=== PATIENT | male | born 1955 | race Caucasian/White ===

== ENCOUNTER → 2021-07-12 10:28 | Outpatient (CLI) | payer MEDICARE, OTHER, SELFPAY ==
[2021-07-12 19:11] LABS: SARS-CoV-2 RNA PCR Positive
== END ==
PROVIDERS: PCP Physician Assistant; Visit Provider Physician Assistant
DX: U07.1 COVID-19 (principal)
CPT/HCPCS: C9803; U0003; U0005

== ENCOUNTER 2021-12-08 11:00 | Outpatient (RCR) | payer MEDICARE, OTHER, SELFPAY ==
[2021-12-08 11:14] VITALS: BMI 35.4
[2021-12-08 11:22] VITALS: BMI 35.4
== END 2022-01-19 13:45 | disposition home or self-care (01) ==
LOC: ANHDMC 11:00
PROVIDERS: PCP Physician Assistant; Visit Provider Internal Medicine Endocrinology, Diabetes & Metabolism
DX: E11.65 Type 2 diabetes mellitus with hyperglycemia (principal); Z71.89 Other specified counseling; Z71.3 Dietary counseling and surveillance
CPT/HCPCS: 97802; 99199; G0108

== ENCOUNTER 2024-04-01 12:17 | Outpatient (CLI) | payer MEDICARE, OTHER, SELFPAY ==
--- NOTE | ~2024-04-01 | US_ITS ---
Renal-Bladder ultrasound Clinical History: Abdominal pain Technique: Real-time sonographic imaging of the kidneys and urinary bladder was performed. Findings: The right kidney measures 11.7 cm in length and the left kidney measures 12.2 cm. There is no hydronephrosis or renal calculus identified. Renal cortical echogenicity is within normal limits. No renal mass lesion is identified. The urinary bladder is moderately distended at the time of this exam. No intraluminal echoes are iden tified. No abnormal wall thickening is seen. Impression: Unremarkable ultrasound of the kidneys and urinary bladder. Reviewed, dictated and finalized at location M. Impression: Unremarkable ultrasound of the kidneys and urinary bladder.
--- NOTE | ~2024-04-01 | XR_ITS ---
XR abdomen/kub 1V 04/01/2024 12:56 INDICATION: Abdomen pain TECHNIQUE: KUB COMPARISON: None FINDINGS: Bowel gas pattern is normal. There is no evidence of free air, mass, organomegaly, ascites or obstruction. No abnormal calculi are seen. The bones appear intact. There are cholecystectomy c lips. There are radiopaque devices beneath the pubic symphysis, likely related to penile prosthesis. IMPRESSION: 1: No acute abdominal abnormality identified. Reviewed, dictated and finalized at location B.
== END 2024-04-01 12:18 | disposition home or self-care (01) ==
LOC: ANHIMG 12:22
PROVIDERS: PCP Physician Assistant; Visit Provider Internal Medicine Endocrinology, Diabetes & Metabolism
DX: R10.9 Unspecified abdominal pain (principal)
CPT/HCPCS: 74018; 76775

== ENCOUNTER 2024-06-26 09:02 | Outpatient (CLI) | payer MEDICARE, OTHER, SELFPAY ==
--- NOTE | ~2024-06-26 | US_ITS ---
Limited Abdominal Sonogram: Real-time sonographic imaging of the right upper quadrant was performed. Clinical History: Family history of pancreatic cancer Findings: The liver appears echogenic, with no evidence of bile duct dilatation. Probable focal fatt y sparing or cyst near the gallbladder fossa. Main portal vein demonstrates normal direction of flow. The gallbladder is absent, compatible prior cholecystectomy. The common bile duct measures 4 mm. Th e visualized pancreas, aorta, and IVC are unremarkable. Impression: Diffuse fatty infiltration of the liver. Probable focal fatty sparing versus small cyst near the gall bladder fossa. Reviewed, dictated and finalized at location M. TER PLUMBING Impression: Diffuse fatty infiltration of the liver. Probable focal fatty sparing versus sm all cyst near the gallbladder fossa.
== END 2024-06-26 09:03 | disposition home or self-care (01) ==
LOC: MICIMG 09:04
PROVIDERS: PCP Physician Assistant; Visit Provider Physician Assistant
DX: K76.0 Fatty (change of) liver, not elsewhere classified (principal); Z80.0 Family history of malignant neoplasm of digestive organs
CPT/HCPCS: 76705

== ENCOUNTER 2024-09-17 10:12 | Outpatient (CLI) | payer MEDICARE, OTHER, SELFPAY ==
--- NOTE | ~2024-09-17 | CT_ITS ---
CT of the Abdomen: Indication: Disorder adrenal gland Technique: 2.5 mm axial scans were obtained through the abdomen prior to and following intravenous a dministration of 100 cc of Omnipaque 350. Dose reduction technique was used on this scan by utilizing automated exposure control and iterative reconstruction technique. The dose-length product (DLP) was 2401.66 mGy-cm. Findings: Scans through the lung bases are unremarkable. There is diffuse hepatic steatosis. Cholecystectomy clips are present. The spleen, pancreas, adrenals and kidneys are within normal limits. There are atherosclerotic calcifications of the aorta. Infrare nal abdominal aorta measures 3.1 cm in maximum diameter. No lymphadenopathy. Visualized bowel loops are unremarkable. No ascites. Impression: No adrenal abnormality seen. 3.1 cm infrarenal abdominal aortic aneurysm. Diffuse hepatic steatosis. Reviewed, dictated and finalized at [facility]. 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 3.1 cm infrarenal abdominal aortic aneurysm. Diffuse hepatic steatosis.
[2024-09-17 10:36] LABS: Estimated Glomerular Filt Rate 55
== END 2024-09-17 10:13 | disposition home or self-care (01) ==
LOC: MICIMG 10:14
PROVIDERS: PCP Physician Assistant; Visit Provider Internal Medicine Endocrinology, Diabetes & Metabolism
DX: I71.43 Infrarenal abdominal aortic aneurysm, without rupture (principal); K76.0 Fatty (change of) liver, not elsewhere classified; E27.9 Disorder of adrenal gland, unspecified
CPT/HCPCS: 74170; Q9967

== ENCOUNTER 2024-11-26 10:55 | Outpatient (CLI) | payer MEDICARE, OTHER, SELFPAY ==
--- NOTE | 2024-11-26 12:00 | NEURO_ITS ---
Impression: # Complains of numbness of feet. Known diabetic. ? # Axonal motor/sensory neuropathy. ? # Needle/EMG exam reveals neurogenic changes. ? # Clinical correlation recommended. Nerve Conduction Studies Anti Sensory Summary Table ?Stim Site NR Peak (ms) P-T Amp (?V) Site1 Site2 Delta-P (ms) Dist (cm) Malik (m/s) Left Sup Fibular Anti Sensory (Ant Lat Mall)??? NO RESPONSE 14 cm NR 14 cm Ant Lat Mall 16.0 Right Sup Fibular Anti Sensory (Ant Lat Mall) 14 cm ? 3.6 4.9 14 cm Ant Lat Mall 3.6 16.0 44 Left Sural Anti Sensory (Lat Mall)??? NO RESPONSE Calf NR Calf Lat Mall 16.0 Right Sural Anti Sensory (Lat Mall) Calf ? 3.6 9.1 Calf Lat Mall 3.6 16.0 44 Motor Summary Table ?Stim Site NR Onset (ms) O-P Amp (mV) Site1 Site2 Delta-0 (ms) Dist (cm) Malik (m/s) Left Peroneal Motor (Vastus Med) Ankle ? 4.1 1.5 Popit Ankle 10.4 42.0 40 Popit ? 14.5 1.2 Right Peroneal Motor (Vastus Med) Ankle ? 3.8 1.6 Popit Ankle 9.7 42.0 43 Popit ? 13.5 1.8 Left Tibial Motor (Abd Cerrato Brev) Ankle ? 4.5 1.4 Knee Ankle 10.2 43.0 42 Knee ? 14.7 1.2 Right Tibial Motor (Abd Cerrato Brev) Ankle ? 4.6 2.6 Knee Ankle 10.6 43.0 41 Knee ? 15.2 2.6 F Wave Studies ?NR F-Lat (ms) L-R F-Lat (ms) Left Peroneal (Mrkrs) (EDB) ? 58.62 1.92 Right Peroneal (Mrkrs) (EDB) ? 56.70 1.92 Left Tibial (Mrkrs) (Abd Hallucis) ? 57.75 0.69 Right Tibial (Mrkrs) (Abd Hallucis) ? 58.44 0.69 EMG ?Side Muscle Nerve Root Ins Act Fibs Amp Dur Recrt Comment Right AntTibialis Dp Br Fibular L4-5 Nml Nml Nml >12ms +1 Right Gastroc Tibial S1-2 Nml Nml Nml >12ms +1 Right Fibularis Long Sup Br Fibular L5-S1 Nml Nml Nml >12ms +1 Right Flex Dig Long Tibial L5-S2 Nml Nml Nml >12ms +1 Right Ext Dig Brev Dp Br Fibular L5, S1 Nml Nml Nml >12ms +2 Right QuadratusFem QuadFemoris L4-5, S1 Nml Nml Nml Nml Nml Left AntTibialis Dp Br Fibular L4-5 Nml Nml Nml >12ms +1 Left Gastroc Tibial S1-2 Nml Nml Nml >12ms +1 Left Fibularis Long Sup Br Fibular L5-S1 Nml Nml Nml >12ms +1 Left Flex Dig Long Tibial L5-S2 Nml Nml Nml >12ms +1 Left Ext Dig Brev Dp Br Fibular L5, S1 Nml Nml Nml >12ms +2 Left QuadratusFem QuadFemoris L4-5, S1 Nml Nml Nml Nml Nml MTDD
--- OUTSIDE RECORDS SUMMARY | 2024-11-26 12:41 | XMS_ITS | Encounter Summary ---
Author Organization [facility] Address [address] [place] [address] Phone Care Team Providers Care Vault Installer Name Role Phone Sri Camargo Primary Care Pr ovider Herbert Forrest MD Unavailable [phone] Cynthia Grande RN Unavailable Unavailable Eduarda Ford MD Unavailable Encounter Details Date Type Department Care Team (Latest Contact Info) Description 05/06/2020 Orders Only [facility] Scanning, Provider Social History Tobacco Use Types Packs/Day Years Used Date Smoking Tobacco: Former Smokeless Tobacco: Never Alcohol Use Standard Drinks/Week Comments Yes 0 (1 standard drink = 0.6 oz pur e alcohol) Sex and Gender Information Value Date Recorded Sex Assigned at Not on file Legal Sex Male 3:10 AM FRAME STRIPPER Gender Identity Male 04/20/2021 11:20 AM CDT Sexual Orientation Straight 12/04/2018 5: 46 PM CDT documented as of this encounter Plan of Treatment Not on file documented as of this encounter Procedures Procedure Name Priority Date/Time Associated Diagnosis Comments SCAN - LABS 05/06/2020 documented in this encounter Results * SCAN - LABS (05/06/2020) us Provider Scanning Final Result documented in this encounter Visit Diagnoses Not on filedocumented in this encounter Care Teams Vault Installer Relationship Specialty Start Date End Date Sri Camargo PA PCP - General Physician Carbon Cleaner 04/19/18 Herbert Forrest MD [address] [place] [address] Referring Physician Pulmonary Disease 10/16/18 Cynthia Grande, RN Registered Nurse 03/19/19 Eduarda Ford MD Consulting Physician Urology 04/10/20 documented as of this encounter
--- OUTSIDE RECORDS SUMMARY | 2024-11-26 12:41 | XMS_ITS | Data Portability ---
Author Organization [facility] Address [address] [place] [address] Care Team Providers Care Lining Finisher Name Role Phone GEORGE AU Primary Care Provider GEORGE AU Referring Provider HALINA SCHAEFER Orthopedic Surgeon [phone] Assessment No assessment recorded. Plan of Treatment Reminders Order Date Submit Date Provider Last Modified By Organization Details Last Modified Time Details Appointments None record ed. Lab None record ed. Referral None record ed. Procedures None record ed. Surgeries None record ed. Imaging None record ed. Medication Orders None record ed. Patient TargetsNo targets recorded. Patient InstructionsNo instructions recorded. Reason for Referral None Reported. Results Created Date Observation Date Name Description Value Unit Range Abnormal Flag Note LastModifiedBy Organization Detail LastModifiedTime 03/29/20 24 03/28/2024 XR, hand, 3 or more view No observ ation record ed. [address], [address], 04/01/2024 10:36:06 Result Notes None recorded. Problems Name Problem SNOMED Code Status Onset Date Resolution Date Notes Provider Name and Address Organization Details Recorded Time Diabetes mellitus 48397859 Active 2023 Tammy martin [facility] 4 16:34:56 Hypertrigly ceridemia 400889020 Active 2023 Tammy martin, [facility] 4 16:35:07 Mixed hyperlipide maddie 950913629 Active 2023 Tammy martin, [facility] 08/09/202 4 16:35:16 Hyperlipide maddie 46788773 Active 2023 Tammy Freemandisha null, [facility] 16:35:25 Obstructive sleep apnea syndrome 67048072 Active 2023 Tammy Yusufalyx null, [facility] 16:35:42 Hypertensiv e disorder 47969327 Active 2023 Tammy Hanaylx null, [facility] 16:35:50 Coronary arterioscle rosis 93511735 Active 2023 Tammymaverick Freemandisha null, [facility] 16:36:01 Deep venous thrombosis 866549271 Active 2023 Tammy Yusufalyx null, [facility] 16:36:11 Malignant tumor of lung 678809268 Active 2023 Tammyniharika Yusufalyx null, [facility] 16:36:33 Coronary artery bypass graft Active 2023 Tammy Freemandisha null, [facility] 16:37:08 Pain in right hand 5539552871539 09 Active 2023 Tammy Freemandisha null, [facility] 4 11:33:00 Acquired trigger finger of right ring finger 8843689453434 08 Active 2023 Halina Schaefer MD [address] [place], [address] [place] [address] 4 12:01:11 Problem Notes None recorded. Procedures Surgical History Date Name Laterality Status Provider Name and Address Organization Details Recorded Time Bypass completed Tammy Chavez [facility] 03/15/2024 16:39:03 Colonoscopy completed Tammy Chavez [facility] 03/15/2024 16:39:12 lobectomy of lung completed Tammy Chavez [facility] 03/15/2024 16:39:27 Imaging Results Imaging Date Name Status LastModified by Organiz ation Details LastModified Time 03/28/2024 XR, hand, 3 or more view completed [address], [address], 04/01/2024 10:36:06 Procedure Notes None recorded. Medical Equipment None Reported. Allergies No known drug allergies Medications Name Sig Start Date Stop Date Status Note LastModified by Organization Details LastModified Time warfarin 10 mg tablet TAKE 1 TABLET BY MOUTH DAILY OR DIRECTED active Not Available Not Available No t Available prednisone 20 mg tablet TAKE 1 TABLET BY MOUTH DAILY FOR 4 DAYS active Not Available Not Available No t Available metoprolol succinate ER 100 mg tablet,exte nded release 24 hr active Not Available Not Available Not Available metronidazo le 500 mg tablet TAKE 1 TABLET BY MOUTH EVERY 8 HOURS active Not Available Not Available No t Available glimepiride 2 mg tablet TAKE 2 TABLETS BY MOUTH TWICE DAILY WITH MEALS 03/15 completed Not Available Not Available Not Available isosorbide mononitrate ER 120 mg tablet,exte nded release 24 hr active Not Available Not Available Not Available alprazolam 0.25 mg tablet TAKE 1-2 TABLETS BY MOUTH 30 MINUTES PRIOR TO INJECTION active Not Available Not Available No t Available dexamethaso ne 1 mg tablet TAKE 1 TABLET BY MOUTH AT 10PM THE NIGHT BEFORE 8AM CORTISOL active Not Available Not Available No t Available amlodipine 10 mg tablet active Not Available Not Available Not Available triamcinolo ne acetonide 0.1 % topical ointment APPLY TO THE AFFECTED AREA ON HAND TWICE DAILY NEEDED active Not Available Not Available No t Available glimepiride 4 mg tablet TAKE 1 TABLET BY MOUTH TWICE DAILY DIRECTED active Not Available Not Available No t Available losartan 25 mg tablet TAKE 1 TABLET BY MOUTH EVERY DAY IN THE MORNING FOR 90 DAYS active Not Available Not Available No t Available nitroglycer in 0.[address] 1 TABLET UNDER TONGUE EVERY 5 MINUTES NEEDED FOR CHEST PAIN active Not Available Not Available No t Available enoxaparin 150 mg/mL subcutaneou s syringe INJECT 1ML (150MG) SUBCUTANE OUSLY ONCE DAILY. START AND STOP DIRECTED BY PROVIDER BASED ON PROCEDURE S active Not Available Not Available No t Available warfarin 1 mg tablet TAKE 3 TABLETS BY MOUTH EVERY DAY ALONG WITH ONE 10MG TABLET TO EQUAL 13MG PER DAY BASED ON INR active Not Available Not Available No t Available epinephrine 0.3 mg/0.3 mL injection, auto-inject or USE DIRECTED NEEDED active Not Available Not Available No t Available methylpredn isolone 4 mg tablets in a dose pack FOLLOW PACKAGE DIRECTION S active Not Available Not Available No t Available ketoconazol e 2 % topical cream APPLY TOPICALLY TO FEET TWICE DAILY FOR 3 WEEKS NEEDED active Not Available Not Available No t Available metformin ER 500 mg tablet,exte nded release 24 hr TAKE 2 TABLETS BY MOUTH TWICE DAILY active Not Available Not Available No t Available amoxicillin 875 mg-potassiu m clavulanate 125 mg tablet TAKE 1 TABLET BY MOUTH EVERY 12 HOURS 03/15 completed Not Available Not Available Not Available ezetimibe 10 mg tablet TAKE 1 TABLET BY MOUTH ONCE DAILY active Not Available Not Available No t Available cyclobenzap rine 5 mg tablet TAKE 1 TABLET BY MOUTH THREE TIMES DAILY active Not Available Not Available No t Available fenofibrate 160 mg tablet TAKE 1 TABLET BY MOUTH EVERY DAY active Not Available Not Available No t Available OneTouch Verio test strips USE TO TEST EVERY DAY DIRECTED active Not Available Not Available No t Available BD Insulin Syringe Ultra-Fine 1 mL 31 gauge x 5/16 USE DIRECTED FOR ALLERGY INJECTION S 6 TIMES A WEEK active Not Available Not Available No t Available Trulicity 1.5 mg/0.5 mL subcutaneou s pen injector INJECT 1.5MG SUBCUTANE OUSLY ONCE WEEKLY active Not Available Not Available No t Available OneTouch Delica Plus Lancet 33 gauge USE EVERY DAY DIRECTED active Not Available Not Available No t Available OneTouch Delica Plus Lancet 30 gauge USE TO CHECK BLOOD SUGAR EVERY DAY active Not Available Not Available No t Available OneTouch Verio Reflect Meter DIRECTED active Not Available Not Available No t Available Trulicity 3 mg/0.5 mL subcutaneou s pen injector INJECT 1 PEN UNDER THE SKIN ONCE WEEKLY AT DINNER TIME DIRECTED active Not Available Not Available No t Available Ozempic 0.25 mg or 0.5 mg (2 mg/3 mL) subcutaneou s pen injector INJECT 0.5MG UNDER THE SKIN EVERY WEEK DIRECTED active Not Available Not Available No t Available Vitals Date Recorded Body weight Body mass index (BMI) Body height Heart rate Oxygen saturation Oxygen saturation in Arterial blood by Pulse oximetry Systolic blood pressure Diastolic blood pressure Provider Name and Address Organization Details Last Updated DateTime 4 550319. 13 g 35.2 kg/m2 177.8 cm 67 /min 95 % 95 % 154 mm[Hg] 80 mm[Hg] Tammy Chavez [facility] 4 11:30:59 Date Recorded Body height Body mass index (BMI) Body weight Heart rate Oxygen saturation Oxygen saturation in Arterial blood by Pulse oximetry Systolic blood pressure Diastolic blood pressure Provider Name and Address Organization Details Last Updated DateTime 4 177.8 cm 35 kg/m2 132332. 54 g 61 /min 96 % 96 % 148 mm[Hg] 73 mm[Hg] Tammy Chavez [facility] 4 11:08:32 Social History Question Answer Notes LastModified by Organizat ion Details LastModified Time Tobacco Smoking Status Former Smoker Tammy Chavez [facility] 03/15/2024 16:38:43 When Did You Quit Smoking? 6-10yearssin celastcigare tte Information not available 03/15/2024 What Was The Date Of Your Most Recent Tobacco Screening? 07/11/2024 Information not available 06/14/2024 What Is Your Current Pack Years? 30ormorepack years Information not available 03/15/2024 At What Age Did You Start Smoking Tobacco? 16 Information not available 03/15/2024 How Much Tobacco Do You Smoke? No Information not available 03/15/2024 Has Tobacco Cessation Counseling Been Provided? No Information not available 06/14/2024 How Many Years Have You Smoked Tobacco? 30 Information not available 03/15/2024 Do You Or Have You Ever Used Any Other Forms Of Tobacco Or Nicotine? No Information not available 03/15/2024 Sex: Unknown Functional Status None recorded. Mental Status None recorded. Family History Nothing Reported. Medical History Condition Response DVT Y CANCER: SPECIFY Y DIABETES, TYPE Y LUNG DISEASE/DISORDER SLEEP DISORDER Y HYPERTENSION Y HIGH CHOLESTEROL / HYPERLIPIDEMIA Y Past Encounters Encounter ID Performer Location Encounter Start Date Encounter Closed Date Diagnosis/Indication Diagnosis SNOMED-CT Code Diagnosis ICD10 Code Diagnosis Note [id number] Halina Schaefer MD [facility] [address] [place] [address] 03/28/2024 11:23:39 03/28/2024 12:07:51 Ex-cigarette smoker 290285606 Z87.891 Body mass index 30+ - obesity 667017020 Z68.35 Acquired t damper fitter finger of right ring finger 2511968340 47830 M65.341 we will set the patient to do a MAC local. Patient has stent 10 years ago he was seen by cardiology and was doing fine as last visit. Patient had lung cancer in the past does not use any oxygen and was years ago since his long surgery should be fine for MAC local. [id number] Halina Schaefer MD [facility] [address] [place] [address] 05/09/2024 10:51:11 05/09/2024 11:27:27 Acquired trigger finger of right ring finger 2995665061 06397 M65.341 remove sutures work on nerve and tendon glides and we will see him back again for follow-up in a few months. Ex-cigarette smoker 2810 [address] Z87.891 Body mass index 30+ - obesity 723693017 Z68.35 Health Concerns Section Related Observation LastModified by Organization Detai ls LastModified Time None Recorded Concern Status LastModified by Organization Details LastModified Time None Recorded Advance Directives Directive None Recorded Payers Encounter Date Sequence Insurance Name Policy Number Policy Perkins Covered Member ID Perkins Member ID Guarantor Name 03/28/2024 1 [place] Brayan Holt [id number] 5 Brayan Holt 05/09/2024 1 [place] Brayan Holt [id number] 5 Brayan Holt 05/09/2024 2 [facility] (MEDICARE SUPPLEMENT) Brayan Holt [id number] Brayan Holt Notes Date Note Type Note Provider Name and Address Organization Details Recorded Time 03/28/2024 text/html Patient has fail ed conservative treatment for right ring trigger finger he did well with surgery for the right long finger wants to proceed with surgery having failed the injections Halina Schaefer MD [address] [place], [address], [facility] 03/28/2024 12:02:07 05/09/2024 text/html patient is doing very well after the right ring trigger finger release comes in today for follow-up no further triggering of any thumbs or fingers Halina Schaefer MD [address] [place], [address], [facility] 05/09/2024 11:23:58
--- OUTSIDE RECORDS SUMMARY | 2024-11-26 12:41 | XMS_ITS | Encounter Summary ---
Author Organization [facility] Address [address] [place] [address] Phone Care Team Providers Care Hair Boiler Name Role Phone CarlineadriánSri Primary Care Pr ovider Herbert Forrest MD Unavailable [phone] Cynthia Grande RN Unavailable Unavailable Eduarda Ford MD Unavailable [phone] Encounter Details Date Type Department Care Team (Latest Contact Info) Description 11/13/2021 Orders Only [facility] Scanning, Provider Social History Tobacco Use Types Packs/Day Years Used Date Smoking Tobacco: Former Cigarettes 1.5 44.7 1 972 - 04/2016 Smokeless Tobacco: Never Alcohol Use Standard Drinks/Week Comments Yes 0 (1 standard drink = 0.6 oz pur e alcohol) AUDIT-C Answer Date Recorded Q1: How often do you have a drink containing alc ohol? 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 Gender Identity Male 04/20/2021 11:20 AM CDT Sexual Orientation Straight 12/04/2018 5: 46 PM CDT documented as of this encounter Plan of Treatment Not on file documented as of this encounter Procedures Procedure Name Priority Date/Time Associated Diagnosis Comments SCAN - LABS 11/13/2021 documented in this encounter Results * SCAN - LABS (11/13/2021) us Provider Scanning Final Result documented in this encounter Visit Diagnoses Not on filedocumented in this encounter Care Teams Hair Boiler Relationship Specialty Start Date End Date CarlineSri sampson ROBBIN Rodríguez PCP - General Physician Briar Shop Supervisor 04/19/18 Herbert Forrest MD [address] [place] [address] Referring Physician Pulmonary Disease 10/16/18 Cynthia Grande, RN Registered Nurse 03/19/19 Eduarda Ford MD Consulting Physician Urology 04/10/20 documented as of this encounter
--- OUTSIDE RECORDS SUMMARY | 2024-11-26 12:41 | XMS_ITS | Encounter Summary ---
Author Organization [facility] Address [address] [place] [address] Phone Care Team Providers Care System Support Developer Name Role Phone Sri Camargo Primary Care Pr ovider Herbert Forrest MD Unavailable [phone] Cynthia Grande RN Unavailable Unavailable Eduarda Ford MD Unavailable [phone] Encounter Details Date Type Department Care Team (Latest Contact Info) Description 07/06/2020 Orders Only [facility] Scanning, Provider Social History Tobacco Use Types Packs/Day Years Used Date Smoking Tobacco: Former Smokeless Tobacco: Never Alcohol Use Standard Drinks/Week Comments Yes 0 (1 standard drink = 0.6 oz pur e alcohol) Sex and Gender Information Value Date Recorded Sex Assigned at Not on file Legal Sex Male 3:10 AM CLIENT EXPERIENCE MANAGER Gender Identity Male 04/20/2021 11:20 AM CDT Sexual Orientation Straight 12/04/2018 5: 46 PM CDT documented as of this encounter Plan of Treatment Not on file documented as of this encounter Procedures Procedure Name Priority Date/Time Associated Diagnosis Comments SCAN - LABS 07/06/2020 documented in this encounter Results * SCAN - LABS (07/06/2020) us Provider Scanning Final Result documented in this encounter Visit Diagnoses Not on filedocumented in this encounter Care Teams System Support Developer Relationship Specialty Start Date End Date Sri Camargo PA PCP - General Physician Video Clerk 04/19/18 Herbert Forrest MD [address] [place] [address] Referring Physician Pulmonary Disease 10/16/18 Cynthia Grande, RN Registered Nurse 03/19/19 Eduarda Ford MD Consulting Physician Urology 04/10/20 documented as of this encounter
--- OUTSIDE RECORDS SUMMARY | 2024-11-26 12:41 | XMS_ITS | Encounter Summary ---
Author Organization [facility] Address [address] [place] [address] Phone Care Team Providers Care Shear Grinder Operator Helper Name Role Phone Sri Camargo Primary Care Pr ovider Herbert Forrest MD Unavailable [phone] Cynthia Grande RN Unavailable Unavailable Eduarda Ford MD Unavailable [phone] Encounter Details Date Type Department Care Team (Latest Contact Info) Description 08/31/2020 Orders Only [facility] Scanning, Provider Social History Tobacco Use Types Packs/Day Years Used Date Smoking Tobacco: Former Smokeless Tobacco: Never Alcohol Use Standard Drinks/Week Comments Yes 0 (1 standard drink = 0.6 oz pur e alcohol) Sex and Gender Information Value Date Recorded Sex Assigned at Not on file Legal Sex Male 3:10 AM COMMUNICATION ASSISTANT Gender Identity Male 04/20/2021 11:20 AM CDT Sexual Orientation Straight 12/04/2018 5: 46 PM CDT documented as of this encounter Plan of Treatment Not on file documented as of this encounter Procedures Procedure Name Priority Date/Time Associated Diagnosis Comments SCAN - LABS 08/31/2020 documented in this encounter Results * SCAN - LABS (08/31/2020) us Provider Scanning Final Result documented in this encounter Visit Diagnoses Not on filedocumented in this encounter Care Teams Shear Grinder Operator Helper Relationship Specialty Start Date End Date Sri Camargo PA PCP - General Physician Director Of Casework Department 04/19/18 Herbert Forrest MD [address] [place] [address] Referring Physician Pulmonary Disease 10/16/18 Cynthia Grande, RN Registered Nurse 03/19/19 Eduarda Ford MD Consulting Physician Urology 04/10/20 documented as of this encounter
--- OUTSIDE RECORDS SUMMARY | 2024-11-26 12:41 | XMS_ITS | Encounter Summary ---
Author Organization [facility] Address [address] [place] [address] Phone Care Team Providers Care Instructional Systems Designer Name Role Phone Sri Camargo Primary Care Pr ovider Herbert Forrest MD Unavailable [phone] Cynthia Grande RN Unavailable Unavailable Eduarda Ford MD Unavailable [phone] Encounter Details Date Type Department Care Team (Latest Contact Info) Description 04/30/2020 Orders Only [facility] Scanning, Provider Social History Tobacco Use Types Packs/Day Years Used Date Smoking Tobacco: Former Smokeless Tobacco: Never Alcohol Use Standard Drinks/Week Comments Yes 0 (1 standard drink = 0.6 oz pur e alcohol) Sex and Gender Information Value Date Recorded Sex Assigned at Not on file Legal Sex Male 3:10 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 Gender Identity Male 04/20/2021 11:20 AM CDT Sexual Orientation Straight 12/04/2018 5: 46 PM CDT documented as of this encounter Plan of Treatment Not on file documented as of this encounter Procedures Procedure Name Priority Date/Time Associated Diagnosis Comments SCAN - LABS 04/30/2020 documented in this encounter Results * SCAN - LABS (04/30/2020) us Provider Scanning Final Result documented in this encounter Visit Diagnoses Not on filedocumented in this encounter Care Teams Instructional Systems Designer Relationship Specialty Start Date End Date Sri Camargo PA PCP - General Physician Mail Clerk 04/19/18 Herbert Forrest MD [address] [place] [address] Referring Physician Pulmonary Disease 10/16/18 Cynthia Grande, RN Registered Nurse 03/19/19 Eduarda Ford MD Consulting Physician Urology 04/10/20 documented as of this encounter
--- OUTSIDE RECORDS SUMMARY | 2024-11-26 12:41 | XMS_ITS | Encounter Summary ---
Author Organization [facility] Address [address] [place] [address] Phone Care Team Providers Care Convolute Tube Winder Name Role Phone Sri Camargo Primary Care Pr ovider Herbert Forrest MD Unavailable [phone] Cynthia Grande RN Unavailable Unavailable Eduarda Ford MD Unavailable [phone] Encounter Details Date Type Department Care Team (Latest Contact Info) Description 08/17/2020 Orders Only [facility] Scanning, Provider Social History Tobacco Use Types Packs/Day Years Used Date Smoking Tobacco: Former Smokeless Tobacco: Never Alcohol Use Standard Drinks/Week Comments Yes 0 (1 standard drink = 0.6 oz pur e alcohol) Sex and Gender Information Value Date Recorded Sex Assigned at Not on file 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 Gender Identity Male 04/20/2021 11:20 AM CDT Sexual Orientation Straight 12/04/2018 5: 46 PM CDT documented as of this encounter Plan of Treatment Not on file documented as of this encounter Procedures Procedure Name Priority Date/Time Associated Diagnosis Comments SCAN - LABS 08/17/2020 documented in this encounter Results * SCAN - LABS (08/17/2020) us Provider Scanning Final Result documented in this encounter Visit Diagnoses Not on filedocumented in this encounter Care Teams Convolute Tube Winder Relationship Specialty Start Date End Date Sri Camargo PA PCP - General Physician Broiler Supervisor 04/19/18 Herbert Forrest MD [address] [place] [address] Referring Physician Pulmonary Disease 10/16/18 Cynthia Grande, RN Registered Nurse 03/19/19 Eduarda Ford MD Consulting Physician Urology 04/10/20 documented as of this encounter
--- OUTSIDE RECORDS SUMMARY | 2024-11-26 12:41 | XMS_ITS | Clinical Summary ---
Author Organization [facility] Address [address] [place] [address] [facility] [place] [address] Care Team Providers Care Director Of Marketing And Promotions Name Role Phone Unavailable Primary Care Provider Unavailabl e Allergies No known active allergies Medications dulaglutide (Trulicity) 3 mg/0.5 mL injection INJECT 3 MG UNDER THE SKIN ONCE WEEKLY. 2 mL 11 01/31/2024 5:27 PM CDT 11/13/2023 Active Social History Tobacco Use Types Packs/Day Years Used Date Smoking Tobacco: Never Assessed Sex and Gender Information Value Date Recorded Sex Assigned at Not on file Legal Sex Male 12:54 PM CDT Gender Identity Not on file Sexual Orientation Not on file Plan of Treatment Health Maintenance Due Date Last Done Comments DTAP/TDAP/TD VACCINES (1 - Tdap) 1975 COLORECTAL SCREENING 2001 Colorectal Cancer Screening 2001 FIT-DNA Q 3 years 2001 FIT/FOBT Q 1 year 2001 Flex Sig/CT Colonography Q 5 years 2001 PNEUMOCOCCAL VACCINE 50+ YEARS (1 of 1 - PCV) 05/05/20 06 ZOSTER VACCINE (1 of 2) 2006 INFLUENZA VACCINE (#1) 2024 RSV VACCINE (60+ or ) (1 - 1-dose 75+ series) 2031 Insurance [employer] Medicare Part D
--- OUTSIDE RECORDS SUMMARY | 2024-11-26 12:41 | XMS_ITS | Encounter Summary ---
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 Gender Identity Male 04/20/2021 11:20 AM CDT Sexual Orientation Straight 12/04/2018 5: 46 PM CDT documented as of this encounter Plan of Treatment Not on file documented as of this encounter Procedures Procedure Name Priority Date/Time Associated Diagnosis Comments SCAN - LABS 11/27/2021 documented in this encounter Results * SCAN - LABS (11/27/2021) us Provider Scanning Final Result documented in this encounter Visit Diagnoses Not on filedocumented in this encounter Care Teams Baggagemaster Relationship Specialty Start Date End Date CarlineSri sampson ROBBIN Rodríguez PCP - General Physician Door Patcher 04/19/18 Herbert Forrest MD [address] [place] [address] Referring Physician Pulmonary Disease 10/16/18 Cynthia Grande, RN Registered Nurse 03/19/19 Eduarda Ford MD Consulting Physician Urology 04/10/20 documented as of this encounter
--- OUTSIDE RECORDS SUMMARY | 2024-11-26 12:41 | XMS_ITS | Encounter Summary ---
Author Organization [facility] Address [address] [place] [address] Phone Care Team Providers Care Mixer Pigment Name Role Phone Sri Camargo Primary Care Pr ovider Herbert Forrest MD Unavailable [phone] Cynthia Grande RN Unavailable Unavailable Eduarda Ford MD Unavailable [phone] Encounter Details Date Type Department Care Team (Latest Contact Info) Description 06/10/2020 Orders Only [facility] Scanning, Provider Social History Tobacco Use Types Packs/Day Years Used Date Smoking Tobacco: Former Smokeless Tobacco: Never Alcohol Use Standard Drinks/Week Comments Yes 0 (1 standard drink = 0.6 oz pur e alcohol) Sex and Gender Information Value Date Recorded Sex Assigned at Not on file Legal Sex Male 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 Gender Identity Male 04/20/2021 11:20 AM CDT Sexual Orientation Straight 12/04/2018 5: 46 PM CDT documented as of this encounter Plan of Treatment Not on file documented as of this encounter Procedures Procedure Name Priority Date/Time Associated Diagnosis Comments SCAN - LABS 06/10/2020 documented in this encounter Results * SCAN - LABS (06/10/2020) us Provider Scanning Final Result documented in this encounter Visit Diagnoses Not on filedocumented in this encounter Care Teams Mixer Pigment Relationship Specialty Start Date End Date Sri Camargo PA PCP - General Physician Farm Products Shipper 04/19/18 Herbert Forrest MD [address] [place] [address] Referring Physician Pulmonary Disease 10/16/18 Cynthia Grande, RN Registered Nurse 03/19/19 Eduarda Ford MD Consulting Physician Urology 04/10/20 documented as of this encounter
--- OUTSIDE RECORDS SUMMARY | 2024-11-26 12:41 | XMS_ITS | Encounter Summary ---
Author Name [facility] Organization [facility] Address [address] [place] [address] Support Name Relationship Address Phone SHONHERMELINDA Next of Kin [address] [place] [address] HERMELINDA MENENDEZ Emergency Contact [address] [place] [address] Insurance Providers: All historical and current Section Date Range: From patient's date of to the date document was created. This section includes the names of all active insurance providers for the patient. Insurance Provider Type of Coverage Plan Name Start of Policy Coverage End of Policy Coverage Group Number Member ID Insurance Provider's Telephone Number Policy Perkins's Name Patient's Relationship to Policy Perkins MEDICARE (WNR) MEDICARE (M) PART A Oct 05, 2018 PART A [id number] [phone] SHON,T ERRY PATIENT MEDICARE (WNR) MEDICARE (M) PART B Oct 05, 2018 PART B [id number] Jose Elias MENENDEZ ERRY PATIENT [employer] [facility] PLAN G MEDIC ARE SUPPL EMENT Apr 07, 2021 PLAN G [id number] [phone] SHON,T ERRY PATIENT Selected Encounter This section includes the information on record at [place] for the Encounter. Date/Time Encounter Type Encounter Description Reason Provider Source Feb 19, 2024 10:00 AM HEARING AID FITTING/CHECKIN G AUDIOLOGY ICD-10-CM H90.3 Sensorineural hearing loss, bilateral JUAN DUBON Encounter Template Text not used by [place] Assessments - Encounter Diagnoses This section includes the primary and secondary diagnoses documented for the Encounter. Date/Time Primary/Secondary Diagnosis Diagnosis Name Provider Source Feb 19, 2024 10:48 AM PRIMARY Sensorineural hearing loss, bilateral BRENTON DUBON [facility] Encounter Notes: All associated encounter notes This section contains the clinical notes associated to the Encounter. Date/Time Encounter Note(s) Provider Source Feb 19, 2024 10:03 AM AUDIOLOGY ENTRY LEVEL CHEMIST NOTE: LOCAL TITLE: HEARING AIDS [facility] STANDARD TITLE: AUDIOLOGY ENTRY LEVEL CHEMIST NOTE DATE OF NOTE: FEB 19, 2024@10:03 ENTRY DATE: FEB 19, 2024@10:03:24 AUTHOR: VITA DUBON COSIGNER: URGENCY: STATUS: COMPLETED SUBJECT: Audio HAC Purcell reported to clinic today for a hearing aid check. reports that right now and 90% of the time he is talking with others, it sounds like he is wearing earmuffs. Purcell reports that he takes them out in noisy situations because the background noise is too much and he can't turn it down. Purcell was accompanied to today's appointment by , Hermelinda. Otoscopy: clear, AU. 02/23/23 PHONAK AUDEO L90-RL KAYLI R [id number] 03/18/26 08/16/23 [facility] ([facility]) 02/23/23 PHONAK AUDEO L90-RL KAYLI L [id number] 03/18/26 08/16/23 [facility] ([facility]) [2M canal c-shells] 's hearing aids were cleaned and checked; wax guards replaced & microphone ports brushed; listening check revealed WNL device function. Devices connected to JAVAN and data logging revealed approximately 10.6 hours of daily use. Firmware updated. Hearing aids programmed using conformity measures to verify prescription targets; curves save in JAVAN. o Coupling verified in fitting software. o Reprogrammed to most recent audiometric data using NAL-NL2 targets. o Feedback video arcade manager run. o Frequency lowering disabled. Adjustments made following conformity measures: o Reduced gain in areas with potential feedback. o Acclimatization set to 90%. o All AutoSense programs: increased soft noise reduction to 4 (mild). Purcell is satisfied with sound quality and level of devices; no additional adjustments made. RECOMMENDATIONS: 1. Purcell to contact [facility] Audiology and RTC as needed. /es/ FERMÍN FONG Staff Artificial Log Machine Operator, ROSANA, CCC-A Signed: 02/19/2024 10:49 FERMÍN DUBON [facility]
--- OUTSIDE RECORDS SUMMARY | 2024-11-26 12:41 | XMS_ITS | Encounter Summary ---
Author Organization [facility] Address [address] [place] [address] Phone Care Team Providers Care Auto Seat Cover Installer Name Role Phone Sri Camargo Primary Care Pr ovider Herbert Forrest MD Unavailable [phone] Cynthia Grande RN Unavailable Unavailable Eduarda Ford MD Unavailable [phone] Encounter Details Date Type Department Care Team (Latest Contact Info) Description 05/23/2020 Orders Only [facility] Scanning, Provider Social History Tobacco Use Types Packs/Day Years Used Date Smoking Tobacco: Former Smokeless Tobacco: Never Alcohol Use Standard Drinks/Week Comments Yes 0 (1 standard drink = 0.6 oz pur e alcohol) Sex and Gender Information Value Date Recorded Sex Assigned at Not on file Legal Sex Male 3:10 AM REGISTERED ART 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 Gender Identity Male 04/20/2021 11:20 AM CDT Sexual Orientation Straight 12/04/2018 5: 46 PM CDT documented as of this encounter Plan of Treatment Not on file documented as of this encounter Procedures Procedure Name Priority Date/Time Associated Diagnosis Comments SCAN - LABS 05/23/2020 documented in this encounter Results * SCAN - LABS (05/23/2020) us Provider Scanning Final Result documented in this encounter Visit Diagnoses Not on filedocumented in this encounter Care Teams Auto Seat Cover Installer Relationship Specialty Start Date End Date Sri Camargo PA PCP - General Physician Jack [employer] All Trades 04/19/18 Herbert Forrest MD [address] [place] [address] Referring Physician Pulmonary Disease 10/16/18 Cynthia Grande, RN Registered Nurse 03/19/19 Eduarda Ford MD Consulting Physician Urology 04/10/20 documented as of this encounter
--- OUTSIDE RECORDS SUMMARY | 2024-11-26 12:41 | XMS_ITS | Encounter Summary ---
Author Organization [facility] Address [address] [place] [address] Phone Care Team Providers Care Spout Positioner Name Role Phone Yonny Ji MD Primary Care Prov ider Sri Camargo Primary Care Pr ovider Herbert Forrest MD Unavailable Cynthia Grande RN Unavailable Unavailable Eduarda Ford MD Unavailable [phone] Encounter Details Date Type Department Care Team (Latest Contact Info) Description 10/19/2017 Orders Only [facility] CONVERSION Scanning, Provider Social History Tobacco Use Types Packs/Day Years Used Date Smoking Tobacco: Former Alcohol Use Standard Drinks/Week Comments Yes 0 (1 standard drink = 0.6 oz pur e alcohol) Sex and Gender Information Value Date Recorded Sex Assigned at Not on file Legal Sex Male 3:10 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 Gender Identity Male 04/20/2021 11:20 AM CDT Sexual Orientation Straight 12/04/2018 5: 46 PM CDT documented as of this encounter Plan of Treatment Not on file documented as of this encounter Procedures Procedure Name Priority Date/Time Associated Diagnosis Comments VASCULAR LABORATORY REPORT 10/19/2017 9:13 AM CDT documented in this encounter Results * VASCULAR LABORATORY REPORT (10/19/2017 9:13 AM CDT) Anatomical Region Laterality Modality Ultrasound us Provider Scanning CV VASCULAR PROCEDURES Final R esult documented in this encounter Visit Diagnoses Not on filedocumented in this encounter Care Teams Spout Positioner Relationship Specialty Start Date End Date Yonny Ji MD [address] [place] [address] PCP - General 09/19/16 04/18/18 Sri Camargo PA [address] [place] [address] PCP - General Physician Professor Of Forest Planning 04/19/18 Herbert Forrest MD [address] [place] [address] Referring Physician Pulmonary Disease 10/16/18 Cynthia Grande, RN Registered Nurse 03/19/19 Eduarda Ford MD Consulting Physician Urology 04/10/20 documented as of this encounter
--- OUTSIDE RECORDS SUMMARY | 2024-11-26 12:41 | XMS_ITS ---
Author Organization [facility] Address [address] [facility] [place] [address] Care Team Providers Care Pearl Technician Name Role Phone Reba Brasher Primary Care Provider [phone] REASON FOR VISIT taco tee Encounters Encounter Location Date Provider Diagnosis [facility] [address] [facility] [place] [address] 09/04/2024 Reba Brasher Plan Of Treatment No Information Progress Notes * Reg MENENDEZOB:1955 (69 yo M)Acc No.[id number]:09/04/2024 Patient: Brayan GROVE :1955 A ge:69 Y S ex:Male Address:[address] [place] [address] * true * Date: Generated for Printi ng/Faxing/eTransmitting on: 0 11/26/2024 12:41 PM CDT
--- OUTSIDE RECORDS SUMMARY | 2024-11-26 12:41 | XMS_ITS ---
Author Organization [facility] Address [address] [place] [address] [place] [address] Care Team Providers Care Truck Hopper Name Role Phone GEORGE LITTLE Primary Care Provider Tio Quiroz Unavailable [phone] MIA BONILLA ASHLEY Unavailable Unavailable ALLERGIES No Known Allergies REASON FOR VISIT follow up MEDICATIONS Medication SIG (Take, Route, Frequency, Duration) Notes Start Date End Date Status amLODIPine Besylate 10 MG 1 tablet Orall y Once a day for 30 day(s) Active Glimepiride 4 MG 1 tablet with breakfast or the first main meal of the day Orally Once a day for 30 day(s) Active Warfarin Sodium 10 MG 1 tablet Orally On ce a day for 30 day(s) Active Isosorbide Mononitrate ER 12 0 MG 1 tablet in the morning Orally Once a day for 30 day(s) Active Fenofibrate 160 MG 1 tablet Orally Once a day for 30 day(s) Active Metoprolol Succinate 100 MG 1 capsule Or ally Once a day for 30 day(s) Active methylPREDNISolone 4 MG as directed Orally Active Aspirin 81 Active Ozempic (1 MG/DOSE) Active Ezetimibe 10 MG 1 tablet Orally Once a day for 30 day(s) Active metFORMIN HCl 1000 MG 1 tablet with a me al Orally Once a day for 30 day(s) Active SOCIAL HISTORY Tobacco Use: Social History Observation Description Date Details (start date - stop date) Former Smoker NA - NA Sex Assigned At : Social History Observation Description Sex Assigned At Unknown Tobacco Use/Smoking Question Answer Notes Are you a former smoker How long has it been since you last smoked? 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 ; keno terminal operator (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 of anticoagulants Z79.01 ; Other intervertebral disc degeneration, lumbar region with discogenic back pain and lower extremity pain M51.362 and Spondylosis without myelopathy or radiculopathy, lumbosacral region M47.817 ASSESSMENTS Encounter Date Diagnosis Assessment Notes Treatment Notes Treatment Clinical Notes 09/11/2024 Lumbar radiculopathy (ICD-10 - M54.16) 09/11/2024 Spondylosis without myelopathy or radiculopathy, lumbar region (ICD-10 - M47.816) 09/11/2024 Spinal stenosis, lumbar region with neurogenic claudication (ICD-10 - M48.062) 09/11/2024 Other intervertebral disc degeneration, lumbar region (ICD-10 - M51.36) 09/11/2024 Chronic pain syndrom e (ICD-10 - G89.4) 09/11/2024 Fear of injections and transfusions (ICD-10 - F40.231) 09/11/2024 correction (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 of anticoagulants (ICD-10 - Z79.01) 09/11/2024 Other intervertebral disc degeneration, lumbar region with discogenic back pain and lower extremity pain (ICD-10 - M51.362) 09/11/2024 Spondylosis without myelopathy or radiculopathy, lumbosacral region (ICD-10 - M47.817) PLAN OF TREATMENT Next Appt Details Provider Name:Tio lang, 12/06/2024 12:00:00 PM, [address] [place], [address], Progress Notes * Examination Category Sub-Category Detail Notes Examination/ Pre-Anesthesia Assessment General: The patient is alert and omayra ented X 3 in moderate distress secondary to pain HEENT: Normocephalic, atrau matic. PERRL. The oropharynx is clear Neck: There is full range of motion of the cervical spine Heart: Regular rate and rhy thm Chest: Clear to auscultatio n bilaterally Abdomen: Soft and benign with normal bowel sounds throughout Musculoskeletal and Extremities: There i s tenderness to palpation over the bilateral L2-3 through L5-S1 facet joints. Extension and lateral rotation of the lumbar spine reproduces the patient's typical axial low back pain. Yonny's, [place]'s and Gaenslen's are positive bilaterally. There is tenderness to palpation over the bilateral sacroiliac joints and greater trochanters. There is tenderness to palpation over the bilateral lumbar paraspinal muscles Neurological: There is positive st raight leg raising on the right. There is 4 out of 5 strength at the right knee extensors and anterior tibialis. Otherwise, there are no focal strength deficits in the remainder of the right lower extremity and entire left lower extremity Skin: Clean, dry and intac t Psychiatric: Mood and affect are normal History and Physical Notes * HPI (History of Present Illness) Category Sub-Category Detail Notes Pain Management Radiographic Imaging An MRI lumb ar spine done on 04/03/24 DDD and bilateral facet arthropathy at all levels of the lumbar spine. At L2-3 there is mild bilateral foraminal stenosis. At L3-4 there is a posterior disc bulge and in combination with congenital spinal stenosis there is mild central canal and moderate bilateral foraminal stenosis. At L4-5 there is moderate central canal, severe right and moderate to severe left foraminal stenosis. At L5-S1 there is a central disc bulge in combination with facet hypertrophy there is moderate to severe bilateral foraminal stenosis Assessment and Follow-up: Follow-up Plan charito kenya:: Yes MIPS Quality 2020: MIPS Documented:: Compliant
--- OUTSIDE RECORDS SUMMARY | 2024-11-26 12:41 | XMS_ITS | Encounter Summary ---
Author Organization [facility] Address [address] [place] [address] Phone Care Team Providers Care Seed Cutter Name Role Phone Sri Camargo Primary Care Pr ovider Herbert Forrest MD Unavailable [phone] Cynthia Grande RN Unavailable Unavailable Eduarda Ford MD Unavailable [phone] Encounter Details Date Type Department Care Team (Latest Contact Info) Description 08/03/2020 Orders Only [facility] Scanning, Provider Social History Tobacco Use Types Packs/Day Years Used Date Smoking Tobacco: Former Smokeless Tobacco: Never Alcohol Use Standard Drinks/Week Comments Yes 0 (1 standard drink = 0.6 oz pur e alcohol) Sex and Gender Information Value Date Recorded Sex Assigned at Not on file 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 Gender Identity Male 04/20/2021 11:20 AM CDT Sexual Orientation Straight 12/04/2018 5: 46 PM CDT documented as of this encounter Plan of Treatment Not on file documented as of this encounter Procedures Procedure Name Priority Date/Time Associated Diagnosis Comments SCAN - LABS 08/03/2020 documented in this encounter Results * SCAN - LABS (08/03/2020) us Provider Scanning Final Result documented in this encounter Visit Diagnoses Not on filedocumented in this encounter Care Teams Seed Cutter Relationship Specialty Start Date End Date Sri Camargo PA PCP - General Physician Mobile Service Rv Technician 04/19/18 Herbert Forrest MD [address] [place] [address] Referring Physician Pulmonary Disease 10/16/18 Cynthia Grande, RN Registered Nurse 03/19/19 Eduarda Ford MD Consulting Physician Urology 04/10/20 documented as of this encounter
--- OUTSIDE RECORDS SUMMARY | 2024-11-26 12:41 | XMS_ITS | Encounter Summary ---
Author Organization [facility] Address [address] [place] [address] Phone Care Team Providers Care Steward/Stewardess Second Name Role Phone Sri Camargo Primary Care Pr ovider Herbert Forrest MD Unavailable [phone] Cynthia Grande RN Unavailable Unavailable Eduarda Ford MD Unavailable [phone] Encounter Details Date Type Department Care Team (Latest Contact Info) Description 07/20/2020 Orders Only [facility] Scanning, Provider Social History Tobacco Use Types Packs/Day Years Used Date Smoking Tobacco: Former Smokeless Tobacco: Never Alcohol Use Standard Drinks/Week Comments Yes 0 (1 standard drink = 0.6 oz pur e alcohol) Sex and Gender Information Value Date Recorded Sex Assigned at Not on file 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 Gender Identity Male 04/20/2021 11:20 AM CDT Sexual Orientation Straight 12/04/2018 5: 46 PM CDT documented as of this encounter Plan of Treatment Not on file documented as of this encounter Procedures Procedure Name Priority Date/Time Associated Diagnosis Comments SCAN - LABS 07/20/2020 documented in this encounter Results * SCAN - LABS (07/20/2020) us Provider Scanning Final Result documented in this encounter Visit Diagnoses Not on filedocumented in this encounter Care Teams Steward/Stewardess Second Relationship Specialty Start Date End Date Sri Camargo PA PCP - General Physician Scientific Photographer 04/19/18 Herbert Forrest MD [address] [place] [address] Referring Physician Pulmonary Disease 10/16/18 Cynthia Grande, RN Registered Nurse 03/19/19 Eduarda Ford MD Consulting Physician Urology 04/10/20 documented as of this encounter
--- OUTSIDE RECORDS SUMMARY | 2024-11-26 12:41 | XMS_ITS | Encounter Summary ---
Author Organization [facility] Address [address] [place] [address] Phone Care Team Providers Care Supervisor Electronics Inspection Name Role Phone Yonny Ji MD Primary Care Prov ider Sri Camargo Primary Care Pr ovider Herbert Forrest MD Unavailable [phone] Cynthia Grande RN Unavailable Unavailable Eduarda Ford MD Unavailable [phone] Encounter Details Date Type Department Care Team (Latest Contact Info) Description 03/16/2017 Orders Only [facility] Scanning, Provider Social History Tobacco Use Types Packs/Day Years Used Date Smoking Tobacco: Former Alcohol Use Standard Drinks/Week Comments Yes 0 (1 standard drink = 0.6 oz pur e alcohol) Sex and Gender Information Value Date Recorded Sex Assigned at Not on file 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 Gender Identity Male 04/20/2021 11:20 AM CDT Sexual Orientation Straight 12/04/2018 5: 46 PM CDT documented as of this encounter Plan of Treatment Not on file documented as of this encounter Procedures Procedure Name Priority Date/Time Associated Diagnosis Comments VASCULAR LABORATORY REPORT 03/16/2017 10:22 AM CDT VASCULAR LABORATORY REPORT 03/16/2017 10:22 AM CDT VASCULAR LABORATORY REPORT 03/16/2017 10:21 AM CDT documented in this encounter Results * VASCULAR LABORATORY REPORT (03/16/2017 10:22 AM CDT) Anatomical Region Laterality Modality Ultrasound us Provider Scanning CV VASCULAR PROCEDURES Final R esult * VASCULAR LABORATORY REPORT (03/16/2017 10:22 AM CDT) Anatomical Region Laterality Modality Ultrasound us Provider Scanning CV VASCULAR PROCEDURES Final R esult * VASCULAR LABORATORY REPORT (03/16/2017 10:21 AM CDT) Anatomical Region Laterality Modality Ultrasound us Provider Scanning CV VASCULAR PROCEDURES Final R esult documented in this encounter Visit Diagnoses Not on filedocumented in this encounter Care Teams Supervisor Electronics Inspection Relationship Specialty Start Date End Date Yonny Ji MD [address] [place] [address] PCP - General 09/19/16 04/18/18 Sri Camargo PA [address] [place] [address] PCP - General Physician Stumper Feller 04/19/18 Herbert Forrest MD [address] [facility] [address] [place] [address] Referring Physician Pulmonary Disease 10/16/18 Cynthia Grande, RN Registered Nurse 03/19/19 Eduarda Ford MD Consulting Physician Urology 04/10/20 documented as of this encounter
--- OUTSIDE RECORDS SUMMARY | 2024-11-26 12:42 | XMS_ITS | Encounter Summary ---
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 Gender Identity Male 04/20/2021 11:20 AM CDT Sexual Orientation Straight 12/04/2018 5: 46 PM CDT documented as of this encounter Plan of Treatment Not on file documented as of this encounter Procedures Procedure Name Priority Date/Time Associated Diagnosis Comments SCAN - LABS 01/29/2022 documented in this encounter Results * SCAN - LABS (01/29/2022) us Provider Scanning Final Result documented in this encounter Visit Diagnoses Not on filedocumented in this encounter Care Teams Dietetic Technician Registered Relationship Specialty Start Date End Date Sri Camargo ROBBIN Rodríguez PCP - General Physician Manager Dish 04/19/18 Herbert Forrest MD [address] [place] [address] Referring Physician Pulmonary Disease 10/16/18 Cynthia Grande, RN Registered Nurse 03/19/19 Eduarda Ford MD Consulting Physician Urology 04/10/20 documented as of this encounter
--- OUTSIDE RECORDS SUMMARY | 2024-11-26 12:42 | XMS_ITS | Encounter Summary ---
Author Organization [facility] Address [address] [place] [address] Phone Care Team Providers Care Golf Caddie Name Role Phone AndreadelfinoSri Primary Care Pr ovider Herbert Forrest MD Unavailable [phone] Cynthia Grande RN Unavailable Unavailable Eduarda Ford MD Unavailable [phone] Encounter Details Date Type Department Care Team (Late st Contact Info) Description 10/05/2023 Orders Only [facility] Scanning, Provider Social History Tobacco Use Types Packs/Day Years Used Date Smoking Tobacco: Former Cigarettes 1.5 44.7 1 972 - 04/25/2016 Smokeless Tobacco: Never Comments: Alcohol Use Standard Drinks/Week Comments Yes 0 [...] on file 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 Gender Identity Male 04/20/2021 11:20 AM CDT Sexual Orientation Straight 12/04/2018 5: 46 PM CDT documented as of this encounter Plan of Treatment Not on file documented as of this encounter Procedures Procedure Name Priority Date/Time Associated Diagnosis Comments SCAN - LABS 10/05/2023 documented in this encounter Results * SCAN - LABS (10/05/2023) us Provider Scanning Final Result documented in this encounter Visit Diagnoses Not on filedocumented in this encounter Care Teams Golf Caddie Relationship Specialty Start Date End Date Raman SriROBBIN Shepherd PCP - General Physician Juvenile Corrections Officer 04/19/18 Herbert Forrest MD [address] [place] [address] Referring Physician Pulmonary Disease 10/16/18 Cynthia Grande, RN Registered Nurse 03/19/19 Eduarda Ford MD Consulting Physician Urology 04/10/20 documented as of this encounter
--- OUTSIDE RECORDS SUMMARY | 2024-11-26 12:42 | XMS_ITS | Patient Health Record ---
Author Organization [facility] Address [address] [address] Care Team Providers Care Dope Edger Name Role Phone Reba Brasher Primary Care Provider Migration, Provider Unavailable Unavailable Allergies No Known Allergies Results Component Value Reference Range Notes FECAL FAT, QUALITATIVE Reviewed date:12/25/2023 11:37:33 AM Interpretation: Performing Lab:[place], [facility], [address], [place], [address] Yonny Pedroza M.D.,PhD Notes/Report: FASTING:NO FASTING: NO FECAL FAT, QUALITATIVE Normal Normal PANCREATIC ELASTASE-1 Reviewed date:12/25/2023 11:37:22 AM Interpretation: Performing Lab:EZ, [facility],, [address] [place], [address] Karen Soriano MD,PhD,ELKE Notes/Report: FASTING:NO FASTING: NO PANCREATIC ELASTASE-1 >500 Adult and Pediatric Reference Ranges for Pancreatic Elastase-1: Normal: >200 mcg/g Moderate Pancreatic Insufficiency: 100-200 mcg/g Severe Pancreatic Insufficiency: <100 mcg/g Elastase-1 (E-1) assay results are expressed in mcg/g, which represent mcg E1/g feces. It is not necessary to interrupt enzyme substitution therapy. COMPREHENSIVE METABOLIC PANE L Reviewed date:03/18/2024 08:50:20 PM Interpretation: Performing Lab:SL, [facility], [address], [place], [address] [facility] Notes/Report: FASTING:YES FASTING: YES VITAMIN D, 25-HYDROXY, LC/MS /MS Reviewed date:03/18/2024 08:49:21 PM Interpretation: Performing Lab:[facility] WHITE, [address] [place], [address] Altaf Galicia MD Notes/Report: FASTING:YES FASTING: YES T3, FREE Reviewed date:03/18/2024 08:49:49 PM Interpretation: Performing Lab:[facility], [place], [address] Altaf Galicia MD Notes/Report: FASTING:YES FASTING: YES HEMOGLOBIN A1c Reviewed date:03/18/2024 08:48:51 PM Interpretation: Performing Lab:[facility]at [facility], [address] [place], [address] [facility] Renetta Notes/Report: FASTING:YES FASTING: YES CBC (INCLUDES DIFF/PLT) Reviewed date:03/18/2024 08:50:10 PM Interpretation: Performing Lab:Josafat [place], [address] [place], [address] [facility] Notes/Report: FASTING:YES FASTING: YES LIPID PANEL Reviewed date:03/18/2024 08:49:12 PM Interpretation: Performing Lab:[facility]at LI [facility], [address] [place], [address] [facility] Renetta Notes/Report: FASTING:YES FASTING: YES T4, FREE Reviewed date:03/18/2024 08:49:34 PM Interpretation: Performing Lab:[facility]at LI [facility], [address] [place], [address] [facility] Notes/Report: FASTING:YES FASTING: YES TSH Reviewed date:03/18/2024 08:49:00 PM Interpretation: Performing Lab:[facility]at LI [facility], [address] [place], [address] [facility] Renetta Notes/Report: FASTING:YES FASTING: YES VITAMIN B12 Reviewed date:03/18/2024 08:49:58 PM Interpretation: Performing Lab:[facility], [address] [place], [address] Altaf Galicia MD Notes/Report: FASTING:YES FASTING: YES COMPREHENSIVE METABOLIC PANE L Reviewed date:03/30/2024 01:21:15 PM Interpretation: Performing Lab:[facility], [address] [place], [address] Altaf Galicia MD Notes/Report: FASTING:YES COLLECTION KIT GIVEN TO PATIENT. PATIENT ADVISED TO RETURN. FASTING: YES VITAMIN D, 25-HYDROXY, LC/MS /MS Reviewed date:03/28/2024 09:16:15 PM Interpretation: Performing Lab:[facility], [address] [place], [address] Altaf Galicia MD Notes/Report: FASTING:YES COLLECTION KIT GIVEN TO PATIENT. PATIENT ADVISED TO RETURN. FASTING: YES ACTH, PLASMA Reviewed date:04/04/2024 06:08:16 PM Interpretation: Performing Lab:Josafat STRATTON/[facility], [address] , [place], [address] Ynony Pedroza M.D.,PhD Notes/Report: FASTING:YES COLLECTION KIT GIVEN TO PATIENT. PATIENT ADVISED TO RETURN. FASTING: YES PTH ANTIBODY Reviewed date:04/13/2024 08:31:51 PM Interpretation: Performing Lab:Jos[facility]at NGUYEN/[facility],, [address] [place], [address] Karen Soriano MD,PhD,ELKE Notes/Report: FASTING:YES COLLECTION KIT GIVEN TO PATIENT. PATIENT ADVISED TO RETURN. FASTING: YES CORTISOL, TOTAL Reviewed date:04/01/2024 10:17:50 AM Interpretation: Performing Lab:[facility], [address] [place], [address] Altaf Galicia MD Notes/Report: FASTING:YES COLLECTION KIT GIVEN TO PATIENT. PATIENT ADVISED TO RETURN. FASTING: YES DHEA SULFATE Reviewed date:04/01/2024 10:17:41 AM Interpretation: Performing Lab:[facility], [address] [place], [address] Altaf Galicia MD Notes/Report: FASTING:YES COLLECTION KIT GIVEN TO PATIENT. PATIENT ADVISED TO RETURN. FASTING: YES HEMOGLOBIN A1c Reviewed date:03/30/2024 01:21:22 PM Interpretation: Performing Lab:[facility], [address] [place], [address] Altaf Galicia Notes/Report: FASTING:YES COLLECTION KIT GIVEN TO PATIENT. PATIENT ADVISED TO RETURN. FASTING: YES CBC (INCLUDES DIFF/PLT) Reviewed date:03/30/2024 01:20:18 PM Interpretation: Performing Lab:[facility], [address] [place], [address] Altaf Galicia Notes/Report: FASTING:YES COLLECTION KIT GIVEN TO PATIENT. PATIENT ADVISED TO RETURN. FASTING: YES IRON AND TOTAL IRON BINDING CAPACITY Reviewed date:03/30/2024 01:37:40 PM Interpretation: Performing Lab:[facility] WHITE, [address] [place], [address] Altaf Galicia MD Notes/Report: FASTING:YES COLLECTION KIT GIVEN TO PATIENT. PATIENT ADVISED TO RETURN. FASTING: YES LIPID PANEL Reviewed date:03/30/2024 01:37:25 PM Interpretation: Performing Lab:[facility], [address] [place], [address] Altaf Galicia Notes/Report: FASTING:YES COLLECTION KIT GIVEN TO PATIENT. PATIENT ADVISED TO RETURN. FASTING: YES T4, FREE Reviewed date:03/30/2024 01:20:06 PM Interpretation: Performing Lab:[facility], [address] [place], [address] Altaf Galicia Notes/Report: FASTING:YES COLLECTION KIT GIVEN TO PATIENT. PATIENT ADVISED TO RETURN. FASTING: YES PTH, INTACT AND CALCIUM Reviewed date:03/30/2024 01:08:31 PM Interpretation: Performing Lab:[facility]ITE, [address] [place], [address] Altaf Galicia MD Notes/Report: FASTING:YES COLLECTION KIT GIVEN TO PATIENT. PATIENT ADVISED TO RETURN. FASTING: YES TSH Reviewed date:03/28/2024 09:16:24 PM Interpretation: Performing Lab:[facility]LLERMO, [facility], [address] [place], [address] RyleeKimberly Galicia Notes/Report: FASTING:YES COLLECTION KIT GIVEN TO PATIENT. PATIENT ADVISED TO RETURN. FASTING: YES VITAMIN B12 Reviewed date:03/28/2024 09:16:39 PM Interpretation: Performing Lab:[facility], [address], [place], [address] Altaf Galicia MD Notes/Report: FASTING:YES COLLECTION KIT GIVEN TO PATIENT. PATIENT ADVISED TO RETURN. FASTING: YES MICROALBUMIN, RANDOM URINE ( W/CREATININE) Reviewed date:04/04/2024 06:11:00 PM Interpretation: Performing Lab:[facility], [address], [place], [address] Altaf Galicia MD Notes/Report: SPLIT 03/29/2024 FROM [id number] PROTEIN, TOTAL AND PROTEIN E LECTROPHORESIS, URINE Reviewed date:04/04/2024 06:10:52 PM Interpretation: Performing Lab:[facility], [address], [place], [address] Altaf Galicia MD Notes/Report: SPLIT 03/27/2024 FROM [id number] COLLECTION KIT GIVEN TO PATIENT. PATIENT ADVISED TO RETURN. URINE VOLUME: 1900/24 CREATININE, 24 HOUR URINE 1.56 0.50-2.15 g/24 h PROTEIN/CREATININE RATIO 98 <100 mg/g creat PROTEIN/CREATININE RATIO 0.098 <0.100 mg/mg cre at PROTEIN, TOTAL, 24 HR UR 152 <150 mg/24 h ALBUMIN 100 [id number] 0 [id number]-[id number] 0 BETA GLOBULINS 0 GAMMA GLOBULINS 0 INTERPRETATION Agarose electrophoresis of urine reveals albumin. No abnormal protein is observed. The supplier of the testing reagents for this assay has changed. Detection of small monoclonal proteins may vary by test system. Urine immunofixation is suggested if clinically indicated and not already ordered. PROTEIN, TOTAL AND PROTEIN E LECTROPHORESIS, RANDOM URINE Reviewed date:04/04/2024 06:04:16 PM Interpretation: Performing Lab:[facility], [address], [address] Altaf Galicia MD Notes/Report: SPLIT 03/29/2024 FROM [id number] CREATININE, RANDOM URINE 82 20-320 mg/dL PROTEIN/CREATININE RATIO 73 25-148 mg/g crea t PROTEIN/CREATININE RATIO 0.073 0.025-0 .148 mg/mg creat PROTEIN, TOTAL, RANDOM UR 6 5-25 mg/dL ALBUMIN 100 [id number]-9-[id number] 0 NLLKC-2-FZRPKPLGJ 0 BETA GLOBULINS 0 GAMMA GLOBULINS 0 INTERPRETATION Agarose electrophoresis of urine reveals albumin. No abnormal protein is observed. The supplier of the testing reagents for this assay has changed. Detection of small monoclonal proteins may vary by test system. Urine immunofixation is suggested if clinically indicated and not already ordered. VITAMIN D, 25-HYDROXY, LC/MS /MS Reviewed date:04/21/2024 10:20:48 PM Interpretation: Performing Lab:[facility], [address], [place], [address] Altaf Galicia MD Notes/Report: ACTH, PLASMA Reviewed date:04/28/2024 08:29:58 PM Interpretation: Performing Lab:Josafat STRATTON/[facility], [address] [facility] , [place], [address] Yonny Pedroza M.D.,PhD Notes/Report: CORTISOL, TOTAL Reviewed date:04/21/2024 10:20:41 PM Interpretation: Performing Lab:[facility], [address], [place], [address] Altaf Galicia MD Notes/Report: DHEA SULFATE Reviewed date:04/21/2024 10:19:59 PM Interpretation: Performing Lab:[facility], [address] [place], [address] Altaf Galicia MD Notes/Report: HEMOGLOBIN A1c Reviewed date:04/21/2024 10:19:38 PM Interpretation: Performing Lab:[facility], [address] [place], [address] [facility] Renetta Notes/Report: CBC (INCLUDES DIFF/PLT) Reviewed date:04/21/2024 10:20:11 PM Interpretation: Performing Lab:GUILLERMO, Josafat [facility], [address] [place], [address] [facility] Renetta Notes/Report: MICROALBUMIN, RANDOM URINE ( W/CREATININE) Reviewed date:04/21/2024 10:20:34 PM Interpretation: Performing Lab:CHRISTOPHER, Josafat [facility], [address] [place], [address] Altaf Galicia MD Notes/Report: IRON AND TOTAL IRON BINDING CAPACITY Reviewed date:04/21/2024 10:19:02 PM Interpretation: Performing Lab:[facility]at [facility], [address], [place], [address] Altaf Galicia MD Notes/Report: LIPID PANEL Reviewed date:04/21/2024 10:19:10 PM Interpretation: Performing Lab:Jos[facility]at LI [facility], [address] [place], [address] [facility] Renetta Galicia Notes/Report: T4, FREE Reviewed date:04/21/2024 10:19:44 PM Interpretation: Performing Lab:Josafat LI [facility], [address] [place], [address] [facility] Renetta Galicia Notes/Report: TSH Reviewed date:04/21/2024 10:19:52 PM Interpretation: Performing Lab:Josafat LI [facility], [address] [place], [address] [facility] Renetta Galicia Notes/Report: VITAMIN B12 Reviewed date:04/21/2024 10:20:18 PM Interpretation: Performing Lab:[facility], [address] [place], [address] Altaf Galicia MD Notes/Report: COMPREHENSIVE METABOLIC PANE L Reviewed date:07/16/2024 09:21:50 AM Interpretation: Performing Lab:Jos[facility]at LI [facility], [address] [place], [address] Altaf Galicia Notes/Report: FASTING:YES FASTING: YES DEXAMETHASONE Reviewed date:07/27/2024 09:41:43 PM Interpretation: Performing Lab:Josafat NGUYEN/[facility],, [address] [place], [address] Karen oSriano MD,PhD,ELKE Notes/Report: FASTING:YES FASTING: YES DEXAMETHASONE 445 Reference Ranges for Dexamethasone: Baseline: Less than 20 ng/dL 1 mg dexamethasone overnight: 180-550 ng/dL (8:00-10:00 AM) This test was developed and its analytical performance characteristics have been determined by [employer]. It has not been cleared or approved by FDA. This assay has been validated pursuant to the CLIA regulations and is used for clinical purposes. T3, FREE Reviewed date:07/16/2024 09:21:50 AM Interpretation: Performing Lab:Jos[facility]at WHITE, [address] [place], [address] Altaf Galicia MD Notes/Report: FASTING:YES FASTING: YES CORTISOL, TOTAL Reviewed date:07/17/2024 08:37:45 AM Interpretation: Performing Lab:Jos[facility]at WHITE, [address] [place], [address] Altaf Galicia MD Notes/Report: FASTING:YES FASTING: YES HEMOGLOBIN A1c Reviewed date:07/16/2024 09:21:50 AM Interpretation: Performing Lab:[place], [address] [place], [address] Altaf Galicia Notes/Report: FASTING:YES FASTING: YES CBC (INCLUDES DIFF/PLT) Reviewed date:07/16/2024 09:21:50 AM Interpretation: Performing Lab:Josafat [place], [address] [place], [address] Altaf Galicia Notes/Report: FASTING:YES FASTING: YES LIPID PANEL Reviewed date:07/16/2024 09:21:50 AM Interpretation: Performing Lab:Josafat LI, [address] [place], [address] Altaf Galicia Notes/Report: FASTING:YES FASTING: YES T4, FREE Reviewed date:07/16/2024 09:21:50 AM Interpretation: Performing Lab:[facility], [address] [place], [address] RyleeKimberly Galicia Notes/Report: FASTING:YES FASTING: YES TSH Reviewed date:07/16/2024 09:21:50 AM Interpretation: Performing Lab:[facility], [address] [place], [address] [facility] Galicia Notes/Report: FASTING:YES FASTING: YES DEXAMETHASONE (Not yet revie wed by provider) Interpretation: Performing Lab:PATRICK [facility],, [address] [place], [address] Karen Soriano MD,PhD,ELKE Notes/Report: DEXAMETHASONE 424 Reference Ranges for Dexamethasone: Baseline: Less than 20 ng/dL 1 mg dexamethasone overnight: 180-550 ng/dL (8:00-10:00 AM) This test was developed and its analytical performance characteristics have been determined by [employer]. It has not been cleared or approved by FDA. This assay has been validated pursuant to the CLIA regulations and is used for clinical purposes. CORTISOL, TOTAL Reviewed date:09/01/2024 03:01:17 PM Interpretation: Performing Lab:[facility], [address] [place], [address] RyleeKimberly Galicia MD Notes/Report: CORTISOL, FREE, 24 HOUR URIN E Reviewed date:09/05/2024 03:00:35 PM Interpretation: Performing Lab:PATRICK [facility],, [address] [place], [address] Karen Soriano MD,PhD,ELKE Notes/Report: MULTIPLE TESTING PRIORITIES; ROUTINE TESTING TO FOLLOW. URINE VOLUME: 2000 TOTAL VOLUME 2000 CORTISOL, FREE, URINE 15.0 4.0-50.0 mcg/24 h CORTISOL, FREE, URINE 10.1 Reference Range: ADULTS: 3.1-42.3 CREATININE, URINE 1.48 0.50-2.15 g/24 h This test was developed and its analytical performance characteristics have been determined by [employer]. It has not been cleared or approved by FDA. This assay has been validated pursuant to the CLIA regulations and is used for clinical purposes. CORTISOL, LC/MS, SALIVA, 2 S AMPLES Reviewed date:09/01/2024 03:51:55 PM Interpretation: Performing Lab:PATRICK, Josafat [facility],, [address] [place], [address] Karen Soriano MD,PhD,ELKE Notes/Report: MULTIPLE TESTING PRIORITIES; ROUTINE TESTING TO FOLLOW. URINE VOLUME: 1999 DRAW DATE 1 [id number] DRAW TIME 1 10PM CORTISOL, SALIVA SAMPLE 1 0.03 8-10 AM: 0.04-0.56 mcg/dL noon-2 PM: < OR = 0.21 mcg/dL 4-6 PM: < OR = 0.15 mcg/dL 10 PM-1 AM: < OR = 0.09 mcg/dL This test was developed and its analytical performance characteristics have been determined by [employer]. It has not been cleared or approved by FDA. This assay has been validated pursuant to the CLIA regulations and is used for clinical purposes. DRAW DATE 2 [id number] DRAW TIME 2 10PM CORTISOL, SALIVA SAMPLE 2 0.03 8-10 AM: 0.04-0.56 mcg/dL noon-2 PM: < OR = 0.21 mcg/dL 4-6 PM: < OR = 0.15 mcg/dL 10 PM-1 AM: < OR = 0.09 mcg/dL This test was developed and its analytical performance characteristics have been determined by [employer]. It has not been cleared or approved by FDA. This assay has been validated pursuant to the CLIA regulations and is used for clinical purposes. Reason For Referral No Information Medications Medication SIG (Take, Route, Frequency, Duration) Notes Start Date End Date Status metFORMIN HCl ER 500 MG one tablet Orally twice daily before meals for 90 days take two in morning and two with dinner 07/29/2024 Active Fenofibrate Micronized 130 MG 1 cap(s) orally once a day for 30 day(s) 12/11/2023 Active Repatha SureClick 140 MG/ML inject 140 mg subcutaneously every 2 weeks for 90 days 05/01/2024 Active Losartan Potassium 25 MG 1 tab(s) orally once a day for 30 day(s) 12/11/2023 Active Isosorbide Mononitrate ER 120 MG 1 tab(s) orally once a day (in the morning) for 30 day(s) 12/11/2023 Active Jantoven 10 MG 1 tab(s) orally once a day for 30 day(s) 12/11/2023 Active Ezetimibe 10 MG TAKE 1 TABLET BY ARNIE ONCE DAILY for 90 Days Active metFORMIN HCl ER 500 MG 2 tablet with meals Orally twice a day for 90 days 09/09/2024 Active Glimepiride 4 MG 1 tablet with breakf ast or the first main meal of the day Orally twice daily before meals for 90 days 07/29/2024 Active Eplerenone 25 MG 1 tablet Orally twic e daily for 90 days 09/09/2024 Active Farxiga 5 MG 1 tablet Orally Once a day for 90 days 07/29/2024 Active Mounjaro 5 MG/0.5ML as directed Subcutaneous weekly for 90 days 07/29/2024 Active Repatha SureClick 140 MG/ML inject 140 mg Subcutaneous every other week for 90 days 07/29/2024 Active Problems Problem Type SNOMED Code ICD Code Onset Dates Problem Status W/U Status Risk Notes Problem Vitamin D deficiency (84451756) Vitamin D deficiency, unspecified (E55.9) Active confirmed Problem Hyperglycemia due to type 2 diabetes mellitus (326664059730885) Type 2 diabetes mellitus with hyperglycemia (E11.65) Active confirmed Problem Hyperlipidemia (81126259) Hyperlipidemia, unspecified (E78.5) Active confirmed Problem Obesity (510995587) Obesity, unspecified (E66.9) Active confirmed Problem Disorder of adrenal gland (93734555) Disorder of adrenal gland, unspecified (E27.9) Active confirmed Problem Mixed hyperlipidemia (547264414) Mixed hyperlipidemia (E78.2) Active confirmed Vital Signs Heart Rate 58 /min 09/09/2024 SpO2: 96% Blood pressure diastolic 73 mm Hg 09/09/2024 SpO 2: 96% Height 70 in 09/09/2024 SpO2: 96% Blood pressure systolic 122 mm Hg 09/09/2024 SpO2 : 96% Weight 246.0 lbs 09/09/2024 SpO2: 96% BMI 35.29 kg/m2 09/09/2024 SpO2: 96% Encounters Encounter Location Date Provider Diagnosis [facility] [address] [place] [address] 06/22/2024 Provider Migration Type 2 diabetes mellitus with hyperglycemia E11.65 ; Hyperlipidemia, unspecified E78.5 ; Mixed hyperlipidemia E78.2 and Obesity, unspecified E66.9 [facility] [employer] [address] [place] [address] 12/11/2023 Reba Brasher Type 2 diabetes mellitus with hyperglycemia E11.65 ; Hyperlipidemia, unspecified E78.5 ; Other fatigue R53.83 and Diarrhea, unspecified R19.7 [employer] [employer] [address] [place] [address] 03/18/2024 Reba Brasher Type 2 diabetes mellitus with hyperglycemia E11.65 ; Abnormality of plasma protein, unspecified R77.9 ; Vitamin D deficiency, unspecified E55.9 ; Mixed hyperlipidemia E78.2 ; Other fatigue R53.83 and Unspecified abdominal pain R10.[address] [facility] [employer] [address] [place] [address] 04/29/2024 Reba Brasher Type 2 diabetes mellitus with hyperglycemia E11.65 ; Mixed hyperlipidemia E78.2 ; Obesity, unspecified E66.9 and Other fatigue R53.[address] [facility] [employer] [address] [place] [address] 07/29/2024 Reba Brasher Type 2 diabetes mellitus with hyperglycemia E11.65 ; Mixed hyperlipidemia E78.2 ; Obesity, unspecified E66.9 ; Vitamin D deficiency, unspecified E55.9 and Dietary counseling and surveillance Z71.3 [employer] [address] [place] [address] 09/09/2024 Reba Brasher Type 2 diabetes mellitus with hyperglycemia E11.65 ; Hyperlipidemia, unspecified E78.5 ; Vitamin D deficiency, unspecified E55.9 ; Obesity, unspecified E66.9 ; Dietary counseling and surveillance Z71.3 and Disorder of adrenal gland, unspecified E27.9 [facility] [address] [place] [address] 12/11/2023 Reba Anshu [facility] [address] [place] [address] 12/15/2023 Reba Anshu Type 2 diabetes mellitus with hyperglycemia E11.65 [facility] [address] [place] [address] 01/02/2024 Reba Anshu Type 2 diabetes mellitus with hyperglycemia E11.65 [facility] - Reba Brasher [address] [place] [address] 03/25/2024 Reba Brasher [facility] - Reba Brasher [address] [place] [address] 04/09/2024 Reba Anshu [facility] [address] [place] [address] 04/29/2024 Reba Brasher [facility] - Reba Brasher [address] [place] [address] 05/01/2024 Reba Anshu Hyperlipidemia, unspecified E78.5 [facility] [address] [place] [address] 05/09/2024 Reba Anshu Mixed hyperlipidemia E78.2 [facility] [address] [place] [address] 05/20/2024 Reba Anshu [facility] [address] [place] [address] 07/22/2024 Reba Anshu Type 2 diabetes mellitus with hyperglycemia E11.65 [facility] - Reba Brasher [address] [place] [address] 08/08/2024 Reba Anshu Type 2 diabetes mellitus with hyperglycemia E11.65 [facility], [facility] - Reba Brasher [address] [place] [address] 08/21/2024 Reba Anshu Type 2 diabetes mellitus with hyperglycemia E11.65 [facility] [address] [place] [address] 08/21/2024 Reba Anshu [facility] [address] [place] [address] 09/04/2024 Reba Brasher Assessments Encounter Date Diagnosis (ICD Code) Assessment Notes Treatment Notes Treatment Clinical Notes Section Notes 06/22/2024 Type 2 diabetes mellitus with hyperglycemia (ICD-10 - E11.65) 06/22/2024 Hyperlipidemia, unspecified (ICD-10 - E78.5) 06/22/2024 Mixed hyperlipidemia (ICD-10 - E78.2) 12/11/2023 Type 2 diabetes mellitus with hyperglycemia (ICD-10 - E11.65) Encouraged patient to test sugars before breakfast and before dinner and at times before bedtime to maintain log for review at return visit. Recommend he take his glimepiride on glucose scale according to glucose checks. If sugars are running under 100 mg/dl hold glimepiride, if 101-140 mg/dL take half tablet, if 141-180 mg/dL take full tablet and if over 180 mg/dL take two tablets for the full 4 mg tablet of glimepiride up to twice daily before meals. If sugars are consistently over 180 mg/dL he was advised to contact clinic and notify us so we can modify changes. Patient advised to bring glucose monitor to visit for review. Recommended continued use of GLP1 agonist therapy as he is having trouble at times with cravings of sweets and portion control. 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 He has no history of pancreatitis or medullary thyroid cancer and is willing to trial on a GLP1 agonist therapy. He was advised to contact clinic if he/she experiences any nausea, vomiting or significant thyroid pain/swelling or abdominal pain so we can discuss and discontinue and potentiually look into other therapy. Continue trulicity 3 mg weekly. Will hold off farxiga at this time as this was costly for patient in the past and he has reached his donut hole for the year. Continue metformin for insulin sensitization. Discussed carb counting and how to read food labels. Recommended patient to utilize the diabetesfoEyelationb.com from the ADA website to help with food preparation as this presents ideal carb content per meal and will make carb counting easier for patient. Recommended he incorporate natural insulin sensitizers such as pears, apples, cinnamon, adin and sweet potatoes to help mobilize his endogenous insulin. Recommended up to 150 minutes of moderate level activity /exercise per week. Will reach out and request transition to Dexcom G7 as patient on G6 and feels this is not accurate to his fingersticks. 12/11/2023 Hyperlipidemia, unspecified (ICD-10 - E78.5) Send for lipid panel to assess need to modify therapy further- continue fish oil and zetia. 03/18/2024 Type 2 diabetes mellitus with hyperglycemia (ICD-10 - E11.65) a1c of 7.9% - per dexcom at 7.6% with glucose average of 176 mg/dL with no hypoglycemia. In range 59% of time with no hypoglycemia. Discussed carb counting and how to read food labels. Recommended patient to utilize the diabetesVinPerfect from the ADA website to help with food preparation as this presents ideal carb content per meal and will make carb counting easier for patient. Recommended he incorporate natural insulin sensitizers such as pears, apples, cinnamon, adin and sweet potatoes to help mobilize his endogenous insulin. Recommended up to 150 minutes of moderate level activity /exercise per week. Continue metformin twice daily along with glimepiride scale. Patient is struggling to get trulicity in so will transition to ozempic due to availability- he is aware to start with 0.25 mg weekly and after 4 weeks titrate up to 0.5 mg weekly with large meal. 03/18/2024 Abnormality of plasma protein, unspecified (ICD-10 - R77.9) Send for SPEP/UPEP and PTH level to screen for secondary causes of hypercalcemia. 04/29/2024 Type 2 diabetes mellitus with hyperglycemia (ICD-10 - E11.65) Continue metformin and glimepiride scale. Farxiga too costly. ozempic is 220$ per month- provided [employer] patient assistance paperwork for ozempic coverage. Will continue on 0.5 mg once weekly x 8 weeks and uptitrate to 1 mg weekly thereafter with largest meal. Discussed carb counting and how to read food labels. Recommended patient to utilize the [place] from the ADA website to help with food preparation as this presents ideal carb content per meal and will make carb counting easier for patient. Recommended he incorporate natural insulin sensitizers such as pears, apples, cinnamon, adin and sweet potatoes to help mobilize his endogenous insulin. Recommended up to 150 minutes of moderate level activity /exercise per week. Recommended GLP1 agonist therapy as he is having trouble at times with cravings of sweets and portion control. He does exercise at least three days a week 45 minutes at a time. 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 He has no history of pancreatitis or medullary thyroid cancer and is willing to trial on a GLP1 agonist therapy. He was advised to contact clinic if he/she experiences any nausea, vomiting or significant thyroid pain/swelling or abdominal pain so we can discuss and discontinue and potentiually look into other therapy. 04/29/2024 Mixed hyperlipidemia (ICD-10 - E78.2) Patient has severe reaction to statin therapy- he has trialed rosuvastatin, lovastatin, simvastatin and atorvastatin and developed tendonitis and myalgia. Will trial on nexletol 180 mg daily as LDL over 100 mg/dL (Currently 130 mg/dL and TC over 200 mg/dL) due to high risk for CAD/CVD events. 07/29/2024 Type 2 diabetes mellitus with hyperglycemia (ICD-10 - E11.65) 09/09/2024 Type 2 diabetes mellitus with hyperglycemia (ICD-10 - E11.65) 09/09/2024 Hyperlipidemia, unspecified (ICD-10 - E78.5) 12/15/2023 Type 2 diabetes mellitus with hyperglycemia (ICD-10 - E11.65) 01/02/2024 Type 2 diabetes mellitus with hyperglycemia (ICD-10 - E11.65) 05/01/2024 Hyperlipidemia, unspecified (ICD-10 - E78.5) 05/09/2024 Mixed hyperlipidemia (ICD-10 - E78.2) 07/22/2024 Type 2 diabetes mellitus with hyperglycemia (ICD-10 - E11.65) 08/08/2024 Type 2 diabetes mellitus with hyperglycemia (ICD-10 - E11.65) 08/21/2024 Type 2 diabetes mellitus with hyperglycemia (ICD-10 - E11.65) 06/22/2024 Obesity, unspecified (ICD-10 - E66.9) 12/11/2023 Other fatigue (ICD-10 - R53.83) Send for full thyroid panel along with vitamins/CBC to screen for secondary causes- to complete in March as labwork from recent was in range. 03/18/2024 Vitamin D deficiency, unspecified (ICD-10 - E55.9) Send for vitamin D -goal of 50 ng/mL to optimize bone and immune health. 04/29/2024 Obesity, unspecified (ICD-10 - E66.9) discussed dietary measures in regards to weight loss- importance to restrict calories to 1400 per day if sedentary vs 2273-2281 calories depending on caloric expenditure. He was provided information on [email or web address] as this program manages metabolic syndrome and products include insulin sensitizers along with thyroid support/supplementation to help tailor weight loss in individuals who struggle with underlying autoimmune thyroid conditions and hyperglycemia (fasting glucose of 97 mg/dL). Spent up to 20 minutes discussing alternative weight loss options. Send for DST to screen for hypercortisolism. 07/29/2024 Mixed hyperlipidemia (ICD-10 - E78.2) 09/09/2024 Vitamin D deficiency, unspecified (ICD-10 - E55.9) 12/11/2023 Diarrhea, unspecified (ICD-10 - R19.7) Send for elastase and fecal fat to screen for EPI or functional diarrhea. Given abx by PCP as may have active colitis- patient encouraged to reach out to email administrator to discuss further. 03/18/2024 Mixed hyperlipidemia (ICD-10 - E78.2) Continue on statin therapy. 04/29/2024 Other fatigue (ICD-10 - R53.83) WIll send for thyroid antibodies to screen for autoimmune thyroid disease in adition to CBC, CMP, ferritin, vit D and B12/folate to screen for other potential secondary causes of fatigue. 07/29/2024 Obesity, unspecified (ICD-10 - E66.9) 09/09/2024 Obesity, unspecified (ICD-10 - E66.9) 03/18/2024 Other fatigue (ICD-10 - R53.83) Send for full thyroid panel and vitamin panel. 07/29/2024 Vitamin D deficiency, unspecified (ICD-10 - E55.9) 09/09/2024 Dietary counseling and surveillance (ICD-10 - Z71.3) 03/18/2024 Unspecified abdominal pain (ICD-10 - R10.9) Send for KUB and renal u/s to screen for renal stones as he has mildly elevated calcium and may have stone. 07/29/2024 Dietary counseling and surveillance (ICD-10 - Z71.3) 09/09/2024 Disorder of adrenal gland, unspecified (ICD-10 - E27.9) 12/11/2023 Other Spent 45 minute s preparing to see the patient (ex review of tests/chart), obtaining and / or reviewing separately obtained history, performing a medically appropriate examination and/or evaluation, counseling and educating the patient/family/caregiver , ordering medications, tests, or procedures, referring and communicating with other health rn progressive care unit, documenting clinical information in the electronic or other health record, independently interpreting results and communicating results to the patient/family/caregiver and care coordinating patient plan. Patient alert and oriented x 4 and aware of discussion noted above and in agreeance to plan in management of diabetes, dyslipidemia and workup for diarrhea and fatigue. 03/18/2024 Other Spent 25 minute s preparing to see the patient (ex review of tests/chart), obtaining and / or reviewing separately obtained history, performing a medically appropriate examination and/or evaluation, counseling and educating the patient/family/caregiver , ordering medications, tests, or procedures, referring and communicating with other health rn progressive care unit, documenting clinical information in the electronic or other health record, independently interpreting results and communicating results to the patient/family/caregiver and care coordinating patient plan. Patient alert and oriented x 4 and aware of discussion noted above and in agreeance to plan in management of DM, dyslipidemia, fatigue and finding of hypercalcemia and right flank pain. 04/29/2024 Other Spent 25 minute s preparing to see the patient (ex review of tests/chart), obtaining and / or reviewing separately obtained history, performing a medically appropriate examination and/or evaluation, counseling and educating the patient/family/caregiver , ordering medications, tests, or procedures, referring and communicating with other health rn progressive care unit, documenting clinical information in the electronic or other health record, independently interpreting results and communicating results to the patient/family/caregiver and care coordinating patient plan. Patient alert and oriented x 4 and aware of discussion noted above and in agreeance to plan in management of type 2 DM, mixed dyslipidemia, obesity and fatigue. 07/29/2024 Other Assessment and Plan: 1. Elevated cortisol levels- Plan: Order a dexamethasone suppression test to further evaluate the cause of elevated cortisol levels. Consider cortisol kerry depending on the results. Assess adrenal glands or pituitary for possible nodules or adenomas. 2. Sleep apnea- Plan: Patient has an in-house sleep study scheduled for August 07. Monitor results and adjust treatment as needed. 3. Weight gain- Plan: Encourage patient to maintain a healthy diet and exercise routine. Monitor weight changes during follow-up visits. 4. Type 2 diabetes mellitus- A1c improved from 8.2 to 7.8- Plan: Continue Ozempic 1 mg until Mounjaro is approved. Switch to Mounjaro once approved. Ensure patient has enough samples of Ozempic to last until Mounjaro is available. Continue glimepiride 4 mg twice daily and metformin as prescribed. Consider adding Farxiga if needed; send prescription to [facility] to check the cost. 5. Hyperlipidemia- LDL improved from 133 to 81- Plan: Start Repatha for cholesterol management; send prescription to [facility]. Monitor lipid panel during follow-up visits. 6. Fatty liver and gallbladder cyst- Plan: Monitor patient's liver function tests and imaging results. Encourage a healthy diet and weight loss to improve fatty liver. 7. Family history of pancreatic cancer- Plan: Continue monitoring patient's blood work and imaging results for any signs of pancreatic issues. Follow-up in 6 to 8 weeks to assess the patient's response to the treatment plan and review lab results. Spent 15 minutes preventative counseling patient on dietary recommendations and changes in setting of hyperglycemia- need to restrict refined sugars and processed foods and incorporate up to 150 minutes of moderate level activity weekly. Spent 25 minutes preparing to see the patient (ex review of tests/chart), obtaining and / or reviewing separately obtained history, performing a medically appropriate examination and/or evaluation, counseling and educating the patient/family/caregiver , ordering medications, tests, or procedures, referring and communicating with other health rn progressive care unit, documenting clinical information in the electronic or other health record, independently interpreting results and communicating results to the patient/family/caregiver and care coordinating patient plan. Patient alert and oriented x 4 and aware of discussion noted above and in agreeance to plan in management of type2 DM uncontrolled, obesity/weight management, mixed dyslipidemia and vit D def. 09/09/2024 Other Assessment and Plan: Diabetes Mellitus Type 2Switch from Ozempic to Mounjaro 2.5 mg weekly, increasing to 5 mg after 4 weeksContinue metformin 1000 mg twice dailyContinue Farxiga (dapagliflozin) with morning metformin doseDiscontinue glimepiride if blood glucose consistently remains below 150 mg/dLMonitor blood glucose levels, particularly morning readingsFollow up in 4-6 weeks to assess treatment efficacy HypercortisolismOrder CT scan of adrenal glands to evaluate for potential adenomaIf CT is negative, consider Korlym (mifepristone) for cortisol blockadeInitiate eplerenone to manage potential side effects of Korlym (blood pressure increase, hypokalemia)Enroll patient in advocate program for monitoring if Korlym is prescribedObtain consent for Korlym treatment and check insurance coverageFollow up after CT scan to discuss results and treatment plan Obstructive Sleep ApneaSchedule in-house sleep study to reassess sleep apnea severity and eligibility for Inspire therapyFollow up with Dr. Sarah to discuss results and potential Inspire therapy approvalConsider alternative treatments if oral appliance is deemed ineffective HyperlipidemiaContinue Repatha 140 mg subcutaneously every two weeksInstruct patient to alternate injection days between Monday and MondayMonitor for efficacy and side effects at follow-up visits Follow-up:Schedule follow-up appointments as indicated to review treatment efficacy and discuss any adjustments needed based on lab results and patient feedback. Spent 15 minutes preventative counseling patient on dietary recommendations and changes in setting of hyperglycemia- need to restrict refined sugars and processed foods and incorporate up to 150 minutes of moderate level activity weekly. Spent 25 minutes preparing to see the patient (ex review of tests/chart), obtaining and / or reviewing separately obtained history, performing a medically appropriate examination and/or evaluation, counseling and educating the patient/family/caregiver , ordering medications, tests, or procedures, referring and communicating with other health rn progressive care unit, documenting clinical information in the electronic or other health record, independently interpreting results and communicating results to the patient/family/caregiver and care coordinating patient plan. Patient alert and oriented x 4 and aware of discussion noted above and in agreeance to plan in management of type 2 DM/uncontrolled in setting of hypercortisolism, hyperlipidemia, obesity/weight management and concern for adrenal adenoma. Plan Of Treatment Pending Test Test Name Order Date X ray : Abdomen- KUB 03/18/20[address]ONE 08/27/2024 CT adrenal gland W/WO 09/09/2024 Renal Ultrasound 03/18/2024 Insurance Providers Payer Name Payer Address Payer Phone Subscriber Number Group Number Insured Name Patient Relationship to Insured Coverage Start Date Coverage End Date Medicare [address] [address] [place] [address] [id number] Brayan Holt Self - patient is the insured [employer] [place] [id number] [employer] [place] [address] [id number] Brayan Holt Self - patient is the insured Medical (General) History Medical History History ICD Code type 2 DM dyslipidemia
--- OUTSIDE RECORDS SUMMARY | 2024-11-26 12:42 | XMS_ITS | Encounter Summary ---
Author Organization 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 Gender Identity Male 04/20/2021 11:20 AM CDT Sexual Orientation Straight 12/04/2018 5: 46 PM CDT documented as of this encounter Plan of Treatment Not on file documented as of this encounter Procedures Procedure Name Priority Date/Time Associated Diagnosis Comments SCAN - LABS 06/24/2023 documented in this encounter Results * SCAN - LABS (06/24/2023) us Provider Scanning Final Result documented in this encounter Visit Diagnoses Not on filedocumented in this encounter Care Teams Exhauster Engineer Relationship Specialty Start Date End Date CarlineSri sampson ROBBIN Rodríguez PCP - General Physician Director Of Strategic Alliances 04/19/18 Herbert Forrest MD [address] [place] [address] Referring Physician Pulmonary Disease 10/16/18 Cynthia Grande, RN Registered Nurse 03/19/19 Eduarda Ford MD Consulting Physician Urology 04/10/20 documented as of this encounter
--- OUTSIDE RECORDS SUMMARY | 2024-11-26 12:42 | XMS_ITS | Encounter Summary ---
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 Gender Identity Male 04/20/2021 11:20 AM CDT Sexual Orientation Straight 12/04/2018 5: 46 PM CDT documented as of this encounter Plan of Treatment Not on file documented as of this encounter Procedures Procedure Name Priority Date/Time Associated Diagnosis Comments SCAN - LABS 04/23/2022 documented in this encounter Results * SCAN - LABS (04/23/2022) us Provider Scanning Final Result documented in this encounter Visit Diagnoses Not on filedocumented in this encounter Care Teams Counseling Director Relationship Specialty Start Date End Date CarlineSri sampson ROBBIN Rodríguez PCP - General Physician Call Center Agent 04/19/18 Herbert Forrest MD [address] [place] [address] Referring Physician Pulmonary Disease 10/16/18 Cynthia Grande, RN Registered Nurse 03/19/19 Eduarda Ford MD Consulting Physician Urology 04/10/20 documented as of this encounter
--- OUTSIDE RECORDS SUMMARY | 2024-11-26 12:42 | XMS_ITS | Encounter Summary ---
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 Gender Identity Male 04/20/2021 11:20 AM CDT Sexual Orientation Straight 12/04/2018 5 :46 PM CDT documented as of this encounter Plan of Treatment Not on file documented as of this encounter Procedures Procedure Name Priority Date/Time Associated Diagnosis Comments SCAN - LABS 08/21/2023 documented in this encounter Results * SCAN - LABS (08/21/2023) us Provider Scanning Final Result documented in this encounter Visit Diagnoses Not on filedocumented in this encounter Care Teams Solid Die Cutter Relationship Specialty Start Date End Date CarlineSri sampson ROBBIN Rodríguez PCP - General Physician Master Carpenter 04/19/18 Herbert Forrest MD [address] [place] [address] Referring Physician Pulmonary Disease 10/16/18 Cynthia Grande, RN Registered Nurse 03/19/19 Eduarda Ford MD Consulting Physician Urology 04/10/20 documented as of this encounter
--- OUTSIDE RECORDS SUMMARY | 2024-11-26 12:42 | XMS_ITS | Encounter Summary ---
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 Gender Identity Male 04/20/2021 11:20 AM CDT Sexual Orientation Straight 12/04/2018 5: 46 PM CDT documented as of this encounter Plan of Treatment Not on file documented as of this encounter Procedures Procedure Name Priority Date/Time Associated Diagnosis Comments SCAN - LABS 04/02/2022 documented in this encounter Results * SCAN - LABS (04/02/2022) us Provider Scanning Final Result documented in this encounter Visit Diagnoses Not on filedocumented in this encounter Care Teams Construction Rep Relationship Specialty Start Date End Date Sri Camargo ROBBIN Rodríguez PCP - General Physician Seating Captain 04/19/18 Herbert Forrest MD [address] [place] [address] Referring Physician Pulmonary Disease 10/16/18 Cynthia Grande, RN Registered Nurse 03/19/19 Eduarda Ford MD Consulting Physician Urology 04/10/20 documented as of this encounter
--- OUTSIDE RECORDS SUMMARY | 2024-11-26 12:42 | XMS_ITS | Encounter Summary ---
Author Organization [facility] Address [address] [place] [address] Phone Care Team Providers Care Change Director Name Role Phone CarlineadriánSri Primary Care Pr ovider Herbert Forrest MD Unavailable [phone] Cynthia Grande RN Unavailable Unavailable Eduarda Ford MD Unavailable [phone] Encounter Details Date Type Department Care Team (Latest Contact Info) Description 01/08/2022 Orders Only [facility] Scanning, Provider [...] on file Legal Sex Male 3:10 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 ROOM Gender Identity Male 04/20/2021 11:20 AM CDT Sexual Orientation Straight 12/04/2018 5: 46 PM CDT documented as of this encounter Plan of Treatment Not on file documented as of this encounter Procedures Procedure Name Priority Date/Time Associated Diagnosis Comments SCAN - LABS 01/08/2022 documented in this encounter Results * SCAN - LABS (01/08/2022) us Provider Scanning Final Result documented in this encounter Visit Diagnoses Not on filedocumented in this encounter Care Teams Change Director Relationship Specialty Start Date End Date Sri Camargo ROBBIN Rodríguez PCP - General Physician Foam Gun Operator 04/19/18 Herbert Forrest MD [address] [place] [address] Referring Physician Pulmonary Disease 10/16/18 Cynthia Grande, RN Registered Nurse 03/19/19 Eduarda Ford MD Consulting Physician Urology 04/10/20 documented as of this encounter
--- OUTSIDE RECORDS SUMMARY | 2024-11-26 12:42 | XMS_ITS ---
Author Organization [facility] Address [address] [facility] [place] [address] Care Team Providers Care Hotel Attendant Name Role Phone Reba Brasher Primary Care Provider REASON FOR VISIT MOUNJARO/OZEMPIC Encounters Encounter Location Date Provider Diagnosis [facility] [address] [place] [address] 08/21/2024 Reba Brasher Plan Of Treatment No Information Progress Notes * Reg MENENDEZOB:1955 (69 yo M)Acc No.[id number]:08/21/2024 Patient: Brayan GROVE :1955 A ge:69 Y S ex:Male Address:[address] [place] [address] * true * Date: Generated for Printi ng/Faxing/eTransmitting on: 0 11/26/2024 12:42 PM CDT
--- OUTSIDE RECORDS SUMMARY | 2024-11-26 12:42 | XMS_ITS | Encounter Summary ---
Author Organization [facility] Address [address] [place] [address] Phone Care Team Providers Care Meeting Facilitator Name Role Phone Sri Camargo Primary Care Pr ovider Herbert Forrest MD Unavailable [phone] Cynthia Grande RN Unavailable Unavailable Eduarda Ford MD Unavailable [phone] Encounter Details Date Type Department Care Team (Latest Contact Info) Description 11/14/2020 Orders Only [facility] Scanning, Provider Social History Tobacco Use Types Packs/Day Years Used Date Smoking Tobacco: Former Smokeless Tobacco: Never Alcohol Use Standard Drinks/Week Comments Yes 0 (1 standard drink = 0.6 oz pur e alcohol) Sex and Gender Information Value Date Recorded Sex Assigned at Not on file 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 Male 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 Gender Identity Male 04/20/2021 11:20 AM CDT Sexual Orientation Straight 12/04/2018 5: 46 PM CDT documented as of this encounter Plan of Treatment Not on file documented as of this encounter Procedures Procedure Name Priority Date/Time Associated Diagnosis Comments SCAN - LABS 11/14/2020 documented in this encounter Results * SCAN - LABS (11/14/2020) us Provider Scanning Final Result documented in this encounter Visit Diagnoses Not on filedocumented in this encounter Care Teams Meeting Facilitator Relationship Specialty Start Date End Date Sri Camargo PA PCP - General Physician 1St Grade Teacher 04/19/18 Herbert Forrest MD [address] [place] [address] Referring Physician Pulmonary Disease 10/16/18 Cynthia Grande, RN Registered Nurse 03/19/19 Eduarda Ford MD Consulting Physician Urology 04/10/20 documented as of this encounter
--- OUTSIDE RECORDS SUMMARY | 2024-11-26 12:42 | XMS_ITS | Encounter Summary ---
Author Organization [facility] Address [address] [place] [address] Phone Care Team Providers Care Certified Corporate Travel Executive Name Role Phone Sri Camargo Primary Care Pr ovider Herbert Forrest MD Unavailable [phone] Cynthia Grande RN Unavailable Unavailable Eduarda Ford MD Unavailable [phone] Encounter Details Date Type Department Care Team (Latest Contact Info) Description 10/28/2020 Orders Only [facility] Scanning, Provider Social History Tobacco Use Types Packs/Day Years Used Date Smoking Tobacco: Former Smokeless Tobacco: Never Alcohol Use Standard Drinks/Week Comments Yes 0 (1 standard drink = 0.6 oz pur e alcohol) Sex and Gender Information Value Date Recorded Sex Assigned at Not on file 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 Gender Identity Male 04/20/2021 11:20 AM CDT Sexual Orientation Straight 12/04/2018 5: 46 PM CDT documented as of this encounter Plan of Treatment Not on file documented as of this encounter Procedures Procedure Name Priority Date/Time Associated Diagnosis Comments SCAN - LABS 10/28/2020 documented in this encounter Results * SCAN - LABS (10/28/2020) us Provider Scanning Final Result documented in this encounter Visit Diagnoses Not on filedocumented in this encounter Care Teams Certified Corporate Travel Executive Relationship Specialty Start Date End Date Sri Camargo PA PCP - General Physician Sales Representative [employer] 04/19/18 Herbert Forrest MD [address] [place] [address] Referring Physician Pulmonary Disease 10/16/18 Cynthia Grande, RN Registered Nurse 03/19/19 Eduarda Ford MD Consulting Physician Urology 04/10/20 documented as of this encounter
--- OUTSIDE RECORDS SUMMARY | 2024-11-26 12:42 | XMS_ITS | Encounter Summary ---
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 Gender Identity Male 04/20/2021 11:20 AM CDT Sexual Orientation Straight 12/04/2018 5: 46 PM CDT documented as of this encounter Plan of Treatment Not on file documented as of this encounter Procedures Procedure Name Priority Date/Time Associated Diagnosis Comments SCAN - LABS 11/04/2023 documented in this encounter Results * SCAN - LABS (11/04/2023) us Provider Scanning Final Result documented in this encounter Visit Diagnoses Not on filedocumented in this encounter Care Teams Environmental Auditor Relationship Specialty Start Date End Date AndreaSri saleh ROBBIN Rodríguez PCP - General Physician Golf Coach 04/19/18 Herbert Forrest MD [address] [place] [address] Referring Physician Pulmonary Disease 10/16/18 Cynthia Grande, RN Registered Nurse 03/19/19 Eduarda Ford MD Consulting Physician Urology 04/10/20 documented as of this encounter
--- OUTSIDE RECORDS SUMMARY | 2024-11-26 12:42 | XMS_ITS | Encounter Summary ---
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 Gender Identity Male 04/20/2021 11:20 AM CDT Sexual Orientation Straight 12/04/2018 5: 46 PM CDT documented as of this encounter Plan of Treatment Not on file documented as of this encounter Procedures Procedure Name Priority Date/Time Associated Diagnosis Comments SCAN - LABS 01/22/2022 documented in this encounter Results * SCAN - LABS (01/22/2022) us Provider Scanning Final Result documented in this encounter Visit Diagnoses Not on filedocumented in this encounter Care Teams Collective Bargaining Specialist Relationship Specialty Start Date End Date CarlineSri sampson ROBBIN Rodríguez PCP - General Physician Fire Assistant 04/19/18 Herbert Forrest MD [address] [place] [address] Referring Physician Pulmonary Disease 10/16/18 Cynthia Grande, RN Registered Nurse 03/19/19 Eduarda Ford MD Consulting Physician Urology 04/10/20 documented as of this encounter
--- OUTSIDE RECORDS SUMMARY | 2024-11-26 12:42 | XMS_ITS | Continuity of Care Document ---
Author Name [facility] Organization [facility] Care Team Providers Care Bilingual Teacher Aide Name Role Phone [facility] Unavailable Unavailable Problems Combined list of problems from Department of Defense and [facility] facilities. It does not include entries that were removed or entered in error. Problem Status Onset Date Problem Type Date of Resolution Comments Source Sensorineural hearing loss, bilateral Active Condition [facility] Diagnosis: ICD-10-CM H90.3 Sensorineural hearing loss, bilateral Active Diagnosis [facility] Encounters Combined list of: 1) Encounters from Department of Veterans Affairs facilities going backup to the last 18 months, not all VA inpatient encounters are included; 2) Encounters from the Department of [facility] facilities going backup to 280 months. Location Location Details Encounter Type Encounter Number Reason For Visit Attending Provider ADM Date DC Date Status Disposition Source [facility] Outpatient Encounter [id number] 06/21 [facility]AR[facility] FITTING/[facility] ECKING [id number] Diagnos is: ICD-10- CM H90.3 Sensori neural hearing loss, FERMÍN Duckworth 02/18 [facility] N [facility] Outpatient Encounter [id number] TERI VILLANUEVA 07/22 [facility] N
--- OUTSIDE RECORDS SUMMARY | 2024-11-26 12:42 | XMS_ITS | Clinical Summary ---
Author Organization [facility] Address [address] [place] [address] Care Team Providers Care Mixer Driver Name Role Phone Sri Camargo Primary Care Provider [phone] Allergies No known active allergies Medications aspirin EC (ENEDINA LOW DOSE) 81 MG tablet daily. Active amoxicillin 500 MG capsule every 8 (eight) hours. Active cetirizine 10 MG tablet Take 10 mg by mouth 2 (two) times daily. Active cyclobenzaprine 5 MG tablet cyclobenzaprine 5 mg tablet TAKE 1 TABLET BY MOUTH THREE TIMES DAILY NEEDED Active ezetimibe 10 MG tablet ezetimibe 10 mg tablet TAKE 1 TABLET BY MOUTH EVERY DAY Active fenofibrate 160 MG tablet Take 1 tablet by mouth daily. 09/08/19 22 Active icosapent ethyl (VASCEPA) 1 G capsule every 12 (twelve) hours. Active isosorbide mononitrate ER 120 MG 24 hr tablet isosorbide mononitrate ER 120 mg tablet,extended release 24 hr TAKE 1 TABLET BY MOUTH EVERY DAY 07/28/20 21 Active metoprolol succinate ER 50 MG 24 hr tablet Take 1 tablet by mouth daily. 03/05/20 21 Active ranolazine ER 500 MG 12 hr tablet Take 1 tablet by mouth 2 (two) times daily. 02/17/20 21 Active nystatin powder Apply topically as needed. Active sucralfate 1 G tablet sucralfate 1 gram tablet TAKE 1 TABLET BY MOUTH TWICE DAILY WITH MEALS Active warfarin 1 MG tablet TAKE 11 MG BY MOUTH ALTERNATING WITH 10 MG DAILY OR DIRECTED BY ANTICOAGULATION CLINIC 07/14/20 21 Active warfarin 10 MG tablet Alternated 10mg and 11mg. Adjust dose based on INR 09/08/19 22 Active empagliflozin (JARDIANCE) 10 MG tablet Take 10 mg by mouth daily. Active vitamin D3, cholecalciferol , (VITAMIN D-3) 10 MCG (400 UNIT) tablet Take 400 Units by mouth daily. Active Ascorbic Acid (VITAMIN C) 100 MG tablet Take 100 mg by mouth daily. Active enoxaparin 100 MG/ML Inject 100 mg into the skin. Active Immunizations Immunization Administration Dates Next Due PFIZER COVID-19 (ORIGINAL FO RMULATION, PURPLE CAP) mRNA, LNP-S, PF, 30 MCG/0.3 ML DOSE 09/12/2020 Family History Medical History Relation Comments Cancer Brother 1 Diabetes Brother 2 Diabetes Brother 3 Cancer Brother 4 Diabetes Brother 4 Cancer Father Stroke Mother Cancer Sister 1 Diabetes Sister 2 Relation Status Comments Brother 1 Brother 2 Alive Brother 3 Brother 4 Alive Father Mother Sister 1 Sister 2 Alive Social History Tobacco Use Types Packs/Day Years Used Date Smoking Tobacco: Former Cigarettes 1.5 40 1 976 - 2015 Smokeless Tobacco: Never Alcohol Use Standard Drinks/Week Comments Yes 0 (1 standard drink = 0.6 oz pur e alcohol) occas. 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 Gender Identity Not on file Sexual Orientation Not on file Last Filed Vital Signs Vital Sign Reading Time Taken Comments Blood Pressure 141/80 09/28/2021 7:55 AM GREEN CHAIN WORKER Pulse 61 09/28/2021 7:55 AM GREEN CHAIN WORKER Temperature 36.1 C (96.9 F) 09/28/2021 7:30 AM GREEN CHAIN WORKER Respiratory Rate 13 09/28/2021 7:55 AM GREEN CHAIN WORKER Oxygen Saturation 97% 09/28/2021 7:55 AM GREEN CHAIN WORKER Inhaled Oxygen Concentration - - Weight 108.9 kg (240 lb) 09/22/2021 4:03 PM GREEN CHAIN WORKER Height 179.1 cm (5' 10.5 ) 09/22/2021 4:03 PM CS T Body Mass Index 33.95 09/22/2021 4:03 PM GREEN CHAIN WORKER Plan of Treatment Health Maintenance Due Date Last Done Comments Hepatitis C 1974 Zoster Vaccines (1 of 2) 2006 DTaP, Tdap and Td Vaccines ( 1 - Tdap) 11/21/2017 11/20/2017 Pneumococcal Vaccine: 50+ Years (2 of 2 - PCV) 06/13/2020 06/13/2019 Annual Medicare Wellness Visit 2021 COVID-19 Vaccine (4 - 2023-2 5 season) 2024 05/22/2021, 10/05/2020, 09/12/2020 RSV Immunization or 60+ Years (1 - 1-dose 75+ series) 2031 Colorectal Cancer Screening Colonoscopy (10 Years) 09/28/2031 09/28/2021, 09/28/2021 Meningococcal B Vaccine Aged Out No l onger eligible based on patient's age to complete this topic Meningococcal Vaccine Aged Out No dashawn carrillo eligible based on patient's age to complete this topic RSV Immunizations Under 20 Months Aged Out No longer eligible b ased on patient's age to complete this topic Medical Devices Implanted Type Area Catia Designer Device Identifier Shelf Expiration Date Model / Serial / Lot Penile Procedures Procedure Name Priority Date/Time Associated Diagnosis Comments COLONOSCOPY Routine 09/28/2021 6:14 AM GREEN CHAIN WORKER from Last 3 Months or Most Recently Relevant to Health Maintenance Insurance MEDICARE [place] Care Teams Mixer Driver Relationship Specialty Start Date End Date Sri Camargo PA [address] [place] [address] PCP - General PHYSICIAN GEAR MACHINIST 09/28/21
--- OUTSIDE RECORDS SUMMARY | 2024-11-26 12:42 | XMS_ITS | Encounter Summary ---
Author Organization [facility] Address [address] [place] [address] Phone Care Team Providers Care Mobile Application Architect Name Role Phone rSi Camargo Primary Care Pr ovider Herbert Forrest MD Unavailable [phone] Cynthia Grande RN Unavailable Unavailable Eduarda Ford MD Unavailable [phone] Encounter Details Date Type Department Care Team (Latest Contact Info) Description 10/14/2020 Orders Only [facility] Scanning, Provider Social History Tobacco Use Types Packs/Day Years Used Date Smoking Tobacco: Former Smokeless Tobacco: Never Alcohol Use Standard Drinks/Week Comments Yes 0 (1 standard drink = 0.6 oz pur e alcohol) Sex and Gender Information Value Date Recorded Sex Assigned at Not on file 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 Gender Identity Male 04/20/2021 11:20 AM CDT Sexual Orientation Straight 12/04/2018 5: 46 PM CDT documented as of this encounter Plan of Treatment Not on file documented as of this encounter Procedures Procedure Name Priority Date/Time Associated Diagnosis Comments SCAN - LABS 10/14/2020 documented in this encounter Results * SCAN - LABS (10/14/2020) us Provider Scanning Final Result documented in this encounter Visit Diagnoses Not on filedocumented in this encounter Care Teams Mobile Application Architect Relationship Specialty Start Date End Date Sri Camargo PA PCP - General Physician Patient Sitter 04/19/18 Herbert Forrest MD [address] [place] [address] Referring Physician Pulmonary Disease 10/16/18 Cynthia Grande, RN Registered Nurse 03/19/19 Eduarda Ford MD Consulting Physician Urology 04/10/20 documented as of this encounter
--- OUTSIDE RECORDS SUMMARY | 2024-11-26 12:42 | XMS_ITS | Clinical Summary ---
Author Organization [facility] Address [address], [facility] [address] [place] [address] Phone Care Team Providers Care Physical Therapy Assistant Name Role Phone Yonny Ji MD Primary Care Provider + Ezequielmaverick Richard Jose Elias DO Unavailable [phone] Allergies No known active allergies Medications polyethylene glycol (MIRALAX) Powder Mix the entire bottle with 64 oz of a clear liquid. Use as directed by the office for colonoscopy prep. 255 g 0 6 Active fenofibrate 160 MG Tablet Take 140 mg by mouth daily. 6 Active gabapentin (NEURONTIN) 300 MG Capsule Take 300 mg by mouth 2 times daily. 6 Active isosorbide mononitrate (IMDUR) 120 MG TABLET SR 24 HR Take 120 mg by mouth daily. 6 Active metFORMIN (GLUCOPHAGE-XR) 500 MG TABLET SR 24 HR Take 500 mg by mouth 4 times daily. 6 Active RANEXA 500 MG TABLET SR 12 HR Take 500 mg by mouth 2 times daily. 6 Active simvastatin (ZOCOR) 40 MG Tablet Take 40 mg by mouth daily. 6 Active Aspirin 81 MG Tablet Take 81 mg by mouth daily. Active Multiple Vitamins-Mineral s (MULTIVITAMIN PO) Take 1 Tab by mouth daily. Active Cetirizine HCl (ZYRTEC ALLERGY PO) Take 1 Tab by mouth as needed. Active Family History Medical History Relation Name Comments Leukemia/Lymphoma Brother Lymphoma Lung Cancer Father lung Stroke Mother Diabetes Other brother Cancer Sister ?? 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 Not on file Not on file Not on file Last Filed Vital Signs Vital Sign Reading Time Taken Comments Blood Pressure 141/64 03/25/2016 9:37 AM CDT Pulse - - Temperature 36 C (96.8 F) 03/25/2016 9:37 AM CDT Respiratory Rate 19 03/25/2016 9:37 AM CDT Oxygen Saturation 95% 03/25/2016 9:37 AM CDT Inhaled Oxygen Concentration - - Weight 113.4 kg (250 lb) 03/15/2016 1:00 PM CDT Height 179.1 cm (5' 10.5 ) 03/15/2016 1:00 PM CD T Body Mass Index 35.36 03/15/2016 1:00 PM CDT Plan of Treatment Health Maintenance Due Date Last Done Comments Hepatitis C Virus (HCV) Screening 1955 TdaP Immunization 1955 Cologuard 2006 Immunochemical Fecal Occult Blood 2006 Pneumococcal Immunization (5 0+ years) (1 of 1 - PCV) 2006 Zoster Immunization (1 of 2) 2006 PSA Discussion 2011 Respiratory Syncytial Virus (RSV) Immunization (Adult) (1 - Risk 60-74 years 1-dose series) 2016 Influenza Immunization (#1) 2024 SARS-COV-2 Immunization (1 - 2023- season) 2024 Colonoscopy 03/25/2026 03/25/2016 Colorectal Cancer Screening 03/25/2026 03/25/2016 Hepatitis B Immunization Aged Out No longer eligible based on patient's age to complete this topic Meningococcal Immunization (ACWY) Aged Out No longer eligible based on patient's age to complete this topic Rotavirus Immunization Aged Out No lo nger eligible based on patient's age to complete this topic Care Teams Physical Therapy Assistant Relationship Specialty Start Date End Date Yonny Ji MD [address] [place] [address] PCP - General Family Medicine 03/25/16 Richard Rivas DO [address] [place] [address] Gastroenterology 03/30/16
--- OUTSIDE RECORDS SUMMARY | 2024-11-26 12:43 | XMS_ITS | Encounter Summary ---
Author Organization [facility] Address [address] [place] [address] Phone Care Team Providers Care Field Artillery Radar Operator Name Role Phone Sri Camargo Primary Care Pr ovider Herbert Forrest MD Unavailable [phone] Cynthia Grande RN Unavailable Unavailable Eduarda Ford MD Unavailable [phone] Encounter Details Date Type Department Care Team (Latest Contact Info) Description 01/06/2020 Orders Only [facility] Scanning, Provider Social History Tobacco Use Types Packs/Day Years Used Date Smoking Tobacco: Former Smokeless Tobacco: Never Alcohol Use Standard Drinks/Week Comments Yes 0 (1 standard drink = 0.6 oz pur e alcohol) Sex and Gender Information Value Date Recorded Sex Assigned at Not on file 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 Gender Identity Male 04/20/2021 11:20 AM CDT Sexual Orientation Straight 12/04/2018 5: 46 PM CDT documented as of this encounter Plan of Treatment Not on file documented as of this encounter Procedures Procedure Name Priority Date/Time Associated Diagnosis Comments SCAN - LABS 01/06/2020 documented in this encounter Results * SCAN - LABS (01/06/2020) us Provider Scanning Final Result documented in this encounter Visit Diagnoses Not on filedocumented in this encounter Care Teams Field Artillery Radar Operator Relationship Specialty Start Date End Date Sri Camargo PA PCP - General Physician It Solutions Architect 04/19/18 Herbert Forrest MD [address] [place] [address] Referring Physician Pulmonary Disease 10/16/18 Cynthia Grande, RN Registered Nurse 03/19/19 Eduarda Ford MD Consulting Physician Urology 04/10/20 documented as of this encounter
--- OUTSIDE RECORDS SUMMARY | 2024-11-26 12:43 | XMS_ITS | Clinical Summary ---
Author Organization [facility] Address [address] [place] [address] Care Team Providers Care Ton Cylinder Inspector Name Role Phone RamanSri Primary Care Pr ovider Herbert Forrest MD Unavailable Cynthia Grande RN Unavailable Unavailable Eduarda Ford MD Unavailable Allergies No known active allergies Medications petrolat,wht/mi n oil/sod chl (ARTIFICIAL TEARS OINTMENT OPHT) as needed 015 Active ONETOUCH DELICA LANCETS 33 gauge misc 018 Active metFORMIN XR (GLUCOPHAGE XR) 500 mg 24 hr tabletIndicatio ns:type 2 diabetes mellitus Take 2 tablets (1,000 mg total) by mouth 2 (two) times a day 018 Active albuterol HFA (PROVENTIL HFA,VENTOLIN HFA,PROAIR HFA) 90 mcg/actuation inhaler Inhale 2 puffs as needed for shortness of breath 016 Active cetirizine (ZyrTEC) 10 mg tabletIndicatio ns:Seasonal Allergic Rhinitis Take 1 tablet (10 mg total) by mouth 2 (two) times a day Active sucralfate (CARAFATE) 1 gram tabletIndicatio ns:Heartburn Take 1 tablet (1 g total) by mouth as needed Active aspirin 81 mg enteric coated tablet Take 1 tablet (81 mg total) by mouth daily 0 09/11/2 020 Active Additional Information Patient taking differently:81 mg oralEvery morning, Indications: primary prevention, Reported on 09/12/2024 ezetimibe (ZETIA) 10 mg tabletIndicatio ns:hyperlipidem ia Take 1 tablet (10 mg total) by mouth nightly Active ciclopirox (LOPROX) 0.77 % cream Apply 1 application topically daily Active OneTouch Verio test strips strip Active semaglutide (RYBELSUS) 3 mg tabletIndicatio ns:type 2 diabetes mellitus Take 3 mg by mouth every morning Active nystatin powderIndicatio ns:cutaneous candidiasis Apply topically as needed Active ascorbic acid (VITAMIN C) 100 mg tablet Take 1 tablet (100 mg total) by mouth daily Active cholecalciferol (VITAMIN D-3) 400 unit capsule Take 1 tablet/capsule (400 Units total) by mouth daily Active cyclobenzaprine (FLEXERIL) 5 mg tablet cyclobenzaprine 5 mg tablet TAKE 1 TABLET BY MOUTH THREE TIMES DAILY NEEDED Active glimepiride (AMARYL) 2 mg tablet Take 2 tablets (4 mg total) by mouth Active rosuvastatin (CRESTOR) 20 mg tablet Take 1 tablet (20 mg total) by mouth nightly at bedtime Active exenatide ER microspheres (Bydureon BCise) 2 mg/0.85 mL auto-injector Bydureon BCise 2 mg/0.85 mL subcutaneous auto-injector INJECT 2 MG UNDER SKIN WEEKLY AT DINNER Active fenofibrate (TRIGLIDE) 160 mg tablet Take 1 tablet (160 mg total) by mouth daily 30 tablet 11 Active losartan (COZAAR) 25 mg tablet Take 1 tablet (25 mg total) by mouth daily Active Dexcom G6 Sensor device CHANGE EVERY 10 DAYS. Active Dexcom G6 Transmitter device CHANGE EVERY 90 DAYS. Active Trulicity 1.5 mg/0.5 mL pen injector Active ranolazine ER (RANEXA) 500 mg 12 hr tablet Take 1 tablet (500 mg total) by mouth 2 (two) times a day 180 tablet 3 023 Active Additional Information Patient not taking.Reported on 09/12/2024 nitroglycerin (NITROSTAT) 0.[address] 1 tablet (0.4 mg total) under the tongue every 5 (five) minutes as needed for chest pain 90 tablet 3 024 Active enoxaparin (LOVENOX) 150 mg/mL injection Inject 1 mL (150 mg total) under the skin daily Start and stop as directed by provider based on procedures 30 mL 1 024 Active Farxiga 5 mg tablet Take 1 tablet (5 mg total) by mouth daily 025 Active Repatha SureClick 140 mg/mL pen injector INJECT 1ML SUBCUTANEOUSLY ONCE EVERY TWO WEEKS 025 Active Mounjaro 2.5 mg/0.5 mL pen injector injection INJECT 2.5 MG UNDER SKIN EVERY WEEK 025 Active metoprolol XL (TOPROL-XL) 100 mg 24 hr tablet Take 1 tablet (100 mg total) by mouth daily 90 tablet 3 025 Active isosorbide mononitrate ER (IMDUR) 120 mg 24 hr tablet Take 1 tablet (120 mg total) by mouth daily 90 tablet 3 025 Active amLODIPine (NORVASC) 10 mg tablet TAKE 1 TABLET(10 MG) BY MOUTH DAILY 90 tablet 3 025 Active warfarin (COUMADIN) 1 mg tablet TAKE 3 TABLETS BY MOUTH EVERY DAY ALONG WITH ONE 10MG TABLET TO EQUAL 13MG PER DAY BASED ON INR 240 tablet 1 025 Active warfarin (COUMADIN) 10 mg tabletIndicatio ns:roasterman current use of anticoagulant therapy TAKE 1 TABLET BY MOUTH DAILY OR DIRECTED 90 tablet 3 025 Active warfarin (COUMADIN) 10 mg tablet TAKE 1 TABLET BY MOUTH DAILY OR DIRECTED 90 tablet 3 024 2024 Discontinued(R eorder) amLODIPine (NORVASC) 10 mg tablet TAKE 1 TABLET(10 MG) BY MOUTH DAILY 90 tablet 2 024 2024 Discontinued warfarin (COUMADIN) 1 mg tablet TAKE 13 MG BY MOUTH EVERY DAY BASED ON INR. 1 10mg tablet and 3 1mg tablets 240 tablet 1 024 2024 Discontinued Active Problems Problem Noted Date Diagnosed Date Malignant neoplasm of upper lobe of right lung 0 02/04/2024 Arterial thrombosis 02/04/2024 JOSUE (obstructive sleep apnea) 03/30/2021 Overview (03/30/2021): Added automatically from request for surgery [id number] Pain of finger of left hand 12/05/2018 Atherosclerosis of [place] ar leonard of both lower extremities with intermittent claudication 11/21/2018 Hyperlipemia 10/25/2018 Parotid mass 05/01/2018 Overview (05/01/2018): 1. 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 Palpitations 10/25/2016 Mass of parotid gland 10/25/2016 Surgical follow-up care 10/05/2016 roasterman current use of anticoagulant therapy 0 09/01/2016 Chronic obstructive pulmonary disease 07/19/2016 Hypercoagulable state 07/14/2016 Diabetes mellitus 06/17/2016 Obesity 06/17/2016 Chronic coronary artery disease 06/17/2016 Peripheral vascular disease 06/17/2016 Surgical follow-up care 05/17/2016 Lung mass 05/03/2016 Occlusion of popliteal artery 04/27/2016 Hypertension 04/23/2015 Essential hypertension 12/09/2014 Overview (11/12/2016): Benign essential hypertension Atherosclerosis of coronary artery 12/09/2014 Overview (11/12/2016): Coronary atherosclerosis Encounter for preventive health examination 12/06 Resolved Problems Problem Noted Date Diagnosed Date Resolved Date Pure hypercholesterolemia 12/09/2014 Overview (11/12/2016): Pure hypercholesterolemia Encounters Date Type Department Care Team Description 11/18/2024 Anticoagulation Visit [facility] Hematology [address] [address] [place] [address] Lina Nguyen 11/07/2024 7:30 PM CDT Procedure visit [facility] Neuro Sleep [address] [facility] 6th Floor [address] [place] [id number] JOSUE (obstructive sleep apnea) (Primary Dx) 11/04/2024 Anticoagulation Visit [address] [place] [address] Tiny Glaser, RN [facility] current use of anticoagulant therapy (Primary Dx) 10/28/2024 Anticoagulation Visit [address] [place] [address] Tiny Glaser, RN 10/24/2024 Telephone [facility] Cardiology [address] [place] [address] Medicine 8th [place] [address] [place] [address] Willy Salinas MD PhD Imaging results/recommendatio ns 10/21/[address] [address] Tiny Glaser, RN 10/21/2024 Anticoagulation Visit [address] [address] Tiny Glaser, RN 10/07/2024 Anticoagulation Visit [address] [address] [place] Lina Renae 10/07/[address] [address] Warfel, Lina Renae 09/24/2024 Anticoagulation Visit [address] [address] Warfel, Lina Renae 09/17/2024 Orders Only [facility] Scanning, Provider 09/12/2024 2:15 PM MEDICAL STAFF DIRECTOR Office Visit [facility] Cardiology [address] [place] [address] Medicine 8th [place] [address] [place] [phone] Willy Salinas MD PhD Atherosclerosis of [place] coronary artery of [place] heart without angina pectoris (Primary Dx); Essential hypertension; Peripheral vascular disease; Malignant neoplasm of upper lobe of right lung (HCC) 09/09/2024 Anticoagulation Visit [facility] Hematology [address] [facility] [address] [place] [phone] Lina Nguyen 08/28/2024 Anticoagulation Visit [facility] Hematology [facility] [facility] [address] [place] [phone] Tiny Glaser RN from Last 3 Months Immunizations Immunization Administration Dates Next Due Influenza, Quadrivalent, Spl it, Preservative Free, Intramuscular 06/22/2020,06/13/2019,07/09/2018 Influenza, Unspecified 08/07/2016,04/27/2016 Pfizer SARS-CoV-2 Monovalent Vaccination (12+ Yrs) PURPLE 10/10/2020,09/12/2020 Pneumococcal Polysaccharide PPV23 06/13/2019 Pneumococcal, Unspecified 08/07/2016 Td, adsorbed 11/20/2017 Surgical History Surgery Date Site/Laterality Comments OTHER SURGICAL HISTORY Vasectomy-1982, pilonidal cyst removal-, tattoo removal-1982 CORONARY STENT PLACEMENT Previous Stent Placement - (2013). (Added by TW Conv) WA BRNCHSC INCL FLUOR GDNCE DX W/CELL WASHG SPX Bronchoscopy (Diagnostic) - (Added by TW Conv) CHOLECYSTECTOMY early 30s LUNG LOBECTOMY 09/16/2016 Right PENILE PROSTHESIS IMPLANT 04/07/2020 - 05/06/2020 Medical History Medical History Date Comments Hx Other Medical Hypertension, H LD, obesity, GERD, tob abuse, PNA Personal history of other en docrine, nutritional and metabolic disease History of type 2 di abetes mellitus - (Added by TW Conv) Personal history of other ve nous thrombosis and embolism History of deep venous throm bosis - (Added by TW Conv) Personal history of other en docrine, nutritional and metabolic disease History of hyperchol esterolemia - (Added by TW Conv) Embolism and thrombosis of a rtery ([facility]) Arterial thrombosis - (Added by TW Conv) Disease of gallbladder Gallbladd er disease - (Added by TW Conv) Personal history of other di seases of the respiratory system History of pulmonary emphyse ma - (Added by TW Conv) Peripheral vascular disease Frances pheral vascular disease - (Added by TW Conv) Essential (primary) hypertension Hypertension - (Added by TW Conv) Atherosclerotic heart diseas e of [place] coronary artery without angina pectoris Coronary artery disease - (A dded by TW Conv) Diabetes mellitus (HCC) Hyperlipidemia Type 2 diabetes mellitus (HCC) Cancer (HCC) Lung COPD (chronic obstructive pu lmonary disease) (HCC) Sleep apnea CPAP Obesity Current use of fci anticoagulation Family History Medical History Relation Name Comments Lymphoma Brother 2 Lymphoma; Lymphoma Brother 3 Family history of lymphoma - (Added by [facility] Conv) Diabetes Brother 4 Family history of diabetes mellitus - (Added by [facility] Conv) Cancer Father Family history of malignant neoplasm - (Added by [facility] Conv) Lung cancer Father Family history of lung cancer - (Added by [facility] Conv) Stroke Mother Stroke; Cause o f : Stroke/Family history of cerebrovascular accident (CVA) - (Added by [facility] Conv) Cancer Other Family history of cancer - (Added by [facility] Conv) Liver cancer Sister 2 liver cancer; Lung cancer Sister 3 Family history of lung cancer - (Added by [facility] Conv) Anesthesia problems Neg Hx Relation Name Status Comments Brother 1 Alive Brother 2 Brother 3 Brother 4 Father Mother (Age 48) Other Sister 1 Alive Sister 2 Sister 3 Social History Tobacco Use Types Packs/Day Years Used Date Smoking Tobacco: Former Cigarettes 1.5 44.7 1 972 - 04/25/2016 Smokeless Tobacco: Never Tobacco Cessation:Counseling Given: Not Answered Comments: Alcohol Use Standard Drinks/Week Comments Yes [...] on file Legal Sex Male 3:10 AM MEDICAL STAFF DIRECTOR Gender Identity Male 04/20/2021 11:20 AM CDT Sexual Orientation Straight 12/04/2018 5: 46 PM CDT Obstetrics History Last Filed Vital Signs Vital Sign Reading Time Taken Comments Blood Pressure 151/66 11/07/2024 7:42 PM CDT Pulse 61 11/07/2024 7:42 PM CDT Temperature 36.8 C (98.3 F) 11/07/2024 7:42 PM CDT Respiratory Rate 18 01/09/2024 10:43 AM CDT Oxygen Saturation 94% 11/07/2024 7:42 PM CDT Inhaled Oxygen Concentration - - Weight 110.7 kg (244 lb) 11/07/2024 7:42 PM CDT Height 179.1 cm (5' 10.5 ) 11/07/2024 7:42 PM CD T Body Mass Index 34.52 11/07/2024 7:42 PM CDT Plan of Treatment Health Maintenance Due Date Last Done Comments Albumin Creatinine Ratio, Urine 1955 Colon Cancer Screening-Colonoscopy 1955 Depression Screening 1956 Hepatitis C Screening 1956 Prostate Cancer Screening-PSA 1956 Dilated Eye Exam 1956 Foot Exam 1956 Hepatitis B Screening 1974 Zoster Vaccine (1 of 2) 2006 Lipid Panel 05/03/2017 05/03/2016, 04/08, 11/14/2015, Additional history exists DTaP/Tdap/Td Vaccine (1 - Tdap) 11/21/2017 8 Pneumococcal vaccine 65+ (2 of 2 - PCV) 06/13/2020 06/13/2019, 08/07/2016 Hemoglobin A1C 10/07/2020 04/09/2020 Well Visit 65+ 2021 Fall Risk Assessment 04/16/2022 04/16/2021 Covid-19 Vaccine (3 - 2023-2 5 season) 2024 10/10/2020, 09/12/2020 eGFR 01/08/2025 01/09/2024, 06/0 01/2023, 09/22/2022, Additional history exists Influenza Vaccine (Season Ended) 2025 06/07/2023, 06/22/2020, 06/13/2019, Additional history exists Abdominal Aortic Aneurysm (A AA) Screen Completed 10/24/2024, 04/26/2016 Medical Devices Implanted Type Area Business Lawyer Device Identifier Shelf Expiration Date Model / Serial / Lot [email or web address] [id number] Ams 700 Kit Accessory Penile Prosthesis - Sn/A - [id number] Implanted:Qty: 1 on 04/09/2020 by Eduarda Ford MD at [facility] Other - see comments N/A: Penis [employer] [id number] 10/01/2024 [id number] / N/A / [id number] Description:Implanted items from accessory kit: 2 Collets and 1 straight suture- tie connector [employer] Licha [id number] Ams 700 Preconnect 1 Ms Pump 2 Cylinder Penoscrotal Prosthesis - Sn/A - [id number] Implanted:Qty: 1 on 04/09/2020 by Eduarda Ford MD at [facility] Other - see comments N/A: Penis [employer] Licha 10/17/2021 [id number] / N/A / [id number] Description:Pump [employer] [id number] Conceal Low Profile [place] 100ml Prosthesis Inhibizone Sterile Latex Free - Sn/A - [id number] Implanted:Qty: 1 on 04/09/2020 by Eduarda Ford MD at [facility] Other - see comments N/A: Penis [employer] Lihca 12/25/2021 [id number] / N/A / Description:[place] [employer] [id number] Ams Spectra 12/14mm 1cm Cylinder Concealable Malleable Rear Tip - Sn/A - [id number] Implanted:Qty: 1 on 04/09/2020 by Eduarda Ford MD at [facility] Other - see comments N/A: Penis [employer] Licha 09/29/2024 [id number] / N/A / [id number] Description:CONCEALABLE MALL EABLE REAR TIP [employer] [id number] Ams Spectra 1.5cm Concealable Rear Tip Independent Freight Agent Snapcone - Sn/A - [id number] Implanted:Qty: 1 on 04/09/2020 by Eduarda Ford MD at [facility] Other - see comments N/A: Penis [employer] Licha 04/22/2024 [id number] / N/A / Description:CONCEALABLE REAR TIP HEALTH PROFESSIONAL Coronary Stent X 1 Stent N/A: Heart Procedures Procedure Name Priority Date/Time Associated Diagnosis Comments PROTIME-INR Routine 11/18/2024 PSG (COMPLEX) Routine 11/07/2024 9:00 PM CDT JOSUE (obstructive sleep apnea) PROTIME-INR Routine 11/02/2024 PROTIME-INR Routine 10/26/2024 PROTIME-INR Routine 10/19/2024 PROTIME-INR Routine 10/07/2024 PROTIME-INR Routine 09/24/2024 SCAN - RADIOLOGY/IMAGING 09/17/2024 PROTIME-INR Routine 09/09/2024 EGFR Routine 01/09/2024 10:34 AM CDT [facility] current use of anticoagulant therapy HEMOGLOBIN A1C STAT 04/09/2020 8:47 AM CDT SERUM LIPID PANEL Routine 05/03/2016 12: 35 AM CDT CTA ABDOMINAL AORTA AND BILATERAL ILIOFEMORAL RUNOFF Routine 04/26/2016 9:28 AM CDT from Last 3 Months or Most Recently Relevant to Health Maintenance Results * (ABNORMAL) Protime-INR (11/18/2024) INR 3.40(A) 0.90 - 1.10 EXTERNAL LAB Blood 11/18/2024 us Historical Provider LAB BLOOD ORDERABLES Renetta l Result EXTERNAL LAB * PSG (COMPLEX) (11/07/2024 9:00 PM CDT) Narrative Mike Sarah MD - 11/07/2024 9:00 PM CDT Mike Sarah MD 11/08/2024 8:45 AM PSG-Sleep Provider Use Only Date/Time: 11/07/2024 9:00 PM Performed by: Mike Sarah MD Authorized by: Mike Sarah MD Mike Sarah MD SLEEP CENTER ORDERABLES F inal Result * (ABNORMAL) Protime-INR (11/02/2024) INR 2.70(A) 0.90 - 1.10 EXTERNAL LAB Blood Result [facility] Historical Provider MD LAB BLOOD ORDERABLES Renetta l Result EXTERNAL LAB * (ABNORMAL) Protime-INR (10/26/2024) INR 2.80(A) 0.90 - 1.10 EXTERNAL LAB Blood Result [facility] Provider MD LAB BLOOD ORDERABLES Renetta l Result EXTERNAL LAB * (ABNORMAL) Protime-INR (10/19/2024) INR 1.60(A) 0.90 - 1.10 EXTERNAL LAB Blood Result [facility] Provider MD LAB BLOOD ORDERABLES Renetta l Result EXTERNAL LAB * (ABNORMAL) Protime-INR (10/07/2024) INR 1.70(A) 0.90 - 1.10 EXTERNAL LAB Blood 10/07/2024 Result [facility] Historical Provider MD LAB BLOOD ORDERABLES Renetta l Result EXTERNAL LAB * (ABNORMAL) Protime-INR (09/24/2024) INR 2.20(A) 0.90 - 1.10 EXTERNAL LAB Blood 09/24/2024 Result [facility] Historical Provider MD LAB BLOOD ORDERABLES Renetta l Result EXTERNAL LAB * SCAN - RADIOLOGY/IMAGING (09/17/2024) Anatomical Region Laterality Modality Other us Provider Scanning Final Result * (ABNORMAL) Protime-INR (09/09/2024) INR 2.00(A) 0.90 - 1.10 EXTERNAL LAB Blood 09/09/2024 us Historical Provider MD LAB BLOOD ORDERABLES Renetta l Result EXTERNAL LAB * eGFR (01/09/2024 10:34 AM CDT) eGFR 74 >=60 mL/min/1. 73 m2 Comment: Interpretive Data Reference Interval Normal >/= 90 mL/min/1.73m2 Mildly decreased* 60 - 89 mL/min/1.73m2 Mildly to moderately decreased 45 - 59 mL/min/1.73m2 Moderately to severely decreased 30 - 44 mL/min/1.73m2 Severely decreased 15 - 29 mL/min/1.73m2 Kidney Failure < 15 mL/min/1.73m2 *Relative to young adult level Estimated glomerular filtration rate is determined by the 2020 CKD-EPI equation recommended by the National Kidney Foundation (A Unifying Approach to GFR Estimation: Recommendations of the NKF-ASK Task Force on Reassessing the Inclusion of Race in Diagnosing Kidney Disease, JASN 2020). The CKD-EPI equation should not be used for patients with unstable renal function and has not been validated in children and those over 70. Current interpretive data was last reviewed 2021. Testing performed by: [facility], [address] [place] [id number] Blood 01/09/2024 10:3 4 AM CDT 01/09/2024 10:35 AM CDT us Denise David HIGH RIGGER LAB BLOOD ORDERABLES Final R esult [facility] [address] [facility] Department [place] [address] * (ABNORMAL) Hemoglobin A1c (04/09/2020 8:47 AM CDT) Hgb A1C 6.6(H) 4.0 - 5.6 % [facility] Estimated Average Glucose 143 mg/dL [facility] Comment: The ADA recommends reporting an estimated Average Glucose (eAG) with all Hemoglobin A1c results using the equation derived from a study of 507 normal and diabetic adults. Minority populations were underrepresented and children were not included. (Diabetes Care 31:6038-8746, 2008). The eAG is not equivalent to a fasting glucose. Blood specimen (specimen) 04/09/2020 8:47 AM CDT 04/09/2020 8:51 AM CDT us Eduarda Ford MD LAB BLOOD ORDERABLES Final Re sult [facility] [address] Department [place] [address] * (ABNORMAL) Serum lipid panel (05/03/2016 12:35 AM CDT) Cholesterol 135 30 - 200 mg/dl CDR HISTORICAL RESULTS Comment: Interpretive Data Desirable: <200 mg/dL Borderline high: 200-239 mg/dL High: > or = 240 mg/dL Literature Reference: National Cholesterol Education Program (NCEP) Expert Panel on Detection, Evaluation, and Treatment of High Blood Cholesterol in Adults (Adult Treatment Panel III). Circulation 2004; 110:227. Current interpretive data was last revised on 2015. Triglycerides 204(H) 0 - 150 mg/dl CDR HISTORICAL RESULTS Comment: Interpretive Data Desirable: < 150 mg/dL Borderline High: 150 - 199 mg/dL High: 200 - 499 mg/dL Very High: > or = 499 mg/dL Literature Reference: See Cholesterol Current interpretive data was last revised on 2015. HDL 36(L) >=40 mg/dl CDR HISTORICAL RESULTS Comment: Interpretive Data Less than 40 mg/dL - low; A major risk factor for heart disease. Greater than or equal to 60 mg/dL - High; considered protective of heart disease. Literature Reference: See Cholesterol Current interpretive data was last revised on 2015. LDL 58 10 - 129 mg/dl CDR HISTORICAL RESULTS Comment: Interpretive Data Optimal: < 100 mg/dL Near Optimal: 100 - 129 mg/dL Borderline High: 130 - 159 mg/dL High: 160 - 189 mg/dL Very high: > or = 190 mg/dL Literature Reference: See Cholesterol Current interpretive data was last revised on 2015. Non-HDL cholesterol, calculated 99 mg/dl CDR HISTORICAL RESULTS Comment: Interpretive Data When triglycerides are >200 mg/dL, non-HDL C is a secondary target of therapy, with a goal 30 mg/dL higher than the identified LDL-C goal. Reference: See Cholesterol Reference. Current interpretive data was last revised 2015. Serum 05/03/2016 12:3 5 AM CDT us Historical Provider LAB BLOOD ORDERABLES Renetta wong Result CDR HISTORICAL RESULTS * CT Angiogram Abdominal Aorta And Bilateral Iliofemoral Runoff W WO Contrast (04/26/2016 9:28 AM CDT) Anatomical Region Laterality Modality Body Bilateral Computed Tomogra phy 04/26/2016 9:28 AM CDT Narrative 04/26/2016 10:06 AM CDT FERNANDA CORREA M.D. FINAL REPORT ACC# Date Time Exam [id number] Apr 26, 2016 09:28:[id number] Angio Abd & AIF wwo con EXAMINATION: CT ANGIOGRAPHY OF THE ABDOMEN, PELVIS, AND LOWER EXTREMITIES WITH CONTRAST HISTORY: 60 year old man was in the operating room at outside hospital today for embolectomy, now transferred here for limb threatening ischemia TECHNIQUE: CT angiography of the abdomen, pelvis, and lower extremities performed following uneventful intravenous administration of 123 ml Optiray-350. Vascular 3D images were generated on a dedicated workstation and also reviewed. FINDINGS: No prior CT studies are available for comparison. VASCULAR FINDINGS: Abdominal Aorta and Branches: Celiac axis: no significant stenosis SMA: Mild stenosis at the origin due to atherosclerosis. VASU: Moderate stenosis at the origin, distally patent. Right renal vessels: no significant stenosis Left renal vessels: no significant stenosis Infrarenal aorta: Atherosclerotic without significant stenosis. Focally ectatic measuring 2.7 cm. Pelvic Vessels: R. Common iliac artery: Atherosclerotic without significant stenosis R. External iliac artery: no significant stenosis R. Internal iliac artery: Atherosclerotic without significant stenosis L. 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 External iliac artery: no significant stenosis L. Internal iliac artery: occluded at the origin with distal reconstitution through pelvic collaterals. Right Lower Extremity: R. Common femoral artery: no significant stenosis R. Profunda femoris artery: no significant stenosis R. SFA: no significant stenosis R. Popliteal artery: Mild narrowing proximally due to atherosclerosis. No significant stenosis. R. Anterior tibial artery: no significant stenosis R. Tibioperoneal trunk: no significant stenosis R. Posterior tibial artery: no significant stenosis R. Peroneal artery: no significant stenosis R. Dorsalis pedis artery: no significant stenosis R. Plantar artery: no significant stenosis Left Lower Extremity: L. Common femoral artery: Mild narrowing without significant stenosis L. Profunda femoris artery: no significant stenosis L. SFA: Atherosclerotic without significant stenosis L. Popliteal artery: Occluded abruptly above the knee joint. L. Anterior tibial artery: Reconstituted via muscular collaterals. It is atherosclerotic with diminished caliber but patent to the level of the ankle L. Tibioperoneal trunk: no significant stenosis L. Posterior tibial artery: 4 cm segment of moderate to severe stenosis proximally due to atherosclerosis L. Peroneal artery: no significant stenosis L. Dorsalis pedis artery: Nonopacified L. Plantar artery: no significant stenosis NON-VASCULAR FINDINGS: Hepatic steatosis noted. Gallbladder has been removed. The spleen, kidneys, adrenals, pancreas, gastrointestinal tract including the appendix, prostate gland and bilateral seminal vesicles are normal. A Ludwig catheter is present within the urinary bladder. No lymphadenopathy, free fluid or free air. No suspicious osseous lesions or acute fractures. A drainage catheter, surgical clips, and overlying cutaneous shanae noted in the left groin region. IMPRESSION: 1. Right lower extremity: No significant stenosis with normal three-vessel runoff. 2. 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 Above findings discussed with CHU Salvador at 10:05 a.m. on 04/26/2016. Requested By: CODIE ALEXIS M.D. Dictated By: FERNANDA CORREA M.D. on Apr 26 2016 10:06A This document has been electronically signed by: FERNANDA CORREA M.D. on Apr 26 2016 10:06A [id number] Procedure Note Provider, MD Danielito - 11/24/2016 FERNANDA CORREA M.D. FINAL REPORT ACC# Date Time Exam [id number] Apr 26, 2016 09:28:[id number] Angio Abd & AIF wwo con EXAMINATION: CT ANGIOGRAPHY OF THE ABDOMEN, PELVIS, AND LOWER EXTREMITIES WITH CONTRAST HISTORY: 60 year old man was in the operating room at outside hospital today for embolectomy, now transferred here for limb threateningischemia TECHNIQUE: CT angiography of the abdomen, pelvis, and lower extremities performed following uneventful intravenous administration of 123 ml [id number]. Vascular 3D images were generated on a dedicated workstation and also reviewed. FINDINGS: No prior CT studies are available for comparison. VASCULAR FINDINGS: Abdominal Aorta and Branches: Celiac axis: no significant stenosis SMA: Mild stenosis at the origin due to atherosclerosis. VASU: Moderate stenosis at the origin, distally patent. Right renal vessels: no significant stenosis Left renal vessels: no significant stenosis Infrarenal aorta: Atherosclerotic without significant stenosis. Focally ectatic measuring 2.7 cm. Pelvic Vessels: R. Common iliac artery: Atherosclerotic without significant stenosis R. External iliac artery: no significant stenosis R. Internal iliac artery: Atherosclerotic without significant stenosis L. 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 External iliac artery: no significant stenosis L. Internal iliac artery: occluded at the origin with distal reconstitution through pelvic collaterals. Right Lower Extremity: R. Common femoral artery: no significant stenosis R. Profunda femoris artery: no significant stenosis R. SFA: no significant stenosis R. Popliteal artery: Mild narrowing proximally due to atherosclerosis. No significant stenosis. R. Anterior tibial artery: no significant stenosis R. Tibioperoneal trunk: no significant stenosis R. Posterior tibial artery: no significant stenosis R. Peroneal artery: no significant stenosis R. Dorsalis pedis artery: no significant stenosis R. Plantar artery: no significant stenosis Left Lower Extremity: L. Common femoral artery: Mild narrowing without significant stenosis L. Profunda femoris artery: no significant stenosis L. SFA: Atherosclerotic without significant stenosis L. Popliteal artery: Occluded abruptly above the knee joint. L. Anterior tibial artery: Reconstituted via muscular collaterals. It is atherosclerotic with diminished caliber but patent to the level of the ankle L. Tibioperoneal trunk: no significant stenosis L. Posterior tibial artery: 4 cm segment of moderate to severe stenosis proximally due to atherosclerosis L. Peroneal artery: no significant stenosis L. Dorsalis pedis artery: Nonopacified L. Plantar artery: no significant stenosis NON-VASCULAR FINDINGS: Hepatic steatosis noted. Gallbladder has been removed. The spleen, kidneys, adrenals, pancreas, gastrointestinal tract including the appendix, prostate gland and bilateral seminal vesicles are normal. A Ludwig catheter is present within the urinary bladder. No lymphadenopathy, free fluid or free air. No suspicious osseous lesions or acute fractures. A drainage catheter, surgical clips, and overlying cutaneous shanae noted in the left groin region. IMPRESSION: 1. Right lower extremity: No significant stenosis with normal three-vessel runoff. 2. 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 Above findings discussed with HIGH RIGGER Olga Salvador at 10:05 a.m. on 04/26/2016. Requested By: CODIE ALEXIS M.D. Dictated By: FERNANDA CORREA M.D. on Apr 26 2016 10:06A This document has been electronically signed by: FERNANDA CORREA M.D. on Apr 26 2016 10:06A [id number] Historical Provider MD [place] CT PROCEDURES Final R esult from Last 3 Months or Most Recently Relevant to Health Maintenance Insurance MEDICARE [facility]PPO Address[facility] [address] [place] [address] MEDIC[address] MEDICARE [facility] OPEN ACCESS [facility] [place] [address] MEDICARE Advance Directives For more information, please contact: [phone] * Full Code (Latest Code Status on File) Date Activated Date Inactivated Comments 04/09/2020 2:55 PM 04/10/2020 5:22 PM Care Teams 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
--- OUTSIDE RECORDS SUMMARY | 2024-11-26 12:43 | XMS_ITS ---
Author Organization [facility] Address [address] [place] [address] Care Team Providers Care [employer] Sales Associate Name Role Phone Reba Brasher Primary Care Provider [phone] Allergies No Known Allergies REASON FOR VISIT 6 week f/u cindi Medications Medication SIG (Take, Route, Frequency, Duration) Notes Start Date End Date Status Losartan Potassium 25 MG 1 tab(s) orally once a day for 30 day(s) 12/11/2023 Active Jantoven 10 MG 1 tab(s) orally once a day for 30 day(s) 12/11/2023 Active Ezetimibe 10 MG TAKE 1 TABLET BY ARNIE TH ONCE DAILY for 90 Days Active Glimepiride 4 MG 1 tablet with breakf ast or the first main meal of the day Orally twice daily before meals for 90 days 07/29/2024 Active Farxiga 5 MG 1 tablet Orally Once a day for 90 days 07/29/2024 Active metFORMIN HCl ER 500 MG 2 tablet with meals Orally twice a day for 90 days 09/09/2024 Active Eplerenone 25 MG 1 tablet Orally twic e daily for 90 days 09/09/2024 Active metFORMIN HCl ER 500 MG one tablet Orally twice daily before meals for 90 days take two in morning and two with dinner 07/29/2024 Active Mounjaro 5 MG/0.5ML as directed Subcutaneous weekly for 90 days 07/29/2024 Active Repatha SureClick 140 MG/ML inject 140 mg Subcutaneous every other week for 90 days 07/29/2024 Active Fenofibrate Micronized 130 MG 1 cap(s) orally once a day for 30 day(s) 12/11/2023 Active Repatha SureClick 140 MG/ML inject 140 mg subcutaneously every 2 weeks for 90 days 05/01/2024 Active Isosorbide Mononitrate ER 120 MG 1 tab(s) orally once a day (in the morning) for 30 day(s) 12/11/2023 Active Problems Problem Type SNOMED Code ICD Code Onset Dates Problem Status W/U Status Risk Notes Problem Disorder of adrenal gland (49406454) Disorder of adrenal gland, unspecified (E27.9) Active confirmed Vital Signs Blood pressure systolic 122 mm Hg 09/09/19 25 Blood pressure diastolic 73 mm Hg 025 Heart Rate 58 /min 09/09/2024 Height 70 in 09/09/2024 Weight 246.0 lbs 09/09/2024 BMI 35.29 kg/m2 09/09/2024 SpO2: 96% Encounters Encounter Location Date Provider Diagnosis [facility] - Reba Brasher [address] [place] [address] 09/09/2024 Reba Brasher Type 2 diabetes charli itus with hyperglycemia E11.65 ; Hyperlipidemia, unspecified E78.5 ; Vitamin D deficiency, unspecified E55.9 ; Obesity, unspecified E66.9 ; Dietary counseling and surveillance Z71.3 and Disorder of adrenal gland, unspecified E27.9 Assessments Encounter Date Diagnosis (ICD Code) Assessment Notes Treatment Notes Treatment Clinical Notes Section Notes 09/09/2024 Type 2 diabetes mellitus with hyperglycemia (ICD-10 - E11.65) 09/09/2024 Hyperlipidemia, unspecified (ICD-10 - E78.5) 09/09/2024 Vitamin D deficiency, unspecified (ICD-10 - E55.9) 09/09/2024 Obesity, unspecified (ICD-10 - E66.9) 09/09/2024 Dietary counseling and surveillance (ICD-10 - Z71.3) 09/09/2024 Disorder of adrenal gland, unspecified (ICD-10 - E27.9) 09/09/2024 Other Assessment and Plan: Diabetes Mellitus [...] procedures, referring and communicating with other health care partner, documenting clinical information in the electronic or other health record, independently interpreting results and communicating results to the patient/family/caregiver and care coordinating patient plan. Patient alert and oriented x 4 and aware of discussion noted above and in agreeance to plan in management of type 2 DM/uncontrolled in setting of hypercortisolism, hyperlipidemia, obesity/weight management and concern for adrenal adenoma. Plan Of Treatment Medication Medication Name Sig Start Date Stop Date Notes metFORMIN HCl ER 500 MG 2 tablet with me als Orally twice a day for 90 days 09/09/2024 Eplerenone 25 MG 1 tablet Orally twic e daily for 90 days 09/09/2024 Treatment Notes Assessment Notes Other Assessment and Plan: Diabetes Mellitus Type [...] to alternate injection days between Monday and for efficacy and side effects at follow-up [...] examination and/or evaluation, counseling and educating the patient/family/caregiver, ordering medications, tests, or procedures, referring and communicating with other health care partner, documenting clinical information in the electronic or other health record, independently interpreting results and communicating results to the patient/family/caregiver and care coordinating patient plan. Patient alert and oriented x 4 and aware of discussion noted above and in agreeance to plan in management of type 2 DM/uncontrolled in setting of hypercortisolism, hyperlipidemia, obesity/weight management and concern for adrenal adenoma. Pending Test Test Name Order Date CT adrenal gland W/WO 09/09/2024 Next Appt Details Follow Up: 6 Weeks, Reason: labwork Progress Notes * Reg MENENDEZOB:1955 (69 yo M)Acc No.[id number]:09/09/2024 Progress Notes Patient: Brayan GROVE Provider: Manasa Brasher MD :[id number] A ge:69 Y S ex:Male Date:09/09/2024 Address: [address] [place], [id number] Subjective: * Chief Complaints: * 1 . 6 week f/u cindi. * HPI: I nterval Hx: [age] yo male comes in for follow up in management of uncontrolled type 2 DM (A1C of 7.8% down from 8.2%), mixed dyslipidemia, weight management/obesity and concern for hypercortisolism. At last visit in Jul we transitioned off ozempic to mounjaro as A1C was not at goal and patient not losing weight. We also continued metformin and glimepiride scale. We added nexletol for mixed dyslipidemia insurance would not cover so we requested start of repatha as LDL is markedly high and patient high risk for CAD events. DST positive x 2 Brayan reports struggling with insomnia and has a history of sleep apnea, currently using an oral appliance. His blood glucose control remains suboptimal, with fasting levels typically around 193 mg/dL. He recently switched from Ozempic to Mounjaro for diabetes management. Elevated cortisol levels have been noted, and a CT scan of the adrenal glands is planned to evaluate for potential adenomas. A recent at-home sleep study showed 20+ episodes of sleep apnea per hour, and an in-house sleep study is scheduled to reassess severity and eligibility for Inspire therapy. Patient reports struggling with insomnia. He goes to bed and wakes up at 3 AM, moving to his recliner. He dozes in and out until 7:30 AM. If he goes to bed at 1 AM, he still wakes up at 7:30 AM. Patient has a history of sleep apnea and uses an oral appliance. A recent at-home sleep study showed 20-plus episodes per hour. Patient's blood glucose control has been suboptimal. Fasting blood glucose is typically 193 mg/dL in the morning, sometimes exceeding 200 mg/dL. Throughout the day, glucose levels fluctuate, with readings as low as 114 mg/dL in the evening and rising to 160-180 mg/dL before breakfast, even prior to eating. Patient is currently taking metformin 1000 mg twice daily, glimepiride, and Farxiga. He recently switched from Ozempic to Mounjaro for diabetes management. Patient has elevated cortisol levels, with DEXA suppression test results above 1.8 on two occasions. Urine and salivary cortisol tests were within normal limits. Patient has a history of lung cancer and has undergone CT and MRI imaging in the past. Medical History - Sleep apnea - Lung cancer (history) - Type 2 Diabetes Current and Past Medications and Supplements - CPAP (mentioned but patient uses oral appliance instead) - Oral appliance for sleep apnea - Ozempic (recently discontinued) - Mounjaro 2.5mg (prescribed but not started yet) - Repatha (taken every two weeks) - Metformin 1500mg in the morning and 1500mg in the evening - Glimepiride - Farxiga Social History - Sleep: Reports sleep apnea, uses oral appliance. Experiences insomnia, waking at 3 AM and dozing until 7:30 AM. - Living situation: Lives with spouse (Ivet) Review of Systems - Sleep: Insomnia, wakes up at 3 AM, dozes in and out until 7:30 AM - Respiratory: Has sleep apnea. * ROS: E NDOCRINOLOGY: no f atigue. n o e xcessive sweating. n o e xcessive thirst. n o e xcessive urination. n o w eight loss. n o s leep disturbance. n o c old intolerance. n o h eat intolerence. n o t hyroid disease. n o i ncreased loss of hair. n o h x of borderline diabetes. n o d iabetes. n o a bdormal body hair. n o r heumatism. n o c hanges in skin texture.? N EUROLOGY: no h eadache. n o t ingling numbness. n o s eizures. n o i nsomnia. n o m uriah loss. n o d izziness. n o g ait abnormality. n o c hange in sensation anywhere on body. n o l ocalized weakness or numbness. n o b lackouts or near blackouts. n o m igraine. n o t remors.?no f ainting spells. n o h ead injury. n o s troke. O PTHALMOLOGY: no d iminished vision. n o e ye irritation. n o?drainage from eyes. n o b lurring of vision. n o s easonal eye sx. n o?dander related eye sx. n o l oss of vision. n o c ataracts. n o g lasses/contacts. n o g laucoma. n o d etached retina. n o m acular degeneration.?no e ye redness. R ESPIRATORY: no s hortness of breath. n o c hest pain. n o?wheezing. n o a sthma. n o b reathlessness when lying flat. n o p rolonged cough. n o f requent infections (bronchitis). n o e mphysema. n o c hest congestion. n o s leep apnea. A LLERGY: no r unny nose. n o s cratchy throat. n o i tchy eyes. n o e ar fullness. n o s inus congestion. n o s tuffy nose. n o w atery eyes. n o s easonal allergies. n o h ay fever. n o a llergy.?no p olyps. n o s neezing. H EMATOLOGY/LYMPH: no s wollen glands. n o f atigue. n o l oss of appetite. n o e asy bruising. n o e asy bleeding. n o a nemia. ? U ROLOGY: no d ifficulty urinating. n o b lood in urine. n o u rinary urgency. n o f requent urination. n o u rinary incontinence. n o v oiding dysfunction. n o v ulvodynia. n o d ysparaunia. n o r ecurrent UTI. n o w eak flow. n o d ribbling after urination. n o f requent bladder infections. n o k idney stone. n o k idney disease. n o u rine hesitancy.?no p ainful urination. N UTRITION: greater than body requirmemts y es. L ess than body requirements y es. a ppropriate / adequate y es, y es. C ONSTITUTIONAL: no w eight gain. n o l oss of appetite. n o?fever. n o w eakness. n o w eight loss. n o n ight sweats. n o n ausea. n o v isual changes. n o c hange in sleep patterns. h +p reviewed y es, R OS form reviewed with patient see scan for detail. n o c hange in activity capacity.? D ERMATOLOGY: no r naomi. n o c hange in color of moles. n o?lumps. n o d ry or sensitive skin. n o h sandoval. n o o concha skin. n o?acne. n o m oles-irregular. n o m oles-change/new. n o b oils. n o dandruff. n o e xcessive body odor. n o p soriasis. n o f ungal infections. n o n ail problems. n o r edness/inflammation. n o a thlete's foot. n o s kin cancer. n o e czema. E NT: no c old. n o c ough. n o c oughing blood.?no n ose bleed. n o h earing loss. n o c hange in voice. n o s ore throat. n o r inging in ears. n o s noring. n o e ar pain. n o r unny nose. n o w atery eyes. n o s inus infection. n o e ar infection. n o facial pain. n o h oarseness. n o g oiter. n o g um problems. n o?postnasal drip. n o f requent nosebleeds. C ARDIOLOGY: no c hest pain. n o p alpitations. n o l eg swelling. n o d izziness. n o s hortness of breath. n o v aricose veins.?no l eg cramps. n o c old hands or feet. n o h igh blood pressure. n o ankle swelling. n o c ardiac catheterization. n o h eart attacks. n o a ngina. n o m urmurs. n o l ow blood pressure. n o l eg pain that resolves w/rest. n o p urple fingers or lips. n o i rregular heart rate. n o c ongenital heart defects. n o d izziness when standing up quickly. n o a wakening at night short of breath. G ASTROENTEROLOGY: no n ausea. n o h eartburn. n o s tool incontinence. n o r eflux. n o a bdominal pain. n o i ndigestion. n o h emorrhoids. n o h iatal hernia. n o u lcers. n o a nal fissures. n o?hepatitis. n o g allstones. n o r ed blood after bowel movements. n o v omiting. n o b loating/belching. n o d ifficulty swallowing. n o d iarrhea.?no c onstipation. n o c hange in bowel habits. n o b lood in stool. ? M USCULOSKELETAL: no j oint swelling. n o j oint pain. n o l eg cramps. n o j oint stiffness. n o a rthritis. n o b ack pain. n o?muscle aches. n o m orning stiffness. n o t endinitis. n o n liam pain. no b ursitis. n o b one marrow biopsy. n o g out. a ctivity intolerance?weakness. n o f racture. P SYCHOLOGY: no h igh stress level. n o d epression. n o?sleep disturbances. n o r alissa sx worse with stress. n o s uicidal ideation. n o e ating disorder. n o m ental or physical abuse. n o a nxiety. n o h eadaches. d isease state y es. M KYLE REPRODUCTIVE: no d ifficulty with erection. n o d ifficulty with ejeculation. n o d iminished sexual drive. n o i nabilty to complete intercourse.?no l ump on testicle. n o t esticular pain. n o l oss of sexual interest. no g roin itching. n o h ernia. n o p rostate disease. n o p remature ejaculation. n o p roblems maintaining or keeping an erection. n o s terility. n o s ores on penis or warts. * Medical History: t ype 2 DM, Dyslipidemia. * Surgical History: D enies Past Surgical History. * Hospitalization/Major Diagno stic Procedure: D enies Past Hospitalization. * Family History: N on-Contributory. * Social History: Non-Contributory. * Medications: T aking Jantoven(Warfarin Sodium) 10 MG Tablet 1 tab(s) orally once a day , Taking Ezetimibe 10 MG Tablet TAKE 1 TABLET BY MOUTH ONCE DAILY , Taking Losartan Potassium 25 MG Tablet 1 tab(s) orally once a day , Taking Isosorbide Mononitrate ER 120 MG Tablet Extended Release 24 Hour 1 tab(s) orally once a day (in the morning) , Taking Fenofibrate Micronized 130 MG Capsule 1 cap(s) orally once a day , Taking Repatha SureClick(Evolocumab) 140 MG/ML Solution Auto-injector inject 140 mg subcutaneously every 2 weeks , Taking Mounjaro(Tirzepatide) 5 MG/0.5ML Solution Auto-injector as directed Subcutaneous weekly , Taking Repatha SureClick(Evolocumab) 140 MG/ML Solution Auto-injector inject 140 mg Subcutaneous every other week , Taking metFORMIN HCl ER 500 MG Tablet Extended Release 24 Hour one tablet Orally twice daily before meals , Notes to Pharmacist: take two in morning and two with dinner, Taking Glimepiride 4 MG Tablet 1 tablet with breakfast or the first main meal of the day Orally twice daily before meals , Taking Farxiga(Dapagliflozin Propanediol) 5 MG Tablet 1 tablet Orally Once a day , Medication List reviewed and reconciled with the patient * Allergies: N .K.D.A. Objective: * Vitals: H R: 58, BP: 122/73, Ht: 70, Wt: 246.0, BMI: 35.29. SpO2: 96%. * P ast Orders: L ab:CORTISOL, FREE, 24 HOUR URINE (Order Date - 08/27/2024) (Collection Date & Time - 08/27/2024 07:24 AM) Value Reference Range TOTAL VOLUME 2000 - mL CORTISOL, FREE, URINE 15.0 4.0-50.0 - mcg/24 h CORTISOL, FREE, URINE 10.1 - mcg/g creat CREATININE, URINE 1.48 0.50-2.15 - g/24 h L ab:CORTISOL, LC/MS, SALIVA, 2 SAMPLES (Order Date - 08/27/2024) (Collection Date & Time - 08/27/2024 07:24 AM) Value Reference Range DRAW DATE 1 [id number] - DRAW TIME 1 10PM - CORTISOL, SALIVA SAMPLE 1 0.03 - mcg/dL DRAW DATE 2 [id number] - DRAW TIME 2 10PM - CORTISOL, SALIVA SAMPLE 2 0.03 - mcg/dL Lab:DEXAMETHASONE * Collection Date 08/27/2024 07/15/2024 Collection Time 07:26 AM 07:35 AM Order Date 08/27/2024 07/15/2024 DEXAMETHASONE NR 445 (Ref Range: ng/dL) * Lab:CORTISOL, TOTAL * Collection Date 08/27/2024 07/15/2024 Collection Time 07:26 AM 07:35 AM Order Date 08/27/2024 07/15/2024 CORTISOL, TOTAL 4.1 (Ref Range: mcg/dL) 3.7 (Ref Range: mcg/dL) ???Lab:HEMOGLOBIN A1c (Order Date - 07/15/2024) (Collection Date & Time - 07/15/2024 07:35 AM)?ValueReference Range?HEMOGLOBIN A1c7.8H<5.7 - % of total Hgb ???Lab:TSH (Order Date - 07/15/2024) (Collection Date & Time - 07/15/2024 07:35 AM)?ValueReference Range?TSH1.740.40-4.50 - mIU/L ???Lab:LIPID PANEL (Order Date - 07/15/2024) (Collection Date & Time - 07/15/2024 07:35 AM)?ValueReference Range?ENWOCSDMHLUEB900E<150 - mg/dL?CHOLESTEROL, THABS077<200 - mg/dL?HDL SZWJCMTWEZT77> OR = 40 - mg/dL?LDL-BQBIURQFZEN82- mg/dL (calc)?CHOL/HDLC RATIO3.3<5.0 - (calc)?NON-HDL EPGYDIMXWMV979<130 - mg/dL (calc) ???Lab:T3, FREE (Order Date - 07/15/2024) (Collection Date & Time - 07/15/2024 07:35 AM)?ValueReference Range?T3, FREE3.12.3-4.2 - pg/mL ???Lab:T4, FREE (Order Date - 07/15/2024) (Collection Date & Time - 07/15/2024 07:35 AM)?ValueReference Range?T4, FREE1.30.8-1.8 - ng/dL ???Lab:COMPREHENSIVE METABOLIC PANEL (Order Date - 07/15/2024) (Collection Date & Time - 07/15/2024 07:35 AM)?ValueReference Range?MUOHXOK219W79- 99 - mg/dL?UREA NITROGEN (BUN)117-25 - mg/dL?CREATININE0.990.70- 1.35 - mg/dL?BUN/CREATININE RATIOSEE NOTE:6-22 - (calc)?IAZWDP682 135-146 - mmol/L?POTASSIUM4.63.5-5.3 - mmol/L?FXUNPTFQ29655-706 - mmol/L?CARBON IPAYJWE7696-10 - mmol/L?CALCIUM9.48.6-10.3 - mg/dL ?PROTEIN, TOTAL6.66.1-8.1 - g/dL?ALBUMIN4.33.6-5.1 - g/dL ?GLOBULIN2.31.9-3.7 - g/dL (calc)?ALBUMIN/GLOBULIN RATIO1.91.0-2.5 - (calc)?BILIRUBIN, TOTAL0.40.2-1.2 - mg/dL?ALKALINE NWQJCYUPUQO29 L35-144 - U/L?ASB16U14-67 - U/L?EAQ01F2-25 - U/L?EGFR83> OR = 60 - mL/min/1.73m2 ???Lab:CBC (INCLUDES DIFF/PLT) (Order Date - 07/15/2024) (Collection Date & Time - 07/15/2024 07:35 AM)?ValueReference Range?WHITE BLOOD CELL COUNT 7.33.8-10.8 - Thousand/uL?RED BLOOD CELL COUNT4.614.20-5.80 - Million/uL ?RNRRBLASRY47.213.2-17.1 - g/dL?VYCORGIUKT83.738.5-50.0 - % ?MCV97.080.0-100.0 - fL?MCH30.827.0-33.0 - pg?MCHC31.8L 32.0-36.0 - g/dL?RDW12.411.0-15.0 - %?PLATELET [id number] - Thousand/uL?BBTBFRYGXRV11.3- %?ABSOLUTE [id number] - cells/uL?KNFCQLWPPSB37.9- %?ABSOLUTE AIAVGVQISQH4602500-6848 - cells/uL?MONOCYTES7.5- %?ABSOLUTE YCARRFUIB152383-026 - cells/uL ?EOSINOPHILS2.6- %?ABSOLUTE HBGBMKLVSBJ09669-021 - cells/uL ?BASOPHILS0.7- %?ABSOLUTE QCYQNWCBP589-228 - cells/uL?MPV 12.17.5-12.5 - fL * Examination: G eneral Examination: General n ormal, NAD, well nourished and hydrated, pleasant obese male. Neck, thyroid : s upple. Heart: B P wnl, RSR, no murmurs. Lungs: n ormal, respirations easy with conversation and ambulation. Abdomen: n ormal, round, non-distended. Neurologic exam: u nremarkable. Extremities: u nremarkable. Peripheral pulses: n ormal (2+) bilaterally . Psych: o rientation to person, place & situation, appropriate judgment noted. Assessment: * Assessment: 1. T ype 2 diabetes mellitus with hyperglycemia - E11.65 (Primary) 2 . H yperlipidemia, unspecified - E78.5 3 . V itamin D deficiency, unspecified - E55.9? 4. O besity, unspecified - E66.9 5 . D ietary counseling and surveillance - Z71.3 6 . D isorder of adrenal gland, unspecified - E27.9 ? Plan: * Treatment: 2. D isorder of adrenal gland, unspecified I maging: CT adrenal gland W/WO 3. O thers Start Eplerenone Tablet, 25 MG, 1 tablet, Orally, twice daily, 90 days, 180, Refills 1. Notes:Assessment and Plan: Diabetes Mellitus Type 2Switch from [...] examination and/or evaluation, counseling and educating the patient/family/caregiver, ordering medications, tests, or procedures, referring and communicating with other health care partner, documenting clinical information in the electronic or other health record, independently interpreting results and communicating results to the patient/family/caregiver and care coordinating patient plan. Patient alert and oriented x 4 and aware of discussion noted above and in agreeance to plan in management of type 2 DM/uncontrolled in setting of hypercortisolism, hyperlipidemia, obesity/weight management and concern for adrenal adenoma. * Procedure Codes: 9 9401 P/M CORPORATE ACCOUNTANT, INDIV 15 MIN * Follow Up: 6 Weeks (Reason: labwork) * Billing Information: * Visit Code: 08048 Office Visit, Est Pt., Level 4. * Procedure Codes: 97532 P/M CORPORATE ACCOUNTANT, INDIV 15 MIN. * ING HEALTH TECHNICIAN Sign off status: Completed true * Provider: Manasa Brasher MD Date: 0 09/09/2024 Generated for Stef hernandez/Carmen/Dhavalitting on: 0 11/26/2024 12:42 PM CDT History and Physical Notes * HPI (History of Present Illness) Category Sub-Category Detail Notes Category Not es Interval Hx 69 yo male comes in for follow up in management of uncontrolled type 2 DM (A1C of 7.8% down from 8.2%), mixed dyslipidemia, weight management/obesity and concern for hypercortisolism. At last visit in Jul we transitioned off ozempic to mounjaro as A1C was not at goal and patient not losing weight. We also continued metformin and glimepiride scale. We added nexletol for mixed dyslipidemia insurance would not cover so we requested start of repatha as LDL is markedly high and patient high risk for CAD events. DST positive x 2 Brayan reports struggling with insomnia and has a history of sleep apnea, currently using an oral appliance. His blood glucose control remains suboptimal, with fasting levels typically around 193 mg/dL. He recently switched from Ozempic to Mounjaro for diabetes management. Elevated cortisol levels have been noted, and a CT scan of the adrenal glands is planned to evaluate for potential adenomas. A recent at-home sleep study showed 20+ episodes of sleep apnea per hour, and an in-house sleep study is scheduled to reassess severity and eligibility for Inspire therapy. Patient reports struggling with insomnia. He goes to bed and wakes up at 3 AM, moving to his recliner. He dozes in and out until 7:30 AM. If he goes to bed at 1 AM, he still wakes up at 7:30 AM. Patient has a history of sleep apnea and uses an oral appliance. A recent at-home sleep study showed 20-plus episodes per hour. Patient's blood glucose control has been suboptimal. Fasting blood glucose is typically 193 mg/dL in the morning, sometimes exceeding 200 mg/dL. Throughout the day, glucose levels fluctuate, with readings as low as 114 mg/dL in the evening and rising to 160-180 mg/dL before breakfast, even prior to eating. Patient is currently taking metformin 1000 mg twice daily, glimepiride, and Farxiga. He recently switched from Ozempic to Mounjaro for diabetes management. Patient has elevated cortisol levels, with DEXA suppression test results above 1.8 on two occasions. Urine and salivary cortisol tests were within normal limits. Patient has a history of lung cancer and has undergone CT and MRI imaging in the past. Medical History - Sleep apnea - Lung cancer (history) - Type 2 Diabetes Current and Past Medications and Supplements - CPAP (mentioned but patient uses oral appliance instead) - Oral appliance for sleep apnea - Ozempic (recently discontinued) - Mounjaro 2.5mg (prescribed but not started yet) - Repatha (taken every two weeks) - Metformin 1500mg in the morning and 1500mg in the evening - Glimepiride - Farxiga Social History - Sleep: Reports sleep apnea, uses oral appliance. Experiences insomnia, waking at 3 AM and dozing until 7:30 AM. - Living situation: Lives with spouse ([place]vet) Review of Systems - Sleep: Insomnia, wakes up at 3 AM, dozes in and out until 7:30 AM - Respiratory: Has sleep apnea Examination Category Sub-Category Detail Notes Category Not es General Examination Neck, thyroid : supple Heart: BP wnl, RSR, no murm urs Lungs: normal, respirations easy with conversation and ambulation Abdomen: normal, round, non-d istended Extremities: unremarkable General normal, NAD, well no urished and hydrated, pleasant obese male Neurologic exam: unremarkable Peripheral pulses: normal (2+) bilatera lly Psych: orientation to perso n, place & situation, appropriate judgment noted
--- OUTSIDE RECORDS SUMMARY | 2024-11-26 12:43 | XMS_ITS | Encounter Summary ---
Author Organization [facility] Address [address] [place] [address] Phone Care Team Providers Care Rig Superintendent Name Role Phone Sri Camargo Primary Care Pr ovider Herbert Forrest MD Unavailable [phone] Cynthia Grande RN Unavailable Unavailable Eduarda Ford MD Unavailable [phone] Encounter Details Date Type Department Care Team (Latest Contact Info) Description 12/20/2019 Orders Only [facility] Scanning, Provider Social History Tobacco Use Types Packs/Day Years Used Date Smoking Tobacco: Former Smokeless Tobacco: Never Alcohol Use Standard Drinks/Week Comments Yes 0 (1 standard drink = 0.6 oz pur e alcohol) Sex and Gender Information Value Date Recorded Sex Assigned at Not on file Legal Sex Male 3:10 AM POURER BUGGY LADLE Gender Identity Male 04/20/2021 11:20 AM CDT Sexual Orientation Straight 12/04/2018 5: 46 PM CDT documented as of this encounter Plan of Treatment Not on file documented as of this encounter Procedures Procedure Name Priority Date/Time Associated Diagnosis Comments SCAN - LABS 12/20/2019 documented in this encounter Results * SCAN - LABS (12/20/2019) us Provider Scanning Edited Result - Final documented in this encounter Visit Diagnoses Not on filedocumented in this encounter Care Teams Rig Superintendent Relationship Specialty Start Date End Date Sri Camargo PA PCP - General Physician Graves Registration Specialist 04/19/18 Herbert Forrest MD [address] [place] [address] Referring Physician Pulmonary Disease 10/16/18 Cynthia Grande, RN Registered Nurse 03/19/19 Eduarda Ford MD Consulting Physician Urology 04/10/20 documented as of this encounter
--- OUTSIDE RECORDS SUMMARY | 2024-11-26 12:43 | XMS_ITS | Encounter Summary ---
Author Organization [facility] Address [address] [place] [address] Phone Care Team Providers Care Oven Worker Name Role Phone Sri Camargo Primary Care Pr ovider Herbert Forrest MD Unavailable [phone] Cynthia Grande RN Unavailable Unavailable Eduarda Ford MD Unavailable [phone] Encounter Details Date Type Department Care Team (Latest Contact Info) Description 01/13/2020 Orders Only [facility]AT[facility] Scanning, Provider Social History Tobacco Use Types Packs/Day Years Used Date Smoking Tobacco: Former Smokeless Tobacco: Never Alcohol Use Standard Drinks/Week Comments Yes 0 (1 standard drink = 0.6 oz pur e alcohol) Sex and Gender Information Value Date Recorded Sex Assigned at Not on file Legal Sex Male 3:10 AM HOME 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 ATTENDANT Gender Identity Male 04/20/2021 11:20 AM CDT Sexual Orientation Straight 12/04/2018 5: 46 PM CDT documented as of this encounter Plan of Treatment Not on file documented as of this encounter Procedures Procedure Name Priority Date/Time Associated Diagnosis Comments SCAN - LABS 01/13/2020 documented in this encounter Results * SCAN - LABS (01/13/2020) us Provider Scanning Final Result documented in this encounter Visit Diagnoses Not on filedocumented in this encounter Care Teams Oven Worker Relationship Specialty Start Date End Date Sri Camargo PA PCP - General Physician Jack Frame Tender 04/19/18 Herbert Forrest MD [address] [place] [address] Referring Physician Pulmonary Disease 10/16/18 Cynthia Grande, RN Registered Nurse 03/19/19 Eduarda Ford MD Consulting Physician Urology 04/10/20 documented as of this encounter
--- OUTSIDE RECORDS SUMMARY | 2024-11-26 12:43 | XMS_ITS | Referral Summary ---
Author Organization [facility] Address [address] [place] [address] Care Team Providers Care Garnett Fixer Name Role Phone CarlineadriánSri Primary Care Pr ovider Herbert Forrest MD Unavailable Cynthia Grande RN Unavailable Unavailable Eduarda Ford MD Unavailable Encounters Date Type Department Care Team Description 11/18/2024 Anticoagulation Visit [facility] Hematology [facility] Floor [address] [place] [phone] Lina Nguyen 11/07/2024 7:30 PM CDT Procedure visit [facility] Neuro Sleep [address] [facility] 6th Floor [address] [place] [phone] JOSUE (obstructive sleep apnea) (Primary Dx) 11/04/2024 Anticoagulation Visit [facility] Hematology [address] [facility] Floor 6 [place] [phone] Tiny Glaser, RN [facility] current use of anticoagulant therapy (Primary Dx) 10/28/2024 Anticoagulation Visit [facility] Hematology [address] [facility] Floor 6 [place] [phone] Tiny Glaser, RN 10/24/2024 Telephone [facility] Cardiology [address] [place] [address] Advanced Medicine 8th [place] [address] [place] [address] Willy Salinas MD PhD Imaging results/recommendatio ns 10/21/2024 Telephone [facility] Hematology [address] [place] [phone] Tiny Glaser, RN 10/21/2024 Anticoagulation Visit [facility] Hematology [address] [place] [phone] Tiny Glaser RN 10/07/2024 Anticoagulation Visit [facility] Hematology [address] [place] [phone] Lina Nguyen 10/07/2024 Telephone [facility] Hematology [address] [place] [phone] Lina Nguyen 09/24/2024 Anticoagulation Visit [address] [address] Lina Nguyen 09/17/2024 Orders Only [facility] Scanning, Provider 09/12/2024 2:15 PM PARACHUTE CUSHION INSTALLER Office Visit [facility] Cardiology [facility] Advanced Medicine 8th [place] [address] [place] [address] Willy Salinas MD PhD Atherosclerosis of [place] coronary artery of [place] heart without angina pectoris (Primary Dx); Essential hypertension; Peripheral vascular disease; Malignant neoplasm of upper lobe of right lung (HCC) 09/09/2024 Anticoagulation Visit [address] [address] Lina Nguyen 08/28/2024 Anticoagulation Visit [address] [phone] Tiny Glaser, RN from Last 3 Months Allergies No known active allergies Medications petrolat,wht/mi n oil/sod chl (ARTIFICIAL TEARS OINTMENT OPHT) as needed 015 Active ONETOUCH DELICA LANCETS 33 gauge misc 018 Active metFORMIN XR (GLUCOPHAGE XR) 500 mg 24 hr tabletIndicatio ns:type 2 diabetes mellitus Take 2 tablets (1,000 mg total) by mouth 2 (two) times a day Active albuterol HFA (PROVENTIL HFA,VENTOLIN HFA,PROAIR HFA) 90 mcg/actuation inhaler Inhale 2 puffs as needed for shortness of breath Active cetirizine (ZyrTEC) 10 mg tabletIndicatio ns:Seasonal Allergic Rhinitis Take 1 tablet (10 mg total) by mouth 2 (two) times a day Active sucralfate (CARAFATE) 1 gram tabletIndicatio ns:Heartburn Take 1 tablet (1 g total) by mouth as needed Active aspirin 81 mg enteric coated tablet Take 1 tablet (81 mg total) by mouth daily 0 Active Additional Information Patient taking differently:81 mg [...] total) by mouth daily 30 tablet 11 022 Active losartan (COZAAR) 25 mg tablet Take 1 tablet (25 mg total) by mouth daily 023 Active Dexcom G6 Sensor device CHANGE EVERY 10 DAYS. 023 Active Dexcom G6 Transmitter device CHANGE EVERY 90 DAYS. 022 Active Trulicity 1.5 mg/0.5 mL pen injector 023 Active ranolazine ER (RANEXA) 500 mg 12 [...] 025 Active warfarin (COUMADIN) 10 mg tabletIndicatio ns:[facility] current use of anticoagulant therapy TAKE 1 [...] (03/30/2021): Added automatically from request for surgery [id number] Pain of finger of left hand 12/05/2018 Atherosclerosis of [place] ar leonard of both lower extremities with intermittent claudication 11/21/2018 Hyperlipemia 10/25/2018 Parotid mass 05/01/2018 Overview (05/01/2018): 1. 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 Palpitations 10/25/2016 Mass of parotid gland 10/25/2016 Surgical follow-up care 10/05/2016 [facility] current use of anticoagulant therapy 0 09/01/2016 [...] Pure hypercholesterolemia 12/09/2014 Overview (11/12/2016): Pure hypercholesterolemia Immunizations Immunization Administration Dates Next Due Influenza, Quadrivalent, Spl it, Preservative Free, Intramuscular 06/22/2020,06/13/2019,07/09/2018 Influenza, Unspecified 08/07/2016,04/27/2016 Pfizer SARS-CoV-2 Monovalent Vaccination (12+ Yrs) PURPLE 10/10/2020,09/12/2020 Pneumococcal Polysaccharide PPV23 06/13/2019 Pneumococcal, Unspecified 08/07/2016 Td, adsorbed 11/20/2017 Social History Tobacco Use Types Packs/Day Years [...] on file Legal Sex Male 3:10 AM PARACHUTE CUSHION INSTALLER Gender Identity Male 04/20/2021 11:20 AM CDT Sexual Orientation Straight 12/04/2018 5: 46 PM CDT Last Filed Vital Signs Vital Sign Reading [...] 11/07/2024 7:42 PM CDT Plan of Treatment Not on file Medical Devices Implanted Type Area Bit Setter Device Identifier Shelf Expiration Date Model / Serial / Lot [employer] [id number] Ams 700 Kit Accessory Penile Prosthesis - Sn/A - [id number] Implanted:Qty: 1 on 04/09/2020 by Eduarda Ford MD at [facility] Other - see comments N/A: Penis [employer] [id number] 10/01/2024 [id number] / N/A / [id number] Description:Implanted items from accessory kit: 2 Collets and 1 straight suture- tie connector [employer] [id number] Ams 700 Preconnect 1 Ms Pump 2 Cylinder Penoscrotal Prosthesis - Sn/A - [id number] Implanted:Qty: 1 on 04/09/2020 by Eduarda Ford MD at [facility] Other - see comments N/A: Penis [employer]ich[employer] 10/17/2021 [id number] / N/A / [id number] Description:Pump [employer] [id number] Conceal Low Profile [place] 100ml Prosthesis Inhibizone Sterile Latex Free - Sn/A - [id number] Implanted:Qty: 1 on 04/09/2020 by Eduarda Ford MD at [facility] Other - see comments N/A: Penis [employer] 12/25/2021 [id number] / N/A / Description:[place] [employer] [id number] Ams Spectra 12/14mm 1cm Cylinder Concealable Malleable Rear Tip - Sn/A - [id number] Implanted:Qty: 1 on 04/09/2020 by Eduarda Ford MD at [facility] Other - see comments N/A: Penis [employer] 09/29/2024 [id number] / N/A / [id number] Description:CONCEALABLE MALL EABLE REAR TIP [employer] [id number] Ams Spectra 1.5cm Concealable Rear Tip Concrete Sculptor Snapcone - Sn/A - [id number] Implanted:Qty: 1 on 04/09/2020 by Eduarda Ford MD at [facility] Other - see comments N/A: Penis [employer] 04/22/2024 [id number] / N/A / Description:CONCEALABLE REAR TIP ORACLE SQL DEVELOPER Coronary Stent X 1 Stent N/A: Heart [...] EXTERNAL LAB Blood 11/18/2024 us Historical Provider MD LAB BLOOD ORDERABLES Renetta l Result EXTERNAL LAB * PSG (COMPLEX) (11/07/2024 9:00 PM CDT) Narrative Mike Sarah MD - 11/07/2024 9:00 PM CDT Mike Sarah MD 11/08/2024 8:45 AM PSG-Sleep Provider Use Only Date/Time: 11/07/2024 9:00 PM Performed by: Mike Sarah MD Authorized by: Mike Sarah MD Result [facility] Mike Sarah MD SLEEP CENTER ORDERABLES F inal Result * (ABNORMAL) Protime-INR (11/02/2024) INR 2.70(A) 0.90 - 1.10 EXTERNAL LAB Blood Result [facility] Provider MD LAB BLOOD ORDERABLES Renetta l Result EXTERNAL LAB * (ABNORMAL) Protime-INR (10/26/2024) INR 2.80(A) 0.90 - 1.10 EXTERNAL LAB Blood Result [facility] Provider MD LAB BLOOD ORDERABLES Renetta l Result EXTERNAL LAB * (ABNORMAL) Protime-INR (10/19/2024) INR 1.60(A) 0.90 - 1.10 EXTERNAL LAB Blood Result [facility] Historical Provider MD LAB BLOOD ORDERABLES Renetta l Result EXTERNAL LAB * (ABNORMAL) Protime-INR (10/07/2024) INR 1.70(A) 0.90 - 1.10 EXTERNAL LAB Blood 10/07/2024 Historical Provider MD LAB BLOOD ORDERABLES Renetta l Result EXTERNAL LAB * (ABNORMAL) Protime-INR (09/24/2024) INR 2.20(A) 0.90 - 1.10 EXTERNAL LAB Blood 09/24/2024 Historical Provider MD LAB BLOOD ORDERABLES Renetta l Result EXTERNAL LAB * SCAN - RADIOLOGY/IMAGING (09/17/2024) Anatomical Region Laterality Modality Other Provider Scanning Final Result * (ABNORMAL) Protime-INR (09/09/2024) Pathologist [facility] INR 2.00(A) 0.90 - 1.10 EXTERNAL LAB Blood 09/09/2024 Result [facility] Provider MD LAB BLOOD ORDERABLES Renetta l [...] was last reviewed 2021. Testing performed by: [facility], [address] [place] [phone] Blood 01/09/2024 10:3 4 AM CDT 01/09/2024 10:35 AM CDT us Denise David NP LAB BLOOD ORDERABLES Final R esult Performing Organization Address [facility] de Phone Number [facility] [address] [facility] [place] [address] * (ABNORMAL) Hemoglobin A1c (04/09/2020 8:47 AM CDT) Hgb A1C 6.6(H) 4.0 - 5.6 % [facility] Estimated Average Glucose 143 mg/dL [facility] Comment: The ADA recommends reporting an estimated Average Glucose (eAG) with all Hemoglobin A1c results using the equation derived from a study of 507 normal and diabetic adults. Minority populations were underrepresented and children were not included. (Diabetes Care 31:2875-8145, 2008). The eAG is not equivalent to a fasting glucose. Blood specimen (specimen) 04/09/2020 8:47 AM CDT 04/09/2020 8:51 AM CDT us Eduarda Ford MD LAB BLOOD ORDERABLES Final Re sult Performing Organization Address [facility] Co de Phone Number [facility] [address] [place] [address] * (ABNORMAL) Serum lipid panel (05/03/2016 12:35 [...] Provider LAB BLOOD ORDERABLES Renetta l Result CDR HISTORICAL RESULTS * CT Angiogram Abdominal Aorta And Bilateral Iliofemoral Runoff W WO Contrast (04/26/2016 9:28 AM CDT) Anatomical Region Laterality Modality Body Bilateral Computed Tomogra phy 04/26/2016 9:28 AM CDT Narrative 04/26/2016 10:06 AM CDT FERNANDA CORREA M.D. FINAL REPORT ACC# Date Time Exam [id number] Apr 26, 2016 09:28:[address] Angio Abd & AIF wwo con [...] posterior tibial arteries. Above findings discussed with GLASS VIAL FILLER Olga Salvador at 10:05 a.m. on 04/26/2016. Requested By: CODIE ALEXIS M.D. Dictated By: FERNANDA CORREA M.D. on Apr 26 2016 10:06A This document has been electronically signed by: FERNANDA CORREA M.D. on Apr 26 2016 10:06A [id number] Procedure Note Provider, MD Danielito - 11/24/2016 FERNANDA CORREA M.D. FINAL REPORT ACC# Date Time Exam [id number] Apr 26, 2016 09:28:[address] Angio Abd & AIF wwo con [...] CORREA M.D. on Apr 26 2016 10:06A [id number] us Historical Provider MD [place] CT PROCEDURES Final R esult from Last 3 Months or Most Recently Relevant to Health Maintenance Insurance MEDICARE [facility] MEDICARE [employer] MEDICARE [facility] OPEN ACCESS [facility] Advance Directives For more information, please contact: [phone] * Full Code (Latest Code Status on File) Date Activated Date Inactivated Comments 04/09/2020 2:55 PM 04/10/2020 5:22 PM Care Teams Garnett Fixer Relationship Specialty Start Date End Date Sri Camargo PA PCP - General Physician Nailhead Setter 04/19/18 Herbert Forrest MD [address] [place] [address] Referring Physician Pulmonary Disease 10/16/18 Cynthia Grande, RN Registered Nurse 03/19/19 Eduarda Ford MD Consulting Physician Urology 04/10/20
--- OUTSIDE RECORDS SUMMARY | 2024-11-26 12:43 | XMS_ITS | Encounter Summary ---
Author Organization [facility] Address [address] [place] [address] Care Team Providers Care Gear Machinist Name Role Phone Unavailable Primary Care Provider Unavailabl e Encounter Details Date Type Department Care Team (Late st Contact Info) Description 06/22/2023 Lab Requisition [facility] - DermPath Lab [address] [facility], [place] [address] Mini Willams DO [address] [facility] [address] [place] [address] Social History Tobacco Use Types Packs/Day Years Used Date Smoking Tobacco: Never Assessed Sex and Gender Information Value Date Recorded Sex Assigned at Not on file Legal Sex Male 2:21 PM LUMBER STACKER Gender Identity Not on file Sexual Orientation Not on file documented as of this encounter Plan of Treatment Not on file documented as of this encounter Procedures Procedure Name Priority Date/Time Associated Diagnosis Comments DERMATOPATHOLOGY Routine 06/22/2023 2:06 PM LUMBER STACKER documented in this encounter Results * DERMATOPATHOLOGY (06/22/2023 2:06 PM LUMBER STACKER) Case Report Dermatopathology Report Case: [id number] Authorizing Provider: Mini Willams DO Collected: 06/22/2023 02:06 PM Ordering Location: [facility] DermPath Lab Received: 06/24/2023 06:44 AM Pathologist: Trinh Mercado MD Specimen: Skin, crown of scalp 3 12:07 PM LUMBER STACKER DERMATOPATHOLOGY LABORATORY Final Diagnosis Specimen A. SKIN, crown of scalp: SEBORRHEIC KERATOSIS, INFLAMED (L82.0) 3 12:07 PM LUMBER STACKER DERMATOPATHOLOGY LABORATORY Clinical History ISK R/O Atypia 3 12:07 PM [facility] DERMATOPATHOLOGY LABORATORY Gross Description Specimen A: Received is one formalin filled container labeled with the patient's name and designated crown of scalp. The specimen consists of a shave biopsy measuring 5x5x1 mm. Jar 0. 3 12:07 PM [facility] DERMATOPATHOLOGY LABORATORY Microscopic Description Specimen A. SKIN, crown of scalp: There is hyperkeratosis, parakeratosis, papillomatosis, and acanthosis of the epidermis. There is a lymphohistiocytic infiltrate within the papillary dermis that is focally lichenoid. 3 12:07 PM [facility] DERMATOPATHOLOGY LABORATORY Disclaimer An external and internal positive and negative controls are appropriate for the histochemical, immunohistochemical and immunofluorescence stain(s) in this case (if any), except where stated explicitly. The performance characteristics of the stain(s) cited in this report were developed and its performance characteristic determined by the Dermatopathology Laboratory at [facility], directed by Dr. Deshawn Ruggiero. These tests need not be, and therefore are not, approved by the [place] Food and Drug Administration. The tests are used for clinical purposes. Billing Codes Specimen Charges Stain Charges 27963 1 3 12:07 PM [facility] DERMATOPATHOLOGY LABORATORY Embedded Images 3 12:07 PM [facility] DERMATOPATHOLOGY LABORATORY Pathology/Cytolo gy TISSUE SPECIMEN FROM SKIN / Unknown 06/22/2023 2:06 PM LUMBER STACKER 06/24/2023 6:44 AM LUMBER STACKER us Mini Willams DO LAB - PATHOLOGY/CYTOLOGY ORDERABLES Final Result DERMATOPATHOLOGY LABORATORY [facility] - Department of Dermatology [address], [address] [phone] documented in this encounter Visit Diagnoses Not on filedocumented in this encounter
--- OUTSIDE RECORDS SUMMARY | 2024-11-26 12:43 | XMS_ITS ---
Author Organization [facility] Address [address] [place] [address] Care Team Providers Care Accounting Clerks Supervisor Name Role Phone AndreadelfinoSri Primary Care Pr ovider Herbert Forrest MD Unavailable Cynthia Grande RN Unavailable Unavailable Eduarda Ford MD Unavailable Active Problems Problem Noted Date Diagnosed Date Malignant neoplasm of upper lobe of right lung 0 02/04/2024 Arterial thrombosis 02/04/2024 JOSUE (obstructive sleep apnea) 03/30/2021 Overview (03/30/2021): Added automatically from request for surgery [id number] Pain of finger of left hand 12/05/2018 Atherosclerosis of [place] ar leonard of both lower extremities with intermittent claudication 11/21/2018 Hyperlipemia 10/25/2018 Parotid mass 05/01/2018 Overview (05/01/2018): 1. 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 Past Treatment and Therapy Plans No past plan information found. Lifetime Dose Tracking * Chemical Lifetime Dose Automatic Entry Manual Entr y DLP 3,514 mGycm 3,514 mGycm 0 mGycm Resolved Problems Problem Noted Date Diagnosed Date Resolved Date Pure hypercholesterolemia 12/09/2014 Overview (11/12/2016): Pure hypercholesterolemia
--- OUTSIDE RECORDS SUMMARY | 2024-11-26 12:43 | XMS_ITS ---
Author Organization [facility] Address [address] [place] [address] H[place] Monique [address] Care Team Providers Care Administration Clerk Name Role Phone GEORGE LITTLE Primary Care Provider Tio Quiroz Unavailable [phone] MIA BONILLA ASHLEY Unavailable Unavailable ALLERGIES No Known Allergies REASON FOR VISIT Follow Up, Right = Left Low Back Pain MEDICATIONS Medication SIG (Take, Route, Frequency, Duration) Notes Start Date End Date Status Fenofibrate 160 MG 1 tablet Orally Once a day for 30 day(s) Active Glimepiride 4 MG 1 tablet with breakfast or the first main meal of the day Orally Once a day for 30 day(s) Active methylPREDNISolone 4 MG as directed Orally Active Isosorbide Mononitrate ER 12 0 MG 1 tablet in the morning Orally Once a day for 30 day(s) Active metFORMIN HCl 1000 MG 1 tablet with a me al Orally Once a day for 30 day(s) Active Warfarin Sodium 10 MG 1 tablet Orally On ce a day for 30 day(s) Active Metoprolol Succinate 100 MG 1 capsule Or ally Once a day for 30 day(s) Active amLODIPine Besylate 10 MG 1 tablet Orall y Once a day for 30 day(s) Active Aspirin 81 Active Ezetimibe 10 MG 1 tablet Orally Once a day for 30 day(s) Active Ozempic (1 MG/DOSE) Active SOCIAL HISTORY Tobacco Use: Social History Observation Description Date Details (start date - stop date) Former Smoker NA - NA Sex Assigned At : Social History Observation Description Sex Assigned At Unknown Tobacco Use/Smoking Question Answer Notes Are you a former smoker How long has it been since you last smoked? 5-10 years VITAL SIGNS Blood pressure systolic 134 mm Hg 03/03/20 25 Blood pressure diastolic 69 mm Hg 025 Heart Rate 57 /min 10/07/2024 Respiratory Rate 18 /min 10/07/2024 Height 5 ft 11 in in 10/07/2024 Weight 252 lbs 10/07/2024 BMI 35.14 kg/m2 10/07/2024 Encounters Encounter Location Date Provider Diagnosis [facility] [address] [facility] [place] [address] 10/07/2024 Tio Obregon Lumbar radiculopathy M54.16 ; Spondylosis without myelopathy or radiculopathy, lumbar region M47.816 ; Spinal stenosis, lumbar region with neurogenic claudication M48.062 ; Other intervertebral disc degeneration, lumbar region M51.36 ; Chronic pain syndrome G89.4 ; 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 ; 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 He currently denies a need for any injections or interventions at this time. He would like to return to the office in 1 month for follow-up and reevaluation of his pain at that time. 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 Obregon. I have discussed and reviewed all of the pertinent history, physical examination findings and diagnostic imaging results with him. As a result of our discussion, Dr. Obregon has determined the above assessment and directed the treatment plan. This note was dictated using voice recognition software and therefore inadvertent errors may have occurred. This note was dictated by TENISHA De La Fuente. Total Time Spent with Patient and Medical Decision Makin minutes PLAN OF TREATMENT Treatment Notes Assessment Notes Spondylosis without myelopat hy or radiculopathy, lumbar region The patient continues to report 95% reli ef of his severe axial low back pain following his bilateral L3-5 Radiofrequency ablation performed on 07/10/24. He currently denies a need for any injections or interventions at this time. He would like to return to the office in 1 month for follow-up and reevaluation of his pain at that time. Other The above-named patient was evaluated in conjunction with Dr. Obregon. I have discussed and reviewed all of the pertinent history, physical examination findings and diagnostic imaging results with him. As a result of our discussion, Dr. Obregon has determined the above assessment and directed the treatment plan. This note was dictated using voice recognition software and therefore inadvertent errors may have occurred. This note was dictated by TENISHA De La Fuente. Total Time Spent with Patient and Medical Decision Makin minutes Next Appt Details Follow Up: 4 Weeks OPV, Reas on: Provider Name:Tio Aelc lang, 12/06/2024 12:00:00 PM, [address] [place], [address], Progress Notes * Examination Category Sub-Category Detail [...] patient's typical axial low back pain. Yonny's, [place]'s and [place]'s are positive bilaterally. There is [...] foraminal stenosis Assessment and Follow-up: Follow-up Plan documen kenya:: Yes MIPS Quality 2020: MIPS Documented:: Compliant
--- OUTSIDE RECORDS SUMMARY | 2024-11-26 12:43 | XMS_ITS | Encounter Summary ---
Author Organization [facility] Address [address] [place] [address] Phone Care Team Providers Care Qa Engineer Name Role Phone Sri Camargo Primary Care Pr ovider Herbert Forrest MD Unavailable [phone] Cynthia Grande RN Unavailable Unavailable Eduarda Ford MD Unavailable [phone] Encounter Details Date Type Department Care Team (Latest Contact Info) Description 12/20/2019 Orders Only [facility] Scanning, Provider Social History Tobacco Use Types Packs/Day Years Used Date Smoking Tobacco: Former Smokeless Tobacco: Never Alcohol Use Standard Drinks/Week Comments Yes 0 (1 standard drink = 0.6 oz pur e alcohol) Sex and Gender Information Value Date Recorded Sex Assigned at Not on file 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 Gender Identity Male 04/20/2021 11:20 AM CDT Sexual Orientation Straight 12/04/2018 5: 46 PM CDT documented as of this encounter Plan of Treatment Not on file documented as of this encounter Procedures Procedure Name Priority Date/Time Associated Diagnosis Comments SCAN - LABS 12/20/2019 documented in this encounter Results * SCAN - LABS (12/20/2019) us Provider Scanning Final Result documented in this encounter Visit Diagnoses Not on filedocumented in this encounter Care Teams Qa Engineer Relationship Specialty Start Date End Date Sri Camargo PA PCP - General Physician It Applications Analyst 04/19/18 Herbert Forrest MD [address] [place] [address] Referring Physician Pulmonary Disease 10/16/18 Cynthia Grande, RN Registered Nurse 03/19/19 Eduarda Ford MD Consulting Physician Urology 04/10/20 documented as of this encounter
--- OUTSIDE RECORDS SUMMARY | 2024-11-26 12:43 | XMS_ITS ---
Author Organization [facility] Address [address] [place] [address] H[place] Mon[place] [address] Care Team Providers Care Cupola Melter Helper Name Role Phone GEORGE LITTLE Primary Care Provider Tio Quiroz Unavailable [phone] MIA BONILLA ASHLEY Unavailable Unavailable ALLERGIES No Known Allergies REASON FOR VISIT Follow Up, Right > Left Low Back Pain MEDICATIONS Medication SIG (Take, Route, Frequency, Duration) Notes Start Date End Date Status Isosorbide Mononitrate ER 12 0 MG 1 tablet in the morning Orally Once a day for 30 day(s) Active methylPREDNISolone 4 MG as directed Orally Active metFORMIN HCl 1000 MG 1 tablet with a me al Orally Once a day for 30 day(s) Active Fenofibrate 160 MG 1 tablet Orally Once a day for 30 day(s) Active Glimepiride 4 MG 1 tablet with breakfast or the first main meal of the day Orally Once a day for 30 day(s) Active Aspirin 81 Active Metoprolol Succinate 100 MG 1 capsule Or ally Once a day for 30 day(s) Active Ezetimibe 10 MG 1 tablet Orally Once a day for 30 day(s) Active Warfarin Sodium 10 MG 1 tablet Orally On ce a day for 30 day(s) Active amLODIPine [...] 5-10 years VITAL SIGNS Blood pressure systolic 129 mm Hg 01/02/20 25 Blood pressure diastolic 71 mm Hg 025 Heart Rate 62 /min 08/08/2024 Respiratory Rate 16 /min 08/08/2024 Height 5 ft 11 in in 08/08/2024 Weight 252 lbs 08/08/2024 BMI 35.14 kg/m2 08/08/2024 Encounters Encounter Location Date Provider Diagnosis [facility] [address] [facility] [place] [address] 08/08/2024 Tio Obregon Lumbar radiculopathy M54.16 ; Spondylosis without myelopathy or radiculopathy, lumbar region M47.816 ; Spinal stenosis, lumbar region with neurogenic claudication M48.062 ; Other intervertebral disc degeneration, lumbar region M51.36 ; Chronic pain syndrome G89.4 ; 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 ; 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 He currently denies a need for any injections or interventions at this time. He would like to return to the office in 1 month for follow-up and reevaluation of his pain at that time. 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 He currently denies a need for any [...] 4 Weeks OPV, Reas on: Provider Name:Tio Alec lang, 12/06/2024 12:00:00 PM, [address] [place], [address], Progress Notes * Examination Category [...] patient's typical axial low back pain. Yonny's, [place]'s and Gaenslen's are positive bilaterally. There is [...] foraminal stenosis Assessment and Follow-up: Follow-up Plan documedisha kenya:: Yes MIPS Quality 2020: [facility] Documented:: Compliant
--- OUTSIDE RECORDS SUMMARY | 2024-11-26 12:43 | XMS_ITS | Encounter Summary ---
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 Gender Identity Male 04/20/2021 11:20 AM CDT Sexual Orientation Straight 12/04/2018 5: 46 PM CDT documented as of this encounter Plan of Treatment Not on file documented as of this encounter Procedures Procedure Name Priority Date/Time Associated Diagnosis Comments SCAN - LABS 03/25/2023 documented in this encounter Results * SCAN - LABS (03/25/2023) us Provider Scanning Final Result documented in this encounter Visit Diagnoses Not on filedocumented in this encounter Care Teams Curtain Stitcher Relationship Specialty Start Date End Date CarlineSri sampson ROBBIN Rodríguez PCP - General Physician Quarry Manager 04/19/18 Herbert Forrest MD [address] [place] [address] Referring Physician Pulmonary Disease 10/16/18 Cynthia Grande, RN Registered Nurse 03/19/19 Eduarda Ford MD Consulting Physician Urology 04/10/20 documented as of this encounter
--- OUTSIDE RECORDS SUMMARY | 2024-11-26 12:44 | XMS_ITS | Encounter Summary ---
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 Gender Identity Male 04/20/2021 11:20 AM CDT Sexual Orientation Straight 12/04/2018 5: 46 PM CDT documented as of this encounter Plan of Treatment Not on file documented as of this encounter Procedures Procedure Name Priority Date/Time Associated Diagnosis Comments SCAN - LABS 12/31/2022 documented in this encounter Results * SCAN - LABS (12/31/2022) us Provider Scanning Final Result documented in this encounter Visit Diagnoses Not on filedocumented in this encounter Care Teams Physical Therapy Aides Teacher Relationship Specialty Start Date End Date Sri Camargo ROBBIN Rodríguez PCP - General Physician Drywall Carrier 04/19/18 Herbert Forrest MD [address] [place] [address] Referring Physician Pulmonary Disease 10/16/18 Cynthia Grande, RN Registered Nurse 03/19/19 Eduarda Ford MD Consulting Physician Urology 04/10/20 documented as of this encounter
--- OUTSIDE RECORDS SUMMARY | 2024-11-26 12:44 | XMS_ITS | Encounter Summary ---
Author Organization [facility] Address [address] [place] [address] Phone Care Team Providers Care Mirror Maker Name Role Phone Sri Camargo Primary Care Pr ovider Herbert Forrest MD Unavailable Cynthia Grande RN Unavailable Unavailable Eduarda Ford MD Unavailable Encounter Details Date Type Department Care Team (Latest Contact Info) Description 02/17/2020 Orders Only [facility] Scanning, Provider Social History Tobacco Use Types Packs/Day Years Used Date Smoking Tobacco: Former Smokeless Tobacco: Never Alcohol Use Standard Drinks/Week Comments Yes 0 (1 standard drink = 0.6 oz pur e alcohol) Sex and Gender Information Value Date Recorded Sex Assigned at Not on file 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 Sex Male 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 Gender Identity Male 04/20/2021 11:20 AM CDT Sexual Orientation Straight 12/04/2018 5: 46 PM CDT documented as of this encounter Plan of Treatment Not on file documented as of this encounter Procedures Procedure Name Priority Date/Time Associated Diagnosis Comments SCAN - LABS 02/17/2020 documented in this encounter Results * SCAN - LABS (02/17/2020) us Provider Scanning Final Result documented in this encounter Visit Diagnoses Not on filedocumented in this encounter Care Teams Mirror Maker Relationship Specialty Start Date End Date Sri Camargo PA PCP - General Physician Deck Lid Fitter 04/19/18 Herbert Forrest MD [address] [place] [address] Referring Physician Pulmonary Disease 10/16/18 Cynthia Grande, RN Registered Nurse 03/19/19 Eduarda Ford MD Consulting Physician Urology 04/10/20 documented as of this encounter
--- OUTSIDE RECORDS SUMMARY | 2024-11-26 12:44 | XMS_ITS | Encounter Summary ---
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 Gender Identity Male 04/20/2021 11:20 AM CDT Sexual Orientation Straight 12/04/2018 5: 46 PM CDT documented as of this encounter Plan of Treatment Not on file documented as of this encounter Procedures Procedure Name Priority Date/Time Associated Diagnosis Comments SCAN - LABS 12/10/2022 documented in this encounter Results * SCAN - LABS (12/10/2022) us Provider Scanning Final Result documented in this encounter Visit Diagnoses Not on filedocumented in this encounter Care Teams Information Systems Technician Relationship Specialty Start Date End Date CarlineSri sampson ROBBIN Rodríguez PCP - General Physician Senior Security Analyst 04/19/18 Herbert Forrest MD [address] [place] [address] Referring Physician Pulmonary Disease 10/16/18 Cynthia Grande, RN Registered Nurse 03/19/19 Eduarda Ford MD Consulting Physician Urology 04/10/20 documented as of this encounter
--- OUTSIDE RECORDS SUMMARY | 2024-11-26 12:44 | XMS_ITS | Encounter Summary ---
Author Organization 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 Gender Identity Male 04/20/2021 11:20 AM CDT Sexual Orientation Straight 12/04/2018 5: 46 PM CDT documented as of this encounter Plan of Treatment Not on file documented as of this encounter Procedures Procedure Name Priority Date/Time Associated Diagnosis Comments SCAN - LABS 05/22/2021 documented in this encounter Results * SCAN - LABS (05/22/2021) us Provider Scanning Final Result documented in this encounter Visit Diagnoses Not on filedocumented in this encounter Care Teams Overhead Worker Relationship Specialty Start Date End Date CarlineSri sampson ROBBIN Rodríguez PCP - General Physician Enrollment Management Vice President 04/19/18 Herbert Forrest MD [address] [place] [address] Referring Physician Pulmonary Disease 10/16/18 Cynthia Grande, RN Registered Nurse 03/19/19 Eduarda Ford MD Consulting Physician Urology 04/10/20 documented as of this encounter
--- OUTSIDE RECORDS SUMMARY | 2024-11-26 12:44 | XMS_ITS | Encounter Summary ---
Author Organization [facility] Address [address] [place] [address] Phone Care Team Providers Care Hris Manager Name Role Phone Sri Camargo Primary Care Pr ovider Herbert Forrest MD Unavailable [phone] Cynthia Grande RN Unavailable Unavailable Eduarda Ford MD Unavailable [phone] Encounter Details Date Type Department Care Team (Latest Contact Info) Description 01/27/2020 Orders Only [facility] Scanning, Provider Social History Tobacco Use Types Packs/Day Years Used Date Smoking Tobacco: Former Smokeless Tobacco: Never Alcohol Use Standard Drinks/Week Comments Yes 0 (1 standard drink = 0.6 oz pur e alcohol) Sex and Gender Information Value Date Recorded Sex Assigned at Not on file 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 Gender Identity Male 04/20/2021 11:20 AM CDT Sexual Orientation Straight 12/04/2018 5: 46 PM CDT documented as of this encounter Plan of Treatment Not on file documented as of this encounter Procedures Procedure Name Priority Date/Time Associated Diagnosis Comments SCAN - LABS 01/27/2020 documented in this encounter Results * SCAN - LABS (01/27/2020) us Provider Scanning Final Result documented in this encounter Visit Diagnoses Not on filedocumented in this encounter Care Teams Hris Manager Relationship Specialty Start Date End Date Sri Camargo PA PCP - General Physician Orthophotography Technician 04/19/18 Herbert Forrest MD [address] [place] [address] Referring Physician Pulmonary Disease 10/16/18 Cynthia Grande, RN Registered Nurse 03/19/19 Eduarda Ford MD Consulting Physician Urology 04/10/20 documented as of this encounter
--- OUTSIDE RECORDS SUMMARY | 2024-11-26 12:44 | XMS_ITS | Data Portability ---
Author Organization [facility] ABEBETaylor Address [address] [place] [address] Care Team Providers Care Assistant To The Dean Name Role Phone GEORGE AU Primary Care Provider EBENEZER [employer] Drafter Assessment Encounter Date Assessment Date Assessment LastModified by Organization Details LastModified Time 06/04/2024 06/04/2024 due for diabetic eye exam colonoscopy 09/2021 every [address] nilton christensen Not available 06/04/2024 14:36:26 10/07/2024 10/07/2024 documents filled out for diabetic shoes foot care discussed. 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 nilton [email or web address] Not available 10/10/2024 10:42:11 Plan of Treatment Reminders Order Date Submit Date Provider Last Modified By Organization Details Last Modified Time Details Appointments ANY 15 2024 01:45P ROBBIN Lopez Not available Not available Not available Lab amylase + lipase, serum 2023 024 PO [facility], [address], [place], [address], 06/25/2024 08:26:59 CBC w/ auto diff 2023 024 PO [facility], [address], [place], [address], 12/08/2023 08:26:23 hepatic function panel, serum 2023 024 PO [facility], [address], [place], [address], 12/08/2023 08:26:21 BMP, serum or plasma 2023 024 PONITZA Sevilla, [address], [place], [address], 12/08/2023 08:26:22 TSH + free T4, serum 2023 024 PO [facility], [address], [place], [address], 12/08/2023 08:26:20 lipid panel, serum 2023 024 PONITZA Sevilla, [address], [place], [address], 12/08/2023 08:26:21 HbA1c (hemoglob in A1c), blood 2023 024 PONITZA Sevilla, [address], [place], [address], 12/08/2023 08:26:23 microalbu min/creat inine, mass ratio, urine 2023 024 PO Sevilla, [address], [place], [address], 12/08/2023 08:26:20 microalbu min, urine 2023 024 [facility], [address], [place], [address], 12/26/2023 13:32:12 PSA, total, serum or plasma - please cancel test if it's not been 12 months since last one 2023 024 PO Sevilla, [address], [place], [address], 12/08/2023 08:26:24 Referral None recorded. Procedures nerve conductio n study/EMG , lower extremity (PROC) [address] (Cardiology [facility] Emg), [address], [place], [address], 11/21/2024 16:12:06 Surgeries None recorded. Imaging US, abdomen 2023 024 [email or web address] [facility], [address], [place], [address], 07/09/2024 10:33:48 Medication Orders neomycin- polymyxin -hydrocor t 3.5 mg-10,000 unit/mL-1 % ear drops,zen p 2023 025 [id number], [address], [place], [id number], 10/10/2024 10:26:27 cyclobenz aprine 5 mg tablet 2023 024 [email or web address] #[id number], [address], [id number], 10/10/2024 10:25:43 metronida zole 500 mg tablet 2023 025 [facility] #[id number], [address], [place], [phone], 10/10/2024 10:25:46 Patient TargetsNo targets recorded. Patient Instructions Encounter Date Encounter Id Patient Instructions Last Modified By Organization Details Last Modified Time 06/04/2024 [id number] A healthy lifestyle: care instructions Not available 06/04/2024 14:36:50 10/10/2024 [id number] A healthy lifestyle: care instructions Not available 10/10/2024 10:55:54 Reason for Referral None Reported. Results Created Date Observation Date Name Description Value Unit Range Abnormal Flag Note LastModifiedBy Organization Detail LastModifiedTime 12/07/19 24 12/08/2023 ALBUM IN/CR EAT RATIO , RANDO M UR creatinine, urine 64.3 mg/dL notest ab. Not Available [facility] ([facility]) [address] [place], [address], 12/08/2023 08:26:20 12/07/19 24 12/08/2023 ALBUM IN/CR EAT RATIO , RANDO M UR albumin, urine 11.8 ug/mL notest ab. Not Available [facility] ([facility]) [address] [place], [address], 12/08/2023 08:26:20 12/07/19 24 12/08/2023 ALBUM IN/CR EAT RATIO , RANDO M UR alb/creat ratio 18 mg/g_ creat 0-29 Dena l: 0 - 29 Moder ately incre ased: 30 - 300 Sever sergo incre ased: >300 Not Available [facility] ([facility]) [address] [place], [address], 12/08/2023 08:26:20 12/07/19 24 12/08/2023 TSH+F REE T4 TSH 1.350 uIU/m L 0.450- 4.500 Not Available [facility] ([facility]) [address] [place], [address], 12/08/2023 08:26:20 12/07/19 24 12/08/2023 TSH+F REE T4 T4,free(dire ct) 1.22 NG/dL 0.82-1 .77 Not Available [facility] ([facility]) [address] [place], [address], 12/08/2023 08:26:20 12/07/19 24 12/08/2023 LIPID PANEL cholesterol, total 174 mg/dL 100-19 9 Not Available [facility] ([facility]) [address], [place], [address], 12/08/2023 08:26:21 12/07/19 24 12/08/2023 LIPID PANEL triglyceride s 258 mg/dL 0-149 above high normal Not Available [facility] ([facility]) [address] [facility] [place], [address], 12/08/2023 08:26:21 12/07/19 24 12/08/2023 LIPID PANEL HDL cholesterol 52 mg/dL >39 Not Available [facility]) [address] [facility] [place], [address], 12/08/2023 08:26:21 12/07/19 24 12/08/2023 LIPID PANEL VLDL cholesterol frank 42 mg/dL 5-40 above high normal Not Available [facility] ([facility]) [address] [place], [address], 12/08/2023 08:26:21 12/07/19 24 12/08/2023 LIPID PANEL LDL chol calc (rust) 80 mg/dL 0-99 Not Available [facility] [address] [place], [address], 12/08/2023 08:26:21 12/07/19 24 12/08/2023 HEPAT IC FUNCT ION PANEL (7) protein, total 6.8 g/dL 6.0-8. 5 Not Available [facility] ([facility] [address] [place], [address], 12/08/2023 08:26:21 12/07/19 24 12/08/2023 HEPAT IC FUNCT ION PANEL (7) albumin 4.5 g/dL 3.9-4. 9 Not Available [facility] ([facility]) [address] [place], [address], 12/08/2023 08:26:21 12/07/19 24 12/08/2023 HEPAT IC FUNCT ION PANEL (7) bilirubin, total 0.3 mg/dL 0.0-1. 2 Not Available [facility] ([facility]) [address] [facility] [place], [address], 12/08/2023 08:26:21 12/07/19 24 12/08/2023 HEPAT IC FUNCT ION PANEL (7) bilirubin, direct <0.10 mg/dL 0.00-0 .40 Not Available [facility] ([facility]) [address] [facility] [place], [address], 12/08/2023 08:26:21 12/07/19 24 12/08/2023 HEPAT IC FUNCT ION PANEL (7) alkaline phosphatase 38 IU/L 44-121 below low normal Not Available [facility] ([facility]) [address] [facility] [place], [address], 12/08/2023 08:26:21 12/07/19 24 12/08/2023 HEPAT IC FUNCT ION PANEL (7) AST (SGOT) 30 IU/L 0-40 Not Available [facility] ([facility]) [address] [facility] [place], [address], 12/08/2023 08:26:21 12/07/19 24 12/08/2023 HEPAT IC FUNCT ION PANEL (7) ALT (SGPT) 55 IU/L 0-44 above high normal Not Available [facility] ([facility] [address] [place], [address], 12/08/2023 08:26:21 12/07/19 24 12/08/2023 BMP7+ EGFR glucose 195 mg/dL 70-99 above high normal Not Available [facility] ([facility] [address] [place], [address], 12/08/2023 08:26:22 12/07/19 24 12/08/2023 BMP7+ EGFR BUN 21 mg/dL 8-27 Not Available [facility] [address] [place], [address], 12/08/2023 08:26:22 12/07/19 24 12/08/2023 BMP7+ EGFR creatinine 1.16 mg/dL 0.76-1 .27 Not Available [facility] ([facility]) [address] [facility] [place], [address], 12/08/2023 08:26:22 12/07/19 24 12/08/2023 BMP7+ EGFR eGFR 69 mL/mi n/1.7 3 >59 Not Available [facility] ([facility]) [address] [facility] [place], [address], 12/08/2023 08:26:22 12/07/19 24 12/08/2023 BMP7+ EGFR sodium 141 mmol/ L 134-14 4 Not Available [facility] ([facility]) [address] [place], [address], 12/08/2023 08:26:22 12/07/19 24 12/08/2023 BMP7+ EGFR potassium 4.9 mmol/ L 3.5-5. 2 Not Available [facility] ([facility] [address] [place], [address], 12/08/2023 08:26:22 12/07/19 24 12/08/2023 BMP7+ EGFR chloride 101 mmol/ L 96-106 Not Available [facility] ([facility]) [address] [place], [address], 12/08/2023 08:26:22 12/07/19 24 12/08/2023 BMP7+ EGFR carbon dioxide, total 22 mmol/ L 20-29 Not Available [facility] ([facility] [address] [place], [address], 12/08/2023 08:26:22 12/07/19 24 12/08/2023 HEMOG LOBIN A1C hemoglobin A1C 8.5 % 4.8-5. 6 above high normal Predi abete s: 5.7 - 6.4 Diabe davion: >6.4 Glyce fidencio contr ol for adult s with diabe davion: <7.0 Not Available [facility] ([facility]) [address] [place], [address], 12/08/2023 08:26:23 12/07/19 24 12/08/2023 CBC WITH DIFFE RENTI AL/PL ATELE T WBC 9.3 x10e3 /uL 3.4-10 .8 Not Available [facility] ([facility] [address] [place], [address], 12/08/2023 08:26:23 12/07/19 24 12/08/2023 CBC WITH DIFFE RENTI AL/PL ATELE T RBC 4.88 x10e6 /uL 4.14-5 .80 Not Available [facility] ([facility]) [address] [place], [address], 12/08/2023 08:26:23 12/07/19 24 12/08/2023 CBC WITH DIFFE RENTI AL/PL ATELE T hemoglobin 14.7 g/dL 13.0-1 7.7 Not Available [facility] ([facility] [address] [place], [address], 12/08/2023 08:26:23 12/07/19 24 12/08/2023 CBC WITH DIFFE RENTI AL/PL ATELE T hematocrit 45.2 % 37.5-5 1.0 Not Available [facility] ([facility] [address] [place], [address], 12/08/2023 08:26:23 12/07/19 24 12/08/2023 CBC WITH DIFFE RENTI AL/PL ATELE T MCV 93 fL 79-97 Not Available [facility] ([facility] [address] [place], [address], 12/08/2023 08:26:23 12/07/19 24 12/08/2023 CBC WITH DIFFE RENTI AL/PL ATELE T MCH 30.1 pg 26.6-3 3.0 Not Available [facility] ([facility]) [address] [facility], [place], [address], 12/08/2023 08:26:23 12/07/19 24 12/08/2023 CBC WITH DIFFE RENTI AL/PL ATELE T MCHC 32.5 g/dL 31.5-3 5.7 Not Available [facility] ([facility]) [address] [facility], [place], [address], 12/08/2023 08:26:23 12/07/19 24 12/08/2023 CBC WITH DIFFE RENTI AL/PL ATELE T RDW 12.7 % 11.6-1 5.4 Not Available [facility] ([facility]) [address] [facility], [place], [address], 12/08/2023 08:26:23 12/07/19 24 12/08/2023 CBC WITH DIFFE RENTI AL/PL ATELE T platelets 161 x10e3 /uL 150-45 0 Not Available [facility] ([facility]) [address] [facility], [place], [address], 12/08/2023 08:26:23 12/07/19 24 12/08/2023 CBC WITH DIFFE RENTI AL/PL ATELE T neutrophils 60 % notest ab. Not Available [facility] ([facility]) [address] [facility], [place], [address], 12/08/2023 08:26:23 12/07/19 24 12/08/2023 CBC WITH DIFFE RENTI AL/PL ATELE T lymphs 31 % notest ab. Not Available [facility] ([facility]) [address] [place], [address], 12/08/2023 08:26:23 12/07/19 24 12/08/2023 CBC WITH DIFFE RENTI AL/PL ATELE T monocytes 7 % notest ab. Not Available [facility] ([facility]) [address] [facility], [place], [address], 12/08/2023 08:26:23 12/07/19 24 12/08/2023 CBC WITH DIFFE RENTI AL/PL ATELE T eos 1 % notest ab. Not Available [facility] ([facility]) [address] [facility], [place], [address], 12/08/2023 08:26:23 12/07/19 24 12/08/2023 CBC WITH DIFFE RENTI AL/PL ATELE T basos 1 % notest ab. Not Available [facility] ([facility]) [address] [facility], [place], [address], 12/08/2023 08:26:23 12/07/19 24 12/08/2023 CBC WITH DIFFE RENTI AL/PL ATELE T neutrophils (absolute) 5.6 x10e3 /uL 1.4-7. 0 Not Available [facility] ([facility]) [address] [facility], [place], [address], 12/08/2023 08:26:23 12/07/19 24 12/08/2023 CBC WITH DIFFE RENTI AL/PL ATELE T lymphs (absolute) 2.9 x10e3 /uL 0.7-3. 1 Not Available [facility] ([facility] [address] [place], [address], 12/08/2023 08:26:23 12/07/19 24 12/08/2023 CBC WITH DIFFE RENTI AL/PL ATELE T monocytes(ab solute) 0.7 x10e3 /uL 0.1-0. 9 Not Available [facility] ([facility]) [address] [place], [address], 12/08/2023 08:26:23 12/07/19 24 12/08/2023 CBC WITH DIFFE RENTI AL/PL ATELE T eos (absolute) 0.1 x10e3 /uL 0.0-0. 4 Not Available [facility] ([facility]) [address] [facility], [place], [address], 12/08/2023 08:26:23 12/07/19 24 12/08/2023 CBC WITH DIFFE RENTI AL/PL ATELE T baso (absolute) 0.1 x10e3 /uL 0.0-0. 2 Not Available [facility] ([facility]) [address] [place], [address], 12/08/2023 08:26:23 12/07/19 24 12/08/2023 CBC WITH DIFFE RENTI AL/PL ATELE T immature granulocytes 0 % notest ab. Not Available [facility] ([facility]) [address] [facility], [place], [address], 12/08/2023 08:26:23 12/07/19 24 12/08/2023 CBC WITH DIFFE RENTI AL/PL ATELE T immature grans (abs) 0.0 x10e3 /uL 0.0-0. 1 Not Available [facility] ([facility]) [address] [place], [address], 12/08/2023 08:26:23 12/07/19 24 12/08/2023 PROST ATE-S PECIF IC AG prostate specific Ag 1.9 NG/mL 0.0-4. 0 Earlene ECLIA metho dolog y. Accor ding to the Ameri can [employer] g[employer] iatio n, Serum PSA shoul d decre ase and remai n at undet ectab le level s after radic al prost atect segundo. The AUA defin es bioch emica l recur rence as an initi al PSA value 0.2 ng/mL or great er follo wed by a subse quent confi rmato ry PSA value 0.2 ng/mL or great er. Value s obtai monica with diffe rent assay metho ds or kits canno t be used inter layne eaniry . Resul ts canno t be inter prete d as absol janell evide nce of the prese nce or absen ce of get eller se. Not Available [facility] ([facility]) [address] [facility], [place], [address], 12/08/2023 08:26:24 06/24/20 24 06/25/2024 CIRO+L IPASE amylase 125 U/L 31-110 above high normal Not Available [facility] ([facility]) [address] [facility], [place], [address], 06/25/2024 08:26:59 06/24/20 24 06/25/2024 CIRO+L IPASE lipase 245 U/L 13-78 above high normal Not Available [facility] ([facility]) [address] [facility], [place], [address], 06/25/2024 08:26:59 03/28/20 24 03/28/2024 XR, hand No observ ation record ed. [address] [place], [address], 03/29/2024 13:27:15 04/01/20 24 04/01/2024 US, bladd er No observ ation record ed. [address], [address], 04/01/2024 18:34:55 04/01/20 24 04/01/2024 XR, abdom en No observ ation record ed. [address], [address], 04/01/2024 18:35:22 04/03/20 24 04/03/2024 MRI, lumba r spine , w/o contr ast No observ ation record ed. [facility] [address] [place], [address], 04/04/2024 12:48:54 07/09/20 24 06/26/2024 US, abdom en, limit ed No observ ation record ed. PO [facility] [address], [place], [address], 07/09/2024 14:31:23 09/17/19 25 09/17/2024 CT, abdom en + pelvi s, w/wo contr ast No observ ation record ed. [email or web address] [facility] [address], [place], [address], 09/17/2024 14:09:11 Result Notes None recorded. Problems Name Problem SNOMED Code Status Onset Date Resolution Date Notes Provider Name and Address Organization Details Recorded Time Long-term drug therapy Active 2023 ROBBIN Rueda Attn: Alvino diaz,[address] [place], [address], [place] - [facility] 4 14:12:01 Low back pain 129190330 Active 2023 ROBBIN Rueda Attn: Alvino diaz,[address] [place], [address], [place] [facility] 4 14:12:02 Benign essential hypertension 9038384 Active 2023 ROBBIN Rueda Attn: Alvino diaz,[address] [place], [address], [place] - [facility] 4 14:12:04 Hyperlipidemia 16291866 Active 2023 ROBBIN Rueda Attn: Alvino g,[address] [facility], [place], [address], [place] [facility] 4 14:12:05 Coronary atherosclerosi s 662431581 Active 2023 ROBBIN Rueda Attn: Alvino g,[address] [facility], [place], [address], [place] [facility] 4 14:12:07 Uncontrolled type 2 diabetes mellitus 057619903 Active 2023 ROBBIN Rueda Attn: Alvino emily,[address] [place], [place], [address] [place] [address] 2, [place] [facility] 4 14:12:34 Body mass index 30+ - obesity 046968066 Active 2023 ROBBIN Rueda Attn: Chanelclare diaz,[address] [place], [place], [address] [place] [address], [place] [facility] 4 14:13:01 Obesity 406500091 Active 2023 ROBBIN Rueda Attn: Alvino emily,[address] [place], [place], [address] [place] [address], [place] [facility] 4 14:13:02 Obstructive sleep apnea syndrome 40983682 Active 2023 ROBBNI Rueda Attn: Alvino diaz,[address] [place], [place], [address] [place] [address], [place] [facility] 4 14:38:46 Family history of malignant neoplasm of pancreas 269347337 Active 2023 ROBBIN Rueda Attn: Alvino emily,[address] [place], [place], [address] [place] [address] 2, [place] [facility] 4 22:14:18 Aneurysm of infrarenal abdominal aorta 844371382 Active 2024 ROBBIN Rueda Attn: Alvino diaz,[address] [place], [place], [address] [place] [address] 2, [place] [facility] 5 10:55:39 Numbness of foot 667995481 Active 2024 ROBBIN Rueda Attn: Alvino diaz,[address] [place], [place], [address] [place] [address] 2, [place] [facility] 5 10:55:41 Problem Notes None recorded. Procedures Surgical History Date Name Laterality Status Provider Name and Address Organization Details Recorded Time Vasectomy completed Margarita Lei MA [place] - [facility] 12/05/2023 14:22:52 Imaging Results Imaging Date Name Status LastModified by Organiz ation Details LastModified Time 03/28/2024 XR, hand completed [email or web address] [facility] [address] [place], [address], 03/29/2024 13:27:15 04/01/2024 US, bladder completed [email or web address] [address] [place] [address], [address], 04/01/2024 18:34:55 04/01/2024 XR, abdomen completed [email or web address] [address], [place], [address], 04/01/2024 18:35:22 04/03/2024 MRI, lumbar spine, w/o contrast completed [facility] [address] [place], [address], 04/04/2024 12:48:54 06/26/2024 US, abdomen, limited completed [facility] [address], [place], [address], 07/09/2024 14:31:23 09/17/2024 CT, abdomen + pelvis, w/wo contrast completed [address] [facility] [address], [place], [address], 09/17/2024 14:09:11 Procedure Notes None recorded. Medical Equipment None Reported. Allergies No known drug allergies Medications Name Sig Start Date Stop Date Status Note LastModified by Organization Details LastModified Time warfarin 10 mg tablet TAKE 1 TABLET BY MOUTH DAILY OR DIRECTED active Not Available Not Available No t Available prednison e 20 mg tablet TAKE 1 TABLET BY MOUTH DAILY FOR 4 DAYS 06/04 completed Not Available Not Available Not Available metoprolo l succinate ER 100 mg tablet,ex tended release 24 hr 10/10 completed Not Available Not Available Not Available metronida zole 500 mg tablet TAKE 1 TABLET BY MOUTH EVERY 8 HOURS 10/10 completed Not Available Not Available Not Available glimepiri de 2 mg tablet Take 2 tablets twice a day by oral route. 10/[address] Brasher per pt / changed to 4mg by Dr Brasher Not Available Not Available Not Available isosorbid e mononitra te ER 120 mg tablet,ex tended release 24 hr active Not Available Not Available Not Available alprazola m 0.25 mg tablet TAKE 1-2 TABLETS BY MOUTH 30 MINUTES PRIOR TO INJECTIO N 10/10 completed Not Available Not Available Not Available dexametha sone 1 mg tablet TAKE 1 TABLET BY MOUTH AT 10 PM THE NIGHT BEFORE 8 AM CORTISOL 10/10 completed Not Available Not Available Not Available amlodipin e 10 mg tablet Take 1 tablet every day by oral route. active Not Available Not Available No t Available triamcino lone acetonide 0.1 % topical ointment APPLY TO THE AFFECTED AREA ON HAND TWICE DAILY NEEDED active Not Available Not Available No t Available glimepiri de 4 mg tablet Take 1 tablet every day by oral route for 90 days. active Not Available Not Available No t Available losartan 25 mg tablet Take 1 tablet by mouth once daily 2024 active Not Available Not Available Not Avai lable enoxapari n 150 mg/mL subcutane ous syringe INJECT 1ML (150MG) SUBCUTAN EOUSLY ONCE DAILY. START AND STOP DIRECTED BY PROVIDER BASED ON PROCEDUR ES 10/10 completed Not Available Not Available Not Available warfarin 1 mg tablet TAKE 3 TABLETS BY MOUTH EVERY DAY ALONG WITH ONE 10MG TABLET TO EQUAL 13MG PER DAY BASED ON INR active Not Available Not Available No t Available methylpre dnisolone 4 mg tablets in a dose pack FOLLOW PACKAGE DIRECTIO NS 10/07 completed Not Available Not Available Not Available ketoconaz ole 2 % topical cream APPLY TOPICALL Y TO FEET TWICE DAILY FOR 3 WEEKS NEEDED active Not Available Not Available No t Available metformin ER 500 mg tablet,ex tended release 24 hr TAKE 2 TABLETS BY MOUTH TWICE DAILY active Not Available Not Available No t Available neomycin- polymyxin -hydrocor t 3.5 mg-10,000 unit/mL-1 % ear drops,zen p INSTILL 4 DROPS INTO AFFECTED EAR(S) BY OTIC ROUTE 3 TIMES PER DAY x 5-7 days 10/10 completed Not Available Not Available Not Available ezetimibe 10 mg tablet One tab p.o. daily 2024 active Not Available Not Available Not Avai lable cyclobenz aprine 5 mg tablet Take 1 tablet as needed by oral route for 20 days. active Not Available Not Available No t Available fenofibra te 160 mg tablet TAKE 1 TABLET BY MOUTH EVERY DAY active Not Available Not Available No t Available metformin ER 1,000 mg 24 hr tablet,ex tended release (gastric reten.) Take 1 tablet every day by oral route. 10/07 completed pt is taking the 500mg 2 Tablets BID Not Available Not Available Not Available Trulicity 1.5 mg/0.5 mL subcutane ous pen injector INJECT 1.5MG SUBCUTAN EOUSLY ONCE WEEKLY 06/04 completed Not Available Not Available Not Available Repatha SureClick 140 mg/mL subcutane ous pen injector INJECT 1ML SUBCUTAN EOUSLY ONCE EVERY TWO WEEKS active Not Available Not Available No t Available metoprolo l succinate ER 100 mg capsule sprinkle, ext. release 24 hr Take 1 capsule every day by oral route. active Not Available Not Available No t Available Trulicity 3 mg/0.5 mL subcutane ous pen injector Inject 3 mg every week by subcutan eous route. 06/04 completed Not Available Not Available Not Available Ozempic 1 mg/dose (4 mg/3 mL) subcutane ous pen injector INJECT 1 MG UNDER SKIN EVERY WEEK 10/10 completed Not Available Not Available Not Available Mounjaro 2.5 mg/0.5 mL subcutane ous pen injector Inject every week by sub-q route for 28 days. active Not Available Not Available No t Available Vitals Date Recorded Body height Respiratory rate Body mass index (BMI) Body weight Oxygen saturation Oxygen saturation in Arterial blood by Pulse oximetry Heart rate Systolic blood pressure Diastolic blood pressure Provider Name and Address Organization Details Last Updated DateTime 4 168.28 cm 20 /min 38.8 kg/m2 972190. 64 g 96 % 96 % 73 /min 140 mm[Hg] 82 mm[Hg] Pierce Ruelas [place] - [facility] 4 14:36:55 Date Recorded Systolic blood pressure Diastolic blood pressure Provider Name and Address Organization Details Last Updated DateTime 12/05/2023 130 mm[Hg] 70 mm[Hg] ROBBIN Rueda Attn: Accounting,[address] [place], [address], [facility] 12/05/2023 14:52:07 Date Recorded Body height Body mass index (BMI) Body weight Oxygen saturation Oxygen saturation in Arterial blood by Pulse oximetry Heart rate Respiratory rate Systolic blood pressure Diastolic blood pressure Provider Name and Address Organization Details Last Updated DateTime 4 168.28 cm 39.4 kg/m2 428961. 72 g 96 % 96 % 68 /min 20 /min 136 mm[Hg] 82 mm[Hg] Pierce Ruelas MA [facility] 4 14:09:30 Date Recorded Systolic blood pressure Diastolic blood pressure Provider Name and Address Organization Details Last Updated DateTime 06/04/2024 144 mm[Hg] 80 mm[Hg] ROBBIN Rueda Attn: Accounting[address] [place], [address], [facility] 06/04/2024 14:44:48 Date Recorded Body height Body mass index (BMI) Body weight Heart rate Oxygen saturation Oxygen saturation in Arterial blood by Pulse oximetry Systolic blood pressure Diastolic blood pressure Provider Name and Address Organization Details Last Updated DateTime 5 168.28 cm 39.9 kg/m2 254022. 5 g 60 /min 96 % 96 % 124 mm[Hg] 70 mm[Hg] Sultana Shay MA [facility] 5 10:05:11 Date Recorded Body height Body mass index (BMI) Body weight Respiratory rate Oxygen saturation Oxygen saturation in Arterial blood by Pulse oximetry Heart rate Systolic blood pressure Diastolic blood pressure Provider Name and Address Organization Details Last Updated DateTime 5 168.28 cm 39.6 kg/m2 047915. 32 g 20 /min 97 % 97 % 58 /min 130 mm[Hg] 78 mm[Hg] Pierce Ruelas MA [facility] 5 10:28:44 Date Recorded Systolic blood pressure Diastolic blood pressure Provider Name and Address Organization Details Last Updated DateTime 10/10/2024 130 mm[Hg] 70 mm[Hg] ROBBIN Rueda Attn: Accounting,[address] [facility], [place], [address], [facility] 10/10/2024 10:59:30 Social History Question Answer Notes LastModified by Organizat ion Details LastModified Time Tobacco Smoking Status Former Smoker Margarita Lei MA null, [facility] 12/05/2023 14:23:28 What Is Your Level Of Alcohol Consumption? Occasional Information not available 12/05/2023 Are You Blind Or Do You Have Difficulty Seeing? No Information not available 12/05/2023 What Is Your Level Of Caffeine Consumption? Occasional Information not available 12/05/2023 In The 14 Days Before Symptom Onset, Have You Had Close Contact With A Laboratory-confir med COVID-19 While That Case Was Ill? No Information not available 12/05/2023 In The 14 Days Before Symptom Onset, Have You Had Close Contact With A Person Who Is Under Investigation For COVID-19 While That Person Was Ill? No Information not available 12/05/2023 Have You Been To An Area Known To Be High Risk For COVID-19? No Information not available 12/05/2023 Are You Deaf Or Do You Have Serious Difficulty Hearing? No Information not available 12/05/2023 What Type Of Diet Are You Following? REGULAR Information not available 12/05/2023 Are There Any Guns Present In Your Home? No Information not available 12/05/2023 What Was The Date Of Your Most Recent Tobacco Screening? 10/10/2024 Information not available 10/10/2024 What Is Your Current Pack Years? [email or web address] ars Information not available 12/05/2023 What Is Your Relationship Status? Information not available 12/05/2023 Do You Use Your Seat Belt Or Car Seat Routinely? Yes Information not available 12/05/2023 Do You Have Smoke And Carbon Monoxide Detectors In Your Home? Yes Information not available 12/05/2023 How Much Tobacco Do You Smoke? 2 PPW [email or web address] Information not available 12/05/2023 Do You Use Any Illicit Or Recreational Drugs? No Information not available 12/05/2023 Do You Use Sunscreen Routinely? No Information not available 12/05/2023 Has Tobacco Cessation Counseling Been Provided? Yes Information not available 12/05/2023 On What Date Was Tobacco Cessation Counseling Provided? 10/10/2024 Information not available 10/10/2024 Do You Or Have You Ever Used Any Other Forms Of Tobacco Or Nicotine? No Information not available 12/05/2023 Sex: Male Functional Status Question Answer Note LastModified by Organizat ion Details LastModified Time Are you able to care for yourself? Yes Information not available 12/05/2023 What is your exercise level? Occasional Information not available 12/05/2023 Mental Status None recorded. Family History Relationship Description Onset Age of this Age Resolved Age Notes LastModified by Organization Details LastModified Time Mother Cerebrovascu lar accident [email or web address] Not available 14:23:03 Brother Neoplasm of pancreas stage 4 pancra tic cancer [email or web address] Not available 10/10/2024 10:26:29 Medical History Condition Response Coronary Artery Disease Y High Blood Pressure Y COPD Y Blood Clots Y Cancer Y High Cholesterol Y Diabetes Y Allergies Y Immunizations Vaccine Type Date Status Note Provider Nam e and Address Organization Details Recorded Time Influenza, high-dose, quadrivalent, PF 1 completed Pierce Ruel[place], [place] [facility] 06/03/2024 16:26:02 Influenza, adjuvanted, quadrivalent, PF 3 completed [place] Ruel[place] [facility] 06/03/2024 16:26:02 COVID-19, mRNA, LNP-S, PF, 30 mcg/0.3 mL dose 1 completed Pierce Ruel[place] [facility] 06/03/2024 16:26:02 COVID-19, mRNA, LNP-S, PF, 30 mcg/0.3 mL dose 1 completed [place] Ruel[place] [facility] 06/03/2024 16:26:02 COVID-19, mRNA, LNP-S, PF, 30 mcg/0.3 mL dose 1 completed Pierce Ruel[place] [facility] 06/03/2024 16:26:02 COVID-19, mRNA, LNP-S, PF, 30 mcg/0.3 mL dose 1 completed [place] Ruel[place] [facility] 06/03/2024 16:26:02 COVID-19, mRNA, LNP-S, PF, 30 mcg/0.3 mL dose, valentina-sucrose 2 completed TO [place], [place] [facility] 06/03/2024 16:26:02 COVID-19, mRNA, LNP-S, bivalent, PF, 30 mcg/0.3 mL dose 2 [place] [facility] 06/03/2024 16:26:02 COVID-19, mRNA, LNP-S, bivalent, PF, 30 mcg/0.3 mL dose 2 completed [place] [facility] 06/03/2024 16:26:02 RSV, bivalent, protein subunit RSVpreF, diluent reconstituted, 0.5 mL, PF 3 completed TO [place], [place] [facility] 06/03/2024 16:26:02 COVID-19, mRNA, LNP-S, PF, valentina-sucrose, 30 mcg/0.3 mL 3 completed [place] [facility] 06/03/2024 16:26:02 Td (adult), 2 Lf tetanus toxoid, preservative free, adsorbed 8 completed [place] Ruel[place] [facility] 06/03/2024 16:26:02 MMR 5 completed ROBBIN Rueda Attn: Accounting,[address] [place], [address], [place] [facility] 10/10/2024 10:51:31 COVID-19, mRNA, LNP-S, PF, valentina-sucrose, 30 mcg/0.3 mL 4 completed ROBBIN Rueda Attn: Accounting,[address] [facility], [place], [address], [facility] 10/10/2024 10:51:31 Influenza, high-dose, trivalent, PF 4 completed ROBBIN Rueda Attn: Accounting,[address] [facility], [place], [address], [facility] 06/08/2024 12:33:17 Past Encounters Encounter ID Performer Location Encounter Start Date Encounter Closed Date Diagnosis/Indication Diagnosis SNOMED-CT Code Diagnosis ICD10 Code Diagnosis Note [id number] ROBBIN Rueda [facility] [employer] [address] [place] [address] 12/05/2023 13:54:31 12/05/2023 15:14:18 Well controlled type 2 diabetes mellitus 039019567 E11.9 Running a little higher on sugars lately. is due for labs . seeing Endocrine, Dr. Brasher this summer. Coronary atherosclerosis 035620619 I25.[address] Salinas. stable. asymptomat ic. Hyperlipidemia 98459760 E78.5 stable on fibrate therapy. Benign ess ential hypertension 4024923 I10 stable on medication s. Long-term drug therapy 337911219 Z79.899 routine labs are all due Screening for malignant neoplasm of prostate 729814990 Z12.5 PSA may be due.....he will ask lab Low back pain 977250557 M54.50 refill on flexeril 5mg PRN tid. Diarrhea 59549723 R19.7 ? infectious cause, has been around residential a few times. start flagyl 500mg [id number] x 7 days. call if no improvemen ts after finished. [id number] ROBBIN Rueda [facility] [employer] [address] [place] [address] 06/04/2024 13:56:39 06/04/2024 15:04:06 Coronary atherosclerosis 089952196 I25.[address] Salinas. stable. asymptomat ic. Hyperlipidemia 07973764 E78.5 stable on fibrate therapy. trigs 364 ldl: 133 hdl 49 total 234 Benign ess ential hypertension 1644913 I10 stable on medication s. Low back pain 667409190 M54.50 on flexeril 5mg PRN tid. Long-term drug therapy 470174529 Z79.899 routine labs are all due Uncontroll ed type 2 diabetes mellitus 399875581 E11.65 A1c in December of this summer was 8.5% with a fasting glucose of 195; recent labs with Endocrinol ogy show A1c 8.2% apr 25 microalbum in mad. Addendum made to the chart patient is requesting that we complete his Dexcom paperwork for verificati on. We have received documents and patient is very adherent to Dexcom usage in gets great benefit. His A1c has already dropped 3/10 of a point and he is finding it very helpful to be able to adjust dietary carbohydra te intake based off of his Dexcom readings. We discuss this during his face-to-fa ce encounter today. Body mass index 30+ - obesity 148496181 Z68.39 BMI is 39.4 Obesity 980898152 E66.9 discussed healthy diet, exercise, controllin g carbohydra davion and added sugars in the diet Administra tion of influenza vaccine 09369423 Z23 flu shot given today Otalgia of left ear 1010 808479 H92.02 left ear canal sore when he places hearing aid in. will tx with gtts neomy/poly /hc Obstructiv e sleep apnea syndrome 51249566 G47.33 oral appliance for tx. consult for [facility] soon. Family his tory of malignant neoplasm of pancreas 652299875 Z80.0 Patient reports his brother was diagnosed with advanced pancreatic cancer and he would like to have some screening testing completed. Ultrasound of the abdomen and amylase and lipase labs ordered [id number] Eddie Tran MD [facility] [place] [address] [place] [address] 10/07/2024 09:54:55 10/07/2024 10:31:37 Type 2 diabetes mellitus 44594125 E11.9 [id number] ROBBIN Rueda [facility] [place] [facility] [address] [place] [address] 10/10/2024 10:21:43 10/10/2024 11:05:44 Uncontrolled type 2 diabetes mellitus 110429664 E11.[address] Ebenezer woodard for diabetes management Coronary atherosclerosis 547516020 I25.[address] Salinas. stable. asymptomat ic. Benign ess ential hypertension 9150571 I10 stable on medication s. Long-term drug therapy 327021373 Z79.899 Labs are up-to-date with Dr. Ebenezer woodard Body mass index 30+ - obesity 251857592 Z68.39 BMI is 39.6 Obesity 288809029 E66.9 discussed healthy diet, exercise, controllin g carbohydra davion and added sugars in the diet Numbness of foot 0535471 00 R20.0 Refer for nerve conduction study of the lower extremitie s bilaterall y Aneurysm o f infrarenal abdominal aorta 052228308 I71.43 3.1 cm infrarenal abdominal aortic aneurysm, will monitor this in follow-up Health Concerns Section Related Observation LastModified by Organization Detai ls LastModified Time None Recorded Concern Status LastModified by Organization Details LastModified Time None Recorded Advance Directives Directive None Recorded Payers Encounter Date Sequence Insurance Name Policy Number Policy Perkins Covered Member ID Perkins Member ID Guarantor Name 12/05/2023 1 [place] Brayan Holt [id number] Brayan Jonathon 12/05/2023 2 [employer] [place] [place] [employer] (MEDICARE SUPPLEMENT) Brayan Jonathon [id number] Brayan Jonathon 06/04/2024 2 [employer] [place] [employer] (MEDICARE SUPPLEMENT) Brayan Jonathon [id number] Brayan Jonathon 06/04/2024 [place] - [facility] Brayan Holt [id number] Brayan Jonathon 10/07/2024 1 [place] Brayan Holt [id number] Brayan Jonathon 10/07/2024 2 [employer] [place] [employer] (MEDICARE SUPPLEMENT) Brayan Jonathon [id number] Brayan Jonathon 10/10/2024 1 [place] Brayan Holt [id number] Brayan Holt 10/10/2024 2 [facility] (MEDICARE SUPPLEMENT) Brayan Holt [id number] Brayan Holt Notes Date Note Type Note Provider Name and Address Organization Details Recorded Time 12/05/19 24 text/htm l Coronary Artery Disease F/UReported bypatient.Notes:stable. asymptomatic. seeing cardiology routinely.DiabetesReported bypatient.Notes:will be seeing Dr. Brasher again soon. on trulicity and metformin therapyHyperlipidemiaReported bypatient.Notes:pt is taking fibrate therapy. reports he doesn't think he's on statin therapy and nothing came over from pharmacy.HypertensionReported bypatient.Notes:stable on medications. losartan 25mg daily , amlodipine 10mg and metoprolol ER 100mg daily. Pt. states that he would like to discuss bowel movement, states that in the AM its a solid stool states that when he goes again its more soft and then he goes again its like water diarrhea. Would like to also have he's ears checked, also would like to discuss muscle relaxer needs refilled states that he takes it PRN ROBBIN Rueda Attn: Accounting, [address] [place], [address], [facility] 12/05/2023 16:31:02 06/04/20 24 text/htm l Coronary Artery Disease F/UReported bypatient.Notes:stable. asymptomatic. seeing cardiology routinely.DiabetesReported bypatient.Notes:will be seeing Dr. Brasher again soon. on Ozempic and metformin therapy. He is working on getting his A1c down as it was elevated on summer labsHyperlipidemiaReported bypatient.Notes:pt is taking fibrate therapy. reports he doesn't think he's on statin therapy and nothing came over from pharmacy.HypertensionReported bypatient.Notes:stable on medications. losartan 25mg daily , amlodipine 10mg and metoprolol ER 100mg daily. ROBBIN Rueda Attn: Accounting, [address] [facility], [place], [address], [facility] - [facility] 06/08/2024 12:33:22 10/08/19 25 text/htm l needs foot exam occasionally has some numbness in feet Eddie Tran MD Attn: Accounting, [address] [facility], [place], [address], [facility] 11/03/2024 17:28:05 10/11/19 25 text/htm l Coronary Artery Disease F/UReported bypatient.Notes:stable. asymptomatic. seeing cardiology routinely.DiabetesReported bypatient.Notes:will be seeing Dr. Brasher again soon. on Ozempic and metformin therapy. He is working on getting his A1c down as it was elevated on summer labsHyperlipidemiaReported bypatient.Notes:pt is taking fibrate therapy. reports he doesn't think he's on statin therapy and nothing came over from pharmacy.HypertensionReported bypatient.Notes:stable on medications. losartan 25mg daily , amlodipine 10mg and metoprolol ER 100mg daily. Patient was found to incidentally have an aneurysm of the infrarenal abdominal aorta Patient has numbness in his feet bilaterally which has been suggested that he be evaluated for neuropathy ROBBIN Rueda Attn: Accounting, [address] [facility], [place], [address], [facility] 10/25/2024 10:28:22
--- OUTSIDE RECORDS SUMMARY | 2024-11-26 12:44 | XMS_ITS | Encounter Summary ---
Author Organization [facility] Address [address] [place] [address] Phone Care Team Providers Care Numerical Control Tool Programmer Name Role Phone CarlineadriánSri Primary Care Pr ovider Herbert Forrest MD Unavailable [phone] Cynthia Grande RN Unavailable Unavailable Eduarda Ford MD Unavailable [phone] Encounter Details Date Type Department Care Team (Late st Contact Info) Description 12/03/2022 Orders Only [facility] INFECTIOUS DISEASE Scanning, Provider Social History Tobacco Use Types [...] on file 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 Gender Identity Male 04/20/2021 11:20 AM CDT Sexual Orientation Straight 12/04/2018 5: 46 PM CDT documented as of this encounter Plan of Treatment Not on file documented as of this encounter Procedures Procedure Name Priority Date/Time Associated Diagnosis Comments SCAN - LABS 12/03/2022 documented in this encounter Results * SCAN - LABS (12/03/2022) us Provider Scanning Final Result documented in this encounter Visit Diagnoses Not on filedocumented in this encounter Care Teams Numerical Control Tool Programmer Relationship Specialty Start Date End Date Sri Camargo ROBBIN Rodríguez PCP - General Physician Muck Farmer 04/19/18 Herbert Forrest MD [address] [place] [address] Referring Physician Pulmonary Disease 10/16/18 Cynthia Grande, RN Registered Nurse 03/19/19 Eduarda Ford MD Consulting Physician Urology 04/10/20 documented as of this encounter
--- OUTSIDE RECORDS SUMMARY | 2024-11-26 12:44 | XMS_ITS | Encounter Summary ---
Author Organization [facility] Address [address] [place] [address] Phone Care Team Providers Care Manager Six Sigma Name Role Phone Sri Camargo Primary Care Pr ovider Herbert Forrest MD Unavailable [phone] Cynthia Grande RN Unavailable Unavailable Eduarda Ford MD Unavailable [phone] Encounter Details Date Type Department Care Team (Latest Contact Info) Description 03/03/2020 Orders Only [facility] HEMATOLOGY Scanning, Provider Social History Tobacco Use Types Packs/Day Years Used Date Smoking Tobacco: Former Smokeless Tobacco: Never Alcohol Use Standard Drinks/Week Comments Yes 0 (1 standard drink = 0.6 oz pur e alcohol) Sex and Gender Information Value Date Recorded Sex Assigned at Not on file 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 Gender Identity Male 04/20/2021 11:20 AM CDT Sexual Orientation Straight 12/04/2018 5: 46 PM CDT documented as of this encounter Plan of Treatment Not on file documented as of this encounter Procedures Procedure Name Priority Date/Time Associated Diagnosis Comments SCAN - LABS 03/03/2020 documented in this encounter Results * SCAN - LABS (03/03/2020) us Provider Scanning Final Result documented in this encounter Visit Diagnoses Not on filedocumented in this encounter Care Teams Manager Six Sigma Relationship Specialty Start Date End Date Sri Camargo PA PCP - General Physician Infrastructure Developer 04/19/18 Herbert Forrest MD [address] [place] [address] Referring Physician Pulmonary Disease 10/16/18 Cynthia Grande, RN Registered Nurse 03/19/19 Eduarda Ford MD Consulting Physician Urology 04/10/20 documented as of this encounter
--- OUTSIDE RECORDS SUMMARY | 2024-11-26 12:44 | XMS_ITS | Encounter Summary ---
Author Organization [facility] Address [address] [place] [address] Phone Care Team Providers Care Talent Sourcing Specialist Name Role Phone Sri Camargo Primary Care Pr ovider Herbert Forrest MD Unavailable [phone] Cynthia Grande RN Unavailable Unavailable Eduarda Ford MD Unavailable [phone] Encounter Details Date Type Department Care Team (Latest Contact Info) Description 12/20/2019 Orders Only [facility] HEMATOLOGY Scanning, Provider Social History Tobacco Use Types Packs/Day Years Used Date Smoking Tobacco: Former Smokeless Tobacco: Never Alcohol Use Standard Drinks/Week Comments Yes 0 (1 standard drink = 0.6 oz pur e alcohol) Sex and Gender Information Value Date Recorded Sex Assigned at Not on file 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
--- OUTSIDE RECORDS SUMMARY | 2024-11-26 12:44 | XMS_ITS | Encounter Summary ---
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 Gender Identity Male 04/20/2021 11:20 AM CDT Sexual Orientation Straight 12/04/2018 5: 46 PM CDT documented as of this encounter Plan of Treatment Not on file documented as of this encounter Procedures Procedure Name Priority Date/Time Associated Diagnosis Comments SCAN - LABS 11/12/2022 documented in this encounter Results * SCAN - LABS (11/12/2022) us Provider Scanning Final Result documented in this encounter Visit Diagnoses Not on filedocumented in this encounter Care Teams Grout Worker Relationship Specialty Start Date End Date CarlineSri sampson ROBBIN Rodríguez PCP - General Physician Armored Truck Driver 04/19/18 Herbert Forrest MD [address] [place] [address] Referring Physician Pulmonary Disease 10/16/18 Cynthia Grande, RN Registered Nurse 03/19/19 Eduarda Frod MD Consulting Physician Urology 04/10/20 documented as of this encounter
--- OUTSIDE RECORDS SUMMARY | 2024-11-26 12:44 | XMS_ITS | Clinical Summary ---
Author Organization [facility] Address [address] [place] [address] Care Team Providers Care Banana Ripening Room Supervisor Name Role Phone Unavailable Primary Care Provider Unavailabl e Source Comments [facility] Stamped,non-owned Affiliates and Associated Physician Practices is amultiple site organization consisting of ambulatory clinics and hospital sitesin [place], [place], [place] and [place]. This disclosure is being madepursuant to the Care Everywhere program and may not contain all information available regarding this patient. 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 Gender Identity Not on file Sexual Orientation Not on file Plan of Treatment Health Maintenance Due Date Last Done Comments COLOGUARD (AGES 45-75) - COL ON CA SCREENING 1956 COLON MONITORING 1956 COLONOSCOPY - COLON CA SCREENING 1956 CT COLONOGRAPHY - COLON CA SCREENING 1956 Colorectal Cancer Screening 1956 FIT - COLON CA SCREENING 1956 FLEX SIG - COLON CA SCREENING 1956 LIPID TESTING 1956 MEDICARE AWV 12 MONTHS 1956 HEPATITIS C SCREENING 05/01/1974 DTAP/TDAP/TD VACCINES (1 - Tdap) 1975 PNEUMOCOCCAL VACCINE 50+ (1 of 1 - PCV) 2006 ZOSTER VACCINE (1 of 2) 2006 COVID-19 VACCINE ( - 2023-2 5 season) 2024 DEPRESSION SCREENING 08/07/2024 INFLUENZA VACCINE (Season Ended) 2025 Respiratory Syncytial Virus (RSV) Vaccine Pt: or over 60 yrs (1 - 1-dose 75+ series) 2031 HEPATITIS B VACCINE Aged Out No longe r eligible based on patient's age to complete this topic HIB VACCINE Aged Out No longer eligi ble based on patient's age to complete this topic HPV VACCINE Aged Out No longer eligi ble based on patient's age to complete this topic MENINGOCOCCAL (Group B) VACC INE SHARED DECISION-MAKING Aged Out No longer eligibl e based on patient's age to complete this topic MENINGOCOCCAL GROUPS A/C/Y/W VACCINE Aged Out No longer eligible b ased on patient's age to complete this topic Insurance MEDICARE [facility] [place] [id number]
--- OUTSIDE RECORDS SUMMARY | 2024-11-26 12:44 | XMS_ITS | Encounter Summary ---
Author Organization [facility] Address [address] [place] [address] Phone Care Team Providers Care Atmospheric Physicist Name Role Phone Sri Camargo Primary Care Pr ovider Herbert Forrest MD Unavailable Cynthia Grande RN Unavailable Unavailable Eduarda Ford MD Unavailable [phone] Encounter Details Date Type Department Care Team (Latest Contact Info) Description 02/03/2020 Orders Only [facility] Scanning, Provider Social History Tobacco Use Types Packs/Day Years Used Date Smoking Tobacco: Former Smokeless Tobacco: Never Alcohol Use Standard Drinks/Week Comments Yes 0 (1 standard drink = 0.6 oz pur e alcohol) Sex and Gender Information Value Date Recorded Sex Assigned at Not on file 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 Gender Identity Male 04/20/2021 11:20 AM CDT Sexual Orientation Straight 12/04/2018 5: 46 PM CDT documented as of this encounter Plan of Treatment Not on file documented as of this encounter Procedures Procedure Name Priority Date/Time Associated Diagnosis Comments SCAN - LABS 02/03/2020 documented in this encounter Results * SCAN - LABS (02/03/2020) us Provider Scanning Final Result documented in this encounter Visit Diagnoses Not on filedocumented in this encounter Care Teams Atmospheric Physicist Relationship Specialty Start Date End Date Sri Camargo PA PCP - General Physician Mail Courier 04/19/18 Herbert Forrest MD [address] [place] [address] Referring Physician Pulmonary Disease 10/16/18 Cynthia Grande, RN Registered Nurse 03/19/19 Eduarda Ford MD Consulting Physician Urology 04/10/20 documented as of this encounter
--- OUTSIDE RECORDS SUMMARY | 2024-11-26 12:44 | XMS_ITS | Encounter Summary ---
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 Gender Identity Male 04/20/2021 11:20 AM CDT Sexual Orientation Straight 12/04/2018 5: 46 PM CDT documented as of this encounter Plan of Treatment Not on file documented as of this encounter Procedures Procedure Name Priority Date/Time Associated Diagnosis Comments SCAN - LABS 02/25/2023 documented in this encounter Results * SCAN - LABS (02/25/2023) us Provider Scanning Final Result documented in this encounter Visit Diagnoses Not on filedocumented in this encounter Care Teams Director Of Counseling Relationship Specialty Start Date End Date CarlineSri sampson ROBBIN Rodríguez PCP - General Physician Director Of Marketing Operations 04/19/18 Herbert Forrest MD [address] [place] [address] Referring Physician Pulmonary Disease 10/16/18 Cynthia Grande, RN Registered Nurse 03/19/19 Eduarda Ford MD Consulting Physician Urology 04/10/20 documented as of this encounter
--- OUTSIDE RECORDS SUMMARY | 2024-11-26 12:44 | XMS_ITS | Encounter Summary ---
Author Organization [facility] Address [address] [place] [address] Phone Care Team Providers Care Roller Inspector Name Role Phone Sri Camargo Primary Care Pr ovider Herbert Forrest MD Unavailable [phone] Cynthia Grande RN Unavailable Unavailable Eduarda Ford MD Unavailable [phone] Encounter Details Date Type Department Care Team (Latest Contact Info) Description 03/31/2020 Orders Only [facility] Scanning, Provider Social History Tobacco Use Types Packs/Day Years Used Date Smoking Tobacco: Former Smokeless Tobacco: Never Alcohol Use Standard Drinks/Week Comments Yes 0 (1 standard drink = 0.6 oz pur e alcohol) Sex and Gender Information Value Date Recorded Sex Assigned at Not on file 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 Gender Identity Male 04/20/2021 11:20 AM CDT Sexual Orientation Straight 12/04/2018 5: 46 PM CDT documented as of this encounter Plan of Treatment Not on file documented as of this encounter Procedures Procedure Name Priority Date/Time Associated Diagnosis Comments SCAN - RADIOLOGY/IMAGING 03/31/2020 documented in this encounter Results * SCAN - RADIOLOGY/IMAGING (03/31/2020) Anatomical Region Laterality Modality Other us Provider Scanning Final Result documented in this encounter Visit Diagnoses Not on filedocumented in this encounter Care Teams Roller Inspector Relationship Specialty Start Date End Date Sri Camargo PA PCP - General Physician Habilitation Training Specialist 04/19/18 Herbert Forrest MD [address] [place] [address] Referring Physician Pulmonary Disease 10/16/18 Cynthia Grande, RN Registered Nurse 03/19/19 Eduarda Ford MD Consulting Physician Urology 04/10/20 documented as of this encounter
--- OUTSIDE RECORDS SUMMARY | 2024-11-26 12:45 | XMS_ITS | Encounter Summary ---
Author Organization [facility] Address [address] [place] [address] Phone Care Team Providers Care Self Propelled Dredge Operator Name Role Phone Sri Camargo Primary Care Pr ovider Herbert Forrest MD Unavailable [phone] Cytnhia Grande RN Unavailable Unavailable dEuarda Ford MD Unavailable [phone] Encounter Details Date Type Department Care Team (Latest Contact Info) Description 03/17/2020 Orders Only [facility] Scanning, Provider Social History Tobacco Use Types Packs/Day Years Used Date Smoking Tobacco: Former Smokeless Tobacco: Never Alcohol Use Standard Drinks/Week Comments Yes 0 (1 standard drink = 0.6 oz pur e alcohol) Sex and Gender Information Value Date Recorded Sex Assigned at Not on file 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 Gender Identity Male 04/20/2021 11:20 AM CDT Sexual Orientation Straight 12/04/2018 5: 46 PM CDT documented as of this encounter Plan of Treatment Not on file documented as of this encounter Procedures Procedure Name Priority Date/Time Associated Diagnosis Comments SCAN - LABS 03/17/2020 documented in this encounter Results * SCAN - LABS (03/17/2020) us Provider Scanning Final Result documented in this encounter Visit Diagnoses Not on filedocumented in this encounter Care Teams Self Propelled Dredge Operator Relationship Specialty Start Date End Date Sri Camargo PA PCP - General Physician Linux System Engineer 04/19/18 Herbert Forrest MD [address] [address] Referring Physician Pulmonary Disease 10/16/18 Cynthia Grande, RN Registered Nurse 03/19/19 Eduarda Ford MD Consulting Physician Urology 04/10/20 documented as of this encounter
--- OUTSIDE RECORDS SUMMARY | 2024-11-26 12:45 | XMS_ITS | Encounter Summary ---
Author Organization [facility] Address [address] [place] [address] Phone Care Team Providers Care Lan Manager Name Role Phone Sri Camargo Primary Care Pr ovider Herbert Forrest MD Unavailable [phone] Cynthia Grande RN Unavailable Unavailable Eduarda Ford MD Unavailable [phone] Encounter Details Date Type Department Care Team (Latest Contact Info) Description 12/05/2020 Orders Only [facility] Scanning, Provider Social History Tobacco Use Types Packs/Day Years Used Date Smoking Tobacco: Former Smokeless Tobacco: Never Alcohol Use Standard Drinks/Week Comments Yes 0 (1 standard drink = 0.6 oz pur e alcohol) Sex and Gender Information Value Date Recorded Sex Assigned at Not on file 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 Gender Identity Male 04/20/2021 11:20 AM CDT Sexual Orientation Straight 12/04/2018 5: 46 PM CDT documented as of this encounter Plan of Treatment Not on file documented as of this encounter Procedures Procedure Name Priority Date/Time Associated Diagnosis Comments SCAN - LABS 12/05/2020 documented in this encounter Results * SCAN - LABS (12/05/2020) us Provider Scanning Final Result documented in this encounter Visit Diagnoses Not on filedocumented in this encounter Care Teams Lan Manager Relationship Specialty Start Date End Date Sri Camargo PA PCP - General Physician Flow Machine Operator 04/19/18 Herbert Forrest MD [address] [place] [address] Referring Physician Pulmonary Disease 10/16/18 Cynthia Grande, RN Registered Nurse 03/19/19 Eduarda Ford MD Consulting Physician Urology 04/10/20 documented as of this encounter
--- OUTSIDE RECORDS SUMMARY | 2024-11-26 12:45 | XMS_ITS | Encounter Summary ---
Author Organization [facility] Address [address] [place] [address] Phone Care Team Providers Care Commercial Analyst Name Role Phone Sri Camargo Primary Care Pr ovider Herbert Forrest MD Unavailable [phone] Cynthia Grande RN Unavailable Unavailable Eduarda Ford MD Unavailable [phone] Encounter Details Date Type Department Care Team (Latest Contact Info) Description 01/23/2021 Orders Only [facility] Scanning, Provider Social History Tobacco Use Types Packs/Day Years Used Date Smoking Tobacco: Former Smokeless Tobacco: Never Alcohol Use Standard Drinks/Week Comments Yes 0 (1 standard drink = 0.6 oz pur e alcohol) Sex and Gender Information Value Date Recorded Sex Assigned at Not on file 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 Gender Identity Male 04/20/2021 11:20 AM CDT Sexual Orientation Straight 12/04/2018 5: 46 PM CDT documented as of this encounter Plan of Treatment Not on file documented as of this encounter Procedures Procedure Name Priority Date/Time Associated Diagnosis Comments SCAN - LABS 01/23/2021 documented in this encounter Results * SCAN - LABS (01/23/2021) us Provider Scanning Final Result documented in this encounter Visit Diagnoses Not on filedocumented in this encounter Care Teams Commercial Analyst Relationship Specialty Start Date End Date Sri Camargo PA PCP - General Physician Cad Programmer 04/19/18 Herbert Forrest MD [address] [place] [address] Referring Physician Pulmonary Disease 10/16/18 Cynthia Grande, RN Registered Nurse 03/19/19 Eduarda Ford MD Consulting Physician Urology 04/10/20 documented as of this encounter
--- OUTSIDE RECORDS SUMMARY | 2024-11-26 12:45 | XMS_ITS | Encounter Summary ---
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 Gender Identity Male 04/20/2021 11:20 AM CDT Sexual Orientation Straight 12/04/2018 5: 46 PM CDT documented as of this encounter Plan of Treatment Not on file documented as of this encounter Procedures Procedure Name Priority Date/Time Associated Diagnosis Comments SCAN - LABS 08/07/2022 documented in this encounter Results * SCAN - LABS (08/07/2022) us Provider Scanning Final Result documented in this encounter Visit Diagnoses Not on filedocumented in this encounter Care Teams Sheetrock Applicator Relationship Specialty Start Date End Date Sri Camargo ROBBIN Rodríguez PCP - General Physician Quartz Miner 04/19/18 Herbert Forrest MD [address] [place] [address] Referring Physician Pulmonary Disease 10/16/18 Cynthia Grande, RN Registered Nurse 03/19/19 Eduarda Ford MD Consulting Physician Urology 04/10/20 documented as of this encounter
--- OUTSIDE RECORDS SUMMARY | 2024-11-26 12:45 | XMS_ITS | Encounter Summary ---
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 Gender Identity Male 04/20/2021 11:20 AM CDT Sexual Orientation Straight 12/04/2018 5: 46 PM CDT documented as of this encounter Plan of Treatment Not on file documented as of this encounter Procedures Procedure Name Priority Date/Time Associated Diagnosis Comments SCAN - LABS 09/17/2022 documented in this encounter Results * SCAN - LABS (09/17/2022) us Provider Scanning Final Result documented in this encounter Visit Diagnoses Not on filedocumented in this encounter Care Teams Branch Lending Officer Relationship Specialty Start Date End Date CarlineSri sampson ROBBIN Rodríguez PCP - General Physician Custom Designer 04/19/18 Herbert Forrest MD [address] [place] [address] Referring Physician Pulmonary Disease 10/16/18 Cynthia Grande, RN Registered Nurse 03/19/19 Eduarda Ford MD Consulting Physician Urology 04/10/20 documented as of this encounter
--- OUTSIDE RECORDS SUMMARY | 2024-11-26 12:45 | XMS_ITS | Encounter Summary ---
Author Organization [facility] Address [address] [place] [address] Phone Care Team Providers Care Operating Room Specialist Name Role Phone Sri Camargo Primary Care Pr ovider Herbert Forrest MD Unavailable [phone] Cynthia Grande RN Unavailable Unavailable Eduarda Ford MD Unavailable [phone] Encounter Details Date Type Department Care Team (Latest Contact Info) Description 01/30/2021 Orders Only [facility] Scanning, Provider Social History Tobacco Use Types Packs/Day Years Used Date Smoking Tobacco: Former Smokeless Tobacco: Never Alcohol Use Standard Drinks/Week Comments Yes 0 (1 standard drink = 0.6 oz pur e alcohol) Sex and Gender Information Value Date Recorded Sex Assigned at Not on file 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 Gender Identity Male 04/20/2021 11:20 AM CDT Sexual Orientation Straight 12/04/2018 5: 46 PM CDT documented as of this encounter Plan of Treatment Not on file documented as of this encounter Procedures Procedure Name Priority Date/Time Associated Diagnosis Comments SCAN - LABS 01/30/2021 documented in this encounter Results * SCAN - LABS (01/30/2021) us Provider Scanning Final Result documented in this encounter Visit Diagnoses Not on filedocumented in this encounter Care Teams Operating Room Specialist Relationship Specialty Start Date End Date Sri Camargo PA PCP - General Physician Heating Plant Superintendent 04/19/18 Herbert Forrest MD [address] [place] [address] Referring Physician Pulmonary Disease 10/16/18 Cynthia Grande, RN Registered Nurse 03/19/19 Eduarda Ford MD Consulting Physician Urology 04/10/20 documented as of this encounter
--- OUTSIDE RECORDS SUMMARY | 2024-11-26 12:45 | XMS_ITS | Encounter Summary ---
Author Organization [facility] Address [address] [place] [address] Phone Care Team Providers Care Punching Machine Operator Name Role Phone CarlineadriánSri Primary Care Pr ovider Herbert Forrest MD Unavailable [phone] Cynthia Grande RN Unavailable Unavailable Eduarda Ford MD Unavailable [phone] Encounter Details Date Type Department Care Team (Latest Contact Info) Description 01/21/2023 Orders Only [facility] Scanning, Provider [...] on file Legal Sex Male 3:10 AM ORACLE SOA CONSULTANT Gender Identity Male 04/20/2021 11:20 AM CDT Sexual Orientation Straight 12/04/2018 5: 46 PM CDT documented as of this encounter Plan of Treatment Not on file documented as of this encounter Procedures Procedure Name Priority Date/Time Associated Diagnosis Comments SCAN - LABS 01/21/2023 documented in this encounter Results * SCAN - LABS (01/21/2023) us Provider Scanning Final Result documented in this encounter Visit Diagnoses Not on filedocumented in this encounter Care Teams Punching Machine Operator Relationship Specialty Start Date End Date CarlineSri sampson ROBBIN Rodríguez PCP - General Physician Director Of Student Financial Services 04/19/18 Herbert Forrest MD [address] [place] [address] Referring Physician Pulmonary Disease 10/16/18 Cynthia Grande, RN Registered Nurse 03/19/19 Eduarda Ford MD Consulting Physician Urology 04/10/20 documented as of this encounter
--- OUTSIDE RECORDS SUMMARY | 2024-11-26 12:45 | XMS_ITS | Encounter Summary ---
Author Organization 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 Gender Identity Male 04/20/2021 11:20 AM CDT Sexual Orientation Straight 12/04/2018 5: 46 PM CDT documented as of this encounter Plan of Treatment Not on file documented as of this encounter Procedures Procedure Name Priority Date/Time Associated Diagnosis Comments SCAN - LABS 06/01/2024 documented in this encounter Results * SCAN - LABS (06/01/2024) us Provider Scanning Final Result documented in this encounter Visit Diagnoses Not on filedocumented in this encounter Care Teams Bra[address] Freight Relationship Specialty Start Date End Date AndreaSri saleh ROBBIN Rodríguez PCP - General Physician Blood Donor Recruiter Supervisor 04/19/18 Herbert Forrest MD [address] [place] [address] Referring Physician Pulmonary Disease 10/16/18 Cynthia Grande, RN Registered Nurse 03/19/19 Eduarda Ford MD Consulting Physician Urology 04/10/20 documented as of this encounter
--- OUTSIDE RECORDS SUMMARY | 2024-11-26 12:45 | XMS_ITS | Encounter Summary ---
Author Organization [facility] Address [address] [place] [address] Phone Care Team Providers Care Ammonia Box Tender Name Role Phone CarlineadriánSri Primary Care Pr ovider Herbert Forrest MD Unavailable [phone] Cynthia Grande RN Unavailable Unavailable Eduarda Ford MD Unavailable [phone] Encounter Details Date Type Department Care Team (Latest Contact Info) Description 01/21/2024 Orders Only [facility] Scanning, Provider [...] file Legal Sex Male 3:10 AM TEST AND RESEARCH REACTOR OPERATOR Gender Identity Male 04/20/2021 11:20 AM CDT Sexual Orientation Straight 12/04/2018 5: 46 PM CDT documented as of this encounter Plan of Treatment Not on file documented as of this encounter Procedures Procedure Name Priority Date/Time Associated Diagnosis Comments SCAN - LABS 01/21/2024 documented in this encounter Results * SCAN - LABS (01/21/2024) us Provider Scanning Final Result documented in this encounter Visit Diagnoses Not on filedocumented in this encounter Care Teams Ammonia Box Tender Relationship Specialty Start Date End Date AndreaSri saleh ROBBIN Rodríguez PCP - General Physician Gericare Aide 04/19/18 Herbert Forrest MD [address] [place] [address] Referring Physician Pulmonary Disease 10/16/18 Cynthia Grande, RN Registered Nurse 03/19/19 Eduarda Ford MD Consulting Physician Urology 04/10/20 documented as of this encounter
--- OUTSIDE RECORDS SUMMARY | 2024-11-26 12:45 | XMS_ITS | Data Portability ---
Author Organization [place] [employer], Main Office Address [address] [place] [address] Care Team Providers Care Wheel Worker Name Role Phone GEORGE AU Primary Care Provider [phone] GEORGE AU Referring Provider ERICKSON SINGH General Machinist [phone] Assessment Encounter Date Assessment Date Assessment LastModified by Organization Details LastModified Time 01/11/2023 01/11/2023 67-year-old male approximately 8 weeks status post revision left long finger trigger finger release and right ring trigger finger injection on 11/09/2022. Patient is doing well and has had improvement of his trigger fingers without any locking since the procedure. He does have some continued swelling in his left long finger and has noticed some clicking / catching when he flex his long finger. We discussed that his swelling should improve with time and he should work on flexion extension of that long finger. He may do a little friction massage over the flexor tendon where his release was to try and break up some of the scar tissue that is potentially causing the clicking /catching. He will follow-up in 8 weeks for re-evaluation. [email or web address] Not available 01/11/2023 15:57:43 03/24/2023 03/24/2023 colonoscopy 09/2021. Not available 03/24/2023 14:26:30 03/28/2023 03/28/2023 67-year-old male presents for his bilateral hands. He is a previous patient of Dr. Carroll. He has a history a left middle and ring finger trigger release on 07/13/2022, as well as a left middle finger trigger release and right ring finger trigger injection on 11/09/2022. Overall, he has been improving since his surgeries. He still reports some stiffness and feels some catching and clicking, but overall doing well. He rates his pain as 2 out 10. Review of systems questionnaire Physical exam: He has some soreness over the A1 bettye area of the left middle finger as well as of the right ring finger. He has no catching or locking on exam today. He does have some discomfort with full extension. For his left middle finger, he reports he has difficulty with making a full fist, but he has good range of motion. He is neurovascular intact throughout. X-rays of the hands were reviewed, demonstrating no acute bony abnormality, preserved joint space of the small joints Overall he is improved for his fingers. He states that he does not want any further treatment now, but may eventually want repeat treatment for his trigger fingers down the road, which may be injection or release. We will have him follow-up on a as needed basis. [email or web address] Not available 03/28/2023 14:54:30 07/18/2023 07/18/2023 Will fill out his form that he needs for his therapeutic shoes importance of good diabetic control with goal of A1c less than 7.0 discussed checking his feet on a daily basis also discussed. Not available 07/19/2023 18:21:38 Plan of Treatment Reminders Order Date Submit Date Provider Last Modified By Organization Details Last Modified Time Details Appointments None recorded. Lab None recorded. Referral None recorded. Procedures None recorded. Surgeries None recorded. Imaging None recorded. Medication Orders ezetimibe 10 mg tablet 2022 023 PO [facility], [address] [place] [address], [facility] [address], [place], [address], 3 16:11:40 fenofibrate 160 mg tablet 2022 023 PO [facility], [address] [facility] [place], [place] [address], [address], 3 16:11:44 Trulicity 3 mg/0.5 mL subcutaneou s pen injector 2022 023 PO [facility], [address] [place] [address], [place] [address], [place], [address], 3 15:51:09 metformin ER 500 mg tablet,exte nded release 24 hr 2022 023 [id number], [address], [place], [place], [id number], 3 15:55:45 glimepiride 2 mg tablet 2022 023 [facility] #[id number], [address], [place], [place], [id number], 3 15:56:12 amoxicillin 875 mg-potassiu m clavulanate 125 mg tablet 2022 023 [email or web address] [facility] #[id number], [address], [place], [place], [id number], 3 08:35:29 Patient TargetsNo targets recorded. Patient Instructions Encounter Date Encounter Id Patient Instructions Last Modified By Organization Details Last Modified Time 03/24/2023 [id number] dementia rating scale-2* [email or web address] Not available 03/24/2023 14:50:59 multi-dimensiona l health assessment questionnaire* [email or web address] Not available 03/24/2023 14:51:02 care plan* [email or web address] Not available 03/07 14:50:55 advance care planning: care instructions Not available 03/24/2023 14:47:37 advance directiv es: care instructions Not available 03/24/2023 14:47:37 [place] Advance Directives Not available 03/24/2023 14:47:37 Personalized [facility] Plan and Screening Recommendations Advance Directives - Do you have one? No Advance Directives - Do we have your advance directive on file in your health record? Primary Prevention/Interven tion (prevents or decreases the chance of common diseases from occurring) Smoking Risk: Non Smoker Alcohol Misuse Screening: Negative Weight: Appropriate Overwei ght continue your current weight loss efforts try to lose 5% of your body weight Physical activity: Need more exercise/physical activity minimum of 10-20 minutes of activity that causes mild breathlessness/day Nutrition: Good Average Fall Risk (screened today): Low Vaccines Pneumococcal: Ordered Recommended today Recommended today, but you have declined No further needed Influenza: Your next one in the fall of this year Chronic Disease Risks Stroke: High Risk I have no recommendations Act marcos diagnosis, Continue current treatment plan Heart Attack: High Risk I have no recommendations Act marcos diagnosis, Continue current treatment plan Clogging of the Arteries: I have no recommendations Act marcos diagnosis, Continue current treatment plan Diabetes: High Risk Active diagnosis, Continue current treatment plan Secondary Prevention/Interven tion (detects treatable diseases before they may cause symptoms, disability, or ) Prostate Cancer Screening: Colon Cancer Screening: Colonoscopy Date Screening Last Performed: Eye Disease Screening: Ordered Dementia Risk: Low Depression Screening: Negative Active diagnosis, Continue current treatment plan Not available 04/06/2023 18:00:09 Reason for Referral None Reported. Results Created Date Observation Date Name Description Value Unit Range Abnormal Flag Note LastModifiedBy Organization Detail LastModifiedTime 03/28/20 24 XR, hand, 3 or more view [facility] [address] [place] [address] Patien t Name: SANTI DENISE ion #: [id number] Sex: M : 1954 1 3 Dictat ed By: Moose Reilly Attend ing Physic elizabeth: HALINA SCHAEFER Orderi Physic elizabeth: HALINA SCHAEFER Exam Date: 2023 10:03 AM Exam Name: XR HAND RT 3V Admitt ing Diagno sis(es ): CLINIC AL INDICA TION: pain TECHNI QUE: 3 radiog raphic views of the right hand were obtain ed. Compar nirmal: None FINDIN GS/IMP RESSIO N: There is no eviden ce of acute fractu re or disloc ation. Advanc ed DIP osteoa rthrit is The alignm ent is anatom ical. There is no radiop aque foreig n body. Electr onical ly Signed by: Moose Reilly at 2023 11:10: 29 AM Page [address] (Imaging) [address] [facility], [place], [address], 04/24/2024 10:39:30 04/01/20 24 04/01/2024 US, renal No observ ation record ed. [address], [place], [address], 04/23/2024 11:32:23 04/01/20 24 04/01/2024 XR, kidne y + urete r + bladd er No observ ation record ed. [place] [address] [facility] [address], [place], [address], 04/23/2024 11:32:37 09/17/19 25 09/17/2024 imagi ng/di agnos tic resul t No observ ation record ed. [facility] [address], [place], [address], 09/17/2024 13:26:44 09/17/19 25 09/17/2024 imagi ng/di agnos tic resul t No observ ation record ed. [facility] [address], [place], [address], 09/17/2024 13:30:51 Result Notes None recorded. Problems Name Problem SNOMED Code Status Onset Date Resolution Date Notes Provider Name and Address Organization Details Recorded Time Trigger finger of right hand 3434838418024 9101 Active 2021 Not Available [facility] 4 05:43:11 Deep venous thrombosis 144754072 Active 2018 Not Available [facility] 4 05:43:11 Chronic obstructiv e pulmonary disease 08070422 Active 2021 Not Available [facility] 4 05:43:11 Acute sinusitis 30286000 Active 2021 Not Available [facility] 4 05:43:11 Long-term drug therapy Active 2021 Not Available [facility] 4 05:43:11 Mixed hyperlipid emia 394014186 Active 2018 Not Available [facility] 4 05:43:11 Adult health examinatio n Active 2021 Not Available [facility] 4 05:43:11 Wheezing symptom 643339785 Active 2021 Not Available [facility] 4 05:43:11 History of thrombosis 206975462 Active 2021 Not Available [facility] 4 05:43:11 Screening for malignant neoplasm of colon Active 2021 Not Available [facility] 4 05:43:11 Hypertrigl yceridemia 091800688 Active 2021 Not Available [facility] 4 05:43:11 Lump on thigh 529595145 Active 2021 Not Available [facility] 4 05:43:11 Screening for disorder Active 2021 Not Available [facility] 4 05:43:11 Microalbum inuria 353675140 Active 2021 Not Available [facility] 4 05:43:11 History of coronary artery bypass grafting 814146111 Active 2021 Not Available [facility] 4 05:43:11 Hepatitis C screening Active 2021 Not Available [facility] 4 05:43:11 History of malignant neoplasm of lung 781275313 Active 2021 Not Available [facility] 4 05:43:11 Type 2 diabetes mellitus 51930162 Active 2018 Not Available [facility] 4 05:43:11 Coronary atheroscle rosis 900250308 Active 2018 Not Available [facility] 4 05:43:11 Uncontroll ed type 2 diabetes mellitus 662737096 Active 2021 Not Available [facility] 4 05:43:11 Screening for malignant neoplasm of prostate Active 2021 Not Available [facility] 4 05:43:11 Mass of soft tissue 152465500 Active 2021 Not Available [facility] 4 05:43:11 Hyperlipid emia 21565760 Active 2021 Not Available [facility] 4 05:43:11 Degenerati on of lumbosacra l interverte bral disc 44079533 Active 2021 Not Available [facility] 4 05:43:11 Long-term current use of anticoagul ant 996073478 Active 2021 Not Available [facility] 4 05:43:11 Diabetes mellitus 71413185 Active 2018 Not Available [facility] 4 05:43:11 Obstructiv e sleep apnea syndrome 03548416 Active 2018 Not Available [facility] 4 05:43:12 COVID-19 204040736 Active 2022 Not Available [facility] 4 05:43:12 Skin nodule 74718529 Active 2021 Not Available [facility] 4 05:43:12 Trigger finger of left hand 1674831779393 9107 Active 2022 Not Available [facility] 4 05:43:11 Essential hypertensi on 23391814 Active 2022 Not Available [facility] 4 05:43:11 Well controlled type 2 diabetes mellitus 515429049 Active 2022 Not Available [facility] 4 05:43:11 Notes:COVID 19 POS 07/12/21 Problem Notes None recorded. Procedures Surgical History Date Name Laterality Status Provider Name and Address Organization Details Recorded Time 03/24/20 23 Medicare Wellness CPT Code, subsequent completed SARMAD [facility] [place] [facility] [place] [facility] 03/24/2023 14:11:41 09/28/19 22 colonoscopy completed Not Available [facility] 10/06/19 23 05:57:01 01/01/20 17 lobectomy of lung completed Not Available [facility] 10/05/2022 05:57:01 Bypass completed Not Available [facility] 08/2022 05:57:01 Imaging Results Imaging Date Name Status LastModified by Organiz ation Details LastModified Time 03/28/2024 XR, hand, 3 or more view completed [email or web address] [facility] (Imaging) [address] [facility], [place], [address], 04/24/2024 10:39:30 04/01/2024 US, renal completed [email or web address] [address], [address], 04/23/2024 11:32:23 04/01/2024 XR, kidney + ureter + bladder completed [email or web address] [address], [address], 04/23/2024 11:32:37 09/17/2024 imaging/diag nostic result active [facility] [address], [place], [address], 09/17/2024 13:26:44 09/17/2024 imaging/diag nostic result active [facility] [address], [place], [address], 09/17/2024 13:30:51 Procedure Notes None recorded. Medical Equipment None Reported. Allergies No known drug allergies Medications Name Sig Start Date Stop Date Status Note LastModified by Organization Details LastModified Time fenofibrate micronized 160 mg tablet Take 1 {tbl} by oral route. 02/09 completed Not Available Not Available Not Available amoxicillin 500 mg capsule Take 1 capsule every 8 hours by oral route. active Not Available Not Available No t Available cetirizine 10 mg tablet 10 mg twice a day by oral route. 2021 active Not Available Not Available Not Avai lable azithromyci n 250 mg tablet 01/04 completed Not Available Not Available Not Available lidocaine 5 % topical cream APPLY TO RIGHT SIDED RIB CAGE AREA THREE TIMES DAILY NEEDED. active Not Available Not Available No t Available benzonatate 200 mg capsule 01/04 completed Not Available Not Available Not Available metoprolol succinate ER 50 mg tablet,exte nded release 24 hr TAKE 1 TABLET BY MOUTH ONCE DAILY 09/23 completed Not Available Not Available Not Available hydrocodone 5 mg-acetamin ophen 325 mg tablet TAKE 1 TABLET BY MOUTH EVERY 8 HOURS NEEDED FOR PAIN active Not Available Not Available No t Available warfarin 10 mg tablet TAKE 1 TABLET BY MOUTH DAILY OR DIRECTED active Not Available Not Available No t Available sucralfate 1 gram tablet Take 1 tablet twice a day by oral route with meals. active Not Available Not Available No t Available metoprolol succinate ER 100 mg tablet,exte nded release 24 hr Take 1 tablet every day by oral route. active Not Available Not Available No t Available Logan Low Dose Aspirin 81 mg tablet,pat yed release Take 1 tablet every day by oral route. 2017 active Not Available Not Available Not Sandra steele triamcinolo ne acetonide 0.1 % topical cream APPLY A THIN LAYER TO left temporal region BY TOPICAL ROUTE 2 TIMES PER DAY 7 days active Not Available Not Available No t Available simvastatin 40 mg tablet 04/15 completed Not Available Not Available Not Available glimepiride 2 mg tablet TAKE 2 TABLETS BY MOUTH TWICE DAILY WITH MEALS active Not Available Not Available No t Available warfarin 4 mg tablet TAKE 2 TABLETS (8 MG TOTAL) BY MOUTH ONCE DAILY 02/09 completed Not Available Not Available Not Available isosorbide mononitrate ER 120 mg tablet,exte nded release 24 hr TAKE 1 TABLET BY MOUTH EVERY DAY active Not Available Not Available No t Available warfarin 3 mg tablet 05/30 completed Not Available Not Available Not Available Lovenox 100 mg/mL subcutaneou s syringe 100 mg by sub-q route. 2021 active Not Available Not Available Not Avai lable Kenalog 10 mg/mL suspension for injection In office injection administe red by the provider 10/08 completed [facility] [place]: [phone]- [phone] Not Available Not Available Not Available amlodipine 10 mg tablet active Not Available Not Available Not Available hydrocodone 7.5 mg-acetamin ophen 325 mg tablet 01/05 completed Not Available Not Available Not Available cephalexin 500 mg capsule TAKE 1 CAPSULE BY MOUTH FOUR TIMES DAILY FOR 7 DAYS 09/22 completed Not Available Not Available Not Available triamcinolo ne acetonide 0.1 % topical ointment APPLY TO SPOTS TWICE DAILY FOR 7 DAYS THEN NEEDED. active Not Available Not Available No t Available lidocaine 5 % topical patch APPLY 1 PATCH BY TOPICAL ROUTE ONCE DAILY to rib cage (MAY WEAR UP TO 12HOURS.) 11/28 completed Not Available Not Available Not Available warfarin 5 mg tablet Take 1 tablet every day by oral route. 03/24 completed Not Available Not Available Not Available losartan 25 mg tablet TAKE 1 TABLET BY MOUTH EVERY DAY IN THE MORNING FOR 90 DAYS active Not Available Not Available No t Available ascorbic acid (vitamin C) 100 mg tablet Take 100 mg by oral route. 02/09 completed Not Available Not Available Not Available nitroglycer in 0.4 mg sublingual tablet DISSOLVE ONE TABLET UNDER THE TONGUE EVERY 5 MINUTES NEEDED FOR CHEST PAIN. DO NOT EXCEED A TOTAL OF 3 DOSES IN 15 MINUTES active Not Available Not Available No t Available gabapentin 300 mg capsule 01/05 completed Not Available Not Available Not Available enoxaparin 150 mg/mL subcutaneou s syringe 04/06 completed Not Available Not Available Not Available nystatin 100,000 unit/gram topical powder every 24 hours by topical route. 2021 active Not Available Not Available Not Avai lable azelastine 137 mcg (0.1 %) nasal spray USE 1 SPRAY IN EACH NOSTRIL TWICE DAILY active Not Available Not Available No t Available warfarin 1 mg tablet TAKE 9 MG BY MOUTH EVERY DAY BASED ON INR active Not Available Not Available No t Available Cheratussin AC 10 mg-100 mg/5 mL oral liquid Take 10 mL every 6 hours by oral route as needed. active Not Available Not Available No t Available epinephrine 0.3 mg/0.3 mL injection, auto-inject or USE DIRECTED NEEDED active Not Available Not Available No t Available cefuroxime axetil 500 mg tablet Take 1 tablet every 12 hours by oral route. active Not Available Not Available No t Available levofloxaci n 500 mg tablet TAKE 1 TABLET BY MOUTH ONCE DAILY. START THE MORNING BEFORE PROCEDURE . active Not Available Not Available No t Available methylpredn isolone 4 mg tablets in a dose pack FOLLOW PACKAGE DIRECTION S 09/22 completed Not Available Not Available Not Available fluocinonid e 0.05 % topical cream APPLY TO THE AFFECTED AREA OF SKIN DAILY FOR THE NEXT 3 WEEKS THEN WAIT 2 3 WEEKS AND RESUME AFTER BREAK IF NEEDED. 03/18 completed Not Available Not Available Not Available fluticasone propionate 50 mcg/actuati on nasal spray,suspe nsion 01/05 completed Not Available Not Available Not Available metformin ER 500 mg tablet,exte nded release 24 hr TAKE 2 TABLETS BY MOUTH TWICE DAILY active Not Available Not Available No t Available cholecalcif nikunj (vitamin D3) 10 mcg (400 unit) tablet 400 units by oral route. 2021 active Not Available Not Available Not Avai lable amoxicillin 875 mg-potassiu m clavulanate 125 mg tablet TAKE 1 TABLET BY MOUTH EVERY 12 HOURS 05/02 completed Not Available Not Available Not Available ciclopirox 0.77 % topical cream APPLY ON THE SKIN TWICE DAILY. APPLY TO AFFECTED AREA OF FEET. active Not Available Not Available No t Available ezetimibe 10 mg tablet TAKE 1 TABLET BY MOUTH ONCE DAILY active Not Available Not Available No t Available cyclobenzap rine 5 mg tablet Take 1 tablet 3 times a day by oral route as needed. active Not Available Not Available No t Available rosuvastati n 20 mg tablet TAKE 1 TABLET BY MOUTH DAILY AT BEDTIME 03/24 completed Not Available Not Available Not Available rosuvastati n 40 mg tablet TAKE 1 TABLET BY MOUTH ONCE DAILY 03/08 completed Not Available Not Available Not Available metformin ER 1,000 mg tablet,exte nded release 24hr (osmotic) Take 1 tablet twice a day by oral route. 01/09 completed Not Available Not Available Not Available fenofibrate 160 mg tablet TAKE 1 TABLET BY MOUTH EVERY DAY active Not Available Not Available No t Available chlorhexidi ne gluconate 0.12 % mouthwash 01/04 completed Not Available Not Available Not Available ranolazine ER 500 mg tablet,exte nded release,12 hr 1 {tbl} twice a day by oral route. active Not Available Not Available No t Available lidocaine (PF) 10 mg/mL (1 %) injection solution In office injection administe red by the provider 10/08 completed [facility] [place]: 0409- [phone]- [phone] Not Available Not Available Not Available ProAir HFA 90 mcg/actuati on aerosol inhaler Inhale 2 puffs as needed by inhalatio n route. 2018 active Not Available Not Available Not Avai lable OneTouch Verio test strips USE TO TEST EVERY DAY DIRECTED active Not Available Not Available No t Available Vascepa 1 gram capsule Take 2 capsules twice a day by oral route with meals for 90 days. 03/24 completed Not Available Not Available Not Available BD Insulin Syringe Ultra-Fine 1 mL 31 gauge x 12/20 USE DIRECTED FOR ALLERGY INJECTION S 6 TIMES A WEEK active Not Available Not Available No t Available Farxiga 10 mg tablet Take 1 tablet every day by oral route in the morning for 90 days. 2022 active Not Available Not Available Not Avai lable Jardiance 10 mg tablet Take 10 mg every day by oral route for 90 days. 03/25 completed Not Available Not Available Not Available Jardiance 25 mg tablet Take 1 tablet every day by oral route as directed for 30 days. 03/24 completed Not Available Not Available Not Available Trulicity 1.5 mg/0.5 mL subcutaneou s pen injector INJECT THE CONTENTS OF ONE PEN SUBCUTANE OUSLY WEEKLY DIRECTED 05/02 completed Not Available Not Available Not Available Trulicity 0.75 mg/0.5 mL subcutaneou s pen injector Inject 0.75 mg every week by subcutane ous route as directed. active Not Available Not Available No t Available Bydureon BCise 2 mg/0.85 mL subcutaneou s auto-inject or Inject 0.85 mL every week by subcutane ous route as directed for 28 days. 03/24 completed Not Available Not Available Not Available OneTouch Ultra Blue Test Strip active Not Available Not Available N ot Available Dexcom G6 Sensor device CHANGE EVERY 10 DAYS. active Not Available Not Available No t Available Dexcom G6 Cigarette Package Examiner DIRECTED. active Not Available Not Available No t Available Dexcom G6 Transmitter device CHANGE EVERY 90 DAYS. active Not Available Not Available No t [...] Not Available Not Available No t Available BinaxNOW COVID-19 Ag Self Test kit TEST DIRECTED TODAY 09/22 completed Not Available Not Available Not Available Paxlovid 300 mg (150 mg x 2)-100 mg tablets in a dose pack 300 mg nirmatrel vir (two 150 mg tablets) with 100 mg ritonavir (one 100 mg tablet) with all three tablets taken together orally twice daily for 5 days. do not take rosuvasta tin or ranolazin e during 5 days. active Not Available Not Available No t Available Ozempic 0.25 mg or 0.5 mg (2 mg/3 mL) subcutaneou s pen injector INJECT 0.5MG UNDER THE SKIN EVERY WEEK DIRECTED active Not Available Not Available No t Available Vitals Date Recorded Body height Body mass index (BMI) Body weight Pain severity - 0-10 verbal numeric rating [Score] - Reported Provider Name and Address Organization Details Last Updated DateTime 01/11/2023 177.8 cm 35 kg/m2 120003.54 g Rochelle Katarzyna Dumont Alec [email or web address] 01/11/2023 14:05:31 Date Recorded Body height Body temperature Body mass index (BMI) Body weight Respiratory rate Oxygen saturation Oxygen saturation in Arterial blood by Pulse oximetry Heart rate Systolic blood pressure Diastolic blood pressure Provider Name and Address Organization Details Last Updated DateTime 3 177.8 cm 98.2 [degF] 35.2 kg/m2 124166. 13 g 16 /min 97 % 97 % 382 /min 128 mm[Hg] 80 mm[Hg] Cleopatra Parker [facility]c [email or web address] 14:18:24 Date Recorded Body height Body mass index (BMI) Body weight Provider Name and Address Organization Details Last Updated DateTime 03/28/2023 177.8 cm 34.9 kg/m2 284212.95 g Sabrina De [email or web address] 03/28/2023 10:48:25 Date Recorded Body height Body mass index (BMI) Body weight Body temperature Respiratory rate Heart rate Systolic blood pressure Diastolic blood pressure Provider Name and Address Organization Details Last Updated DateTime 3 177.8 cm 35.6 kg/m2 340141. 91 g 98.2 [degF] 14 /min 54 /min 113 mm[Hg] 67 mm[Hg] Loly Gamino RN [facility] [employer] Group [facility] 3 15:31:37 Date Recorded Body height Body mass index (BMI) Body weight Body temperature Heart rate Systolic blood pressure Diastolic blood pressure Provider Name and Address Organization Details Last Updated DateTime 3 177.8 cm 34.7 kg/m2 950921. 35 g 97.6 [degF] 68 /min 122 mm[Hg] 76 mm[Hg] SARMAD Rogers [facility] [employer] [facility] 3 14:31:16 Social History Question Answer Notes LastModified by Organizat ion Details LastModified Time Tobacco Smoking Status Former Smoker quit 2015 Not Available [facility] 10/05/2022 05:54:19 Do You Have An Advance Directive? No MIGRATION.91253 79592 Information not available 10/05/2022 What Is Your Level Of Alcohol Consumption? Occasional MIGRATION.19121 58776 Information not available 10/05/2022 Do You Wear A Helmet When Biking? Yes MIGRATION.52321 36496 Information not available 10/05/2022 Are You Blind Or Do You Have Difficulty Seeing? Yes MIGRATION.51251 84473 Information not available 10/05/2022 What Is Your Level Of Caffeine Consumption? Heavy MIGRATION.35931 46534 Information not available 10/05/2022 How Much Tobacco Do You Chew? None MIGRATION.70963 06125 Information not available 10/05/2022 In The 14 Days Before Symptom Onset, Have You Had Close Contact With A Laboratory-confi rmed COVID-19 While That Case Was Ill? No MIGRATION.75898 68213 Information not available 10/05/2022 In The 14 Days Before Symptom Onset, Have You Had Close Contact With A Person Who Is Under Investigation For COVID-19 While That Person Was Ill? No MIGRATION.79675 50270 Information not available 10/05/2022 Are You Deaf Or Do You Have Serious Difficulty Hearing? Yes MIGRATION.09801 74080 Information not available 10/05/2022 What Type Of Diet Are You Following? REGULAR MIGRATION.63396 71491 Information not available 10/05/2022 Which Illicit Or Recreational Drugs Have You Used? None MIGRATION.11259 53621 Information not available 10/05/2022 Do You Or Have You Ever Used E-cigarettes Or Vape? Never Used Electronic Cigarettes MIGRATION.16544 13854 Information not available 10/05/2022 What Is The Highest Grade Or Level Of School You Have Completed Or The Highest Degree You Have Received? UM95651-5 MIGRATION.08697 82541 Information not available 10/05/2022 Have There Been Any Changes To Your Family Or Social Situation? No MIGRATION.09253 30864 Information not available 10/05/2022 What Is The Fluoride Status Of Your Home? Unknown MIGRATION.38038 20602 Information not available 10/05/2022 When Did You Quit Smoking? 1-5yearssincelastc igarette MIGRATION.56253 36016 Information not available 10/05/2022 Are There Any Guns Present In Your Home? Yes Information not available 03/24/2023 Do You Use Insect Repellent Routinely? Yes MIGRATION.92483 43938 Information not available 10/05/2022 Where Do You Live? [facility] MIGRATION.59840 47259 Information not available 10/05/2022 Advance Directive- Providers Has Reviewed Directive And Consents To Follow Them (insert Provider Name With Any Objectives In Notes Field) No MIGRATION.38705 14500 Information not available 10/05/2022 Do You Have A Medical Power Of Check Grader? No MIGRATION.92722 05467 Information not available 10/05/2022 What Was The Date Of Your Most Recent Tobacco Screening? 07/18/2023 [email or web address] Information not available 07/18/2023 Have You Ever Been Counseled For Unhealthy Alcohol Use? No MIGRATION.45761 39769 Information not available 10/05/2022 Do You Have Any Pets? No MIGRATION.21456 13904 Information not available 10/05/2022 What Is Your Relationship Status? MIGRATION.16437 76039 Information not available 10/05/2022 Do You Use Your Seat Belt Or Car Seat Routinely? Yes MIGRATION.37566 78018 Information not available 10/05/2022 Do You Have Smoke And Carbon Monoxide Detectors In Your Home? Yes MIGRATION.40193 55246 Information not available 10/05/2022 At What Age Did You Start Smoking Tobacco? 16 MIGRATION.39179 70789 Information not available 10/05/2022 Are You Passively Exposed To Smoke? No MIGRATION.43339 99930 Information not available 10/05/2022 Do You Or Have You Ever Used Smokeless Tobacco? Never Used Smokeless Tobacco MIGRATION.83586 97520 Information not available 10/05/2022 Are There Any Smokers In Your House? No MIGRATION.95758 30794 Information not available 10/05/2022 How Much Tobacco Do You Smoke? No Was 1.5 Ppd MIGRATION.46681 51082 Information not available 10/05/2022 What Types Of Sporting Activities Do You Participate In? None MIGRATION.74753 14974 Information not available 10/05/2022 Do You Feel Stressed (tense, Restless, Nervous, Or Anxious, Or Unable To Sleep At Night)? [id number] MIGRATION.86599 81345 Information not available 10/05/2022 Do You Use Any Illicit Or Recreational Drugs? No MIGRATION.34647 82510 Information not available 10/05/2022 Do You Use Sunscreen Routinely? Yes MIGRATION.51677 26130 Information not available 10/05/2022 Have You Recently Traveled Abroad? No MIGRATION.74304 18426 Information not available 10/05/2022 Do You Have Any Dietary Restrictions? No MIGRATION.72775 00114 Information not available 10/05/2022 Do You Or Have You Ever Used Any Other Forms Of Tobacco Or Nicotine? No MIGRATION.30910 95197 Information not available 10/05/2022 Sex: Male Functional Status Question Answer Note LastModified by Organizat ion Details LastModified Time Do you have difficulty walking or climbing stairs? No MIGRATION.4172825 026 Information not available 10/05/2022 Do you have transportation difficulties? No MIGRATION.1416845 026 Information not available 10/05/2022 Are you able to walk? YESWOREST MIGRATION.3677683 026 Information not available 10/05/2022 Do you have difficulty doing errands alone? No MIGRATION.6219396 026 Information not available 10/05/2022 Are you able to care for yourself? Yes MIGRATION.6165416 026 Information not available 10/05/2022 Do you have difficulty dressing or bathing? No MIGRATION.7923971 026 Information not available 10/05/2022 What is your exercise level? None MIGRATION.1363601 026 Information not available 10/05/2022 Mental Status Question Answer Note LastModified by Organizat ion Details LastModified Time Do you have difficulty concentrating, remembering or making decisions? No MIGRATION.373236494 6 Information not available 10/05/2022 Family History Relationship Description Onset Age of this Age Resolved Age Notes LastModified by Organization Details LastModified Time Mother Cerebrovascu lar accident MIGRATION.811 [id number] Not available 10/05/2022 05:57:04 Mother Hypertensive disorder MIGRATION.027 8448794 Not available 10/05/2022 05:57:04 Mother Family history of stroke MIGRATION.044 2939150 Not available 10/05/2022 05:57:04 Father Malignant tumor of lung MIGRATION.051 2879286 Not available 10/05/2022 05:57:04 Father Family history of malignant neoplasm MIGRATION.703 7030855 Not available 10/05/2022 05:57:04 Brother Diabetes mellitus MIGRATION.109 8272729 Not available 10/05/2022 05:57:04 Brother Family history of malignant neoplasm MIGRATION.453 9331462 Not available 10/05/2022 05:57:04 Brother Heart disease MIGRATION.149 6470892 Not available 10/05/2022 05:57:04 Sister Diabetes mellitus MIGRATION.286 7244577 Not available 10/05/2022 05:57:04 Sister Family history of malignant neoplasm MIGRATION.870 4081120 Not available 10/05/2022 05:57:04 Medical History Condition Response BLINDNESS N NERVE DISEASE N RHEUMATIC FEVER N BLADDER PROBLEMS N KIDNEY STONES N OTHER # 1 N POLIO N LUNG DISEASE/DISORDER Y RADIATION / CHEMOTHERAPY N COPD Y Other # 2 N BLOOD DISEASES N SURGERY N EAR OR HEARING PROBLEMS N MUMPS N DEPRESSION (INCLUDING POST ) N BOWEL PROBLEMS N STROKE/TIA N ULCERS N BENIGN PROSTATIC HYPERPLASIA N MEASLES N MYOCARDIAL INFARCTION N OBESITY Y GERD/NAUSEA N ANEURYSM N URINARY/BLADDER/KIDNEY PROBLEMS N INPATIENT PSYCH CARE N CORONARY ARTERY DISEASE (CAD) Y ADDICTION CONCERNS N ENDOMETRIOSIS N Impotence N USE OF BLOOD THINNERS Y SKIN PROBLEMS N GASTROINTESTINAL DISORDER N PERIPHERAL VASCULAR DISEASE N MUSCLE,JOINT OR BONE PROBLEMS N GASTROINTESTINAL BLEEDING N BLOOD CLOTS Y ASTHMA N CATARACTS N ERECTILE DYSFUNCTION N VARICOSITIES N GI PROBLEMS N Low Testosterone N INFERTILITY N AIDS/HIV N LIVER DISEASE N MALE HYPOGONADISM N HYPERTENSION Y Deficiency N ANXIETY DISORDER N BLOOD TRANSFUSION N ANEMIA/BLOOD DISORDER N CHRONIC EAR INFECTIONS N BRONCHITIS N TUBERCULOSIS N GLAUCOMA N DIVERTICULITIS N SLEEP APNEA N CHICKENPOX N INFECTIOUS DISEASE N HEART ARRHYTHMIA N PROSTATE N INSOMNIA N HIGH CHOLESTEROL / HYPERLIPIDEMIA Y HYPERTHYROIDISM N EYE PROBLEMS N NEUROLOGICAL PROBLEMS N EDEMA N CHRONIC PAIN SYNDROME N HYPOTHYROIDISM N CAROTID BLOCKAGE N CONSTIPATION N BACK / NECK PROBLEMS N HAVE YOU BEEN HOSPITALIZED OR SEEN IN [facility] IN THE PAST YEAR ? N ATHEROSCLEROSIS N BREAST PROBLEMS N DIALYSIS N ECZEMA N OSTEOPOROSIS N ARTHRITIS N NO SIGNIFICANT PAST MEDICAL HISTORY N APPENDICITIS N DIABETES, TYPE Y BAD TEETH N ENT N HEARTBURN / REFLUX N AUTISM SPECTRUM DISORDER (ASD) N HEPATITIS / LIVER DISEASE N PULMONARY DISEASE N GOUT N SLEEP DISORDER N ALZHEIMER'S DISEASE N Brain Problems N HERPES N DEMENTIA N HEADACHES/MIGRAINES N SEIZURES/EPILEPSY N VASCULAR DISEASE N PACEMAKER N Blood Disorder N DIZZINESS N HEART DISEASE/HEART PROBLEMS Y KIDNEY DISEASE N MULTIPLE SCLEROSIS N CARDIAC ARRHYTHMIA N CANCER: SPECIFY Y ANESTHESIA COMPLICATIONS N ATRIAL FIBRILLATION N Gall Stones N PULMONARY EMBOLISM N AUTOIMMUNE DISEASE N Immunizations Vaccine Type Date Status Note Provider Nam e and Address Organization Details Recorded Time influenza, unspecified formulation 3 completed Not Available [facility] 08/30/2023 05:43:12 SARS-COV-2 (COVID-19) vaccine, UNSPECIFIED 3 completed Not Available [facility] 08/30/2023 05:43:12 Respiratory syncytial virus (RSV) vaccine, unspecified 3 completed Not Available [facility] 08/30/2023 05:43:12 COVID-19, mRNA, LNP-S, PF, 30 mcg/0.3 mL dose 1 completed Not Available [facility] 08/30/2023 05:43:12 COVID-19, mRNA, LNP-S, PF, 30 mcg/0.3 mL dose 1 completed Not Available [facility] 08/30/2023 05:43:12 pneumococcal, unspecified formulation 7 completed Not Available [facility] 08/30/2023 05:43:12 influenza, unspecified formulation 7 completed Not Available [facility] 08/30/2023 05:43:12 Influenza, high-dose, quadrivalent, PF 2 completed Not Available [facility] 08/30/2023 05:43:12 Influenza, high-dose, quadrivalent, PF 1 completed Not Available [facility] 08/30/2023 05:43:12 Influenza, split virus, quadrivalent, PF 0 completed Not Available [facility] 08/30/2023 05:43:12 Influenza, split virus, quadrivalent, PF 9 completed Not Available [facility] 08/30/2023 05:43:12 pneumococcal polysaccharide PPV23 9 completed Not Available [facility] 08/30/2023 05:43:12 Influenza, split virus, quadrivalent, PF 8 completed Not Available [facility] 08/30/2023 05:43:12 Past Encounters Encounter ID Performer Location Encounter Start Date Encounter Closed Date Diagnosis/Indication Diagnosis SNOMED-CT Code Diagnosis ICD10 Code Diagnosis Note [id number] [facility] [place] [address] [place] [address] 10/09/2020 00:00:00 10/31/2020 22:09:55 [id number] [facility] [place] [address] [place] [address] 03/18/2021 00:00:00 03/22/2021 13:47:30 [id number] [facility] [place] [address] [facility] [address] [facility] [place] [address] 04/06/2021 00:00:00 04/12/2021 12:06:36 [id number] [facility] [place] [address] [place] [address] 06/03/2021 00:00:00 06/03/2021 22:41:38 [id number] [facility] [place] [address] [place] [address] 08/27/2021 00:00:00 09/05/2021 22:38:34 [id number] [facility] [place] [address] [place] [address] 09/23/2021 00:00:00 10/03/2021 19:04:01 [id number] [facility] [place] [address] [place] [address] 11/22/2021 00:00:00 11/22/2021 15:17:04 [id number] [facility] [place] [address] [place] [address] 01/25/2022 00:00:00 01/25/2022 16:22:35 [id number] [facility] [place] [address] [place] [address] 02/09/2022 00:00:00 02/09/2022 18:07:19 [id number] [facility] [place] [address] [place] [address] 02/11/2022 00:00:00 02/17/2022 23:11:35 [id number] [facility] [place] [address] [place] [address] 03/25/2022 00:00:00 04/03/2022 12:53:52 [id number] [facility] [place] [address] [facility] [address] [facility] [place] [address] 04/14/2022 00:00:00 04/24/2022 12:12:17 [id number] [facility] [place] [address] [place] [address] 05/11/2022 00:00:00 05/11/2022 16:30:30 [id number] [facility] [place] [address] [place] [address] 05/26/2022 00:00:00 05/26/2022 15:37:33 [id number] [facility] [place] [address] [place] [address] 06/22/2022 00:00:00 06/22/2022 15:17:48 [id number] [facility] [place] [address] [place] [address] 07/11/2022 00:00:00 07/11/2022 15:05:22 [id number] [facility] [place] [address] [place] [address] 07/27/2022 00:00:00 07/27/2022 17:15:14 [id number] [facility] [place] [address] [place] [address] 08/02/2022 00:00:00 08/02/2022 15:38:49 [id number] [facility] [place] [address] [place] [address] 08/09/2022 00:00:00 08/09/2022 16:49:18 [id number] [facility] [place] [address] [place] [address] 08/30/2022 00:00:00 08/31/2022 06:22:02 [id number] [facility] [place] [address] [place] [address] 09/20/2022 00:00:00 09/20/2022 16:53:50 [id number] [facility] [place] [address] [place] [address] 09/23/2022 00:00:00 10/02/2022 20:20:19 [id number] Halina Schaefer MD [facility] [place] [address] [place] [address] 10/19/2022 15:36:52 10/19/2022 16:04:38 Trigger finger of right hand [id number] M65.331 Trigger fi nger of left hand [id number] M65.30 will do under a local with sedation release remove any scarring have him do tendon glides if there is a significan t thickening of the FDP we can do a debulking if there is significan t thickening of FDP and FDS we can remove 1 slip of the FDS to help debulk we will inject the right trigger finger on the ring finger at the same time that we do the left long finger he understand s the risks, benefits alternativ es wishes to proceed [id number] Reba Brasher MD [facility] [place] [address] [place] [address] 11/21/2022 11:23:30 11/21/2022 12:27:12 Uncontrolled type 2 diabetes mellitus [id number] E11.65 patient tolerated placement of dexcom without pain or site reaction. He is aware to change out sensor every 10 days. [id number] Halina Schaefer MD [facility] [place] [address] [place] [address] 11/22/2022 10:45:51 11/22/2022 11:17:55 Trigger finger of right hand [id number] M65.331 we will see the patient back in 6 weeks and see if the triggering goes away after the injection. Move the sutures from the left long finger today have him work on gentle range of motion over the next 6 weeks [id number] Reba Brasher MD [facility] [place] [address] [place] [address] 12/23/2022 14:52:28 12/23/2022 15:49:08 Well controlled type 2 diabetes mellitus [id number] E11.9 a1c of 6.9%- goal would be go get off glimepirid e if possible and transition back to effective GLP1 agonist and SGLt2 inh - due to costs unable to do so in past- provided patient assistance applicatio n. will transition off bydureon to trulicity. He has no hx of pancreatit is or medullary thyroid cancer and is willing to trial on a GLP1 agonist therapy. He was advised to contact clinic if he experience s any nausea, vomiting or significan t thyroid pain / swelling or abdominal pain so we can discuss and discontinu e and potentiall y look to other therapy. Will trial on trulicity 1.5 mg SQ weekly with largest meal of that day as tolerated. Patient already on retirement bydureon. Will add farxiga 5 mg daily x 1 week (sample provided) and if well tolerated uptitrate to 10 mg daily - patient advised to drink adequate water up to 64 ozs per day due to loss of calories and sugar through renal excretion- he was advised to contact clinic with any concern of dizziness, lightheade dness, flank pain or urinary pain or discomfort that might suggest the need for a urinalysis . He voiced understand ing continue metformin for insulin sensitizat ion and provided glimepirid e scale if sugars over 150 mg/dl before meals. Mixed hyperlipidemia 267 313918 E78.2 he is on OTC fish oil and TG levels elevated- continue rosuvastat in but drop to every other day due to muscle aches and transition to vascepa for TG control. Spent up to 28 minutes preparing to see the patient (eg, review of tests), obtaining and/or reviewing separately obtained history, performing a medically appropriat e examinatio n and evaluation , counseling and educating the patient, ordering medication s, tests, along with documentin g clinical informatio n in the electronic health record, independen tly interpreti ng results and communicat ing results to the patient. RTC in 6 months. Patient was provided a handwritte n lab order which contains our fax number. If he chooses to go outside of the [facility] system to obtain labwork he was advised to provide our fax number and my informatio n to the lab he will be obtaining labwork from in order to have his labs properly forwarded over for me to review so there is no loss of follow up due to use of outside network. He was also advised to contact our clinic informing us that he has completed his labwork so we are aware we will need to reach out to the appropriat e laboratory to request his results be forwarded to us so I might have the ability to review and make further medical decision making in his case. He voiced understand ing. [id number] ROBBIN Oconnell [facility] [place] [address] [place] [address] 01/11/2023 14:03:44 01/11/2023 14:34:11 Trigger finger of right hand [id number] 4158091 M65.331 Trigger fi nger of left hand [id number] M65.30 [id number] Erickson Mujica MD [facility] [place] [address] [place] [address] 03/28/2023 10:45:38 03/28/2023 11:31:32 Trigger finger of left hand [id number] M65.30 [id number] ROBBIN Rueda [facility] [place] [address] [place] [address] 03/24/2023 14:11:15 03/24/2023 14:50:46 Adult health examination [id number] Z00.00 mawe completed Screening for disorder 740588342 Z13.9 Uncontroll ed type 2 diabetes mellitus 163369701 E11.65 stable on insulin and medication Mixed hyperlipidemia 267 438480 E78.2 stable on statin therapy Obstructiv e sleep apnea syndrome 39997460 G47.33 stable on cpap and followed by sleep med/pulm Chronic ob structive pulmonary disease 31840402 J44.9 as above. following with pulm, stable on regimen Coronary atherosclerosis 946140132 I25.10 asymptomat ic, seeing cardiology routinely. Degenerati on of lumbosacral intervertebral disc 02408519 M51.37 hx noted History of malignant neoplasm of lung 205975751 Z85.118 hx noted Long-term current use of anticoagulant 407295961 Z79.01 Long-term drug therapy 379195023 Z79.899 Acute sinusitis 70207242 J01.90 augmentin Rx for ongoing sinus issues a few weeks. [id number] Reba Brasher MD [facility] [place] [address] [place] [address] 05/02/2023 15:26:58 05/02/2023 17:39:30 Uncontrolled type 2 diabetes mellitus 732682226 E11.65 A1C of 7.5% up from 6.9%- continue on metformin for insulin sensitizat ion and glimepirid e scale- he was reminded to take with food and not at bedtime or he will have hypoglycem ia overnight- he voiced understand ing. Continue on trulicity but uptitrate to 3 mg once weekly. Continue on farxiga 10 mg daily (4 month samples provided in clinic today). He will call back with [employer] to send dexcom supplies to as he is very compliant with use and glucose overall improved since going on dexcom sensor. Discussed carb counting and how to read food labels. Recommende d patient to utilize the diabetesfo Xigen.CaratLane from the ADA website to help with food preparatio n as this presents ideal carb content per meal so this will make carb counting much easier for patient. Recommende d he incorporat e natural insulin cnc mill operator s such as pears, apples, cinnamon, adin and sweet potatoes to help mobilize his endogenous insulin. Recommende d up to 150 minutes of moderate level activity/e xercise weekly. Mixed hyperlipidemia 267 679385 E78.2 Continue on zetia and fenofibrat e. Spent up to 25 minutes preparing to see the patient (eg, review of tests), obtaining and/or reviewing separately obtained history, performing a medically appropriat e examinatio n and evaluation , counseling and educating the patient, ordering medication s, tests, along with documentin g clinical informatio n in the electronic health record, independen tly interpreti ng results and communicat ing results to the patient. Patient can be followed by PCP - she/he is aware of my resignatio n and last day of May 19. If needed his/her PCP can refer patient to another endocrinol ogist in the area. All questions /concerns answered and refills necessary at visit today. [id number] Eddie Tran MD [facility] [place] [address] [facility] [place] [address] 07/18/2023 14:19:42 07/18/2023 16:08:39 Diabetes mellitus 65634174 E11.9 Health Concerns Section Related Observation LastModified by Organization Detai ls LastModified Time None Recorded Concern Status LastModified by Organization Details LastModified Time None Recorded Advance Directives Directive N: Payers Encounter Date Sequence Insurance Name Policy Number Policy Perkins Covered Member ID Perkins Member ID Guarantor Name 01/11/2023 1 [place] Santi Douglaston [id number] 5 Santi Jonathon 01/11/2023 2 [employer] [facility] (MEDICARE SUPPLEMENT) PLAN G Santi Douglaston [id number] Santi Jonathon 03/24/2023 1 [place] Santi Holt [id number] 5 Santi Holt 03/24/2023 2 [employer] [place] (MEDICARE SUPPLEMENT) PLAN Mehran Holt [id number] Santi Holt 03/28/2023 1 [place] S[place] Holt [id number] 5 Santi Jonathon 03/28/2023 2 [employer] [place] (MEDICARE SUPPLEMENT) PLAN Mehran Holt [id number] Santi Holt 05/02/2023 1 [place] Santi Holt [id number] 5 Santi Jonathon 05/02/2023 2 [employer] [place] (MEDICARE SUPPLEMENT) PLAN Mehran Holt [id number] Santi Holt 07/18/2023 1 [place] Santi Holt [id number] 5 Santi Jonathon 07/18/2023 2 [employer] [place] (MEDICARE SUPPLEMENT) PLAN Mehran Holt [id number] Santi Holt Notes Date Note Type Note Provider Name and Address Organization Details Recorded Time 023 text/ht ml 67-year-old male approximately 8 weeks status post left long finger trigger finger release revision and injection of the right ring trigger finger on 11/09/2022. Patient has been doing well he notes that he continues to have some swelling in his left long finger and notice occasional clicking when he flexes his finger down. He denies any locking. He also notes improvement of his right ring trigger finger since the steroid injection and has not had any locking. ROBBIN Oconnell [address] [facility] [address], [place], [address], [facility] - [facility] [employer] 01/11/2023 15:59:04 023 text/ht ml Coronary Artery Disease F/UReported bypatient.Notes:stable. follows with cardiology. no chest or HOLDER/SOBDiabetesReported bypatient.Duration:chronic Control:usually well controlled Compliance:compliant with medications; compliant with follow-up visits; compliant with diet; compliant with home glucose monitoring; had eye doctor visit in last year;has not had dietitian visit in last year;does not wear a medic alert bracelet or necklace;does not keep rapid-acting carbohydrate in car Self Care:monitoring glucose daily Context:normal range of home blood sugars (in the low 100s); seeing eye doctor regularly; checking feet regularly; taking aspirin daily Associated Symptoms:no weight gain; no weight loss; no dizziness; no sweats; no headaches; no confusion; no increased urination; no blurred vision; no numbness of feet; no calluses on feet; no coronary artery disease; no kidney disease; no peripheral vascular disease; no diabetic retinopathy; no diabetic neuropathy;increased thirst;increased appetite;increased urinationHyperlipidemiaReported bypatient.Duration:chronic Control:usually well controlled Compliance:compliant;noncompliant with diet;does not exercise Complications:no coronary artery disease; no peripheral artery disease; no cardiovascular disease Risk Factors:diabetesObstructive Sleep Apnea F/UReported bypatient.Quality:no loud snoring; no gasping for air; no witnessed apnea; no hyponasal speech; no frequent breathing through the mouth Onset/Timing:chronic Duration:continuous Severity:does not limit daily activities; no frequent sore throats resulting in excess missed days from school / work per year; no difficulty getting going in the morning; no awakening in the middle of the night with sore throat Location:no enlarged tonsils; no nasal passage blockage; no throat pain; no feeling of tightness in throat; no dryness of mouth; no chest congestion Context:no lack of adequate sleep; no shift work; not currently taking medication to help sleep; no recent weight gain; no recent upper respiratory infection; no recent sick contacts; not worse with environmental exposure; not worse with seasonal allergen exposure; no hypertension; normal sleep hours Aggravating factors:not worse during an upper respiratory infection (a cold); not worse when allergies are active Associated Symptoms:no morning headache; no awakening at night short of breath; no sweating heavily at night; no excessive sleepiness during the day; no suddenly falling asleep during the day; no napping; no impaired work performace; no nasal congestion ROBBIN Rueda [address] [facility], [facility] [address], [place], [address], [place] - [facility] 04/06/2023 18:03:08 023 text/ht ml 67 yo male comes in for follow up in management of overall controlled type 2 DM (A1C of 7.5% up from 6.9%), dyslipidemia. at his initial visit in December we transitioned off bydureon to trulicity and continued farxiga and metformin. we continued statin therapy. His sugars were running a little higher lately-she is starting to take glimepiride 2 mg scale twice daily in morning and with dinner. He is still taking the trulicity but at a lower dose of 1.5 mg once weekly. He is tolerating well overall. He has no nausea, vomiting, UTIs / yeast infections from [facility]. sugars are running under 150 mg/dL typically with a few outliers, denies any hypoglycemialabs from 04/29:TSH of 1.6 uIU/mlFT4 of 1.35 ng/dLglucose 128 mg/dL201/281/59/47microalbumin 38 ug/mga1c 7.5% Reba Brasher MD [address], [place], [address], [email or web address] 05/02/2023 16:21:15 023 text/ht ml Diabetic foot therapeutic she was evaluation last A1c earlier this year 6.9 he does at times get some burning sensation in the bottom of his feet he has not had any polyphagia no polydipsia Eddie Tran MD [address], [place], [address], [employer] 07/19/2023 18:22:18
--- OUTSIDE RECORDS SUMMARY | 2024-11-26 12:45 | XMS_ITS | Encounter Summary ---
Author Organization [facility] Address [address] [place] [address] Phone Care Team Providers Care Property Condition Assessor Name Role Phone CarlineadriánSri Primary Care Pr ovider Herbert Forrest MD Unavailable [phone] Cynthia Grande RN Unavailable Unavailable Eduarda Ford MD Unavailable [phone] Encounter Details Date Type Department Care Team (Latest Contact Info) Description 03/27/2021 Orders Only [facility] Scanning, Provider Social History Tobacco Use Types Packs/Day Years Used Date Smoking Tobacco: Former Smokeless Tobacco: Never Alcohol Use Standard Drinks/Week Comments Yes 0 (1 standard drink = 0.6 oz pur e alcohol) AUDIT-C Answer Date Recorded Q1: How often do you have a drink containing alc ohol? Monthly or less 03/17/2021 Average Number of Drinks Not on file 021 Q3: How often do you have si x or more drinks on one occasion? 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 Gender Identity Male 04/20/2021 11:20 AM CDT Sexual Orientation Straight 12/04/2018 5: 46 PM CDT documented as of this encounter Plan of Treatment Not on file documented as of this encounter Procedures Procedure Name Priority Date/Time Associated Diagnosis Comments SCAN - LABS 03/27/2021 documented in this encounter Results * SCAN - LABS (03/27/2021) us Provider Scanning Final Result documented in this encounter Visit Diagnoses Not on filedocumented in this encounter Care Teams Property Condition Assessor Relationship Specialty Start Date End Date Raman SriORBBIN Shepherd PCP - General Physician Interior Decorator Painting 04/19/18 Herbert Forrest MD [address] [facility] [address] [place] [address] Referring Physician Pulmonary Disease 10/16/18 Cynthia Grande, RN Registered Nurse 03/19/19 Eduarda Ford MD Consulting Physician Urology 04/10/20 documented as of this encounter
--- OUTSIDE RECORDS SUMMARY | 2024-11-26 12:45 | XMS_ITS | Encounter Summary ---
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 Gender Identity Male 04/20/2021 11:20 AM CDT Sexual Orientation Straight 12/04/2018 5: 46 PM CDT documented as of this encounter Plan of Treatment Not on file documented as of this encounter Procedures Procedure Name Priority Date/Time Associated Diagnosis Comments SCAN - LABS 04/24/2021 documented in this encounter Results * SCAN - LABS (04/24/2021) us Provider Scanning Final Result documented in this encounter Visit Diagnoses Not on filedocumented in this encounter Care Teams Integrity Specialist Relationship Specialty Start Date End Date CarlineSri sampson ROBBIN Rodríguez PCP - General Physician Crop Or Grain Farmer 04/19/18 Herbert Forrest MD [address] [place] [address] Referring Physician Pulmonary Disease 10/16/18 Cynthia Grande, RN Registered Nurse 03/19/19 Eduarda Ford MD Consulting Physician Urology 04/10/20 documented as of this encounter
--- OUTSIDE RECORDS SUMMARY | 2024-11-26 12:45 | XMS_ITS | Encounter Summary ---
Author Organization [facility] Address [address] [place] [address] Phone Care Team Providers Care Physiotherapy Practice Manager Name Role Phone Sri Camargo Primary Care Pr ovider Herbert Forrest MD Unavailable [phone] Cynthia Grande RN Unavailable Unavailable Eduarda Ford MD Unavailable [phone] Encounter Details Date Type Department Care Team (Latest Contact Info) Description 01/02/2021 Orders Only [facility] Scanning, Provider Social History Tobacco Use Types Packs/Day Years Used Date Smoking Tobacco: Former Smokeless Tobacco: Never Alcohol Use Standard Drinks/Week Comments Yes 0 (1 standard drink = 0.6 oz pur e alcohol) Sex and Gender Information Value Date Recorded Sex Assigned at Not on file Legal Sex Male 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 Gender Identity Male 04/20/2021 11:20 AM CDT Sexual Orientation Straight 12/04/2018 5: 46 PM CDT documented as of this encounter Plan of Treatment Not on file documented as of this encounter Procedures Procedure Name Priority Date/Time Associated Diagnosis Comments SCAN - LABS 01/02/2021 documented in this encounter Results * SCAN - LABS (01/02/2021) us Provider Scanning Final Result documented in this encounter Visit Diagnoses Not on filedocumented in this encounter Care Teams Physiotherapy Practice Manager Relationship Specialty Start Date End Date Sri Camargo PA PCP - General Physician Sleeve Setter Lockstitch 04/19/18 Herbert Forrest MD [address] [place] [address] Referring Physician Pulmonary Disease 10/16/18 Cynthia Grande, RN Registered Nurse 03/19/19 Eduarda Ford MD Consulting Physician Urology 04/10/20 documented as of this encounter
--- OUTSIDE RECORDS SUMMARY | 2024-11-26 12:45 | XMS_ITS | Encounter Summary ---
Author Organization [facility] Address [address] [place] [address] Phone Care Team Providers Care Burglar Alarm Assembler Name Role Phone CarlineadriánSri Primary Care Pr ovider Herbert Forrest MD Unavailable [phone] Cynthia Grande RN Unavailable Unavailable Eduarda Ford MD Unavailable [phone] Encounter Details Date Type Department Care Team (Latest Contact Info) Description 02/24/2024 Orders Only [facility] Scanning, Provider [...] on file Legal Sex Male 3:10 AM CLOTH HAND Gender Identity Male 04/20/2021 11:20 AM CDT Sexual Orientation Straight 12/04/2018 5: 46 PM CDT documented as of this encounter Plan of Treatment Not on file documented as of this encounter Procedures Procedure Name Priority Date/Time Associated Diagnosis Comments SCAN - LABS 02/24/2024 documented in this encounter Results * SCAN - LABS (02/24/2024) us Provider Scanning Final Result documented in this encounter Visit Diagnoses Not on filedocumented in this encounter Care Teams Burglar Alarm Assembler Relationship Specialty Start Date End Date AndreaSri saleh ROBBIN Rodríguez PCP - General Physician Turbo Operator 04/19/18 Herbert Forrest MD [address] [place] [address] Referring Physician Pulmonary Disease 10/16/18 Cynthia Grande, RN Registered Nurse 03/19/19 Eduarda Ford MD Consulting Physician Urology 04/10/20 documented as of this encounter
--- OUTSIDE RECORDS SUMMARY | 2024-11-26 12:45 | XMS_ITS | Encounter Summary ---
Author Organization [facility] Address [address] [place] [address] Phone Care Team Providers Care Car Washer Name Role Phone Sri Camargo Primary Care Pr ovider Herbert Forrest MD Unavailable [phone] Cynthia Grande RN Unavailable Unavailable Eduarda Ford MD Unavailable [phone] Encounter Details Date Type Department Care Team (Latest Contact Info) Description 04/17/2020 Orders Only [facility] Scanning, Provider Social History Tobacco Use Types Packs/Day Years Used Date Smoking Tobacco: Former Smokeless Tobacco: Never Alcohol Use Standard Drinks/Week Comments Yes 0 (1 standard drink = 0.6 oz pur e alcohol) Sex and Gender Information Value Date Recorded Sex Assigned at Not on file 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 Gender Identity Male 04/20/2021 11:20 AM CDT Sexual Orientation Straight 12/04/2018 5: 46 PM CDT documented as of this encounter Plan of Treatment Not on file documented as of this encounter Procedures Procedure Name Priority Date/Time Associated Diagnosis Comments SCAN - LABS 04/17/2020 documented in this encounter Results * SCAN - LABS (04/17/2020) us Provider Scanning Final Result documented in this encounter Visit Diagnoses Not on filedocumented in this encounter Care Teams Car Washer Relationship Specialty Start Date End Date Sri Camargo PA PCP - General Physician Pool Table Operator 04/19/18 Herbert Forrest MD [address] [place] [address] Referring Physician Pulmonary Disease 10/16/18 Cynthia Grande, RN Registered Nurse 03/19/19 Eduarda Ford MD Consulting Physician Urology 04/10/20 documented as of this encounter
--- OUTSIDE RECORDS SUMMARY | 2024-11-26 12:45 | XMS_ITS | Patient Health Record ---
Author Organization [facility] Address [address] [place] [address] [place] [id number] Care Team Providers Care Inside [employer] Grower Name Role Phone GEORGE LITTLE Primary Care Provider Tio Quiroz Unavailable [phone] MIA BONILLA ASHLEY Unavailable Unavailable ALLERGIES No Known Allergies REASON FOR REFERRAL No Information MEDICATIONS Medication SIG (Take, Route, Frequency, Duration) Notes Start Date End Date Status Fenofibrate 160 MG 1 tablet Orally Once a day for 30 day(s) Active Warfarin Sodium 10 MG 1 tablet Orally On ce a day for 30 day(s) Active Glimepiride 4 MG 1 tablet with breakfast or the first main meal of the day Orally Once a day for 30 day(s) Active methylPREDNISolone 4 MG as directed Orally Active Ozempic (1 MG/DOSE) Active Isosorbide Mononitrate ER 12 0 MG [...] been since you last smoked? 5-10 years PROBLEMS Problem Type ICD Code Onset Dates Problem Status W/U Status Risk SNOMED Code Notes Problem Fear of injections and transfusions (F40.231) Active confirmed Fear of medical treatment (157385520) Problem Chronic pain syndrome (G89.4) Active confirmed Chronic naveed n syndrome (357644053) Problem Spondylosis without myelopathy or radiculopathy, lumbar region (M47.816) Active confirmed Lumbosacral spondylosis without myelopathy (22078121) Problem Spondylosis without myelopathy or radiculopathy, lumbosacral region (M47.817) Active confirmed Lumbosacral spondylosis without myelopathy (disorder) (34597007) Problem Other intervertebral disc degeneration, lumbar region (M51.36) Active confirmed Degeneration of lumbar intervertebral disc (71744081) Problem half-way (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 of anticoagulants (Z79.01) Active confirmed Long-term curre nt use of anticoagulant (899052799) Problem Spinal stenosis, lumbar region with neurogenic claudication (M48.062) Active confirmed Neurogenic claudication (373748562) Problem Lumbar radiculopathy (M54.16) Active confirmed Lumbar radiculopathy (316272287) VITAL SIGNS Heart Rate 57 /min 10/07/2024 Respiratory Rate 18 /min 10/07/2024 Oximetry 97 % 07/10/2024 Post Op VItals: BP 148/73, HR 62, RR 18, Spo2 =97% Patient discharged home, ambulatory, and in no acute distress. Blood pressure diastolic 69 mm Hg 10/07/2024 Height 5 ft 11 in in 10/07/2024 Blood pressure systolic 134 mm Hg 10/07/2024 Weight 252 lbs 10/07/2024 BMI 35.14 kg/m2 10/07/2024 Encounters Encounter Location Date Provider Diagnosis [facility] [address] [place] [address] [place] [address] 04/10/2024 Tio Obregon Lumbar radiculopathy M54.16 ; Spinal stenosis, lumbar region with neurogenic claudication M48.062 ; Other intervertebral disc degeneration, lumbar region M51.36 ; Chronic pain syndrome G89.4 ; 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 and long term care social worker (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 of anticoagulants Z79.01 [facility] [address] [place] [address] [place] [address] 04/17/2024 Tio Stynowick Radiculopathy, lumba r region M54.16 ; Spinal stenosis, lumbar region with neurogenic claudication M48.062 ; Other intervertebral disc degeneration, lumbar region M51.36 and half-way (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 of anticoagulants Z79.01 [facility] [address] [phone] 04/18/2024 Tio Stynowick [facility] [address] [place] [phone] 05/06/2024 Tio Stynowick Lumbar radiculopathy M54.16 ; Spinal stenosis, lumbar region with neurogenic claudication M48.062 ; Other intervertebral disc degeneration, lumbar region M51.36 ; Chronic pain syndrome G89.4 ; 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 and half-way (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 of anticoagulants Z79.01 [facility] [address] [place] [phone] 06/05/2024 Tio Stynowick Lumbar radiculopathy M54.16 ; Spondylosis without myelopathy or radiculopathy, lumbar region M47.816 ; Spinal stenosis, lumbar region with neurogenic claudication M48.062 ; Other intervertebral disc degeneration, lumbar region M51.36 ; Chronic pain syndrome G89.4 ; 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 ; half-way (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 of anticoagulants Z79.01 ; Other intervertebral disc degeneration, lumbar region with discogenic back pain and lower extremity pain M51.362 and Spondylosis without myelopathy or radiculopathy, lumbosacral region M47.817 [facility] [address] [place] [phone] 06/11/2024 Tio Stynowick Spondylosis without myelopathy or radiculopathy, lumbar region M47.816 and Spondylosis without myelopathy or radiculopathy, lumbosacral region M47.817 [facility] [address] [place] [phone] 06/12/2024 Tio Stynowick [facility] [address] [place] [phone] 06/25/2024 Tio Stynowick Spondylosis without myelopathy or radiculopathy, lumbar region M47.816 and Spondylosis without myelopathy or radiculopathy, lumbosacral region M47.817 [facility] [address] [place] [phone] 06/28/2024 Tio Stlincolnowick Spondylosis without myelopathy or radiculopathy, lumbar region M47.816 and Spondylosis without myelopathy or radiculopathy, lumbosacral region M47.817 [facility] [address] [place] [phone] 07/09/2024 Tio Stynowick Lumbar radiculopathy M54.16 ; Spondylosis without myelopathy or radiculopathy, lumbar region M47.816 ; Spinal stenosis, lumbar region with neurogenic claudication M48.062 ; Other intervertebral disc degeneration, lumbar region M51.36 ; Chronic pain syndrome G89.4 ; 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 ; half-way (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 of anticoagulants Z79.01 ; Other intervertebral disc degeneration, lumbar region with discogenic back pain and lower extremity pain M51.362 and Spondylosis without myelopathy or radiculopathy, lumbosacral region M47.817 [facility] [address] [place] [phone] 07/10/2024 Tio Stynowick Spondylosis without myelopathy or radiculopathy, lumbar region M47.816 and Spondylosis without myelopathy or radiculopathy, lumbosacral region M47.817 [facility] [address] [place] [phone] 07/11/2024 Tio Stynowick [facility] [address] [place] [phone] 08/08/2024 Tio Stynowick Lumbar radiculopathy M54.16 ; Spondylosis without myelopathy or radiculopathy, lumbar region M47.816 ; Spinal stenosis, lumbar region with neurogenic claudication M48.062 ; Other intervertebral disc degeneration, lumbar region M51.36 ; Chronic pain syndrome G89.4 ; 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 ; half-way (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 of anticoagulants Z79.01 ; Other intervertebral disc degeneration, lumbar region with discogenic back pain and lower extremity pain M51.362 and Spondylosis without myelopathy or radiculopathy, lumbosacral region M47.817 [facility] [address] [place] [phone] 09/11/2024 Tio Stynowick Lumbar radiculopathy M54.16 ; Spondylosis without myelopathy or radiculopathy, lumbar region M47.816 ; Spinal stenosis, lumbar region with neurogenic claudication M48.062 ; Other intervertebral disc degeneration, lumbar region M51.36 ; Chronic pain syndrome G89.4 ; 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 ; half-way (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 of anticoagulants Z79.01 ; Other intervertebral disc degeneration, lumbar region with discogenic back pain and lower extremity pain M51.362 and Spondylosis without myelopathy or radiculopathy, lumbosacral region M47.817 [facility] [address] [place] [phone] 10/07/2024 Tio Stynowick Lumbar radiculopathy M54.16 ; Spondylosis without myelopathy or radiculopathy, lumbar region M47.816 ; Spinal stenosis, lumbar region with neurogenic claudication M48.062 ; Other intervertebral disc degeneration, lumbar region M51.36 ; Chronic pain syndrome G89.4 ; 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 ; long term care social worker (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 of anticoagulants Z79.01 ; Other intervertebral disc degeneration, lumbar region with discogenic back pain and lower extremity pain M51.362 and Spondylosis without myelopathy or radiculopathy, lumbosacral region M47.817 ASSESSMENTS Encounter Date Diagnosis Assessment Notes Treatment Notes Treatment Clinical Notes 04/10/2024 Spinal stenosis, lumbar region with neurogenic claudication (ICD-10 - M48.062) I made the patient aware of his neurologic deficit in the right lower extremity and emphasized that he is potentially at risk for a permanent and progressive neurologic deficit without surgical decompression. He is willing to accept this risk. The patient is currently refusing a neurosurgical referral. 04/10/2024 Lumbar radiculopathy (ICD-10 - M54.16) Schedule a right L3-4 + L4-5 transforaminal epidural steroid injection. The risks of this procedure including pain, bleeding, infection, spinal headache, persistent spinal fluid leak, epidural hematoma, nerve damage, spinal cord injury, paralysis, total spinal anesthesia resulting in cardiopulmonary arrest/, respiratory distress requiring intubation, insomnia, hyperglycemia, hair loss, muscle atrophy, skin depigmentation, weight gain, fluid retention, adrenal suppression, immunosuppression, osteoporosis resulting in fractures, avascular necrosis of the hip, cataracts, bleeding gastric ulcer, worsening pain and failure to relieve pain were discussed and the patient is agreeable to proceeding at this time. 04/17/2024 Radiculopathy, lumbar region (ICD-10 - M54.16) Pt. advised to resume PT at [facility] and continue with recommended treatments. 04/17/2024 Spinal stenosis, lumbar region with neurogenic claudication (ICD-10 - M48.062) 05/06/2024 Spinal stenosis, lumbar region with neurogenic claudication (ICD-10 - M48.062) 05/06/2024 Lumbar radiculopathy (ICD-10 - M54.16) The patient recently underwent right L3-4 & L4-5 TFE done on 04/17/24 and reports a 2 week and ongoing 90% reduction of his low back and lower extremity pain since this procedure. He currently denies a need for any injections or interventions at this time. He would like to return to the office in 1 month for follow-up and reevaluation of his pain at that time. 06/05/2024 Spondylosis without myelopathy or radiculopathy, lumbar region (ICD-10 - M47.816) The results of the patient's recent lumbar spine MRI were discussed with the patient using an anatomical model and layman's terminology. All questions were answered, schedule a bilateral L3-5 medial branch nerve block as a diagnostic and potentially therapeutic endeavor to isolate the source of the patient's facet-generated low back pain originating from the L4-5 and L5-S1 facet joints and to ultimately perform radiofrequency ablation for more durable pain relief. The risks of this procedure including pain, bleeding, infection, nerve damage, spinal cord injury, paralysis, total spinal anesthesia resulting in cardiopulmonary arrest/, respiratory distress requiring intubation, neuritis after radiofrequency ablation, hyperglycemia, insomnia, hair loss, muscle atrophy, skin depigmentation, weight gain, fluid retention, adrenal suppression, osteoporosis resulting in fractures, avascular necrosis of the hip, cataracts, bleeding gastric ulcer, worsening pain and failure to relieve pain were discussed and the patient is agreeable to proceeding at this time. 06/11/2024 Spondylosis without myelopathy or radiculopathy, lumbar region (ICD-10 - M47.816) 06/11/2024 Spondylosis without myelopathy or radiculopathy, lumbosacral region (ICD-10 - M47.817) 06/25/2024 Spondylosis without myelopathy or radiculopathy, lumbar region (ICD-10 - M47.816) 06/05/2024 Lumbar radiculopathy (ICD-10 - M54.16) 06/28/2024 Spondylosis without myelopathy or radiculopathy, lumbar region (ICD-10 - M47.816) 06/28/2024 Spondylosis without myelopathy or radiculopathy, lumbosacral region (ICD-10 - M47.817) 07/09/2024 Spondylosis without myelopathy or radiculopathy, lumbar region (ICD-10 - M47.816) Schedule a bilateral L3-5 radiofrequency ablation for a more durable treatment of the patient's facet-generated low back pain originating from the L4-5 and L5-S1 facet joints. The risks of this procedure including pain, bleeding, infection, nerve damage, spinal cord injury, paralysis, total spinal anesthesia resulting in cardiopulmonary arrest/, respiratory distress requiring intubation, neuritis after radiofrequency ablation, hyperglycemia, insomnia, hair loss, muscle atrophy, skin depigmentation, weight gain, fluid retention, adrenal suppression, osteoporosis resulting in fractures, avascular necrosis of the hip, cataracts, bleeding gastric ulcer, worsening pain and failure to relieve pain were discussed and the patient is agreeable to proceeding at this time. 07/09/2024 Lumbar radiculopathy (ICD-10 - M54.16) 07/10/2024 Spondylosis without myelopathy or radiculopathy, lumbar region (ICD-10 - M47.816) 07/10/2024 Spondylosis without myelopathy or radiculopathy, lumbosacral region (ICD-10 - M47.817) 08/08/2024 Lumbar radiculopathy (ICD-10 - M54.16) 09/11/2024 Lumbar radiculopathy (ICD-10 - M54.16) 10/07/2024 Lumbar radiculopathy (ICD-10 - M54.16) 10/07/2024 [...] reevaluation of his pain at that time. 09/11/2024 Spondylosis without myelopathy or radiculopathy, lumbar region (ICD-10 - M47.816) 08/08/2024 Spinal stenosis, lumbar region with neurogenic claudication (ICD-10 - M48.062) 08/08/2024 Spondylosis without myelopathy or radiculopathy, lumbar [...] reevaluation of his pain at that time. 07/09/2024 Spinal stenosis, lumbar region with neurogenic claudication (ICD-10 - M48.062) 06/05/2024 Spinal stenosis, lumbar region with neurogenic claudication (ICD-10 - M48.062) 06/25/2024 Spondylosis without myelopathy or radiculopathy, lumbosacral region (ICD-10 - M47.817) 05/06/2024 Other intervertebral disc degeneration, lumbar region (ICD-10 - M51.36) Recommend an LSO brace to provide lateral support of the patient's weak paraspinal muscles with the goal of decreased pain associated with ambulation, to correct the patient's spinal deformity and to encourage decreased analgesic use. 04/17/2024 Other intervertebral disc degeneration, lumbar region (ICD-10 - M51.36) 04/10/2024 Other intervertebral disc degeneration, lumbar region (ICD-10 - M51.36) 10/07/2024 Spinal stenosis, lumbar region with neurogenic claudication (ICD-10 - M48.062) 04/10/2024 Chronic pain syndrome (ICD-10 - G89.4) 04/17/2024 long term care social worker (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 of anticoagulants (ICD-10 - Z79.01) 05/06/2024 Chronic pain syndrome (ICD-10 - G89.4) 06/05/2024 Other intervertebral disc degeneration, lumbar region (ICD-10 - M51.36) 07/09/2024 Other intervertebral disc degeneration, lumbar region (ICD-10 - M51.36) 08/08/2024 Other intervertebral disc degeneration, lumbar region (ICD-10 - M51.36) 09/11/2024 Spinal stenosis, lumbar region with neurogenic claudication (ICD-10 - M48.062) 10/07/2024 Other intervertebral disc degeneration, lumbar region (ICD-10 - M51.36) 10/07/2024 Chronic pain syndrome (ICD-10 - G89.4) 09/11/2024 Other intervertebral disc degeneration, lumbar region (ICD-10 - M51.36) 08/08/2024 Chronic pain syndrome (ICD-10 - G89.4) 07/09/2024 Chronic pain syndrome (ICD-10 - G89.4) 06/05/2024 Chronic pain syndrome (ICD-10 - G89.4) 05/06/2024 Fear of injections and transfusions (ICD-10 - F40.231) 04/10/2024 Fear of injections and transfusions (ICD-10 - F40.231) The patient was given written instructions explaining the above and was informed that they would need to come with a delivery motorcycle driver after taking this medication due to the risk of impairment. 04/10/2024 half-way (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 of anticoagulants (ICD-10 - Z79.01) The patient was instructed to discontinue aspirin/warfarin for 6/5 days prior to the procedure. The patient will contact his engineering program manager and start Lovenox injections during the time that he is off of his oral anticoagulants. The patient was instructed to discontinue Lovenox 24 hours prior to his injection and restart 24 hours after the injection. I made the patient aware that he will be at an increased risk for a thromboembolic event during this time and he is willing to accept this risk. The patient was instructed to notify his primary care physician and/or reactor operator to obtain clearance prior to discontinuing this medication. 05/06/2024 long term care social worker (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 of anticoagulants (ICD-10 - Z79.01) 06/05/2024 Fear of injections and transfusions (ICD-10 - F40.231) 07/09/2024 Fear of injections and transfusions (ICD-10 - F40.231) 08/08/2024 Fear of injections and transfusions (ICD-10 - F40.231) 09/11/2024 Chronic pain syndrome (ICD-10 - G89.4) 10/07/2024 Fear of injections and transfusions (ICD-10 - F40.231) 10/07/2024 half-way (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 of anticoagulants (ICD-10 - Z79.01) 07/09/2024 long term care social worker (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 of anticoagulants (ICD-10 - Z79.01) 08/08/2024 long term care social worker (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 of anticoagulants (ICD-10 - Z79.01) 09/11/2024 Fear of injections and transfusions (ICD-10 - F40.231) 06/05/2024 half-way (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 of anticoagulants (ICD-10 - Z79.01) 06/05/2024 Other intervertebral disc degeneration, lumbar region with discogenic back pain and lower extremity pain (ICD-10 - M51.362) 08/08/2024 Other intervertebral disc degeneration, lumbar region with discogenic back pain and lower extremity pain (ICD-10 - M51.362) 07/09/2024 Other intervertebral disc degeneration, lumbar region with discogenic back pain and lower extremity pain (ICD-10 - M51.362) The patient received a custom-fit LSO brace today ( 07/09/24) to provide lateral support of the patient's weak paraspinal muscles with the goal of decreased pain associated with ambulation, to correct the patient's spinal deformity and to encourage decreased analgesic use. The patient's measurements were taken. The back panel was trimmed to accommodate the patient's anatomy. The tightening mechanism was adjusted to ensure a proper fit. The side panels were trimmed to accommodate the patient's abdominal anatomy. The patient was educated on proper brace placement and cleaning. 10/07/2024 Other intervertebral disc degeneration, lumbar region with discogenic back pain and lower extremity pain (ICD-10 - M51.362) 09/11/2024 half-way (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 of anticoagulants (ICD-10 - Z79.01) 09/11/2024 Other intervertebral disc degeneration, lumbar region with discogenic back pain and lower extremity pain (ICD-10 - M51.362) 10/07/2024 Spondylosis without myelopathy or radiculopathy, lumbosacral region (ICD-10 - M47.817) 08/08/2024 Spondylosis without myelopathy or radiculopathy, lumbosacral region (ICD-10 - M47.817) 07/09/2024 Spondylosis without myelopathy or radiculopathy, lumbosacral region (ICD-10 - M47.817) 06/05/2024 Spondylosis without myelopathy or radiculopathy, lumbosacral region (ICD-10 - M47.817) 09/11/2024 Spondylosis without myelopathy or radiculopathy, lumbosacral region (ICD-10 - M47.817) 04/10/[address] Bonilla for your kind referral and for involving me in the care of this patient. 04/17/2024 Other The patient voiced understanding of the treatment plan and all questions were addressed. Obtain informed consent: Right Lumbar 3-4 + Lumbar 4-5 Transforaminal Epidural Steroid Injection under fluoroscopy. Monitor pulse, blood pressure and SaO2 before, after and as needed during procedure. Verify if the patient is currently taking blood thinner. Verify patients is not currently on antibiotics for infection. Patient may drive home. CARE PLAN: Knowledge deficit: Will verbalize understanding of the proposed procedure, including risk of electrical burn, complications and benefits of the procedure? Will the patient exhibit understanding of the discharge instructions? Safety: The potential for injury related to surgery was assessed; Fire risk score determined, test completed if applicable. Risk for injury related to wrong patient, site, procedure. TIME OUT for safety of patient and includes patient name, , procedure site, side, level, allergies, blood thinners, antibiotics, surgical counts, consents correct and signed etc. Risk for infection: Implements aseptic technique, protects from cross-contamination, performs skin preparations. Pain/Discomfort: Patient verbalizes acceptable level of pain relief prior to discharge and the ability to engage in desired activity. I HAVE REVIEWED THE PATIENT'S MEDICATION LIST AND HAVE RECONCILED THE ABOVE MEDICATIONS. PATIENT GOALS AND SAFETY CONCERNS HAVE BEEN ADDRESSED. RN initials CR 05/06/2024 Other The above-named patient was evaluated in [...] with Patient and Medical Decision Makin minutes 06/05/2024 Other The above-named patient was evaluated in [...] with Patient and Medical Decision Makin minutes 06/11/2024 Other The patient voiced understanding of the treatment plan and all questions were addressed. Obtain informed consent: Bilateral Lumbar 3-5 Medial Branch Nerve Block under fluoroscopy. Monitor pulse, blood pressure and SaO2 before, after and as needed during procedure. Verify if the patient is currently taking blood thinner. Verify patients is not currently on antibiotics for infection. Patient may drive home. CARE PLAN: Knowledge deficit: Will verbalize understanding of the proposed procedure, including risk of electrical burn, complications and benefits of the procedure? Will the patient exhibit understanding of the discharge instructions? Safety: The potential for injury related to surgery was assessed; Fire risk score determined, test completed if applicable. Risk for injury related to wrong patient, site, procedure. TIME OUT for safety of patient and includes patient name, , procedure site, side, level, allergies, blood thinners, antibiotics, surgical counts, consents correct and signed etc. Risk for infection: Implements aseptic technique, protects from cross-contamination, performs skin preparations. Pain/Discomfort: Patient verbalizes acceptable level of pain relief prior to discharge and the ability to engage in desired activity. I HAVE REVIEWED THE PATIENT'S MEDICATION LIST AND HAVE RECONCILED THE ABOVE MEDICATIONS. PATIENT GOALS AND SAFETY CONCERNS HAVE BEEN ADDRESSED. RN initials ___JE 06/25/2024 Other The patient voiced understanding of the treatment plan and all questions were addressed. Obtain informed consent: under fluoroscopy. Monitor pulse, blood pressure and SaO2 before, after and as needed during procedure. Verify if the patient is currently taking blood thinner. Verify patients is not currently on antibiotics for infection. Patient may drive home. CARE PLAN: Knowledge deficit: Will verbalize understanding of the proposed procedure, including risk of electrical burn, complications and benefits of the procedure? Will the patient exhibit understanding of the discharge instructions? Safety: The potential for injury related to surgery was assessed; Fire risk score determined, test completed if applicable. Risk for injury related to wrong patient, site, procedure. TIME OUT for safety of patient and includes patient name, , procedure site, side, level, allergies, blood thinners, antibiotics, surgical counts, consents correct and signed etc. Risk for infection: Implements aseptic technique, protects from cross-contamination, performs skin preparations. Pain/Discomfort: Patient verbalizes acceptable level of pain relief prior to discharge and the ability to engage in desired activity. I HAVE REVIEWED THE PATIENT'S MEDICATION LIST AND HAVE RECONCILED THE ABOVE MEDICATIONS. PATIENT GOALS AND SAFETY CONCERNS HAVE BEEN ADDRESSED. RN initials 07/09/2024 Other The above-named patient was evaluated in [...] with Patient and Medical Decision Makin minutes 07/10/2024 Other The patient voiced understanding of the treatment plan and all questions were addressed. Obtain informed consent: Bilateral Lumbar 3-5 Radiofrequency Ablation under fluoroscopy. Monitor pulse, blood pressure and SaO2 before, after and as needed during procedure. Verify if the patient is currently taking blood thinner. Verify patients is not currently on antibiotics for infection. Patient may drive home. CARE PLAN: Knowledge deficit: Will verbalize understanding of the proposed procedure, including risk of electrical burn, complications and benefits of the procedure? Will the patient exhibit understanding of the discharge instructions? Safety: The potential for injury related to surgery was assessed; Fire risk score determined, test completed if applicable. Risk for injury related to wrong patient, site, procedure. TIME OUT for safety of patient and includes patient name, , procedure site, side, level, allergies, blood thinners, antibiotics, surgical counts, consents correct and signed etc. Risk for infection: Implements aseptic technique, protects from cross-contamination, performs skin preparations. Pain/Discomfort: Patient verbalizes acceptable level of pain relief prior to discharge and the ability to engage in desired activity. I HAVE REVIEWED THE PATIENT'S MEDICATION LIST AND HAVE RECONCILED THE ABOVE MEDICATIONS. PATIENT GOALS AND SAFETY CONCERNS HAVE BEEN ADDRESSED. RN initials ___JE 08/08/2024 Other The above-named patient was evaluated [...] with Patient and Medical Decision Makin minutes 10/07/2024 Other The above-named patient was evaluated [...] Medical Decision Makin minutes PLAN OF TREATMENT Next Appt Details Provider Name:Tio Alec lang, 12/06/2024 12:00:00 PM, [address] [place] [address], [id number], Insurance Providers Payer Name Payer Address Payer Phone Subscriber Number Group Number Insured Name Patient Relationship to Insured Coverage Start Date Coverage End Date Medicare [place] [address] [address] [place] [address] [id number] SHON SANTI Self - patient is the insured [employer] [address] [place] [id number] SANTI MENENDEZ Self - patient is the insured MEDICAL (GENERAL) HISTORY Medical History History ICD Code Lung cancer CAD Diabetes Hypertension Blood clot Surgical History Surgery Date(Month/Year) Artery bypass 2016 Partial lung removal 2016
--- OUTSIDE RECORDS SUMMARY | 2024-11-26 12:45 | XMS_ITS | Encounter Summary ---
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 Noted a 3.1cm infrarenal AAA. * Willy Salinas MD PhD - 09/17/2024 11:59 PM CST Noted. Plan f/u abdominal ultrasound in 1 yr documented in this encounter Plan of Treatment Not on file documented as of this encounter Procedures Procedure Name Priority Date/Time Associated Diagnosis Comments SCAN - RADIOLOGY/IMAGING 09/17/2024 documented in this encounter Results * SCAN - RADIOLOGY/IMAGING (09/17/2024) Anatomical Region Laterality Modality Other us Provider Scanning Final Result documented in this encounter Visit Diagnoses Not on filedocumented in this encounter Care Teams Vice President Pharmacy Relationship Specialty Start Date End Date Sri Camargo PA PCP - General Physician Outpatient Coder 04/19/18 Herbert Forrest MD [address] [place] [address] Referring Physician Pulmonary Disease 10/16/18 Cynthia Grande, RN Registered Nurse 03/19/19 Eduarda Ford MD Consulting Physician Urology 04/10/20 documented as of this encounter
--- OUTSIDE RECORDS SUMMARY | 2024-11-26 12:45 | XMS_ITS | Encounter Summary ---
Author Organization [facility] Address [address] [place] [address] Phone Care Team Providers Care Research Hydrologist Name Role Phone Sri Camargo Primary Care Pr ovider Herbert Forrest MD Unavailable [phone] Cynthia Grande RN Unavailable Unavailable Eduarda Ford MD Unavailable Encounter Details Date Type Department Care Team (Latest Contact Info) Description 04/15/2020 Orders Only [facility] Scanning, Provider Social History Tobacco Use Types Packs/Day Years Used Date Smoking Tobacco: Former Smokeless Tobacco: Never Alcohol Use Standard Drinks/Week Comments Yes 0 (1 standard drink = 0.6 oz pur e alcohol) Sex and Gender Information Value Date Recorded Sex Assigned at Not on file 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 Gender Identity Male 04/20/2021 11:20 AM CDT Sexual Orientation Straight 12/04/2018 5: 46 PM CDT documented as of this encounter Plan of Treatment Not on file documented as of this encounter Procedures Procedure Name Priority Date/Time Associated Diagnosis Comments SCAN - LABS 04/15/2020 documented in this encounter Results * SCAN - LABS (04/15/2020) us Provider Scanning Final Result documented in this encounter Visit Diagnoses Not on filedocumented in this encounter Care Teams Research Hydrologist Relationship Specialty Start Date End Date Sri Camargo PA PCP - General Physician Professional Bass Fisher 04/19/18 Herbert Forrest MD [address] [place] [address] Referring Physician Pulmonary Disease 10/16/18 Cynthia Grande, RN Registered Nurse 03/19/19 Eduarda Ford MD Consulting Physician Urology 04/10/20 documented as of this encounter
--- OUTSIDE RECORDS SUMMARY | 2024-11-26 12:45 | XMS_ITS | Encounter Summary ---
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 Gender Identity Male 04/20/2021 11:20 AM CDT Sexual Orientation Straight 12/04/2018 5: 46 PM CDT documented as of this encounter Plan of Treatment Not on file documented as of this encounter Procedures Procedure Name Priority Date/Time Associated Diagnosis Comments SCAN - LABS 06/11/2022 documented in this encounter Results * SCAN - LABS (06/11/2022) us Provider Scanning Final Result documented in this encounter Visit Diagnoses Not on filedocumented in this encounter Care Teams Grader Green Meat Relationship Specialty Start Date End Date CarlineSri sampson ROBBIN Rodríguez PCP - General Physician Wrap Yarn Sorter 04/19/18 Herbert Forrest MD [address] [place] [address] Referring Physician Pulmonary Disease 10/16/18 Cynthia Grande, RN Registered Nurse 03/19/19 Eduarda Ford MD Consulting Physician Urology 04/10/20 documented as of this encounter
--- OUTSIDE RECORDS SUMMARY | 2024-11-26 12:45 | XMS_ITS | Encounter Summary ---
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 Gender Identity Male 04/20/2021 11:20 AM CDT Sexual Orientation Straight 12/04/2018 5: 46 PM CDT documented as of this encounter Plan of Treatment Not on file documented as of this encounter Procedures Procedure Name Priority Date/Time Associated Diagnosis Comments SCAN - LABS 05/08/2021 documented in this encounter Results * SCAN - LABS (05/08/2021) us Provider Scanning Final Result documented in this encounter Visit Diagnoses Not on filedocumented in this encounter Care Teams Steward/Stewardess Dining Room Relationship Specialty Start Date End Date Sri Camargo ROBBIN Rodríguez PCP - General Physician Management Assistant 04/19/18 Herbert Forrest MD [address] [place] [address] Referring Physician Pulmonary Disease 10/16/18 Cynthia Grande, RN Registered Nurse 03/19/19 Eduarda Ford MD Consulting Physician Urology 04/10/20 documented as of this encounter
== END 2024-11-26 10:56 | disposition home or self-care (01) ==
LOC: ANHNEURO 10:56
PROVIDERS: PCP Physician Assistant; Visit Provider Physician Assistant
DX: G62.89 Other specified polyneuropathies (principal); R20.0 Anesthesia of skin
CPT/HCPCS: 95886; 95910

== ENCOUNTER 2025-01-08 15:20 | Outpatient (CLI) | payer MEDICARE, OTHER, SELFPAY ==
--- NOTE | ~2025-01-08 | US_ITS ---
EXAMINATION: US carotid duplex BI DATE: 01/08/2025 16:24 INDICATION: Left carotid bruit TECHNIQUE: Grayscale, color Doppler, and pulsed Doppler images of the cervical carotid arteries were obtained. The degree of vessel stenosis is placed in one of the following categories: normal, <50%, 5 0-69%, >=70% but less than near-occlusion, near-occlusion, or total occlusion. Note that percent sten osis relative to normal distal artery lumen diameter is indirectly measured from velocity measurement s as described by Naseem, et al. Radiology 2003; 229:340-346. COMPARISON: None. FINDINGS: RIGHT: The right common carotid artery (CCA) peak systolic velocity (PSV) is 57 cm/s. The right internal car otid artery (ICA) PSV is 437 cm/s. The right ICA end-diastolic velocity (EDV) is 117 cm/s. The right ICA/CCA PSV ratio is 7.7. Grayscale and color Doppler images yield an estimate of >=70% (but less nima n near occlusion) diameter reduction from plaque in the ICA. The external carotid artery (ECA) PSV is 170 cm/s. There is antegrade flow in the right vertebral artery. LEFT: The left CCA PSV is 68 cm/s. The left ICA PSV is 348 cm/s. The left ICA EDV is 64 cm/s. The left ICA/ CCA PSV ratio is 5.1. Grayscale and color Doppler images yield an estimate of >=70% (but less than ne ar occlusion) diameter reduction from plaque in the ICA. The ECA PSV is 241 cm/s. There is antegrade flow in the left vertebral artery. IMPRESSION: 1. >=70% (but less than near occlusion) stenosis in the right internal carotid artery. 2. >=70% (but less than near occlusion) stenosis in the left internal carotid artery. Reviewed, dictated and finalized at location A. IMPRESSION: 1. >=70% (but less than near occlusion) stenosis in the right internal carotid artery. 2. >=70% (but less than near occlusion) stenosis in the left internal carotid a rtery.
--- OUTSIDE RECORDS SUMMARY | 2025-01-08 15:23 | XMS_ITS ---
Author Organization [facility] Address [address] [place] [address] [place] [address] Care Team Providers Care Assembler Fitter Name Role Phone GEORGE LITTLE Primary Care Provider Tio Quiroz Unavailable [phone] MIA BONILLA ASHLEY Unavailable Unavailable ALLERGIES No Known Allergies REASON FOR VISIT Follow Up, Right > Left Low Back Pain MEDICATIONS Medication SIG (Take, Route, Frequency, Duration) Notes Start Date End Date Status Metoprolol Succinate ER 100 MG Oral for 90 Active Losartan Potassium 25 MG Oral for 90 Active metFORMIN HCl ER 500 MG Oral for 90 Active Farxiga 5 MG Oral for 30 Activ e Mounjaro 2.5 MG/0.5ML INJECT 1 SYRINGE SUBCUTANEOUSLY ONCE A WEEK Subcutaneous for 28 Active Fenofibrate 160 MG 1 tablet Orally Once a day for 30 day(s) Active Isosorbide Mononitrate ER 120 MG 1 tablet in the morning Orally Once a day for 30 day(s) Active Repatha SureClick 140 MG/ML Subcutaneous for 28 Active metFORMIN HCl 1000 MG 1 tablet with a me al Orally Once a day for 30 day(s) Active methylPREDNISolone 4 MG as directed Orally Active Glimepiride 4 MG 1 tablet with breakf ast or the first main meal of the day Orally Once a day for 30 day(s) Active amLODIPine Besylate 10 MG 1 tablet Orall y Once a day for 30 day(s) Active Warfarin Sodium 10 MG 1 tablet Orally On ce a day for 30 day(s) Active Ezetimibe 10 MG 1 tablet Orally Once a day for 30 day(s) Active Metoprolol Succinate 100 MG 1 capsule Or ally Once a day for 30 day(s) Active Ozempic (1 MG/DOSE) Active Aspirin 81 Active SOCIAL HISTORY Tobacco Use: Social History Observation Description Date Details (start date - stop date) Former Smoker NA - NA Sex Assigned At : Social History Observation Description Sex Assigned At Unknown Tobacco Use/Smoking Question Answer Notes Are you a former smoker How long has it been since you last smoked? 5-10 years Section Notes: The patient is retired. The patient is with four children. The patient is a former smoker. He denies alcohol or illicit drug abuse. VITAL SIGNS Blood pressure systolic 139 mm Hg 12/07/19 25 Blood pressure diastolic 71 mm Hg 025 Heart Rate 59 /min 12/06/2024 Respiratory Rate 18 /min 12/06/2024 Height 5 ft 11 in in 12/06/2024 Weight 254 lbs 12/06/2024 BMI 35.42 kg/m2 12/06/2024 Encounters Encounter Location Date Provider Diagnosis [facility] [address] [place] [address] 12/06/2024 Tio Obregon Lumbar radiculopathy M54.16 ; Spondylosis without myelopathy or radiculopathy, lumbar region M47.816 ; Spinal stenosis, lumbar region with neurogenic claudication M48.062 ; Other intervertebral disc degeneration, lumbar region M51.36 ; Chronic pain syndrome G89.4 ; 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 12/06/2024 Spinal stenosis, lumbar region with neurogenic claudication (ICD-10 - M48.062) 12/06/2024 Other intervertebral disc degeneration, lumbar region (ICD-10 - M51.36) 12/06/2024 Chronic pain syndrome (ICD-10 - G89.4) 12/06/2024 Fear of injections and transfusions (ICD-10 - F40.231) 12/06/2024 nursing home (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 of anticoagulants (ICD-10 - Z79.01) 12/06/2024 Other intervertebral disc degeneration, lumbar region with discogenic back pain and lower extremity pain (ICD-10 - M51.362) 12/06/2024 Spondylosis without myelopathy or radiculopathy, lumbosacral region (ICD-10 - M47.817) 12/06/2024 Other The above-named patient was evaluated in [...] without myelopat hy or radiculopathy, lumbar region Schedule a bilateral L3-5 radiofrequency ablation for [...] is agreeable to proceeding at this time. Other The above-named patient was evaluated [...] Makin minutes Next Appt Details Follow Up: bilateral L3-5 RF A, Reason: Provider Name:Tio Alec lang, 01/14/2025 10:45:00 AM, [address], [place], [address], Progress Notes * Examination Category Sub-Category Detail Notes Category Not es Examination/ Pre-Anesthesia Assessment General: The patient is alert and oriented X 3 in moderate distress secondary to [...] patient's typical axial low back pain. Yonny's, Gladys's and Gaenslen's are positive bilaterally. There is [...] Category Sub-Category Detail Notes Category Not es Pain Management Radiographic Imaging An MRI lumb [...] and Follow-up: Follow-up Plan documen kenya:: Yes [facility] Quality 2020: [facility] Documented:: Compliant
--- OUTSIDE RECORDS SUMMARY | 2025-01-08 15:23 | XMS_ITS | Encounter Summary ---
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
--- OUTSIDE RECORDS SUMMARY | 2025-01-08 15:23 | XMS_ITS | Encounter Summary ---
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
--- OUTSIDE RECORDS SUMMARY | 2025-01-08 15:23 | XMS_ITS ---
Author Organization [facility] Address [address] [place] [address] [place] [address] Care Team Providers Care C D Stripper Name Role Phone GEORGE LITTLE Primary Care Provider Tio Quiroz Unavailable [phone] MIA BONILLA ASHLEY Unavailable Unavailable ALLERGIES No [...] He denies alcohol or illicit drug abuse. 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 ; [facility] (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 of anticoagulants Z79.01 ; Other intervertebral disc degeneration, lumbar region with discogenic back pain and lower extremity pain M51.362 and Spondylosis without myelopathy or radiculopathy, lumbosacral region M47.817 ASSESSMENTS Encounter Date Diagnosis Assessment Notes Treatment Notes Treatment Clinical Notes Section Notes 09/11/2024 Lumbar radiculopathy (ICD-10 - M54.16) 09/11/2024 Spondylosis without myelopathy or radiculopathy, lumbar region (ICD-10 - M47.816) 09/11/2024 Spinal stenosis, lumbar region with neurogenic claudication (ICD-10 - M48.062) 09/11/2024 Other intervertebral disc degeneration, lumbar region (ICD-10 - M51.36) 09/11/2024 Chronic pain syndrome (ICD-10 - G89.4) 09/11/2024 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 Yonny's, [place]'s and Gaenslen's are positive bilaterally. There is [...]
--- OUTSIDE RECORDS SUMMARY | 2025-01-08 15:23 | XMS_ITS | Encounter Summary ---
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
--- OUTSIDE RECORDS SUMMARY | 2025-01-08 15:23 | XMS_ITS | Encounter Summary ---
Author Organization [facility] [employer] 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
--- OUTSIDE RECORDS SUMMARY | 2025-01-08 15:23 | XMS_ITS | Encounter Summary ---
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
--- OUTSIDE RECORDS SUMMARY | 2025-01-08 15:23 | XMS_ITS | Encounter Summary ---
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
--- OUTSIDE RECORDS SUMMARY | 2025-01-08 15:23 | XMS_ITS | Encounter Summary ---
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
--- OUTSIDE RECORDS SUMMARY | 2025-01-08 15:24 | XMS_ITS ---
Author Organization [facility] Address [address] [place] [address] Care Team Providers Care Contact Printer Dry Film Name Role Phone Reba Brasher Primary Care Provider REASON FOR VISIT taco tee Encounters Encounter Location Date Provider Diagnosis [facility] [address] [facility] [place] [address] 09/04/2024 Reba Brasher Plan Of Treatment No Information Progress Notes * Reg MENENDEZOB:1955 (69 yo M)Acc No.[id number]:09/04/2024 Patient: Brayan GROVE :1955 A ge:69 Y S ex:Male Address:[address] [place] [address] * true * Date: Generated for Printi ng/Faxing/eTransmitting on: 0 01/08/2025 03:24 PM CDT
--- OUTSIDE RECORDS SUMMARY | 2025-01-08 15:24 | XMS_ITS | Encounter Summary ---
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
--- OUTSIDE RECORDS SUMMARY | 2025-01-08 15:24 | XMS_ITS | Encounter Summary ---
Author Name [facility] [place] Organization [facility] [place] Address [address] [place] [address] Support Name Relationship Address Phone SHON HERMELINDA Next of Kin [address] [place] [address] HERMELINDA MENENDEZ Emergency Contact [address] [place] [address] Insurance Providers: All historical and current [...] PART A Oct 05, 2018 PART A [id number] SHON,T ERRY PATIENT MEDICARE (WNR) MEDICARE (M) PART B Oct 05, 2018 PART B [id number] Jose Elias MENENDEZ ERRY PATIENT [employer] PLAN G MEDIC ARE SUPPL EMENT Apr 07, 2021 PLAN G [id number] [phone] SHON,T ERRY PATIENT Selected Encounter This section includes the information on record at [place] for the Encounter. Date/Time Encounter Type Encounter Description Reason Provider Source Feb 19, 2024 10:00 AM HEARING AID FITTING/CHECKIN G AUDIOLOGY ICD-10-CM H90.3 Sensorineural hearing loss, bilateral JUAN DUBON Encounter Template Text not used by [place] Assessments - Encounter Diagnoses This section includes the primary and secondary diagnoses documented for the Encounter. Date/Time Primary/Secondary Diagnosis Diagnosis Name Provider Source Feb 19, 2024 10:48 AM PRIMARY Sensorineural hearing loss, bilateral BRENTON DUBON [facility] Encounter Notes: All associated encounter notes This section contains the clinical notes associated to the Encounter. Date/Time Encounter Note(s) Provider Source Feb 19, 2024 10:03 AM AUDIOLOGY BIOMASS PLANT MANAGER NOTE: LOCAL TITLE: HEARING AIDS [facility] STANDARD TITLE: AUDIOLOGY [employer] PLANT MANAGER NOTE DATE OF NOTE: FEB 19, 2024@10:03 ENTRY DATE: FEB 19, 2024@10:03:24 AUTHOR: VITA DUBON COSIGNER: URGENCY: STATUS: COMPLETED SUBJECT: Audio HAC [place] reported to clinic today for a hearing aid check. [place] reports that right now and 90% of the time he is talking with others, it sounds like he is wearing earmuffs. reports that he takes them out in noisy situations because the background noise is too much and he can't turn it down. [place] was accompanied to today's appointment by , Hermelinda. Otoscopy: clear, AU. 02/23/23 PHONAK AUDEO L90-RL KAYLI R [id number] 03/18/26 08/16/23 [facility] (CD) 02/23/23 PHONAK AUDEO L90-RL KAYLI L [id number] 03/18/26 08/16/23 [facility] (CD) [2M canal c-shells] [place]'s hearing aids were cleaned and checked; wax [...] audiometric data using NAL-NL2 targets. 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 o Frequency lowering disabled. Adjustments made following conformity measures: o Reduced gain in areas with potential feedback. o Acclimatization set to 90%. o All AutoSense programs: increased soft noise reduction to 4 (mild). [place] is satisfied with sound quality and level of devices; no additional adjustments made. RECOMMENDATIONS: 1. to contact [facility] Audiology and RTC as needed. /reg/ FERMÍN FONG Staff Slicer Machine Operator, ROSANA, CCC-A Signed: 02/19/2024 10:49 FERMÍN DUBON [facility]
--- OUTSIDE RECORDS SUMMARY | 2025-01-08 15:24 | XMS_ITS | Encounter Summary ---
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
--- OUTSIDE RECORDS SUMMARY | 2025-01-08 15:24 | XMS_ITS | Clinical Summary ---
Author Organization [facility] Address [address] [place] [address] [place] [address] Care Team Providers Care Assistive Technology Trainer Name Role Phone Unavailable Primary Care Provider [...]
--- OUTSIDE RECORDS SUMMARY | 2025-01-08 15:24 | XMS_ITS | Encounter Summary ---
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
--- OUTSIDE RECORDS SUMMARY | 2025-01-08 15:24 | XMS_ITS | Patient Health Record ---
Author Organization [facility] Address [address] [address] Care Team Providers Care Scale Attendant Name Role Phone Reba Brasher Primary Care Provider [phone] Migration, Provider Unavailable Unavailable Allergies No Known Allergies Results Component Value Reference Range Notes COMPREHENSIVE METABOLIC PANE L Reviewed date:03/18/2024 08:50:20 PM Interpretation: Performing Lab:[facility] [place], [address] [place], [address] Altaf Galicia Notes/Report: FASTING:YES FASTING: YES VITAMIN D, 25-HYDROXY, LC/MS /MS Reviewed date:03/18/2024 08:49:21 PM Interpretation: Performing Lab:Josafat WHITE, [place], [address] Altaf Galicia MD Notes/Report: FASTING:YES FASTING: YES T3, FREE Reviewed date:03/18/2024 08:49:49 PM Interpretation: Performing Lab:Josafat WHITE, [place], [address] Altaf Galicia MD Notes/Report: FASTING:YES FASTING: YES HEMOGLOBIN A1c Reviewed date:03/18/2024 08:48:51 PM Interpretation: Performing Lab:[facility]LLER[facility], [address] [place], [address] Altaf Galicia Notes/Report: FASTING:YES FASTING: YES CBC (INCLUDES DIFF/PLT) Reviewed date:03/18/2024 08:50:10 PM Interpretation: Performing Lab:[facility]LLER[facility], [address] [place], [address] [facility] Notes/Report: FASTING:YES FASTING: YES LIPID PANEL Reviewed date:03/18/2024 08:49:12 PM Interpretation: Performing Lab:[facility]at [facility], [address] , [place], [address] RyleeKimberly Jackson Notes/Report: FASTING:YES FASTING: YES T4, FREE Reviewed date:03/18/2024 08:49:34 PM Interpretation: Performing Lab:[facility], [address] , [place], [address] Rylee-Kimberly Jackson Notes/Report: FASTING:YES FASTING: YES TSH Reviewed date:03/18/2024 08:49:00 PM Interpretation: Performing Lab:[facility]at [facility], [address] , [place], [address] RyleeKimberly Galicia Notes/Report: FASTING:YES FASTING: YES VITAMIN B12 Reviewed date:03/18/2024 08:49:58 PM Interpretation: Performing Lab:[facility]at [facility], [address], [place], [address] Altaf Galicia MD Notes/Report: FASTING:YES FASTING: YES COMPREHENSIVE METABOLIC PANE L Reviewed date:03/30/2024 01:21:15 PM Interpretation: Performing Lab:Josafat WHITE-[place], [address], [place], [address] Altaf Galicia MD Notes/Report: FASTING:YES COLLECTION KIT GIVEN TO PATIENT. PATIENT ADVISED TO RETURN. FASTING: YES VITAMIN D, 25-HYDROXY, LC/MS /MS Reviewed date:03/28/2024 09:16:15 PM Interpretation: Performing Lab:Jos[facility]at [facility]ITE[facility], [address], [place], [address] Altaf Galicia MD Notes/Report: FASTING:YES COLLECTION KIT GIVEN TO PATIENT. PATIENT ADVISED TO RETURN. FASTING: YES ACTH, PLASMA Reviewed date:04/04/2024 06:08:16 PM Interpretation: Performing Lab:[facility], [address], [place], [address] Yonny Pedroza M.D.,PhD Notes/Report: FASTING:YES COLLECTION KIT GIVEN TO PATIENT. PATIENT ADVISED TO RETURN. FASTING: YES PTH ANTIBODY Reviewed date:04/13/2024 08:31:51 PM Interpretation: Performing Lab:Josafat NGUYEN/Lito [facility],, [address] [place], [address] Karen Soriano MD,PhD,ELKE Notes/Report: FASTING:YES COLLECTION KIT GIVEN TO PATIENT. PATIENT ADVISED TO RETURN. FASTING: YES CORTISOL, TOTAL Reviewed date:04/01/2024 10:17:50 AM Interpretation: Performing Lab:Josafat WHITE, [address] [place], [address] Altaf Galicia MD Notes/Report: FASTING:YES COLLECTION KIT GIVEN TO PATIENT. PATIENT ADVISED TO RETURN. FASTING: YES DHEA SULFATE Reviewed date:04/01/2024 10:17:41 AM Interpretation: Performing Lab:Josafat WHITE, [address] [place], [address] Altaf Galicia MD Notes/Report: FASTING:YES COLLECTION KIT GIVEN TO PATIENT. PATIENT ADVISED TO RETURN. FASTING: YES HEMOGLOBIN A1c Reviewed date:03/30/2024 01:21:22 PM Interpretation: Performing Lab:Josafat [facility], [address] [place], [address] Altaf Galicia Notes/Report: FASTING:YES COLLECTION KIT GIVEN TO PATIENT. PATIENT ADVISED TO RETURN. FASTING: YES CBC (INCLUDES DIFF/PLT) Reviewed date:03/30/2024 01:20:18 PM Interpretation: Performing Lab:Josafat LI [employer] [facility], [address] [place], [address] Altaf Galicia Notes/Report: FASTING:YES COLLECTION KIT GIVEN TO PATIENT. PATIENT ADVISED TO RETURN. FASTING: YES IRON AND TOTAL IRON BINDING CAPACITY Reviewed date:03/30/2024 01:37:40 PM Interpretation: Performing Lab:Josafat WHITE, [address] [place], [address] Altaf Galicia MD Notes/Report: FASTING:YES COLLECTION KIT GIVEN TO PATIENT. PATIENT ADVISED TO RETURN. FASTING: YES LIPID PANEL Reviewed date:03/30/2024 01:37:25 PM Interpretation: Performing Lab:[facility], [address] [place], [address] Altaf Galicia Notes/Report: FASTING:YES COLLECTION KIT GIVEN TO PATIENT. PATIENT ADVISED TO RETURN. FASTING: YES T4, FREE Reviewed date:03/30/2024 01:20:06 PM Interpretation: Performing Lab:[facility], [address] [place], [address] RyleeKimberly Galicia Notes/Report: FASTING:YES COLLECTION KIT GIVEN TO PATIENT. PATIENT ADVISED TO RETURN. FASTING: YES PTH, INTACT AND CALCIUM Reviewed date:03/30/2024 01:08:31 PM Interpretation: Performing Lab:Josafat WHITE, [address] [place], [address] Altaf Galicia MD Notes/Report: FASTING:YES COLLECTION KIT GIVEN TO PATIENT. PATIENT ADVISED TO RETURN. FASTING: YES TSH Reviewed date:03/28/2024 09:16:24 PM Interpretation: Performing Lab:[facility]at LI [facility], [address] [place], [address] Altaf Galicia Notes/Report: FASTING:YES COLLECTION KIT GIVEN TO PATIENT. PATIENT ADVISED TO RETURN. FASTING: YES VITAMIN B12 Reviewed date:03/28/2024 09:16:39 PM Interpretation: Performing Lab:Josafat WHITE, [address] [place], [address] Altaf Galicia MD Notes/Report: FASTING:YES COLLECTION KIT GIVEN TO PATIENT. PATIENT ADVISED TO RETURN. FASTING: YES MICROALBUMIN, RANDOM URINE ( W/CREATININE) Reviewed date:04/04/2024 06:11:00 PM Interpretation: Performing Lab:Josafat WHITE, [address] [place], [address] Altaf Galicia MD Notes/Report: SPLIT 03/29/2024 FROM [id number] PROTEIN, TOTAL AND PROTEIN E LECTROPHORESIS, URINE Reviewed date:04/04/2024 06:10:52 PM Interpretation: Performing Lab:CHRISTOPHER [facility], [address] [place], [address] Altaf Galicia MD Notes/Report: SPLIT 03/27/2024 FROM [id number] COLLECTION KIT GIVEN TO PATIENT. PATIENT ADVISED TO RETURN. URINE VOLUME: 1900/24 CREATININE, 24 HOUR URINE 1.56 0.50-2.15 g/24 h PROTEIN/CREATININE RATIO 98 <100 mg/g creat PROTEIN/CREATININE RATIO 0.098 <0.100 mg/mg cre at PROTEIN, TOTAL, 24 HR UR 152 <150 mg/24 h ALBUMIN 100 SUMGP-4-[id number] 0 YQLPD-4-VWNTESRYX 0 BETA GLOBULINS 0 GAMMA GLOBULINS 0 [...] URINE Reviewed date:04/04/2024 06:04:16 PM Interpretation: Performing Lab:CHRISTOPHER [facility], [address] [place], [address] Altaf Galicia MD Notes/Report: SPLIT 03/29/2024 FROM [id number] CREATININE, RANDOM URINE 82 20-320 mg/dL PROTEIN/CREATININE RATIO 73 25-148 mg/g crea t PROTEIN/CREATININE RATIO 0.073 0.025-0 .148 mg/mg creat PROTEIN, TOTAL, RANDOM UR 6 5-25 mg/dL ALBUMIN 100 LXOXF-3-YTOIVCSQB 0 APEUS-4-WBDFSEERF 0 BETA GLOBULINS 0 GAMMA GLOBULINS 0 INTERPRETATION Agarose electrophoresis of urine reveals albumin. No abnormal protein is observed. The supplier of the testing reagents for this assay has changed. Detection of small monoclonal proteins may vary by test system. Urine immunofixation is suggested if clinically indicated and not already ordered. VITAMIN D, 25-HYDROXY, LC/MS /MS Reviewed date:04/21/2024 10:20:48 PM Interpretation: Performing Lab:CHRISTOPHER [facility], [address] [place], [address] Altaf Galicia MD Notes/Report: ACTH, PLASMA Reviewed date:04/28/2024 08:29:58 PM Interpretation: Performing Lab:Josafat STRATTON/Lito [facility], [address], [place], [address] Yonny Pedroza M.D.,PhD Notes/Report: CORTISOL, TOTAL Reviewed date:04/21/2024 10:20:41 PM Interpretation: Performing Lab:[place], [facility], [address], [address] Altaf Galicia MD Notes/Report: DHEA SULFATE Reviewed date:04/21/2024 10:19:59 PM Interpretation: Performing Lab:[place], [facility], [address], [address] Altaf Galicia MD Notes/Report: HEMOGLOBIN A1c Reviewed date:04/21/2024 10:19:38 PM Interpretation: Performing Lab:[facility]at [facility], [address] , [place], [address] Altaf Galicia Notes/Report: CBC (INCLUDES DIFF/PLT) Reviewed date:04/21/2024 10:20:11 PM Interpretation: Performing Lab:[facility]afat [facility], [address] [place], [address] Altaf Galicia Notes/Report: MICROALBUMIN, RANDOM URINE ( W/CREATININE) Reviewed date:04/21/2024 10:20:34 PM Interpretation: Performing Lab:Josafat [facility], [address] [place], [address] Altaf Galicia MD Notes/Report: IRON AND TOTAL IRON BINDING CAPACITY Reviewed date:04/21/2024 10:19:02 PM Interpretation: Performing Lab:CHRISTOPHER, [facility], [address], [place], [address] Altaf Galicia MD Notes/Report: LIPID PANEL Reviewed date:04/21/2024 10:19:10 PM Interpretation: Performing Lab:[facility]at [facility], [address] [place], [address] [facility] Notes/Report: T4, FREE Reviewed date:04/21/2024 10:19:44 PM Interpretation: Performing Lab:[facility], [facility] [place], [address] [facility] Notes/Report: TSH Reviewed date:04/21/2024 10:19:52 PM Interpretation: Performing Lab:[facility], [facility] [place], [address] [facility] Notes/Report: VITAMIN B12 Reviewed date:04/21/2024 10:20:18 PM Interpretation: Performing Lab:Josafat WHITE-[place], [address] [place], [address] Altaf Galicia MD Notes/Report: COMPREHENSIVE METABOLIC PANE L Reviewed date:07/16/2024 09:21:50 AM Interpretation: Performing Lab:[facility], [facility] [place], [address] [facility] Notes/Report: FASTING:YES FASTING: YES DEXAMETHASONE Reviewed date:07/27/2024 09:41:43 PM Interpretation: Performing Lab:Josafat NGUYEN/Lito [facility],, [address] [place], [address] Karen Soriano MD,PhD,ELKE Notes/Report: FASTING:YES FASTING: YES DEXAMETHASONE 445 Reference Ranges for Dexamethasone: Baseline: Less than 20 ng/dL 1 mg dexamethasone overnight: 180-550 ng/dL (8:00-10:00 AM) This test was developed and its analytical performance characteristics have been determined by [employer]. It has not been cleared or approved by FDA. This assay has been validated pursuant to the CLIA regulations and is used for clinical purposes. T3, FREE Reviewed date:07/16/2024 09:21:50 AM Interpretation: Performing Lab:Josafat WHITE, [address] [place], [address] Altaf Galicia MD Notes/Report: FASTING:YES FASTING: YES CORTISOL, TOTAL Reviewed date:07/17/2024 08:37:45 AM Interpretation: Performing Lab:CHRISTOPHER, Josafat Chen, [address] [place], [address] Altaf Galicia MD Notes/Report: FASTING:YES FASTING: YES HEMOGLOBIN A1c Reviewed date:07/16/2024 09:21:50 AM Interpretation: Performing Lab:[facility], [address] [place], [address] Altaf Galicia Notes/Report: FASTING:YES FASTING: YES CBC (INCLUDES DIFF/PLT) Reviewed date:07/16/2024 09:21:50 AM Interpretation: Performing Lab:[facility], [address] [place], [address] Altaf Galicia Notes/Report: FASTING:YES FASTING: YES LIPID PANEL Reviewed date:07/16/2024 09:21:50 AM Interpretation: Performing Lab:[facility], [address] , [place], [address] Altaf Galicia Notes/Report: FASTING:YES FASTING: YES T4, FREE Reviewed date:07/16/2024 09:21:50 AM Interpretation: Performing Lab:[facility], [address] [place], [address] Altaf Galicia Notes/Report: FASTING:YES FASTING: YES TSH Reviewed date:07/16/2024 09:21:50 AM Interpretation: Performing Lab:[facility], [address] [place], [address] RyleeKibmerly Galicia Notes/Report: FASTING:YES FASTING: YES DEXAMETHASONE (Not yet revie wed by provider) Interpretation: Performing Lab:PATRICK, [facility],, [address] [facility] [place], [address] Karen Soriano MD,PhD,ELKE Notes/Report: DEXAMETHASONE 424 Reference Ranges for Dexamethasone: Baseline: Less than 20 ng/dL 1 mg dexamethasone overnight: 180-550 ng/dL (8:00-10:00 AM) This test was developed and its analytical performance characteristics have been determined by [employer]. It has not been cleared or approved by FDA. This assay has been validated pursuant to the CLIA regulations and is used for clinical purposes. CORTISOL, TOTAL Reviewed date:09/01/2024 03:01:17 PM Interpretation: Performing Lab:CHRISTOPHER, Josafat [facility], [address], [place], [address] Altaf Galicia MD Notes/Report: CORTISOL, FREE, 24 HOUR URIN E Reviewed date:09/05/2024 03:00:35 PM Interpretation: Performing Lab:Josafat NGUYEN/[facility],, [address] [place], [address] Karen Soriano MD,PhD,ELKE Notes/Report: MULTIPLE TESTING PRIORITIES; ROUTINE TESTING TO FOLLOW. URINE VOLUME: 2000 TOTAL VOLUME 2000 CORTISOL, FREE, URINE 15.0 4.0-50.0 mcg/24 h CORTISOL, FREE, URINE 10.1 Reference Range: ADULTS: 3.1-42.3 CREATININE, URINE 1.48 0.50-2.15 g/24 h This test was developed and its analytical performance characteristics have been determined by [employer]. It has not been cleared or approved by FDA. This assay has been validated pursuant to the CLIA regulations and is used for clinical purposes. CORTISOL, LC/MS, SALIVA, 2 S AMPLES Reviewed date:09/01/2024 03:51:55 PM Interpretation: Performing Lab:Josafat NGUYEN/[facility],, [address] [place], [address] Karen Soriano MD,PhD,ELKE Notes/Report: MULTIPLE TESTING PRIORITIES; ROUTINE TESTING TO FOLLOW. URINE VOLUME: 2000 DRAW DATE 1 [id number] DRAW TIME 1 10PM CORTISOL, SALIVA SAMPLE 1 0.03 8-10 AM: 0.04-0.56 mcg/dL noon-2 PM: < OR = 0.21 mcg/dL 4-6 PM: < OR = 0.15 mcg/dL 10 PM-1 AM: < OR = 0.09 mcg/dL This test was developed and its analytical performance characteristics have been determined by [employer]. It has not been cleared or approved by FDA. This assay has been validated pursuant to the CLIA regulations and is used for clinical purposes. DRAW DATE 2 [id number] DRAW TIME 2 10PM CORTISOL, SALIVA SAMPLE 2 0.03 8-10 AM: 0.04-0.56 mcg/dL noon-2 PM: < OR = 0.21 mcg/dL 4-6 PM: < OR = 0.15 mcg/dL 10 PM-1 AM: < OR = 0.09 mcg/dL This test was developed and its analytical performance characteristics have been determined by [employer]. It has not been cleared or approved [...] Ezetimibe 10 MG TAKE 1 TABLET BY ONCE DAILY for 90 Days Active metFORMIN [...] Status Risk Notes Problem Vitamin D deficiency (60546388) Vitamin D deficiency, unspecified (E55.9) Active confirmed Problem Hyperglycemia due to type 2 diabetes mellitus (761852609915354) Type 2 diabetes mellitus with hyperglycemia (E11.65) Active confirmed Problem Hyperlipidemia (62320466) Hyperlipidemia, unspecified (E78.5) Active confirmed Problem Obesity (921693893) Obesity, unspecified (E66.9) Active confirmed Problem Disorder of adrenal gland (00710572) Disorder of adrenal gland, unspecified (E27.9) Active confirmed Problem Mixed hyperlipidemia (452996805) Mixed hyperlipidemia (E78.2) Active confirmed Vital Signs Heart Rate 58 /min 09/09/2024 SpO2: 96% Blood pressure diastolic 73 mm Hg 09/09/2024 SpO 2: 96% Height 70 in 09/09/2024 SpO2: 96% Blood pressure systolic 122 mm Hg 09/09/2024 SpO2 : 96% Weight 246.0 lbs 09/09/2024 SpO2: 96% BMI 35.29 kg/m2 09/09/2024 SpO2: 96% Encounters Encounter Location Date Provider Diagnosis [facility] [address] [place] [address] 06/22/2024 Provider Migration Type 2 diabetes mellitus with hyperglycemia E11.65 ; Hyperlipidemia, unspecified E78.5 ; Mixed hyperlipidemia E78.2 and Obesity, unspecified E66.9 [facility] [employer] [address] [place] [address] 03/18/2024 Reba Huntington Type 2 diabetes mellitus with hyperglycemia E11.65 ; Abnormality of plasma protein, unspecified R77.9 ; Vitamin D deficiency, unspecified E55.9 ; Mixed hyperlipidemia E78.2 ; Other fatigue R53.83 and Unspecified abdominal pain R10.9 [facility] [employer] [address] [place] [address] 04/29/2024 Reba Anshu Type 2 diabetes mellitus with hyperglycemia E11.65 ; Mixed hyperlipidemia E78.2 ; Obesity, unspecified E66.9 and Other fatigue R53.83 [facility] Reba Brasher [address] [place] [address] 07/29/2024 Reba Brasher Type 2 diabetes mellitus with hyperglycemia E11.65 ; Mixed hyperlipidemia E78.2 ; Obesity, unspecified E66.9 ; Vitamin D deficiency, unspecified E55.9 and Dietary counseling and surveillance Z71.3 [facility] Reba Brasher [address] [place] [address] 09/09/2024 Reba Brasher Type 2 diabetes mellitus with hyperglycemia E11.65 ; Hyperlipidemia, unspecified E78.5 ; Vitamin D deficiency, unspecified E55.9 ; Obesity, unspecified E66.9 ; Dietary counseling and surveillance Z71.3 and Disorder of adrenal gland, unspecified E27.9 [facility] [facility] Reba Brasher [address] [place] [address] 03/25/2024 Reba Anshu [facility] [employer] [facility] Reba Brasher [address] [place] [address] 04/09/2024 Reba Anshu [facility] [address] [place] [address] 04/29/2024 Reba Anshu [facility] [facility] - Reba Brasher [address] [place] [address] 05/01/2024 Reba Brasher Hyperlipidemia, unspecified E78.5 [facility] [address] [place] [address] 05/09/2024 Reba Brasher Mixed hyperlipidemia E78.2 [facility] [address] [place] [address] 05/20/2024 Reba Brasher [facility] [address] [place] [address] 07/22/2024 Reba Anshu Type 2 diabetes mellitus with hyperglycemia E11.65 [facility] [facility] Reba Brasher [address] [place] [address] 08/08/2024 Reba Anshu Type 2 diabetes mellitus with hyperglycemia E11.65 [facility] [employer] [facility], [facility] - Reba Brasher [address] [place] [address] 08/21/2024 Reba Anshu Type 2 diabetes mellitus with hyperglycemia E11.65 [facility] [address] [place] [address] 08/21/2024 Reba Brasher [facility] [address] [place] [address] 09/04/2024 Reba Brasher Assessments Encounter Date Diagnosis (ICD Code) Assessment Notes Treatment Notes Treatment Clinical Notes Section Notes 06/22/2024 Type 2 diabetes mellitus with hyperglycemia (ICD-10 - E11.65) 06/22/2024 Hyperlipidemia, unspecified (ICD-10 - E78.5) 06/22/2024 Mixed hyperlipidemia (ICD-10 - E78.2) 03/18/2024 Type 2 diabetes mellitus with hyperglycemia (ICD-10 - E11.65) a1c of 7.9% - per dexcom at 7.6% with glucose average of 176 mg/dL with no hypoglycemia. In range 59% of time with no hypoglycemia. Discussed carb counting and how to read food labels. Recommended patient to utilize the [employer] from the ADA website to help with [...] costly. ozempic is 220$ per month- provided [employer] patient assistance paperwork for ozempic coverage. Will continue on 0.5 mg once weekly x 8 weeks and uptitrate to 1 mg weekly thereafter with largest meal. Discussed carb counting and how to read food labels. Recommended patient to utilize the diabetesfoodhub.com from the ADA website to help with [...] based snack at bedtime to help reduce plastics plater hyperglcemia from counterregulatory hormones. He has no [...] E11.65) 09/09/2024 Hyperlipidemia, unspecified (ICD-10 - E78.5) 05/01/2024 Hyperlipidemia, unspecified (ICD-10 - E78.5) 05/09/2024 Mixed hyperlipidemia (ICD-10 - E78.2) 07/22/2024 Type 2 diabetes mellitus with hyperglycemia (ICD-10 - E11.65) 08/08/2024 Type 2 diabetes mellitus with hyperglycemia (ICD-10 - E11.65) 08/21/2024 Type 2 diabetes mellitus with hyperglycemia (ICD-10 - E11.65) 06/22/2024 Obesity, unspecified (ICD-10 - E66.9) 03/18/2024 Vitamin D deficiency, unspecified (ICD-10 - E55.9) Send for vitamin D -goal of 50 ng/mL to optimize bone and immune health. 04/29/2024 Obesity, unspecified (ICD-10 - E66.9) discussed dietary measures in regards to weight loss- importance to restrict calories to 1400 per day if sedentary vs 4773-3793 calories depending on caloric expenditure. He was [...] Vitamin D deficiency, unspecified (ICD-10 - E55.9) 03/18/2024 Mixed hyperlipidemia (ICD-10 - E78.2) Continue [...] of adrenal gland, unspecified (ICD-10 - E27.9) 03/18/2024 Other Spent 25 minute s preparing to see the patient (ex review of tests/chart), obtaining and / or reviewing separately obtained history, performing a medically appropriate examination and/or evaluation, counseling and educating the patient/family/caregiver , ordering medications, tests, or procedures, referring and communicating with other health health care coach, documenting clinical information in the electronic or [...] procedures, referring and communicating with other health health care coach, documenting clinical information in the electronic or [...] procedures, referring and communicating with other health health care coach, documenting clinical information in the electronic or [...] to alternate injection days between Monday and MondayReading for efficacy and side effects at follow-up [...] procedures, referring and communicating with other health health care coach, documenting clinical information in the electronic or [...] Date Coverage End Date Medicare [address] [address] [place] [address] [id number] Brayan Holt Self - patient is the insured [employer] [place] [place] [address] [id number] Brayan Holt Self - patient is the insured Medical (General) History Medical History History ICD Code type 2 DM dyslipidemia
--- OUTSIDE RECORDS SUMMARY | 2025-01-08 15:24 | XMS_ITS | Encounter Summary ---
Author Organization [facility] Address [address] [place] [address] Phone Care Team Providers Care [employer] Name Role Phone Sri Caamrgo Primary Care Pr ovider Herbert Forrest MD Unavailable [phone] Cynthia Grande RN Unavailable Unavailable Eduarda Ford MD Unavailable [phone] Encounter Details Date Type Department Care [...] on file Legal Sex Male 3:10 AM [employer] Gender Identity Male 04/20/2021 11:20 AM CDT [...] on filedocumented in this encounter Care Teams Community [employer]inator [employer] Relationship Specialty Start Date End Date Sri Camargo PA PCP - General Physician Belt Dresser 04/19/18 Herbert Forrest MD [address] [place] [address] Referring Physician Pulmonary Disease 10/16/18 Cynthia Grande, RN Registered Nurse 03/19/19 Eduarda Ford MD Consulting Physician Urology 04/10/20 documented as of this encounter
--- OUTSIDE RECORDS SUMMARY | 2025-01-08 15:24 | XMS_ITS | Data Portability ---
Author Organization [facility], [facility] Address [address] [place] [address] Care Team Providers Care Shear Grinder Operator Helper Name Role Phone GEORGE AU Primary Care Provider GEORGE AU Referring Provider HALINA SCHAEFER Orthopedic Surgeon [phone] Assessment No assessment recorded. Plan of Treatment [...] more view No observ ation record ed. [address], [address], 04/01/2024 10:36:06 Result Notes None recorded. Problems Name Problem SNOMED Code Status Onset Date Resolution Date Notes Provider Name and Address Organization Details Recorded Time Diabetes mellitus 65761943 Active 2023 Tammy martin [facility] 16:34:56 Hypertrigly ceridemia 356982165 Active 2023 Tammy martin, [facility] 4 16:35:07 Mixed hyperlipide maddie 397743298 Active 2023 Tammy martin, [facility] 16:35:16 Hyperlipide maddie 65090049 Active 2023 Tammy Freemandisha null, [facility] 16:35:25 Obstructive sleep apnea syndrome 22800158 Active 2023 Tammy Freemandisha null, [facility] 16:35:42 Hypertensiv e disorder 76511814 Active 2023 Tammy Freemandisha null, [facility] 16:35:50 Coronary arterioscle rosis 78051308 Active 2023 Tammy Freemandisha [facility], [facility] 16:36:01 Deep venous thrombosis 704502011 Active 2023 Tammy Freemandisha null, [facility] 16:36:11 Malignant neoplasm of lung 491293863 Active 2023 Tammy Freemandisha [facility], [facility] 16:36:33 Coronary artery bypass graft Active 2023 Tammy Freemandisha null, [facility] 16:37:08 Pain in right hand 6639865399188 09 Active 2023 Tammy Freemandisha [facility], [facility] 4 11:33:00 Acquired trigger finger of right ring finger 7815639022764 08 Active 2023 Halina Schaefer MD [address] [place], [address] [place] [address] 12:01:11 Problem Notes None recorded. Procedures Surgical History Date Name Laterality Status Provider Name and Address Organization Details Recorded Time Bypass completed Tammy Chavez [facility] 03/15/2024 16:39:03 Colonoscopy completed Tammy Chavez [facility] 03/15/2024 16:39:12 lobectomy of lung completed Tammy Chavez [facility] 03/15/2024 16:39:27 Imaging Results None recorded. Procedure Notes None recorded. Medical Equipment None [...] Not Available No t Available amoxicillin 875 mg-potbreonnau m clavulanate 125 mg tablet TAKE 1 [...] Address Organization Details Last Updated DateTime 4 716458. 13 g 35.2 kg/m2 177.8 cm 67 /min 95 % 95 % 154 mm[Hg] 80 mm[Hg] Tammy Chavez [facility] 11:30:59 Date Recorded Body height Body mass index (BMI) Body weight Heart rate Oxygen saturation Oxygen saturation in Arterial blood by Pulse oximetry Systolic blood pressure Diastolic blood pressure Provider Name and Address Organization Details Last Updated DateTime 4 177.8 cm 35 kg/m2 978716. 54 g 61 /min 96 % 96 % 148 mm[Hg] 73 mm[Hg] Tammy Chavez [facility] 4 11:08:32 Social History Question Answer Notes LastModified by Organizat ion Details LastModified Time Tobacco Smoking Status Former Smoker Tammy Chavez [facility] 03/15/2024 16:38:43 When Did You Quit Smoking? [...] Smoked Tobacco? 30 Information not available 03/15/2024 Sex: Unknown Functional Status Question Answer Note LastModified by Organization D etails LastModified Time Do you or have you ever used any other forms of tobacco or nicotine? No Information not available 03/15/2024 Mental Status None recorded. Family History Nothing Reported. Medical History Condition Response DIABETES, TYPE Y LUNG DISEASE/DISORDER HIGH CHOLESTEROL / HYPERLIPIDEMIA Y DVT Y SLEEP DISORDER Y HYPERTENSION Y CANCER: SPECIFY Y Past Encounters Encounter ID Performer Location Encounter Start Date Encounter Closed Date Diagnosis/Indication Diagnosis SNOMED-CT Code Diagnosis ICD10 Code Diagnosis Note [id number] Halina Schaefer MD [facility] [address] [address] 03/28/2024 11:23:39 03/28/2024 12:07:51 Ex-cigarette smoker 418653051 Z87.891 Body mass index 30+ - obesity 404085626 Z68.35 Acquired t metal roaster finger of right ring finger 4163637588 68460 M65.341 we will set the patient to do a MAC local. Patient has stent 10 years ago he was seen by cardiology and was doing fine as last visit. Patient had lung cancer in the past does not use any oxygen and was years ago since his long surgery should be fine for MAC local. [id number] Halina Schaefer MD [facility] [address] [address] 05/09/2024 10:51:11 05/09/2024 11:27:27 Acquired trigger finger of right ring finger 2189127173 29355 M65.341 remove sutures work on nerve and tendon glides and we will see him back again for follow-up in a few months. Ex-cigarette smoker 2810 [address] Z87.891 Body mass index 30+ - obesity 544630137 Z68.35 Health Concerns Section Related Observation LastModified by Organization Detai ls LastModified Time None Recorded Concern Status LastModified by Organization Details LastModified Time None Recorded Advance Directives Directive None Recorded Payers Insurance Date Sequence Insurance Name Policy Number Policy Perkins Covered Member ID Perkins Member ID Guarantor Name 12/14/2024 2 [employer] [facility] (MEDICARE SUPPLEMENT) Brayan Holt [id number] Brayan Holt 11/24/2024 2 UNSPECIFIED REMIT PAYOR Brayan Holt 04/21/2024 1 [place] Brayan Holt [id number] Brayan Holt Notes Date Note Type Note Provider Name and Address Organization Details Recorded Time 03/28/2024 text/html Patient has fail ed conservative treatment for right ring trigger finger he did well with surgery for the right long finger wants to proceed with surgery having failed the injections Halina Schaefer MD [address] [place], [address], [facility] 03/28/2024 12:02:07 05/09/2024 text/html patient is doing very well after the right ring trigger finger release comes in today for follow-up no further triggering of any thumbs or fingers Halina Schaefer MD [address] [place], [address], [facility] 05/09/2024 11:23:58
--- OUTSIDE RECORDS SUMMARY | 2025-01-08 15:24 | XMS_ITS | Encounter Summary ---
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
--- OUTSIDE RECORDS SUMMARY | 2025-01-08 15:24 | XMS_ITS | Continuity of Care Document ---
Author Name [facility] Organization [facility] Care Team Providers Care Meat Loiner Name Role Phone [facility] Unavailable Unavailable Problems Combined list of problems from Department of Defense and Veterans Affairs facilities. It does not include entries that were removed or entered in error. Problem Status Onset Date Problem Type Date of Resolution Comments Source Abdominal aortic aneurysm without rupture Active Condition [facility] Abnormal cortisol Active Condition [facility] Allergic rhinitis Active Condition [facility] Carotid bruit absent Active Condition [facility] Chronic obstructive pulmonary disease Active Condition [facility] Coronary artery disease Active Condition [facility] Degeneration of intervertebral disc Active Condition [facility] Gastroesophageal reflux disease Active Condition [facility] History of arterial thrombosis Active Condition [facility] History of placement of stent for coronary artery disease Active Condition [facility] Hypertensive disorder, systemic arterial Active Condition [facility] Intermittent claudication Active Condition [facility] Long-term current use of anticoagulant Active Condition [facility] Low back pain Active Condition [facility] Lung cancer Active Condition [facility] Mixed hyperlipidemia Active Condition [facility] Obstructive sleep apnea Active Condition [facility] Peripheral neuropathy due to type 2 diabetes mellitus Active Condition [facility] Peripheral vascular disease Active Condition [facility] Sensorineural hearing loss, bilateral Active Condition [facility] Tinnitus Active Condition [facility] Vitamin D deficiency Active Condition [facility] Diagnosis: ICD-10-CM Z00.01 Encounter for general adult medical exam w abnormal findings Active Diagnosis [facility] Diagnosis: ICD-10-CM H90.3 Sensorineural hearing loss, bilateral Active Diagnosis [facility] Medications Combined list of outpatient medications from Department of Defense and Veterans Affairs facilities.Medications provided include 1) outpatient medications from the last 15 months, and 2) patient-reported medications. Medication Details Route Status Patient Instructions Prescription Expires Prescription Number Last Dispense Date Ordering Provider Order Date Order Qty Source ALBUTEROL SO4 90MCG/ACTUA T (CFC-F) INHL,ORAL,8 .5GM INHALE 2 PUFFS BY ORAL INHALATI ON FOUR TIMES A DAY RESPIR ATORY (INHAL ATION) ACTIVE RA NAVI GARCIA 2024 [facility] Herman AMLODIPINE BESYLATE 10MG TAB TAKE ONE TABLET BY MOUTH ONCE A DAY ORAL ACTIVE KRISTOPHERSTRA NAVI CHAVEZ 2024 [facility] ASPIRIN 81MG TAB,CHEWABL E CHEW AND SWALLOW ONE TABLET BY MOUTH ONCE A DAY ORAL ACTIVE KRISTOPHERSTRA NAVI CHAVEZ 2024 [facility] CETIRIZINE HCL 10MG TAB TAKE ONE TABLET BY MOUTH TWICE A DAY ORAL ACTIVE KRISTOPHERSTRA NAVI CHAVEZ 2024 [facility] CHOLECALCIF BELEN 10MCG (400UNIT) TAB TAKE ONE TABLET BY MOUTH ONCE A DAY ORAL ACTIVE KRISTOPHERSTRA NAVI CHAVEZ 2024 [facility] CYCLOBENZAP RINE HCL 5MG TAB TAKE ONE TABLET BY MOUTH THREE TIMES A DAY NEEDED ORAL ACTIVE KRISTOPHERSTRA KATHY [facility] 2024 [facility] DAPAGLIFLOZ IN 5MG TAB TAKE ONE TABLET BY MOUTH ONCE A DAY ORAL ACTIVE KRISTOPHERSTRA NAVI CHAVEZ 2024 [facility] ENOXAPARIN 150MG/ML INJ,SYRINGE ,1ML INJECT 150MG/1M L UNDER THE SKIN ONCE A DAY NEEDED SUBCUT ANEOUS ACTIVE KRISTOPHERSTRA NAVI CHAVEZ 2024 [facility] EVOLOCUMAB 140MG/ML INJ,PEN,1ML INJECT 140 MG/1 ML UNDER THE SKIN EVERY 2 WEEKS SUBCUT ANEOUS ACTIVE RA NAVI GARCIA 2024 [facility] EZETIMIBE 10MG TAB TAKE ONE TABLET BY MOUTH ONCE A DAY ORAL ACTIVE RA RADHA NAVI 2024 [facility] FENOFIBRATE 160MG TAB TAKE ONE TABLET BY MOUTH ONCE A DAY ORAL ACTIVE RA RADHA NAVI 2024 [facility] GLUCOSE SENSOR DEXCOM G7 USE 1 SENSOR UNDER THE SKIN EVERY 10 DAYS SUBCUT SHANIOUS ACTIVE RA NAVI GARCIA 2024 [facility] ISOSORBIDE MONONITRATE 120MG TAB,SA TAKE ONE TABLET BY MOUTH ONCE A DAY ORAL ACTIVE RA NAVI GARCIA 2024 [facility] Herman LOSARTAN 50MG TAB TAKE ONE-HALF TABLET BY MOUTH ONCE A DAY ORAL ACTIVE RADHA, NAVI 2024 [facility] METFORMIN HCL 500MG 24HR TAB,SA TAKE TWO TABLETS BY MOUTH TWICE A DAY ORAL ACTIVE RA RADHA NAVI 2024 [facility] METOPROLOL SUCCINATE 200MG TAB,SA TAKE ONE-HALF TABLET BY MOUTH ONCE A DAY ORAL ACTIVE RA NAVI GARCIA 2024 [facility] NITROGLYCER IN 0.4MG TAB,SUBLING UAL DISSOLVE ONE TABLET UNDER THE TONGUE ONE-TIME SUBLIN GUAL ACTIVE RA NAVI GARCIA 2024 [facility] POLYVINYL ALCOHOL 1.4% SOLN,OPH INSTILL 1 DROP IN BOTH EYES FOUR TIMES A DAY NEEDED OPHTHA LMIC ACTIVE RA NAVI GARCIA 2024 [facility] TIRZEPATIDE 5MG/0.5ML INJ,SOLN PACK,4 INJECT 5MG(0.5M L) UNDER THE SKIN EVERY WEEK SUBCUT ANEOUS ACTIVE RA NAVI GARCIA 2024 [facility] WARFARIN NA ([place]) 4MG TAB TAKE TWO TABLETS BY MOUTH ONCE A DAY ORAL ACTIVE RA RADHA NAVI Manasa 2024 [facility] Immunizations Combined list of available immunizations from the Department of [facility] and Veterans Affairs facilities. Immunization Series Date Given Administered By Site Reaction Lot Number CVX Code Drug Diffuser Operator Status Comments Source COVID-19 ([employer]), MRNA, LNP-S, PF, VIRGILIO-SUCROSE, 30 MCG/0.3 ML (AGES 12+ YEARS) 1 2023 309 complet ed HISTORICA L INFORMATI ON - FROM PATIENT'S RECALL, [facility] INFLUENZA, UNSPECIFIED FORMULATION 2023 88 complet ed HISTORICA L INFORMATI ON - FROM PATIENT'S RECALL, [facility] TD (ADULT) 2017 138 complet ed HISTORICA L INFORMATI ON - FROM OTHER REGISTRY, [facility] TD(ADULT) UNSPECIFIED FORMULATION 2017 139 complet ed HISTORICA L INFORMATI ON - FROM PATIENT'S WRITTEN RECORD, [facility] Vital Signs Combined list of inpatient and outpatient Vital Signs from Department of [facility] and Veterans Affairs, ranging from 12 months to all on record, depending upon the facility. Vital Sign Value Date Comments Source SYSTOLIC BLOOD PRESSURE 152 12/17/2024 10:41:04 [facility] DIASTOLIC BLOOD PRESSURE 73 12/17/2024 10:41:04 [facility] PULSE OXIMETRY 95 12/17/2024 10:41:[address] [facility] WEIGHT 237 12/17/2024 10:41:04 [facility] BMI 34 kg/m2 12/17/2024 10:41:04 [facility] PAIN 2 12/17/2024 10:41:04 [facility] HEIGHT 70.5 12/17/2024 10:41:04 [facility] TEMPERATURE 98.5 12/17/2024 10:41:04 [facility] PULSE 58 12/17/2024 10:41:04 [facility] Carmelo [facility]NA [facility] RESPIRATION 20 12/17/2024 10:41:04 [facility] Encounters Combined list of: 1) Encounters from Department of [facility] Affairs facilities going backup to the last 18 months, not all [place] inpatient encounters are included; 2) Encounters from the Department of [facility] facilities going backup to 280 months. Location Location Details Encounter Type Encounter Number Reason For Visit Attending Provider ADM Date DC Date Status Disposition Source [facility] HEARING AID FITTING/CH ECKING [id number] Diagnos is: ICD-10- CM H90.3 Sensori neural hearing loss, FERMÍN Duckworth 02/18 [facility] Outpatient Encounter [id number] 06/16 [facility] Outpatient Encounter [id number] TERI VILLANUEVA 07/22 [facility] Outpatient Encounter [id number] TO POZO A 12/13 [facility] Outpatient Encounter [id number] 12/17 [facility] OFFICE O/P [place] 60 MIN [id number] Diagnos is: ICD-10- CM Z00.01 Encount er for general adult medical exam w AMBERLY So 12/17 [facility] N [facility] Outpatient Encounter [id number] 12/18 [facility] Social History Combined list of available smoking, tobacco, and other social history from Department of Defense and Veterans Affairs facilities. Social History Type Response Date Comment Sourc e Tobacco smoking status NHIS VA-TOBACCO USE FORMER CIGARETTES 12/13/2024 [facility] History of tobacco use VA-TOBACCO USE FORMER OTHER TYPE 12/13/2024 [facility] Plan of Care List of future care activities from Department of Veterans Affairs facilities. Additional future care activities may be listed in the Assessment and Plan section. Date/Time Care Activity Care Activity Detail Facili ty 01/14/2025 AMBULATORY - MEDICINE AMBULATORY - MEDICI NE [facility]
--- OUTSIDE RECORDS SUMMARY | 2025-01-08 15:24 | XMS_ITS ---
Author Organization [employer] [facility] Address [address] [facility] [place] [address] Care Team Providers Care Driving School Instructor Name Role Phone Reba Brasher Primary Care Provider REASON FOR VISIT MOUNJARO/OZEMPIC Encounters Encounter Location Date Provider Diagnosis [facility] [address] [place] [address] 08/21/2024 Reba Brasher Plan Of Treatment No Information Progress Notes * Reg MENENDEZOB:1955 (69 yo M)Acc No.[id number]:08/21/2024 Patient: Brayan GROVE :1955 A ge:69 Y S ex:Male Address:[address] [place] [address] * true * Date: Generated for Printi ng/Faxing/eTransmitting on: 0 01/08/2025 03:24 PM CDT
--- OUTSIDE RECORDS SUMMARY | 2025-01-08 15:24 | XMS_ITS | Encounter Summary ---
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
--- OUTSIDE RECORDS SUMMARY | 2025-01-08 15:25 | XMS_ITS | Encounter Summary ---
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
--- OUTSIDE RECORDS SUMMARY | 2025-01-08 15:25 | XMS_ITS | Encounter Summary ---
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
--- OUTSIDE RECORDS SUMMARY | 2025-01-08 15:25 | XMS_ITS ---
Author Organization [employer] [facility] Address [address] [place] [address] Care Team Providers Care Medical Record Assistant Name Role Phone Reba Brasher Primary Care Provider Allergies No Known Allergies REASON FOR VISIT [...] Risk Notes Problem Disorder of adrenal gland (29426248) Disorder of adrenal gland, unspecified (E27.9) Active confirmed Vital Signs Blood pressure systolic 122 mm Hg 09/09/19 25 Blood pressure diastolic 73 mm Hg 025 Heart Rate 58 /min 09/09/2024 Height 70 in 09/09/2024 Weight 246.0 lbs 09/09/2024 BMI 35.29 kg/m2 09/09/2024 SpO2: 96% Encounters Encounter Location Date Provider Diagnosis [facility] - Reba Brasher [address] [place] [address] 09/09/2024 Reba Brasher Type 2 diabetes charli [...] procedures, referring and communicating with other health wound care center consultant, documenting clinical information in the electronic or [...] procedures, referring and communicating with other health wound care center consultant, documenting clinical information in the electronic or [...] Notes * Reg MENENDEZOB:1955 (69 yo M)Acc No.[id number]:09/09/2024 Progress Notes Patient: Brayan GROVE Provider: Manasa Brasher MD :1955 A ge:69 Y S ex:Male Date:09/09/2024 Address: [address] [place], [id number] Subjective: * Chief Complaints: * 1 . [...] AM) Value Reference Range DRAW DATE 1 057387 - DRAW TIME 1 10PM - CORTISOL, [...] Date & Time - 07/15/2024 07:35 AM)?ValueReference Range?JHYHVNXDCOMUX740V<150 - mg/dL?CHOLESTEROL, EKVLD121<200 - mg/dL?HDL IVVAOCGHUHA33> OR = 40 - mg/dL?LDL-OUHYDSMYKOU33- mg/dL (calc)?CHOL/HDLC RATIO3.3<5.0 - (calc)?NON-HDL GTSWEMMWSCE092<130 - mg/dL (calc) ???Lab:T3, FREE (Order Date - 07/15/2024) (Collection Date & Time - 07/15/2024 07:35 AM)?ValueReference Range?T3, FREE3.12.3-4.2 - pg/mL ???Lab:T4, FREE (Order Date - 07/15/2024) (Collection Date & Time - 07/15/2024 07:35 AM)?ValueReference Range?T4, FREE1.30.8-1.8 - ng/dL ???Lab:COMPREHENSIVE METABOLIC PANEL (Order Date - 07/15/2024) (Collection Date & Time - 07/15/2024 07:35 AM)?ValueReference Range?GYRAYRJ106O31- 99 - mg/dL?UREA NITROGEN (BUN)117-25 - mg/dL?CREATININE0.990.70- 1.35 - mg/dL?BUN/CREATININE RATIOSEE NOTE:6-22 - (calc)?PHHLAE695 135-146 - mmol/L?POTASSIUM4.63.5-5.3 - mmol/L?ZXUTXZFC74269-607 - mmol/L?CARBON WEGAOCO2197-01 - mmol/L?CALCIUM9.48.6-10.3 - mg/dL ?PROTEIN, TOTAL6.66.1-8.1 - g/dL?ALBUMIN4.33.6-5.1 - g/dL ?GLOBULIN2.31.9-3.7 - g/dL (calc)?ALBUMIN/GLOBULIN RATIO1.91.0-2.5 - (calc)?BILIRUBIN, TOTAL0.40.2-1.2 - mg/dL?ALKALINE WDCTWGSQISB17 L35-144 - U/L?IKW52R86-26 - U/L?PDR78C1-20 - U/L?EGFR83> OR = 60 - mL/min/1.73m2 ???Lab:CBC (INCLUDES DIFF/PLT) (Order Date - 07/15/2024) (Collection Date & Time - 07/15/2024 07:35 AM)?ValueReference Range?WHITE BLOOD CELL COUNT 7.33.8-10.8 - Thousand/uL?RED BLOOD CELL COUNT4.614.20-5.80 - Million/uL ?QOXRGTPRIU75.213.2-17.1 - g/dL?TRMPNWVHIG54.738.5-50.0 - % ?MCV97.080.0-100.0 - fL?MCH30.827.0-33.0 - pg?MCHC31.8L 32.0-36.0 - g/dL?RDW12.411.0-15.0 - %?PLATELET GOUOX001977-959 - Thousand/uL?AYQYBGGAKOS39.3- %?ABSOLUTE QWOEHQTBIUW03969973-7978 - cells/uL?JICFZVSTFDE57.9- %?ABSOLUTE IIYOCDUDZKP2205738-5393 - cells/uL?MONOCYTES7.5- %?ABSOLUTE WEBWFCFYN612942-865 - cells/uL ?EOSINOPHILS2.6- %?ABSOLUTE HDNMJHDPZAM15030-002 - cells/uL ?BASOPHILS0.7- %?ABSOLUTE PVCMPPPKO420-572 - cells/uL?MPV 12.17.5-12.5 - fL * Examination: [...] procedures, referring and communicating with other health wound care center consultant, documenting clinical information in the electronic or [...] adenoma. * Procedure Codes: 9 9401 P/M GENERAL TELLER, INDIV 15 MIN * Follow Up: 6 Weeks (Reason: labwork) * Billing Information: * Visit Code: 99902 Office Visit, Est Pt., Level 4. * Procedure Codes: 22820 P/M GENERAL TELLER, INDIV 15 MIN. * RAL RESOURCES PROFESSOR Sign off status: Completed true * Provider: Manasa Brasher MD Date: 0 09/09/2024 Generated for Stef hernandez/Carmen/Dhavalitting on: 0 01/08/2025 03:25 PM CDT History and Physical Notes * [...]
--- OUTSIDE RECORDS SUMMARY | 2025-01-08 15:25 | XMS_ITS | Encounter Summary ---
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
--- OUTSIDE RECORDS SUMMARY | 2025-01-08 15:25 | XMS_ITS | Encounter Summary ---
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
--- OUTSIDE RECORDS SUMMARY | 2025-01-08 15:25 | XMS_ITS | Encounter Summary ---
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
--- OUTSIDE RECORDS SUMMARY | 2025-01-08 15:25 | XMS_ITS | Encounter Summary ---
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
--- OUTSIDE RECORDS SUMMARY | 2025-01-08 15:25 | XMS_ITS | Clinical Summary ---
Author Organization [facility] Address [address] [place] [address] Care Team Providers Care Certified Pharmacist Assistant Name Role Phone RamanSri Primary Care Pr ovider Herbert Forrest MD Unavailable [phone] Cynthia Grande RN Unavailable Unavailable Eduarda Ford MD Unavailable Allergies No known active allergies Medications petrolat,wht/min oil/sod chl (ARTIFICIAL TEARS OINTMENT OPHT) as needed 04/27/20 15 Active ONETOUCH DELICA LANCETS 33 gauge misc 03/28/20 18 Active metFORMIN XR (GLUCOPHAGE XR) 500 mg 24 hr tabletIndications :type 2 diabetes mellitus Take 2 tablets (1,000 mg total) by mouth 2 (two) times a day 01/10/20 18 Active albuterol HFA (PROVENTIL HFA,VENTOLIN HFA,PROAIR HFA) 90 mcg/actuation inhaler Inhale 2 puffs as needed for shortness of breath 07/19/20 16 Active cetirizine (ZyrTEC) 10 mg tabletIndications :Seasonal Allergic Rhinitis Take 1 tablet (10 mg total) by mouth 2 (two) times a day Active sucralfate (CARAFATE) 1 gram tabletIndications :Heartburn Take 1 tablet (1 g total) by mouth as needed Active aspirin 81 mg enteric coated tablet Take 1 tablet (81 mg total) by mouth daily 0 04/17/20 20 Active Additional Information Patient taking differently:81 mg oralEvery morning, Indications: primary prevention, Reported on 09/12/2024 ezetimibe (ZETIA) 10 mg tabletIndications :hyperlipidemia Take 1 tablet (10 mg total) by mouth nightly Active ciclopirox (LOPROX) 0.77 % cream Apply 1 application topically daily 07/22/20 20 Active OneTouch Verio test strips strip 10/08/19 21 Active semaglutide (RYBELSUS) 3 mg tabletIndications :type 2 diabetes mellitus Take 3 mg by mouth every morning Active nystatin powderIndications :cutaneous candidiasis Apply topically as needed Active ascorbic [...] 2 tablets (4 mg total) by mouth 10/14/19 22 Active rosuvastatin (CRESTOR) 20 mg tablet Take 1 tablet (20 mg total) by mouth nightly at bedtime 10/14/19 22 Active exenatide ER microspheres (Bydureon BCise) 2 mg/0.85 mL auto-injector Bydureon BCise 2 mg/0.85 mL subcutaneous auto-injector INJECT 2 MG UNDER SKIN WEEKLY AT DINNER Active fenofibrate (TRIGLIDE) 160 mg tablet Take 1 tablet (160 mg total) by mouth daily 30 tablet 11 03/18/20 22 Active losartan (COZAAR) 25 mg tablet Take 1 tablet (25 mg total) by mouth daily 09/22/19 23 Active Dexcom G6 Sensor device CHANGE EVERY 10 DAYS. 09/06/19 23 Active Dexcom G6 Transmitter device CHANGE EVERY 90 DAYS. 08/04/20 22 Active Trulicity 1.5 mg/0.5 mL pen injector 12/30/19 23 Active ranolazine ER (RANEXA) 500 mg 12 hr tablet Take 1 tablet (500 mg total) by mouth 2 (two) times a day 180 tablet 3 06/27/20 23 Active Additional Information Patient not taking.Reported on 09/12/2024 nitroglycerin (NITROSTAT) 0.[address] 1 tablet (0.4 mg total) under the tongue every 5 (five) minutes as needed for chest pain 90 tablet 3 09/14/19 24 Active enoxaparin (LOVENOX) 150 mg/mL injection Inject 1 mL (150 mg total) under the skin daily Start and stop as directed by provider based on procedures 30 mL 1 04/02/20 24 Active Farxiga 5 mg tablet Take 1 tablet (5 mg total) by mouth daily 08/20/19 25 Active Repatha SureClick 140 mg/mL pen injector INJECT 1ML SUBCUTANEOUSLY ONCE EVERY TWO WEEKS 08/21/19 25 Active Mounjaro 2.5 mg/0.5 mL pen injector injection INJECT 2.5 MG UNDER SKIN EVERY WEEK 08/26/19 25 Active metoprolol XL (TOPROL-XL) 100 mg 24 hr tablet Take 1 tablet (100 mg total) by mouth daily 90 tablet 3 09/12/19 25 Active isosorbide mononitrate ER (IMDUR) 120 mg 24 hr tablet Take 1 tablet (120 mg total) by mouth daily 90 tablet 3 09/12/19 25 Active amLODIPine (NORVASC) 10 mg tablet TAKE 1 TABLET(10 MG) BY MOUTH DAILY 90 tablet 3 11/02/19 25 Active warfarin (COUMADIN) 1 mg tablet TAKE 3 TABLETS BY MOUTH EVERY DAY ALONG WITH ONE 10MG TABLET TO EQUAL 13MG PER DAY BASED ON INR 240 tablet 1 11/05/19 25 Active warfarin (COUMADIN) 10 mg tabletIndications :buttermaker continuous churn current use of anticoagulant therapy TAKE 1 TABLET BY MOUTH DAILY OR DIRECTED 90 tablet 3 11/05/19 25 Active Active Problems Problem Noted Date Diagnosed Date Malignant neoplasm of upper lobe of right lung 0 02/04/2024 Arterial thrombosis 02/04/2024 JOSUE (obstructive sleep apnea) 03/30/2021 Overview (03/30/2021): Added automatically from request for surgery [id number] Pain of finger of left hand 12/05/2018 Atherosclerosis of [place] ar leonard of both lower extremities with intermittent claudication 11/21/2018 Hyperlipemia 10/25/2018 Parotid mass 05/01/2018 Overview (05/01/2018): 1. 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 Hematology [address] [place] [address] [address] [place] [address] Lina Nguyen 12/16/2024 Anticoagulation Visit [facility] Hematology [address] [place] [phone] Lina Nguyen 12/09/2024 Anticoagulation Visit [facility] Hematology [address] [place] [address] 6 [place] [address] Lina Nguyen 12/02/2024 Anticoagulation Visit [facility] Hematology [address] [place] [phone] Tiny Glaser RN 11/18/2024 Anticoagulation Visit [facility] Hematology [address] [place] [address] 6 [place] [address] Lina Nguyen 11/07/2024 7:30 PM CDT Procedure visit [facility] Neuro Sleep [address] [place] [address] JOSUE (obstructive sleep apnea) (Primary Dx) 11/04/2024 Anticoagulation Visit [facility] Hematology [address] [facility] [facility] Floor [address] [place] [address] Tiny Glaser, RN buttermaker continuous churn current use of anticoagulant therapy (Primary Dx) 10/28/2024 Anticoagulation Visit [facility] Hematology [address] [facility] Floor 6 [place] [phone] Tiny Glaser, RN 10/24/2024 Telephone [facility] Cardiology [facility] 8th [place] [address] [place] [phone] Willy Salinas MD PhD Imaging results/recommendati ons 10/21/2024 Telephone [facility] Hematology [address] [facility] [facility] Floor [address] [place] [address] Tiny Glaser, RN 10/21/2024 Anticoagulation Visit [facility] Hematology [address] [facility] [facility] Floor 6 [place] [address] Tiny Glaser, RN from Last 3 Months Immunizations Immunization [...] Previous Stent Placement - (2013). 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 - (Added by [employer] Conv) Disease of gallbladder Gallbladd er disease - (Added by TW Conv) Personal history of other di seases of the respiratory system History of pulmonary emphyse ma - (Added by TW Conv) Peripheral vascular disease Frances pheral vascular disease - (Added by TW Conv) Essential (primary) hypertension Hypertension - (Added by [employer] Conv) Atherosclerotic heart diseas e of [place] coronary artery without angina pectoris Coronary artery disease - (A dded by [employer]) Diabetes mellitus (HCC) Hyperlipidemia Type 2 diabetes mellitus (HCC) Cancer (HCC) Lung COPD (chronic obstructive pu lmonary disease) (HCC) Sleep apnea CPAP Obesity Current use of long term care social worker anticoagulation Family History Medical History Relation Name Comments Lymphoma Brother 2 Lymphoma; Lymphoma Brother 3 Family history of lymphoma - (Added by [employer]) Diabetes Brother 4 Family history of diabetes mellitus - (Added by [employer]) Cancer Father Family history of malignant neoplasm - (Added by [employer]) Lung cancer Father Family history of lung cancer - (Added by [employer]) Stroke Mother Stroke; Cause o f : Stroke/Family history of cerebrovascular accident (CVA) - (Added by TW [employer]) Cancer Other Family history of cancer - (Added by [employer] Conv) Liver cancer Sister 2 liver cancer; Lung cancer Sister 3 Family history of lung cancer - (Added by [employer] Conv) Anesthesia problems Neg Hx Relation Name [...] on file 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 Gender Identity Male 04/20/2021 11:20 AM [...] 7:42 PM CDT Height 179.1 cm (5' 10.5) 11/07/2024 7:42 PM CD T Body Mass [...] Assessment 04/16/2022 04/16/2021 Covid-19 Vaccine (3 - 2024-2 5 season) 2024 10/10/2020, 09/12/2020 eGFR 01/08/2025 01/09/2024, 06/01/2023, 09/22/2022, Additional history exists Influenza Vaccine (Season Ended) 2025 06/07/2023, 06/22/2020, 06/13/2019, Additional history exists Abdominal Aortic Aneurysm (A AA) Screen Completed 10/24/2024, 04/26/2016 Medical Devices Implanted Type Area Hose Suspender Cutter Device Identifier Shelf Expiration Date Model / Serial / Lot [employer] [id number] Ams 700 Kit Accessory Penile Prosthesis - Sn/A - [id number] Implanted:Qty: 1 on 04/09/2020 by Eduarda Ford MD at [facility] Other - see comments N/A: Penis [employer] [id number] 10/01/2024 [id number] / N/A / [id number] Description:Implanted items from accessory kit: 2 Collets and 1 straight suture- tie connector [employer] [id number] Ams 700 Preconnect 1 Ms Pump 2 Cylinder Penoscrotal Prosthesis - Sn/A - [id number] Implanted:Qty: 1 on 04/09/2020 by Eduarda Ford MD at [facility] Other - see comments N/A: Penis [employer] 10/17/2021 [id number] / N/A / [id number] Description:Pump [employer] 266830-04 Conceal Low Profile [place] 100ml Prosthesis Inhibizone Sterile Latex Free - Sn/A - [id number] Implanted:Qty: 1 on 04/09/2020 by Eduarda Ford MD at [facility] Other - see comments N/A: Penis [employer] 12/25/2021 [id number] / N/A / Description:[place] [employer] [id number] Ams Spectra 12/14mm 1cm Cylinder Concealable Malleable Rear Tip - Sn/A - [id number] Implanted:Qty: 1 on 04/09/2020 by Eduarda Ford MD at [facility] Other - see comments N/A: Penis [employer] 09/29/2024 [id number] / N/A / [id number] Description:CONCEALABLE MALL EABLE REAR TIP [employer] [id number] Ams Spectra 1.5cm Concealable Rear Tip Medical Radiation Dosimetrist Krystal - Sn/A - [id number] Implanted:Qty: 1 on 04/09/2020 by Eduarda Ford MD at [facility] Other - see comments N/A: Penis [employer] 04/22/2024 [id number] / N/A / Description:CONCEALABLE REAR TIP VENEER JOINTER OFFBEARER Coronary Stent X 1 Stent N/A: Heart Procedures Procedure Name Priority Date/Time Associated Diagnosis Comments PROTIME-INR Routine 12/28/2024 PROTIME-INR Routine 12/16/2024 PROTIME-INR Routine 12/07/2024 PROTIME-INR Routine 11/30/2024 PROTIME-INR Routine 11/18/2024 PSG (COMPLEX) Routine 11/07/2024 9:00 PM CDT JOSUE (obstructive sleep apnea) PROTIME-INR Routine 11/02/2024 PROTIME-INR Routine 10/26/2024 PROTIME-INR Routine 10/19/2024 EGFR Routine 01/09/2024 10:34 AM CDT longterm current use of anticoagulant therapy HEMOGLOBIN A1C STAT 04/09/2020 8:47 AM CDT SERUM LIPID PANEL Routine 05/03/2016 12: 35 AM CDT CTA ABDOMINAL AORTA AND BILATERAL ILIOFEMORAL RUNOFF Routine 04/26/2016 9:28 AM CDT from Last 3 Months or Most Recently Relevant to Health Maintenance Results * (ABNORMAL) Protime-INR (12/28/2024) INR 4.70(A) 0.90 - 1.10 EXTERNAL LAB Blood 12/28/2024 Result [facility] Provider MD LAB BLOOD ORDERABLES Renetta l Result EXTERNAL LAB * Protime-INR (12/16/2024) INR 1.10 0.90 - 1.10 EXTERNAL LAB Blood 12/16/2024 Result [facility] Provider MD LAB BLOOD ORDERABLES Renetta l Result Performing Organization Address City/[facility]/ZIP Co de Phone Number EXTERNAL LAB * (ABNORMAL) Protime-INR (12/07/2024) INR 8.00(A) 0.90 - 1.10 EXTERNAL LAB Blood 12/07/2024 Result [facility] Provider MD LAB BLOOD ORDERABLES Renetta l Result Performing Organization Address City/[facility]/ZIP Co de Phone Number EXTERNAL LAB * (ABNORMAL) Protime-INR (11/30/2024) INR 4.40(A) 0.90 - 1.10 EXTERNAL LAB Blood Result [facility] Provider MD LAB BLOOD ORDERABLES Renetta l Result EXTERNAL LAB * (ABNORMAL) Protime-INR (11/18/2024) INR 3.40(A) 0.90 - 1.10 EXTERNAL LAB Blood 11/18/2024 Result [facility] Provider MD LAB BLOOD ORDERABLES Renetta l Result EXTERNAL LAB * PSG (COMPLEX) (11/07/2024 9:00 PM CDT) Narrative Mike Sarah MD - 11/07/2024 9:00 PM CDT Mike Sarah MD 11/08/2024 8:45 AM PSG-Sleep Provider Use Only Date/Time: 11/07/2024 9:00 PM Performed by: Mike Sarah MD Authorized by: Mike Sarah MD Result [facility] Mike Sarah MD SLEEP CENTER ORDERABLES F inal Result * (ABNORMAL) Protime-INR (11/02/2024) Pathologist [facility] INR 2.70(A) 0.90 - 1.10 EXTERNAL LAB Blood Result [facility] Historical Provider MD LAB BLOOD ORDERABLES Renetta l Result Performing Organization Address City/[facility]/ZIP Co de Phone Number EXTERNAL LAB * (ABNORMAL) Protime-INR (10/26/2024) Pathologist [facility] INR 2.80(A) 0.90 - 1.10 EXTERNAL LAB Blood Result [facility] Historical Provider MD LAB BLOOD ORDERABLES Renetta l Result EXTERNAL LAB * (ABNORMAL) Protime-INR (10/19/2024) Pathologist [facility] INR 1.60(A) 0.90 - 1.10 EXTERNAL LAB Blood Result [facility] Historical Provider MD LAB BLOOD ORDERABLES Renetta l Result EXTERNAL LAB * eGFR (01/09/2024 10:34 AM CDT) Pathologist [facility] eGFR 74 >=60 mL/min/1. 73 m2 Comment: [...] was last reviewed 2021. Testing performed by: [facility], [address] [place] [id number] Blood 01/09/2024 10:3 4 AM CDT 01/09/2024 10:35 AM CDT us Denise David NP LAB BLOOD ORDERABLES Final R esult Performing Organization Address [facility] Co de Phone Number [facility] Department [place] [address] * (ABNORMAL) Hemoglobin A1c (04/09/2020 8:47 AM CDT) Hgb A1C 6.6(H) 4.0 - 5.6 % [facility] Estimated Average Glucose 143 mg/dL [facility] Comment: The ADA recommends reporting an estimated Average Glucose (eAG) with all Hemoglobin A1c results using the equation derived from a study of 507 normal and diabetic adults. Minority populations were underrepresented and children were not included. (Diabetes Care 31:5868-9225, 2008). The eAG is not equivalent to a fasting glucose. Blood specimen (specimen) 04/09/2020 8:47 AM CDT 04/09/2020 8:51 AM CDT us Eduarda Ford MD LAB BLOOD ORDERABLES Final Re sult Performing Organization Address City/[facility]/ZIP Co de Phone Number [facility] [address] Department [place] [address] * (ABNORMAL) Serum lipid panel (05/03/2016 12:35 [...] M.D. FINAL REPORT ACC# Date Time Exam [id number] Apr 26, 2016 09:28:[address] Angio Abd & AIF wwo con [...] posterior tibial arteries. Above findings discussed with VALIDATION LEADER Olga Salvador at 10:05 a.m. on 04/26/2016. Requested By: CODIE ALEXIS M.D. Dictated By: FERNANDA CORREA M.D. on Apr 26 2016 10:06A This document has been electronically signed by: FERNANDA CORREA M.D. on Apr 26 2016 10:06A [id number] Procedure Note Provider, MD Danielito - 11/24/2016 FERNANDA CORREA M.D. FINAL REPORT ACC# Date Time Exam [id number] Apr 26, 2016 09:28:[id number] Angio Abd & AIF wwo con [...] posterior tibial arteries. Above findings discussed with VALIDATION LEADER Olga Salvador at 10:05 a.m. on 04/26/2016. Requested By: CODIE ALEXIS M.D. Dictated By: FERNANDA CORREA M.D. on Apr 26 2016 10:06A This document has been electronically signed by: FERNANDA CORREA M.D. on Apr 26 2016 10:06A [id number] us Historical Provider MD [place] [facility] PROCEDURES Final R esult from Last 3 Months or Most Recently Relevant to Health Maintenance Insurance MEDICARE [facility] MEDICARE [employer] MEDICARE [facility] OPEN ACCESS [facility] [employer] [place] [employer] MEDIC[employer] Advance Directives For more information, please contact: [phone] * Full Code (Latest Code Status on File) Date Activated Date Inactivated Comments 04/09/2020 2:55 PM 04/10/2020 5:22 PM Care Teams Certified Pharmacist Assistant Relationship Specialty Start Date End Date Sri Camargo PA PCP - General Physician Retail Chain Store Area Supervisor 04/19/18 Herbert Forrest MD [address] [place] [address] Referring Physician Pulmonary Disease 10/16/18 Cynthia Grande, RN Registered Nurse 03/19/19 Eduarda Ford MD Consulting Physician Urology 04/10/20
--- OUTSIDE RECORDS SUMMARY | 2025-01-08 15:25 | XMS_ITS | Clinical Summary ---
Author Organization [facility] Address [address] [address] Care Team Providers Care Railroad Dining Car Steward/Stewardess Name Role Phone Unavailable Primary Care Provider Unavailabl e Source Comments [facility] Contracts and Grants,non-owned Affiliates and Associated Physician Practices is amultiple site organization consisting of ambulatory clinics and hospital sitesin [place], [place], [place] and [place]. This disclosure is being madepursuant to the Care Everywhere program and may not contain all information available regarding this patient. 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
--- OUTSIDE RECORDS SUMMARY | 2025-01-08 15:25 | XMS_ITS | Encounter Summary ---
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
--- OUTSIDE RECORDS SUMMARY | 2025-01-08 15:25 | XMS_ITS | Encounter Summary ---
Author Organization 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
--- OUTSIDE RECORDS SUMMARY | 2025-01-08 15:25 | XMS_ITS | Data Portability ---
Author Organization [place] - [facility] [employer], Main Office Address [address] [place] [address] Care Team Providers Care Infrastructure Project Manager Name Role Phone GEORGE AU Primary Care Provider GEORGE AU Referring Provider ERICKSON SINGH Hall Porter [phone] Assessment Encounter Date Assessment Date Assessment LastModified [...] feet on a daily basis also discussed. [email or web address] Not available 07/19/2023 18:21:38 Plan of Treatment Reminders Order Date Submit Date Provider Last Modified By Organization Details Last Modified Time Details Appointments None recorded. Lab None recorded. Referral None recorded. Procedures None recorded. Surgeries None recorded. Imaging None recorded. Medication Orders ezetimibe 10 mg tablet 2022 023 PO [facility], [address] [place] [address], [facility] [address], [place], [id number], 3 16:11:40 fenofibrate 160 mg tablet 2022 023 PO [facility], [address] [facility] [address] [facility] [address], [place], [id number], 3 16:11:44 Trulicity 3 mg/0.5 mL subcutaneou s pen injector 2022 023 PO [facility], [address] [facility] [address], [facility] [address], [place], [place], [id number], 3 15:51:09 metformin ER 500 mg tablet,exte nded release 24 hr 2022 023 [id number], [address], [place], [place], [id number], 3 15:55:45 glimepiride 2 mg tablet 2022 023 [facility] #[id number], [address], [place], [place], [id number], 3 15:56:12 amoxicillin 875 mg-potassiu m clavulanate 125 mg tablet 2022 023 [email or web address] [id number], [address], [place], [place], [id number], 3 08:35:29 Patient TargetsNo targets recorded. Patient Instructions Encounter Date Encounter Id Patient Instructions Last Modified By Organization Details Last Modified Time 03/24/2023 [id number] dementia rating scale-2* [email or web address] Not available 03/24/2023 14:50:59 multi-dimensiona l health assessment questionnaire* [email or web address] Not available 03/24/2023 14:51:02 care plan* [email or web address] Not available 03/07 14:50:55 advance care planning: care instructions Not available 03/24/2023 14:47:37 advance directiv es: care instructions Not available 03/24/2023 14:47:37 [place] Advance Directives Not available 03/24/2023 14:47:37 Personalized [facility] Plan and Screening Recommendations Advance Directives - Do you have one? No Advance Directives - Do we have your advance directive on file in your health record? Primary Prevention/Interven tion (prevents or decreases the chance of common diseases from occurring) Smoking Risk: Non Smoker Alcohol Misuse Screening: Negative Weight: Overweight try to lose 5% of your body weight Physical activity: Need more exercise/physical activity minimum of 10-20 minutes of activity that causes mild breathlessness/day Nutrition: Average Fall Risk (screened today): Low Vaccines Pneumococcal: No further needed Influenza: Your next one in the fall of this year Chronic Disease Risks Stroke: High Risk Active diagnosis, Continue current treatment plan Heart Attack: High Risk Active diagnosis, Continue current treatment plan Clogging of the Arteries: Active diagnosis, Continue current treatment plan Diabetes: High Risk Active diagnosis, Continue current treatment plan Secondary Prevention/Interven tion (detects treatable diseases before they may cause symptoms, disability, or ) Prostate Cancer Screening: Your next PSA in: No PSA screening necessary Your next PSA in: october 2022 Colon Cancer Screening: Colonoscopy In: Ordered Recomme nded Recommended today, but you have declined No screening necessary In: colonoscopy 2021 Date Screening Last Performed: Eye Disease Screening: Ordered Dementia Risk: Low Depression Screening: Negative Active diagnosis, Continue current treatment plan Not available 04/06/2023 18:00:09 Reason for Referral None Reported. Results Created Date Observation Date Name Description Value Unit Range Abnormal Flag Note LastModifiedBy Organization Detail LastModifiedTime 03/28/20 24 XR, hand, [address] [facility] [address] [place] [address] Patien t Name: SANTI DENISE ion #: [id number] Sex: M : 1954 1 3 [...] at 2023 11:10: 29 AM Page [address] (Imaging) [address] [facility], [place], [address], 04/24/2024 10:39:30 04/01/20 24 04/01/2024 US, renal No observ ation record ed. [place] [id number] [facility] [address], [place], [address], 04/23/2024 11:32:23 04/01/20 24 04/01/2024 XR, kidne y + urete r + bladd er No observ ation record ed. [place] [id number] [facility] [address], [place], [address], 04/23/2024 11:32:37 09/17/19 25 09/17/2024 imagi ng/di agnos tic resul t No observ ation record ed. [facility] [address], [place], [address], 09/17/2024 13:26:44 09/17/19 25 09/17/2024 imagi ng/di agnos tic resul t No observ ation record ed. [facility] [address], [place], [address], 09/17/2024 13:30:51 Result Notes None recorded. Problems Name Problem SNOMED Code Status Onset Date Resolution Date Notes Provider Name and Address Organization Details Recorded Time Trigger finger of right hand 7005236056093 9101 Active 2021 Not Available [facility] 4 05:43:11 Deep venous thrombosis 170679326 Active 2018 Not Available [facility] 4 05:43:11 Chronic obstructiv e pulmonary disease 02533589 Active 2021 Not Available [facility] 4 05:43:11 Acute sinusitis 08580184 Active 2021 Not Available [facility] 4 05:43:11 Long-term drug therapy Active 2021 Not Available [facility] 4 05:43:11 Mixed hyperlipid emia 474182338 Active 2018 Not Available [facility] 4 05:43:11 Adult health examinatio n Active 2021 Not Available [facility] 4 05:43:11 Wheezing symptom 034221151 Active 2021 Not Available [facility] 4 05:43:11 History of thrombosis 987216418 Active 2021 Not Available [facility] 4 05:43:11 Screening for malignant neoplasm of colon Active 2021 Not Available [facility] 4 05:43:11 Hypertrigl yceridemia 401904126 Active 2021 Not Available [facility] 4 05:43:11 Lump on thigh 984341578 Active 2021 Not Available [facility] 4 05:43:11 Screening for disorder Active 2021 Not Available [facility] 4 05:43:11 Microalbum inuria 697643724 Active 2021 Not Available [facility] 4 05:43:11 History of coronary artery bypass grafting 892452849 Active 2021 Not Available [facility] 4 05:43:11 Hepatitis C screening Active 2021 Not Available [facility] 4 05:43:11 History of malignant neoplasm of lung 252597635 Active 2021 Not Available [facility] 4 05:43:11 Type 2 diabetes mellitus 31881108 Active 2018 Not Available [facility] 4 05:43:11 Coronary atheroscle rosis 466593251 Active 2018 Not Available [facility] 4 05:43:11 Uncontroll ed type 2 diabetes mellitus 274601040 Active 2021 Not Available [facility] 4 05:43:11 Screening for malignant neoplasm of prostate Active 2021 Not Available [facility] 4 05:43:11 Mass of soft tissue 538084327 Active 2021 Not Available [facility] 4 05:43:11 Hyperlipid emia 41981043 Active 2021 Not Available [facility] 4 05:43:11 Degenerati on of lumbosacra l interverte bral disc 61125478 Active 2021 Not Available [facility] 4 05:43:11 Long-term current use of anticoagul ant 888266400 Active 2021 Not Available [facility] 4 05:43:11 Diabetes mellitus 33529844 Active 2018 Not Available [facility] 4 05:43:11 Obstructiv e sleep apnea syndrome 17209536 Active 2018 Not Available [facility] 4 05:43:12 COVID-19 180271299 Active 2022 Not Available [facility] 4 05:43:12 Skin nodule 65309735 Active 2021 Not Available [facility] 4 05:43:12 Trigger finger of left hand 1478930176473 9107 Active 2022 Not Available [facility] 4 05:43:11 Essential hypertensi on 32524784 Active 2022 Not Available [facility] 4 05:43:11 Well controlled type 2 diabetes mellitus 867530494 Active 2022 Not Available [facility] 4 05:43:11 Notes:COVID 19 POS 07/12/21 Problem Notes None recorded. Procedures Surgical History Date Name Laterality Status Provider Name and Address Organization Details Recorded Time 03/24/20 Medicare Wellness CPT Code, subsequent completed [facility]Or [place] [facility] 03/24/2023 14:11:41 09/28/19 22 colonoscopy completed Not Available [facility] 10/06/19 23 05:57:01 08/07/19 17 lobectomy of lung completed Not Available [facility] 10/05/2022 05:57:01 Bypass completed Not Available [facility] 08/2022 05:57:01 Imaging Results None recorded. Procedure Notes None [...] 2017 active Not Available Not Available Not Avai lable triamcinolo ne acetonide 0.1 % topical cream [...] administe red by the provider 10/[address] [facility]: 0003- 0494- 20 Not Available Not Available [...] administe red by the provider 10/[address] [facility]: 0409- 4276- 17 Not Available Not Available [...] Not Available Not Available No t Available Byerlinda BCise 2 mg/0.85 mL subcutaneou s auto-inject or Inject 0.85 mL every week by subcutane ous route as directed for 28 days. 03/24 completed Not Available Not Available Not Available OneTouch Ultra Blue Test Strip active Not Available Not Available N ot Available Dexcom G6 Sensor device CHANGE EVERY 10 DAYS. active Not Available Not Available No t Available Dexcom G6 Supervisor [employer] DIRECTED. active Not Available Not Available No [...] Updated DateTime 01/11/2023 177.8 cm 35 kg/m2 141792.54 g SARMAD Borja [place] [facility] 01/11/2023 14:05:27 Date Recorded Body height Body temperature Body mass index (BMI) Body weight Respiratory rate Oxygen saturation Oxygen saturation in Arterial blood by Pulse oximetry Heart rate Systolic blood pressure Diastolic blood pressure Provider Name and Address Organization Details Last Updated DateTime 3 177.8 cm 98.2 [degF] 35.2 kg/m2 366318. 13 g 16 /min 97 % 97 % 382 /min 128 mm[Hg] 80 mm[Hg] Cleopatra Parker Alec [facility] [employer] [facility] 3 14:18:24 Date Recorded Body height Body mass index (BMI) Body weight Provider Name and Address Organization Details Last Updated DateTime 03/28/2023 177.8 cm 34.9 kg/m2 991902.95 g Sabrina De [facility] [employer] [facility] 03/28/2023 10:48:25 Date Recorded Body height Body mass index (BMI) Body weight Body temperature Respiratory rate Heart rate Systolic blood pressure Diastolic blood pressure Provider Name and Address Organization Details Last Updated DateTime 3 177.8 cm 35.6 kg/m2 863686. 91 g 98.2 [degF] 14 /min 54 /min 113 mm[Hg] 67 mm[Hg] Loly Gamino RN [facility] [employer] [facility] 3 15:31:37 Date Recorded Body height Body mass index (BMI) Body weight Body temperature Heart rate Systolic blood pressure Diastolic blood pressure Provider Name and Address Organization Details Last Updated DateTime 3 177.8 cm 34.7 kg/m2 809314. 35 g 97.6 [degF] 68 /min 122 mm[Hg] 76 mm[Hg] Uzma Lee Alec [facility] [employer] [facility] 3 14:31:16 Social History Question Answer Notes LastModified by Organizat ion Details LastModified Time Tobacco Smoking Status Former Smoker quit 2016 Not Available [facility] 10/05/2022 05:54:19 Do You Have An Advance Directive? No MIGRATION.40841 53882 Information not available 10/05/2022 Do You Wear A Helmet When Biking? Yes MIGRATION.14770 17662 Information not available 10/05/2022 Are You Blind Or Do You Have Difficulty Seeing? Yes MIGRATION.40399 09638 Information not available 10/05/2022 What Is Your Level Of Caffeine Consumption? Heavy MIGRATION.59723 00657 Information not available 10/05/2022 How Much Tobacco Do You Chew? None MIGRATION.70955 95531 Information not available 10/05/2022 In The 14 Days Before Symptom Onset, Have You Had Close Contact With A Laboratory-confi rmed COVID-19 While That Case Was Ill? No MIGRATION.55521 20149 Information not available 10/05/2022 In The 14 Days Before Symptom Onset, Have You Had Close Contact With A Person Who Is Under Investigation For COVID-19 While That Person Was Ill? No MIGRATION.07682 22054 Information not available 10/05/2022 Are You Deaf Or Do You Have Serious Difficulty Hearing? Yes MIGRATION.41957 22036 Information not available 10/05/2022 What Type Of Diet Are You Following? REGULAR MIGRATION.32967 51628 Information not available 10/05/2022 Which Illicit Or Recreational Drugs Have You Used? None MIGRATION.94252 06835 Information not available 10/05/2022 What Is The Highest Grade Or Level Of School You Have Completed Or The Highest Degree You Have Received? [id number] MIGRATION.43157 52605 Information not available 10/05/2022 Have There Been Any Changes To Your Family Or Social Situation? No MIGRATION.60279 94291 Information not available 10/05/2022 What Is The Fluoride Status Of Your Home? Unknown MIGRATION.97548 18630 Information not available 10/05/2022 When Did You Quit Smoking? 1-5yearssincelastc igarette MIGRATION.61510 18463 Information not available 10/05/2022 Are There Any Guns Present In Your Home? Yes [email or web address] Information not available 03/24/2023 Do You Use Insect Repellent Routinely? Yes MIGRATION.28067 77233 Information not available 10/05/2022 Where Do You Live? [facility] MIGRATION.44533 72996 Information not available 10/05/2022 Advance Directive- Providers Has Reviewed Directive And Consents To Follow Them (insert Provider Name With Any Objectives In Notes Field) No MIGRATION.88535 70715 Information not available 10/05/2022 Do You Have A Medical Power Of High Man? No MIGRATION.39439 69249 Information not available 10/05/2022 What Was The Date Of Your Most Recent Tobacco Screening? 07/18/2023 [email or web address] Information not available 07/18/2023 Have You Ever Been Counseled For Unhealthy Alcohol Use? No MIGRATION.45556 60904 Information not available 10/05/2022 Do You Have Any Pets? No MIGRATION.22075 43183 Information not available 10/05/2022 What Is Your Relationship Status? MIGRATION.85601 09778 Information not available 10/05/2022 Do You Use Your Seat Belt Or Car Seat Routinely? Yes MIGRATION.67793 51838 Information not available 10/05/2022 Do You Have Smoke And Carbon Monoxide Detectors In Your Home? Yes MIGRATION.48065 93948 Information not available 10/05/2022 At What Age Did You Start Smoking Tobacco? 16 MIGRATION.42406 14388 Information not available 10/05/2022 Are You Passively Exposed To Smoke? No MIGRATION.91319 88690 Information not available 10/05/2022 Are There Any Smokers In Your House? No MIGRATION.91533 41118 Information not available 10/05/2022 How Much Tobacco Do You Smoke? No Was 1.5 Ppd MIGRATION.85955 34874 Information not available 10/05/2022 What Types Of Sporting Activities Do You Participate In? None MIGRATION.78040 36403 Information not available 10/05/2022 Do You Use Sunscreen Routinely? Yes MIGRATION.88673 98223 Information not available 10/05/2022 Have You Recently Traveled Abroad? No MIGRATION.77536 16288 Information not available 10/05/2022 Do You Have Difficulty Walking Or Climbing Stairs? No MIGRATION.08960 16464 Information not available 10/05/2022 Do You Have Any Dietary Restrictions? No MIGRATION.85641 48900 Information not available 10/05/2022 Sex: Male Functional Status Question Answer Note LastModified by Organizat ion Details LastModified Time Do you use any illicit or recreational drugs? No MIGRATION.298798 9969 Information not available 10/05/2022 Do you or have you ever used any other forms of tobacco or nicotine? No MIGRATION.593423 4758 Information not available 10/05/2022 What is your level of alcohol consumption? Occasional MIGRATION.110725 7763 Information not available 10/05/2022 Do you or have you ever used smokeless tobacco? Never used smokeless tobacco MIGRATION.890856 4289 Information not available 10/05/2022 Do you have transportation difficulties? No MIGRATION.602091 0333 Information not available 10/05/2022 Are you able to walk? YESWOREST MIGRATION.391430 2151 Information not available 10/05/2022 Do you have difficulty doing errands alone? No MIGRATION.433133 6403 Information not available 10/05/2022 Are you able to care for yourself? Yes MIGRATION.041331 2652 Information not available 10/05/2022 Do you have difficulty dressing or bathing? No MIGRATION.021232 3563 Information not available 10/05/2022 Do you or have you ever used e-cigarettes or vape? Never used electronic cigarettes MIGRATION.151562 7578 Information not available 10/05/2022 What is your exercise level? None MIGRATION.333211 7724 Information not available 10/05/2022 Mental Status Question Answer Note LastModified by Organizat ion Details LastModified Time Do you feel stressed (tense, restless, nervous, or anxious, or unable to sleep at night)? [id number] MIGRATION.33939815 26 Information not available 10/05/2022 Do you have difficulty concentrating, remembering or making decisions? No MIGRATION.97427611 26 Information not available 10/05/2022 Family History Relationship Description Onset Age of this Age Resolved Age Notes LastModified by Organization Details LastModified Time Mother Cerebrovascu lar accident MIGRATION.827 [id number] Not available 10/05/2022 05:57:04 Mother Hypertensive disorder MIGRATION.152 1219945 Not available 10/05/2022 05:57:04 Mother Family history of stroke MIGRATION.697 1962008 Not available 10/05/2022 05:57:04 Father Malignant neoplasm of lung MIGRATION.585 8662301 Not available 10/05/2022 05:57:04 Father Family history of malignant neoplasm MIGRATION.327 6602128 Not available 10/05/2022 05:57:04 Brother Diabetes mellitus MIGRATION.466 7278208 Not available 10/05/2022 05:57:04 Brother Family history of malignant neoplasm MIGRATION.134 1430730 Not available 10/05/2022 05:57:04 Brother Heart disease MIGRATION.613 0956250 Not available 10/05/2022 05:57:04 Sister Diabetes mellitus MIGRATION.415 5161789 Not available 10/05/2022 05:57:04 Sister Family history of malignant neoplasm MIGRATION.857 2197373 Not available 10/05/2022 05:57:04 Medical History Condition Response BLINDNESS N NERVE DISEASE N RHEUMATIC FEVER N BLADDER PROBLEMS N KIDNEY STONES N OTHER # 1 N POLIO N LUNG DISEASE/DISORDER Y RADIATION / CHEMOTHERAPY N COPD Y Other # 2 N BLOOD DISEASES N SURGERY N EAR OR HEARING PROBLEMS N MUMPS N BOWEL PROBLEMS N DEPRESSION (INCLUDING POST ) N STROKE/TIA N ULCERS N BENIGN PROSTATIC [...] HAVE YOU BEEN HOSPITALIZED OR SEEN IN [facility] IN THE PAST YEAR ? N [...] influenza, unspecified formulation 3 completed Not Available [facility] 08/30/2023 05:43:12 SARS-COV-2 (COVID-19) vaccine, UNSPECIFIED 3 completed Not Available [facility] 08/30/2023 05:43:12 Respiratory syncytial virus (RSV) vaccine, unspecified 3 completed Not Available [facility] 08/30/2023 05:43:12 COVID-19, mRNA, LNP-S, PF, 30 mcg/0.3 mL dose 1 completed Not Available [facility] 08/30/2023 05:43:12 COVID-19, mRNA, LNP-S, PF, 30 mcg/0.3 mL dose 1 completed Not Available [facility] 08/30/2023 05:43:12 pneumococcal, unspecified formulation 7 completed Not Available [facility] 08/30/2023 05:43:12 influenza, unspecified formulation 7 completed Not Available [facility] 08/30/2023 05:43:12 Influenza, high-dose, quadrivalent, PF 2 completed Not Available [facility] 08/30/2023 05:43:12 Influenza, high-dose, quadrivalent, PF 1 completed Not Available [facility] 08/30/2023 05:43:12 Influenza, split virus, quadrivalent, PF 0 completed Not Available [facility] 08/30/2023 05:43:12 Influenza, split virus, quadrivalent, PF 9 completed Not Available [facility] 08/30/2023 05:43:12 pneumococcal polysaccharide PPV23 9 completed Not Available [facility] 08/30/2023 05:43:12 Influenza, split virus, quadrivalent, PF 8 completed Not Available [facility] 08/30/2023 05:43:12 Past Encounters Encounter ID Performer Location Encounter Start Date Encounter Closed Date Diagnosis/Indication Diagnosis SNOMED-CT Code Diagnosis ICD10 Code Diagnosis Note [id number] ROBBIN Rueda [facility] [place] [address] [place] [address] 10/09/2020 00:00:00 10/31/2020 22:09:55 [id number] ROBBIN Rueda [facility] [place] [address] [place] [address] 03/18/2021 00:00:00 03/22/2021 13:47:30 [id number] Eddie Tran MD [facility] [place] [address] [facility] , [place] [address] 04/06/2021 00:00:00 04/12/2021 12:06:36 [id number] ROBBIN Rueda [facility] [place] [address] [place] [address] 06/03/2021 00:00:00 06/03/2021 22:41:38 [id number] ROBBIN Rueda [facility] [place] [address] [place] [address] 08/27/2021 00:00:00 09/05/2021 22:38:34 [id number] ROBBIN Rueda [facility] [place] [address] [place] [address] 09/23/2021 00:00:00 10/03/2021 19:04:[id number] [facility] Endo [place] [address] [place] [address] 11/22/2021 00:00:00 11/22/2021 15:17:04 [id number] [facility] [place] [address] [place] [address] 01/25/2022 00:00:00 01/25/2022 16:22:[id number] [facility] Ortho [place] [address] [place] [address] 02/09/2022 00:00:00 02/09/2022 18:07:[id number] [facility] Endo [place] [address] [place] [address] 02/11/2022 00:00:00 02/17/2022 23:11:35 [id number] Eddie Tran MD [facility] Internal Med [place] [address] [place] [address] 03/25/2022 00:00:00 04/03/2022 12:53:52 [id number] Eddie Tran MD [facility] Internal [facility] [place] [address] [facility] [place] [place] [address] 04/14/2022 00:00:00 04/24/2022 12:12:17 [id number] Halina Schaefer MD [facility] [place] [address] [place] [address] 05/11/2022 00:00:00 05/11/2022 16:30:30 [id number] ROBBIN Rueda [facility] [place] [address] [place] [address] 05/26/2022 00:00:00 05/26/2022 15:37:33 [id number] Halina Schaefer MD [facility] Orth[facility] [place] [address] [place] [address] 06/22/2022 00:00:00 06/22/2022 15:17:48 [id number] [facility] End[facility] [place] [address] [place] [address] 07/11/2022 00:00:00 07/11/2022 15:05:22 [id number] Halina Schaefer MD [facility] Orth[facility] [place] [address] [place] [address] 07/27/2022 00:00:00 07/27/2022 17:15:14 [id number] Halina Schaefer MD [facility] [place] [address] [place] [address] 08/02/2022 00:00:00 08/02/2022 15:38:49 [id number] Halina Schaefer MD [facility] [place] [address] [place] [address] 08/09/2022 00:00:00 08/09/2022 16:49:18 [id number] Halina Schaefer MD [facility] [place] [address] [place] [address] 08/30/2022 00:00:00 08/31/2022 06:22:02 [id number] Halina Schaefer MD [facility] Ortho [place] [address] [place] [address] 09/20/2022 00:00:00 09/20/2022 16:53:[id number] [facility] [facility] [address] [place] [address] 09/23/2022 00:00:00 10/02/2022 20:20:19 [id number] [facility] [place] [address] [place] [address] 10/19/2022 15:36:52 10/19/2022 16:04:38 Trigger finger of right hand [id number] M65.331 Trigger fi nger of left hand [id number] M65.30 will do under a local with [...] risks, benefits alternativ es wishes to proceed [id number] Reba Brasher MD [facility] [place] [address] [place] [address] 11/21/2022 11:23:30 11/21/2022 12:27:12 Uncontrolled type 2 diabetes mellitus [id number] E11.65 patient tolerated placement of dexcom without pain or site reaction. He is aware to change out sensor every 10 days. [id number] Halina Schaeefr MD [facility] [place] [address] [place] [address] 11/22/2022 10:45:51 11/22/2022 11:17:55 Trigger finger of right hand [id number] M65.331 we will see the patient back in 6 weeks and see if the triggering goes away after the injection. Move the sutures from the left long finger today have him work on gentle range of motion over the next 6 weeks [id number] Reba Brasher MD [facility] [place] [address] [place] [address] 12/23/2022 14:52:28 12/23/2022 15:49:08 Well controlled type 2 diabetes mellitus [id number] E11.9 a1c of 6.9%- goal would be [...] that day as tolerated. Patient already on mcfp bydureon. Will add farxiga 5 mg daily [...] 150 mg/dl before meals. Mixed hyperlipidemia 267 865126 E78.2 he is on OTC fish oil [...] he chooses to go outside of the [facility] to obtain labwork he was [...] in his case. He voiced understand ing. [id number] Halina Schaefer MD [facility] [place] [address] [place] [address] 01/11/2023 14:03:44 01/11/2023 14:34:11 Trigger finger of right hand [id number] M65.331 Trigger fi nger of left hand [id number] M65.30 [id number] Eric[address]on Mujica MD [facility] [place] [address] [place] [address] 03/28/2023 10:45:38 03/28/2023 11:31:32 Trigger finger of left hand [id number] M65.30 [id number] ROBBIN Rueda [facility] [place] [address] [place] [address] 03/24/2023 14:11:15 03/24/2023 14:50:46 Adult health examination [id number] Z00.00 mawe completed Screening for disorder 075810825 Z13.9 Uncontroll ed type 2 diabetes mellitus [id number] E11.65 stable on insulin and medication Mixed hyperlipidemia 267 511082 E78.2 stable on statin therapy Obstructiv e sleep apnea syndrome 86473086 G47.33 stable on cpap and followed by sleep med/pulm Chronic ob structive pulmonary disease 95276398 J44.9 as above. following with pulm, stable on regimen Coronary atherosclerosis 430006847 I25.10 asymptomat ic, seeing cardiology routinely. Degenerati on of lumbosacral intervertebral disc 58487377 M51.37 hx noted History of malignant neoplasm of lung 800893312 Z85.118 hx noted Long-term current use of anticoagulant 671095718 Z79.01 Long-term drug therapy 951825134 Z79.899 Acute sinusitis 16892312 J01.90 augmentin Rx for ongoing sinus issues a few weeks. [id number] Reba Brasher MD [facility] [place] [address] [place] [address] 05/02/2023 15:26:58 05/02/2023 17:39:30 Uncontrolled type 2 diabetes mellitus 804008140 E11.65 A1C of 7.5% up from 6.9%- [...] clinic today). He will call back with [employer] company to send dexcom supplies to as he is very compliant with use and glucose overall improved since going on dexcom sensor. Discussed carb counting and how to read food labels. Recommende d patient to utilize the diabetesfo klinify.JIT Solaire from the ADA website to help with food preparatio n as this presents ideal carb content per meal so this will make carb counting much easier for patient. Recommende d he incorporat e natural insulin sql ssrs ssis developer s such as pears, apples, cinnamon, adin and sweet potatoes to help mobilize his endogenous insulin. Recommende d up to 150 minutes of moderate level activity/e xercise weekly. Mixed hyperlipidemia 267 574529 E78.2 Continue on zetia and fenofibrat e. [...] answered and refills necessary at visit today. [id number] Eddie Tran MD [facility] [place] [address] [facility] [address] [facility] [place] [address] 07/18/2023 14:19:42 07/18/2023 16:08:39 Diabetes mellitus 49676928 E11.9 Health Concerns Section Related Observation LastModified by Organization Detai ls LastModified Time None Recorded Concern Status LastModified by Organization Details LastModified Time None Recorded Advance Directives Directive N: Payers Encounter Date Sequence Insurance Name Policy Number Policy Perkins Covered Member ID Perkins Member ID Guarantor Name 01/11/2023 1 [employer] (MEDICARE) Santi L Jonathon [id number] Santi Jonathon 01/11/2023 2 [employer] [place] (MEDICARE SUPPLEMENT) PLAN G Santi L Jonathon [id number] Santi Jonathon 03/24/2023 1 [employer] (MEDICARE) Santi L Jonathon [id number] 5 Santi Jonathon 03/24/2023 2 [employer] [place] (MEDICARE SUPPLEMENT) PLAN G Santi L Jonathon [id number] Santi Jonathon 03/28/2023 1 [employer] (MEDICARE) Santi L Jonathon [id number] 5 Santi Jonathon 03/28/2023 2 [employer] [place] (MEDICARE SUPPLEMENT) PLAN G Santi L Jonathon [id number] Santi Jonathon 05/02/2023 1 [employer] (MEDICARE) Santi L Jonathon [id number] 5 Santi Jonathon 05/02/2023 2 [employer] [place] (MEDICARE SUPPLEMENT) PLAN G Santi L Jonathon [id number] Santi Jonathon 07/18/2023 1 [employer] (MEDICARE) Santi L Jonathon [id number] 5 Santi Jonathon 07/18/2023 2 [employer] [place] (MEDICARE SUPPLEMENT) PLAN G Santi Holt [id number] Santi Holt Notes Date Note Type Note [...] not had any locking. ROBBIN Oconnell [address] [facility], [facility] [address], [place], [address], [facility] [employer] 01/11/2023 15:59:04 023 text/ht ml Coronary Artery [...] performace; no nasal congestion ROBBIN Rueda [address] [facility], [facility] [address], [place], [address], [facility] [employer] 04/06/2023 18:03:08 023 text/ht ml 67 yo [...] nausea, vomiting, UTIs / yeast infections from farxiga. sugars are running under 150 mg/dL typically with a few outliers, denies any hypoglycemialabs from 04/29:TSH of 1.6 uIU/mlFT4 of 1.35 ng/dLglucose 128 mg/dL201/281/59/47microalbumin 38 ug/mga1c 7.5% Reba Brasher MD [address], [place], [address], [facility] [employer] [facility] [employer] [facility] 05/02/2023 16:21:15 023 text/ht ml Diabetic foot therapeutic she was evaluation last A1c earlier this year 6.9 he does at times get some burning sensation in the bottom of his feet he has not had any polyphagia no polydipsia Eddie Tran MD [address] [facility], [address], [place], [address], [employer] [facility] 07/19/2023 18:22:18
--- OUTSIDE RECORDS SUMMARY | 2025-01-08 15:25 | XMS_ITS | Encounter Summary ---
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
--- OUTSIDE RECORDS SUMMARY | 2025-01-08 15:25 | XMS_ITS | Encounter Summary ---
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
--- OUTSIDE RECORDS SUMMARY | 2025-01-08 15:25 | XMS_ITS | Encounter Summary ---
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
--- OUTSIDE RECORDS SUMMARY | 2025-01-08 15:25 | XMS_ITS | Encounter Summary ---
Author Organization [facility] Address [address] [place] [address] Phone Care Team Providers Care Broke Beater Name Role Phone Sri Camargo Primary Care Pr ovider Herbert Forrest MD Unavailable [phone] Cynthia Grande RN Unavailable Unavailable Eduarda Ford MD Unavailable [phone] Encounter Details Date Type Department Care [...] on file Legal Sex Male 3:10 AM DISPLAY ASSOCIATE Gender Identity Male 04/20/2021 11:20 AM CDT [...] on filedocumented in this encounter Care Teams Broke Beater Relationship Specialty Start Date End Date Sri Camargo PA PCP - General Physician Qa Auditor 04/19/18 Herbert Forrest MD [address] [place] [address] Referring Physician Pulmonary Disease 10/16/18 Cynthia Grande, RN Registered Nurse 03/19/19 Eduarda Ford MD Consulting Physician Urology 04/10/20 documented as of this encounter
--- OUTSIDE RECORDS SUMMARY | 2025-01-08 15:25 | XMS_ITS | Encounter Summary ---
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
--- OUTSIDE RECORDS SUMMARY | 2025-01-08 15:25 | XMS_ITS | Encounter Summary ---
Author Organization [facility] Address [address] [place] [address] Phone Care Team Providers Care Betting Agency Manager Name Role Phone CarlineadriánSri Primary Care Pr ovider Herbert Forrest MD Unavailable [phone] Cynthia Grande RN Unavailable Unavailable Eduarda Ford MD Unavailable [phone] Encounter Details Date Type Department Care [...] on file Legal Sex Male 3:10 AM POST FORM REMOVER Gender Identity Male 04/20/2021 11:20 AM CDT [...] on filedocumented in this encounter Care Teams Betting Agency Manager Relationship Specialty Start Date End Date CarlineSri sampson ROBBIN Rodríguez PCP - General Physician Box Office Clerk 04/19/18 Herbert Forrest MD [address] [place] [address] Referring Physician Pulmonary Disease 10/16/18 Cynthia Grande, RN Registered Nurse 03/19/19 Eduarda Ford MD Consulting Physician Urology 04/10/20 documented as of this encounter
--- OUTSIDE RECORDS SUMMARY | 2025-01-08 15:25 | XMS_ITS | Referral Summary ---
Author Organization [facility] Address [address] [place] [address] Care Team Providers Care Neuro Psych Sales Specialist Name Role Phone Sri Camargo Primary Care Pr ovider Herbert Forrest MD Unavailable Cynthia Grande RN Unavailable Unavailable Eduarda Ford MD Unavailable [phone] Encounters Date Type Department Care Team Description 01/01/2025 Anticoagulation Visit [facility] 6 [place] [phone] Lina Nguyen 12/16/2024 Anticoagulation Visit [facility] 6 [place] [phone] Lian Nguyen 12/09/2024 Anticoagulation Visit [facility] [address] [place] [address] 6 [place] [phone] Lina Nguyen 12/02/2024 Anticoagulation Visit [facility] 6 [place] [phone] Tiny Glaser RN 11/18/2024 Anticoagulation Visit [facility] 6 [place] [phone] Lina Nguyen 11/07/2024 7:30 PM CDT Procedure visit [facility] Neuro Sleep [address] [place] [address] JOSUE (obstructive sleep apnea) (Primary Dx) 11/04/2024 Anticoagulation Visit 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 Floor 6 [place] [phone] Tiny Glaser RN 10/24/[address] [facility] Cardiology [address] [facility] 8th [place] [address] [place] [phone] Willy Salinas MD PhD Imaging results/recommendati ons 10/21/[address] [facility] Hematology [address] [place] [address] 6 [place] [address] Tiny Glaser RN 10/21/2024 Anticoagulation [facility] [address] [place] [address] 6 [place] [address] Tiny Glaser RN from Last 3 Months Allergies No known active allergies Medications petrolat,wht/min [...] Active warfarin (COUMADIN) 10 mg tabletIndications :buttermaker helper current use of anticoagulant therapy TAKE 1 TABLET BY MOUTH DAILY OR DIRECTED 90 tablet 3 11/05/19 25 Active Active Problems Problem Noted Date Diagnosed Date Malignant neoplasm of upper lobe of right lung 0 02/04/2024 Arterial thrombosis 02/04/2024 JOSUE (obstructive sleep apnea) 03/30/2021 Overview (03/30/2021): Added automatically from request for surgery [id number] Pain of finger of left hand 12/05/2018 Atherosclerosis of [place] of both lower extremities with intermittent claudication 11/21/2018 Hyperlipemia 10/25/2018 Parotid mass 05/01/2018 Overview (05/01/2018): 1. 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 Palpitations 10/25/2016 Mass of parotid gland 10/25/2016 Surgical follow-up care 10/05/2016 penitentiary current use of anticoagulant therapy 0 09/01/2016 [...] Preservative Free, Intramuscular 06/22/2020,06/13/2019,07/09/2018 Influenza, Unspecified 08/07/2016,04/27/2016 zSoup SARS-CoV-2 Monovalent Vaccination (12+ Yrs) PURPLE 10/10/2020,09/12/2020 [...] on file Legal Sex Male 3:10 AM SPINNER IRON Gender Identity Male 04/20/2021 11:20 AM CDT [...] on file Medical Devices Implanted Type Area Tuyere Fitter Device Identifier Shelf Expiration Date Model / Serial / Lot NorthPage [id number] Ams 700 Kit Accessory Penile Prosthesis - Sn/A - [id number] Implanted:Qty: 1 on 04/09/2020 by Eduarda Ford MD at [facility] Other - see comments N/A: Penis [employer] [id number] 10/01/2024 [id number] / N/A / [id number] Description:Implanted items from accessory kit: 2 Collets and 1 straight suture- tie connector [employer] [id number] Ams 700 Preconnect 1 Ms Pump 2 Cylinder Penoscrotal Prosthesis - Sn/A - [id number] Implanted:Qty: 1 on 04/09/2020 by Eduarda Ford MD at [facility] Other - see comments N/A: Penis [employer] 10/17/2021 [id number] / N/A / [id number] Description:Pump [employer] [id number] Conceal Low Profile Godwin 100ml Prosthesis Inhibizone Sterile Latex Free - Sn/A - [id number] Implanted:Qty: 1 on 04/09/2020 by Eduarda Ford MD at [facility] Other - see comments N/A: Penis [employer] 12/25/2021 [id number] / N/A / Description:Godwin [employer] [id number] Ams Spectra 12/14mm 1cm Cylinder Concealable Malleable Rear Tip - Sn/A - [id number] Implanted:Qty: 1 on 04/09/2020 by Eduarda Ford MD at [facility] Other - see comments N/A: Penis [employer] 09/29/2024 [id number] / N/A / [id number] Description:CONCEALABLE MALL EABLE REAR TIP [employer] [id number] Ams Spectra 1.5cm Concealable Rear Tip Zanjero Snapcone - Sn/A - [id number] Implanted:Qty: 1 on 04/09/2020 by Eduarda Ford MD at [facility] Other - see comments N/A: Penis [employer] 04/22/2024 [id number] / N/A / Description:CONCEALABLE REAR TIP SOLUTIONS MARKET CONSULTANT Coronary Stent X 1 Stent N/A: Heart Procedures Procedure Name Priority Date/Time Associated Diagnosis Comments PROTIME-INR Routine 12/28/2024 PROTIME-INR Routine 12/16/2024 PROTIME-INR Routine 12/07/2024 PROTIME-INR Routine 11/30/2024 PROTIME-INR Routine 11/18/2024 PSG (COMPLEX) Routine 11/07/2024 9:00 PM CDT JOSUE (obstructive sleep apnea) PROTIME-INR Routine 11/02/2024 PROTIME-INR Routine 10/26/2024 PROTIME-INR Routine 10/19/2024 EGFR Routine 01/09/2024 10:34 AM CDT pen[facility]entiary current use of anticoagulant therapy HEMOGLOBIN A1C STAT 04/09/2020 8:47 AM CDT SERUM LIPID PANEL Routine 05/03/2016 12: 35 AM CDT CTA ABDOMINAL AORTA AND BILATERAL ILIOFEMORAL RUNOFF Routine 04/26/2016 9:28 AM CDT from Last 3 Months or Most Recently Relevant to Health Maintenance Results * (ABNORMAL) Protime-INR (12/28/2024) INR 4.70(A) 0.90 - 1.10 EXTERNAL LAB Blood 12/28/2024 Result [facility] Provider MD LAB BLOOD ORDERABLES Renetta l Result EXTERNAL LAB * Protime-INR (12/16/2024) INR 1.10 0.90 - 1.10 EXTERNAL LAB Blood 12/16/2024 Result [facility] Provider MD LAB BLOOD ORDERABLES Renetta l Result EXTERNAL LAB * (ABNORMAL) Protime-INR (12/07/2024) INR 8.00(A) 0.90 - 1.10 EXTERNAL LAB Blood 12/07/2024 Result [facility] Historical Provider MD LAB BLOOD ORDERABLES Renetta l Result EXTERNAL LAB * (ABNORMAL) Protime-INR (11/30/2024) INR 4.40(A) 0.90 - 1.10 EXTERNAL LAB Blood Result [facility] Historical Provider MD LAB BLOOD ORDERABLES Renetta l Result EXTERNAL LAB * (ABNORMAL) Protime-INR (11/18/2024) INR 3.40(A) 0.90 - 1.10 EXTERNAL LAB Blood 11/18/2024 Result [facility] Historical Provider LAB BLOOD ORDERABLES Renetta l Result EXTERNAL LAB * PSG (COMPLEX) (11/07/2024 9:00 PM CDT) Narrative Mike Sarah MD - 11/07/2024 9:00 PM CDT Mike Sarah MD 11/08/2024 8:45 AM PSG-Sleep Provider Use Only Date/Time: 11/07/2024 9:00 PM Performed by: Mike Sarah MD Authorized by: Mike Sarah MD Result [facility] Mike Sarah MD SLEEP CENTER ORDERABLES F inal Result * (ABNORMAL) Protime-INR (11/02/2024) INR 2.70(A) 0.90 - 1.10 EXTERNAL LAB Blood Result [facility] Historical Provider MD LAB BLOOD ORDERABLES Renetta l Result Performing Organization Address City/[facility]/ZIP Co de Phone Number EXTERNAL LAB * (ABNORMAL) Protime-INR (10/26/2024) INR 2.80(A) 0.90 - 1.10 EXTERNAL LAB Blood Result [facility] Historical Provider MD LAB BLOOD ORDERABLES Renetta l Result EXTERNAL LAB * (ABNORMAL) Protime-INR (10/19/2024) INR 1.60(A) 0.90 - 1.10 EXTERNAL LAB Blood Historical Provider LAB BLOOD ORDERABLES Renetta l [...] was last reviewed 2021. Testing performed by: [facility], [address] [place] [phone] Blood 01/09/2024 10:3 4 AM CDT 01/09/2024 10:35 AM CDT Denise David NP LAB BLOOD ORDERABLES Final R esult [facility] Department [place] [address] * (ABNORMAL) Hemoglobin A1c (04/09/2020 8:47 AM CDT) Hgb A1C 6.6(H) 4.0 - 5.6 % [facility] Estimated Average Glucose 143 mg/dL [facility] Comment: The ADA recommends reporting an estimated Average Glucose (eAG) with all Hemoglobin A1c results using the equation derived from a study of 507 normal and diabetic adults. Minority populations were underrepresented and children were not included. (Diabetes Care 31:0160-5508, 2008). The eAG is not equivalent to a fasting glucose. Blood specimen (specimen) 04/09/2020 8:47 AM CDT 04/09/2020 8:51 AM CDT us Eduarda Ford MD LAB BLOOD ORDERABLES Final Re sult [facility] [address] Department [place] [address] * (ABNORMAL) Serum lipid panel (05/03/2016 12:35 [...] M.D. FINAL REPORT ACC# Date Time Exam [id number] Apr 26, 2016 09:28:[id number] Angio Abd & AIF wwo con [...] posterior tibial arteries. Above findings discussed with LOADMASTER Olga Salvador at 10:05 a.m. on 04/26/2016. Requested By: CODIE ALEXIS M.D. Dictated By: FERNANDA CORREA M.D. on Apr 26 2016 10:06A This document has been electronically signed by: FERNANDA CORREA M.D. on Apr 26 2016 10:06A [id number] Procedure Note Provider, MD Danielito - 11/24/2016 FERNANDA CORREA M.D. FINAL REPORT [facility]# Date Time Exam [id number] Apr 26, 2016 09:28:[address] Angio Abd & AIF wwo con [...] CORREA M.D. on Apr 26 2016 10:06A [id number] Historical Provider IMMehran CT PROCEDURES Final R esult from Last 3 Months or Most Recently Relevant to Health Maintenance [place] [address] [facility] [place] [address] [facility] MEDICARE [address]ROAD MEDICARE [facility] OPEN ACCESS [facility] [place] [address] Advance Directives For more information, please contact: [phone] * Full Code (Latest Code Status on File) Date Activated Date Inactivated Comments 04/09/2020 2:55 PM 04/10/2020 5:22 PM Care Teams Neuro Psych Sales Specialist Relationship Specialty Start Date End Date Sri Camargo PA PCP - General Physician Well Cleaner 04/19/18 Herbert Forrest MD [address] [place] [address] Referring Physician Pulmonary Disease 10/16/18 Cynthia Grande, RN Registered Nurse 03/19/19 dEuarda Ford MD Consulting Physician Urology 04/10/20
--- OUTSIDE RECORDS SUMMARY | 2025-01-08 15:25 | XMS_ITS | Encounter Summary ---
Author Organization [facility] Address [address] [place] [address] Care Team Providers Care Brusher Warp Name Role Phone Unavailable Primary Care Provider Unavailabl e Encounter Details Date Type Department Care Team (Late st Contact Info) Description 06/22/[address] [facility] - Derm[facility] Lab [address] [facility] [place] [address] Mini Willams DO [address] [facility] [address] [place] [address] Social History Tobacco Use Types Packs/Day Years Used Date Smoking Tobacco: Never Assessed Sex and Gender Information Value Date Recorded Sex Assigned at Not on file Legal Sex Male 2:21 PM REVENUE CYCLE ANALYST Gender Identity Not on file Sexual Orientation Not on file documented as of this encounter Plan of Treatment Not on file documented as of this encounter Procedures Procedure Name Priority Date/Time Associated Diagnosis Comments DERMATOPATHOLOGY Routine 06/22/2023 2:06 PM REVENUE CYCLE ANALYST documented in this encounter Results * DERMATOPATHOLOGY (06/22/2023 2:06 PM REVENUE CYCLE ANALYST) Case Report Dermatopathology Report Case: [id number] Authorizing Provider: Mini Willams DO Collected: 06/22/2023 02:06 PM Ordering Location: [facility] Lab Received: 06/24/2023 06:44 AM Pathologist: Trinh Mercado MD Specimen: Skin, crown of scalp 3 12:07 PM REVENUE CYCLE ANALYST DERMATOPATHOLOGY LABORATORY Final Diagnosis Specimen A. SKIN, crown of scalp: SEBORRHEIC KERATOSIS, INFLAMED (L82.0) 3 12:07 PM REVENUE CYCLE ANALYST DERMATOPATHOLOGY LABORATORY at 1207 REVENUE CYCLE ANALYST Clinical History ISK R/O Atypia 3 12:07 PM [facility] DERMATOPATHOLOGY LABORATORY Gross Description Specimen A: Received is one formalin filled container labeled with the patient's name and designated crown of scalp. The specimen consists of a shave biopsy measuring 5x5x1 mm. Jar 0. 3 12:07 PM [facility] DERMATOPATHOLOGY LABORATORY Microscopic Description Specimen A. SKIN, crown of scalp: There is hyperkeratosis, parakeratosis, papillomatosis, and acanthosis of the epidermis. There is a lymphohistiocytic infiltrate within the papillary dermis that is focally lichenoid. 3 12:07 PM [facility] DERMATOPATHOLOGY LABORATORY Disclaimer An external and internal positive and negative controls are appropriate for the histochemical, immunohistochemical and immunofluorescence stain(s) in this case (if any), except where stated explicitly. The performance characteristics of the stain(s) cited in this report were developed and its performance characteristic determined by the Dermatopathology Laboratory at [facility], directed by Dr. Deshawn Ruggiero. These tests need not be, and therefore are not, approved by the [place] Food and Drug Administration. The tests are used for clinical purposes. Billing Codes Specimen Charges Stain Charges 50170 1 3 12:07 PM [facility] DERMATOPATHOLOGY LABORATORY Embedded Images 3 12:07 PM [facility] DERMATOPATHOLOGY LABORATORY Pathology/Cytolo gy TISSUE SPECIMEN FROM SKIN / Unknown 06/22/2023 2:06 PM REVENUE CYCLE ANALYST 06/24/2023 6:44 AM REVENUE CYCLE ANALYST us Mini Willams DO LAB - PATHOLOGY/CYTOLOGY ORDERABLES Final Result DERMATOPATHOLOGY LABORATORY [facility] - Department of Dermatology [address], [address]rd [address] [phone] documented in this encounter Visit Diagnoses Not on filedocumented in this encounter
--- OUTSIDE RECORDS SUMMARY | 2025-01-08 15:25 | XMS_ITS | Encounter Summary ---
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
--- OUTSIDE RECORDS SUMMARY | 2025-01-08 15:25 | XMS_ITS | Encounter Summary ---
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
--- OUTSIDE RECORDS SUMMARY | 2025-01-08 15:25 | XMS_ITS | Encounter Summary ---
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
--- OUTSIDE RECORDS SUMMARY | 2025-01-08 15:25 | XMS_ITS | Encounter Summary ---
Author Organization 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
--- OUTSIDE RECORDS SUMMARY | 2025-01-08 15:25 | XMS_ITS ---
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
--- OUTSIDE RECORDS SUMMARY | 2025-01-08 15:25 | XMS_ITS ---
Author Name [facility] Organization [facility] Address [address] [place] [address] Support Name Relationship Address Phone SHONIVET Next of Kin [address] [place] [address] IVET HOLT Emergency Contact [address] [place] [address] Insurance Providers: All historical and current [...] PART A Oct 05, 2018 PART A [id number] Jose Elias HOLT ERRY PATIENT MEDICARE (WNR) MEDICARE (M) PART B Oct 05, 2018 PART B [id number] SHON,Jose Elias ERRY PATIENT [employer] [place] [employer] PLAN G MEDIC ARE SUPPL EMENT Apr 07, 2021 PLAN G [id number] [phone] SHON,Jose Elias ERRY PATIENT Selected Encounter This section includes the information on record at [place] for the Encounter. Date/Time Encounter Type Encounter Description Reason Provider Source December 17, 2024 10:30 AM OFFICE O/P NEW [place] 60 MIN PRIMARY CARE/MEDICINE ICD-10-CM Z00.01 Encounter for general adult medical exam w abnormal findings YAO ADAMS Encounter Template Text not used by [place] Assessments - Encounter Diagnoses This section includes the primary and secondary diagnoses documented for the Encounter. Date/Time Primary/Secondary Diagnosis Diagnosis Name Provider Source December 17, 2024 10:57 PM PRIMARY Encounter for general adult medical exam w abnormal findings NIRMAL GARCIA [facility] December 17, 2024 10:57 PM SECONDARY Abdominal aortic aneurysm, without rupture, unspecified [facility] December 17, 2024 10:57 PM SECONDARY Abnormal results of other endocrine function studies RADHANIRMAL 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 [facility] December 17, 2024 10:57 PM SECONDARY Chronic obstructive pulmonary disease, unspecified [facility] December 17, 2024 10:57 PM SECONDARY Essential (primary) hypertension [facility] December 17, 2024 10:57 PM SECONDARY Gastro-esophageal reflux disease without esophagitis [facility] December 17, 2024 10:57 PM SECONDARY 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 [facility] December 17, 2024 10:57 PM SECONDARY Low back pain, unspecified [facility] December 17, 2024 10:57 PM SECONDARY Mixed hyperlipidemia [facility] December 17, 2024 10:57 PM SECONDARY Obstructive sleep apnea (adult) (pediatric) [facility] December 17, 2024 10:57 PM SECONDARY Occlusion and stenosis of left carotid artery NIRMAL GARCIA [facility] December 17, 2024 10:57 PM SECONDARY Other arterial embolism and thrombosis of abdominal aorta NIRMAL GARCIA [facility] December 17, 2024 10:57 PM SECONDARY Other intvrt disc degen, lum region with low extrm pain only NIRMAL GARCIA [facility] December 17, 2024 10:57 PM SECONDARY Peripheral vascular disease, unspecified [facility] December 17, 2024 10:57 PM SECONDARY Presence of other cardiac implants and grafts [facility] December 17, 2024 10:57 PM SECONDARY Sensorineural hearing loss, bilateral [facility] December 17, 2024 10:57 PM SECONDARY Tinnitus, bilateral [facility] December 17, 2024 10:57 PM SECONDARY Type 2 diabetes mellitus with diabetic neuropathy, unsp [facility] December 17, 2024 10:57 PM SECONDARY Vitamin D deficiency, unspecified [facility] Plan of Treatment: Future Appointments (+ 6 months) and Future Tests (+/- 45 days) The Plan of Treatment section includes future care activities for the patient from all [facility]. This section includes future appointments and future orders which are active, pending or scheduled. Future Appointments This section includes appointments that were scheduled to occur 6 months from the date of the Encounter, up to a maximum of 20 appointments. The data comes from all [facility]. Appointment Date/Time Appointment Type Appointme nt Facility Name Jan 14, 2025 03:45 PM AMBULATORY - MEDICINE [facility] Jan 24, 2025 12:00 PM AMBULATORY - NONE [facility] Feb 21, 2025 10:30 AM AMBULATORY - MEDICINE [facility] Active, Pending, and Scheduled Orders This section includes a listing of several types of active, pending, and scheduled orders, including clinic medications orders, diagnostic test orders, procedure orders and consult orders; where the start date of the order is 45 days before the date of the Encounter or 45 days after the date of theEncounter. The data comes from all [place] treatment facilities. Test Date/Time Test Type Test Details Facility Name December 18, 2024 08:57 AM Consult Order E NVIRONMENTAL EXPOSURE (ANDI) ASSESSMENT OUTPT STL Cons Tab Machine Operator's Choice [facility] Jan 24, 2025 12:00 AM Imaging - Ultrasou nd Order US AAA SCREENING [facility] Vital Signs: All taken on the encounter date This section contains inpatient and outpatient Vital Signs collected on the date of the Encounter. Date/Time Temperature Pulse Blood Pressure Respiratory Rate SP02 Pain Height Weight Body Mass Index Source December 17, 2024 10:41 AM 152/82 [facility] December 17, 2024 10:41 AM 98.5 58 152/73 20 95 2 70.5 237 34 [facility] Encounter Notes: All associated encounter notes This section contains the clinical notes associated to the Encounter. Date/Time Encounter Note(s) Provider Source December 17, 2024 11:40 AM ORTHOTICS PROSTHET ICS NOTE: LOCAL TITLE: PROSTHETICS FOOT EVALUATION [facility] STANDARD TITLE: ORTHOTICS PROSTHETICS NOTE DATE OF NOTE: DECEMBER 17, 2024@11:40 ENTRY DATE: DECEMBER 17, 2024@23:29:01 AUTHOR: NIRMAL GARCIA EXP COSIGNER: YAO ADAMS URGENCY: STATUS: COMPLETED PROSTHETICS FOOT EVALUATION DIAGNOSIS: Diabetic neuropathy Beadle-Filament Test: December (within last 30 days) Sensation: Diminished (indicate test point locations): Left foot from digits to mid foot, pulse is weaker. Circulation: Pedal Pulses: Posterior Tibial LEFT: Present RIGHT: Present Dorsalis Pedis LEFT: Present RIGHT: Present Hair Present: No History of Ulcers/Amputation: No List specific issues below. If none, indicate none below. none ASSESSMENT: Foot Risk Score Level 2 MODERATE RISK Decreased sensation and circulation Foot deformity No ulceration or history of amputation Description of foot deformity or infection: Decrease sensation on left foot, neuropathy, weaker pulse on left pedal /reg/ NIRMAL GARCIA DNP, CHANDELIER MAKER, INSTRUMENT MAN-C NURSE PRACTITIONER RESIDENT Signed: 12/17/2024 23:32 /reg/ [facility] Cosigned: 12/18/2024 08:49 NIRMAL GARCIA [facility] December 17, 2024 11:14 AM NURSING IMMUNIZATI ON NOTE: LOCAL TITLE: CLINIC ADMINISTERED IMMUNIZATION/MEDICATION(S) STANDARD TITLE: NURSING IMMUNIZATION NOTE DATE OF NOTE: DECEMBER 17, 2024@11:14:10 ENTRY DATE: DECEMBER 17, 2024@11:14:10 AUTHOR: HALINA BILL EXP COSIGNER: URGENCY: STATUS: COMPLETED Documented: TD (ADULT) Historical Date Administered: Nov 20, 2017 Information Source: FROM OTHER REGISTRY /reg/ HALINA BILL JR, LPN LICENSED PRACTICAL NURSE Signed: 12/17/2024 11:14 HALINA BILL Leodan [facility] December 17, 2024 11:01 AM PRIMARY CARE INITI AL EVALUATION NOTE: LOCAL TITLE: PRIMARY CARE PROVIDER NEW VISIT ST STANDARD TITLE: PRIMARY CARE INITIAL EVALUATION NOTE DATE OF NOTE: DECEMBER 17, 2024@11:01 ENTRY DATE: DECEMBER 17, 2024@11:01:26 AUTHOR: NIRMAL GARCIA EXP COSIGNER: YAO ADAMS URGENCY: STATUS: COMPLETED PRIMARY CARE PROVIDER NEW VISIT ST Has ADDENDA Patient is 69 and WHITE Self-Identified Gender - Man Reason for visit: New Patient Chief Complaint: Establish Care at [facility] Primary [facility] History of Present Illness: Mr. Holt is a 69 y/o male patient to establish care at [facility] Primary Care. Vet is 0% SC. Accompanied by Ivet, . Healthcare providers outside the [place]: PCP: Dr. Camargo ([place]) & Dr. Tran (for AALIYAH cornejo), MARCO: 12/02/2024 Hematology: Lina Nguyen- [facility]; MARCO: 12/16/2024- Anticoagulation visit Dr. Lim- Vascular Sleep Medicine- [facility]; MARCO: 11/07/2024, Cardiology: Dr. Willy Salinas; MARCO: , seeing him annually Pain Management: Dr. Thacker HX Arterial Thrombosis left leg: - had bypass completed INR: 1.10 (12/16/2024) - currently taking Warfarin 8mg daily (adjusted by Senior Games Technician); - uses Lovenox 150mg 5 days prior to procedures and then will go back on Warfarin when he is told he can. -Followed by private vascular doctor JOSUE: - had PSG completed on 11/07/24 - Using Oral Device -Patient wants inspire device but was told he does not qualify due to in person PSG and only having 8 apneas an hour. -Followed by private sleep medicine doctor DM 2/ neuropathy: - Blood sugar readings: 188 (reading right now) - has a Dexcom G6 - Currently taking Mounjaro 5mg weekly Metformin XR 1000mg BID Fargixa 5mg daily -Patient would like to get diabetic shoes and socks from [place] -Patient wears a size 11-1/2 extra wide and would like White sock -Managed by private PCP Elevated Cortisol - Started taking Korym 300mg -Managed by private PCP GERD: - takes Omeprazole 20mg PRN -Managed by private PCP Lung Cancer - had a right upper lobectomy; 09/16/2016 - was getting a scan every year for 5 years - No one has contacted him to get another scan with a program at [facility] -No longer sees thoracic oncologist provider HLD/ Intermittent Claudication/CAD/ PVD: - currently taking Fenofibrate, Repatha injection, Zetia, Fish oil 1400mg daily - had bilateral lower extremity arterial doppler exam: CONCLUSIONS: 1. The above listed Ankle/Brachial Indices at rest are within normal limits bilaterally (for reference, normal resting JUDIE is 0.9 to 1.4; JUDIE >1.4 due to non-compressible arteries is not diagnostic). 2. Bilateral Digit/Arm Indices are within normal limits (for reference, normal MAEGAN is >0.6). - Managed by private PCP and vascular HTN - home B/P: 130s/80s - currently taking Amlodipine, Losartan, Metoprolol XL, isosorbide mononitrate -Managed by private PCP Cardiac Stent - Currently taking ASA 81mg & Nitroglycerin SL PRN - has not used Nitro recently -Patient would like to see [place] hot stamp operator -Manage by private hot stamp operator AR - currently taking Zyrtec BID - takes allergy shots -Managed by private PCP Vitamin D Def - currently taking Multivitamin & Vitamin D supplement -Managed by private PCP Tinnitus/impaired hearing - Using bilateral hearing aids from [place] LBP/DDD - seeing pain management doctor - Did an Ablation and due for another one in January 2025 - Takes Tylenol Arthritis 650mg PRN - has muscle relaxers, but doesn't really take it -Managed by private pain management AAA -Recently found out he has a AAA unsure on size. He notified his private hot stamp operator and said that he will monitor it. -Patient inquired about getting it US done at [place] - [facility] Carotid Bruit - pt states he has a carotid noise and is getting a carotid US on Monday - he states it is on the left side COPD - uses Albuterol PRN Problem List: 1) Sensorineural hearing loss, bilateral Tinnitus impaired hearing Malignant neoplasm of upper lobe of right lung Arterial Thrombosis JOSUE Atherosclerosis of [place] artery of both lower extremities with intermittent claudication HLD Bilateral Parotid mass Chest pain COPD MCC current use of anticoagulant therapy DM type 2 Obesity CAD PVD HTN HX of DVT Tobacco Abuse GERD ADMINISTERED Immunization Series Date Facility Reaction Info COVID-19 (PFIZER), MRNA, LNP-S, * 1 06/16/2024 [facility] INFLUENZA, UNSPECIFIED FORMULATI* 06/16/2024 [facility] CONTRAINDICATED No data available REFUSED ======= Immunization Date Facility Info ZOSTER RECOMBINANT 12/17/2024 [facility]* <I> <I> See the Detailed Immunizations Health Summary Component[DIM] for Additional Information * Value is truncated; see the Detailed Immunizations Health Summary Component[DIM] for complete text CHICKEN POX: unknown SURGICAL HISTORY: Vasectomy- 1982, Pilonidal Cyst removal- , tattoo removal- 1982 Cholecystectomy- Early 30s Coronary stent placement- 2013 Bronchoscopy Lung upper Lobectomy, Right- 09/16/2016 Penile Prosthesis implant- 2019 Index finger cut off- 2016 HOSPITALIZATIONS: No recent hospitalization INJURIES: Index finger cut off- 2016 FAMILY MEDICAL HISTORY: -Mother: stroke- cause of , age 48 -Father: lung cancer, decreased -Siblings: - brother 1- alive, stage 4 pancreatic cancer, lymphoma - Brother 2- Lymphoma, - Brother 3- DM, - sister 1- alive - sister 2- lung cancer, HISTORY: BRANCH OF SERVICE: [employer] YEARS OF SERVICE: [id number] LOCATION OF SERVICE: For SEVERIANO wagner and D/C out of [place] 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: Diesel fuels, oils SOCIAL HISTORY: Tobacco: Cigarettes; 1.5ppd, 44.7 years (1971-04/2016) Alcohol: 2 times per month Illicit: none Diet: nothing specific Exercise: walking all the time Marital status: Sexual orientation/activity: yes Screen for psychological/sexual abuse: none Occupation: retired; [employer], [facility] [employer] [facility] Highest level of education: GED Service Connected: 0% Rated Disabilities: IMPAIRED HEARING (0% SC) TINNITUS (0% SC) Period of Service: Medication Review: The essential med list for review which includes the patient's active VA prescriptions and if applicable, remote VA prescriptions, non-VA prescriptions, and discontinued VA prescriptions within the last 90 days and known allergies including local and remote allergies have been reviewed. Allergies: Patient has answered NKA Active and Recently Outpatient Medications (excluding Supplies): No Medications Found Review of Systems: General: Denies fever, chills, abnormal weight loss or weight gain HEENT:+hearing aids, Denies new or acute changes in vision, eye/ear pain or discharges, nasal drainage, sore throat, new or worsening hearing loss Cardiovascular:+intermitten t claudication, left leg swelling, left carotid bruit, Denies chest pain, palpitations, dizziness, orthopnea Respiratory: Denies dyspnea, cough, hemoptysis, sputum production, or shortness of breath Abd/GI: Denies n/v/d, constipation, pain, bloody stool, melena or hematochezia MSK/Ext: +LBP, Denies new or acute joint pain, recent trauma/injury, changes in mobility, or recent falls. /MEDICAL DIRECTOR OF HOSPICE: Denies dysuria, frequency, urgency, nocturia, hematuria, or incontinence Hemo/lymph: Denies abnormal bruising, swollen nodes, excessive bleeding Endo: Denies polyuria, polydipsia, polyphagia, heat or cold intolerance Psych: Denies depression, anxiety, nightmares, insomnia, PTSD, SI/HI Neuro: +Neuropathy, Denies TOLBERT, tremors, neuropathy, or seizures. Skin: Denies new skin lesions or rashes VITALS (most recent, as listed in the electronic record): B/P: 152/82 (12/17/2024 10:41) Pulse: 58 (12/17/2024 10:41) Temperature: 98.5 F [36.9 C] (12/17/2024 10:41) Weight: 237 lb [107.50 kg] (12/17/2024 10:41) Height: 70.5 in [179.1 cm] (12/17/2024 10:41) BMI: 33.6 Pain: 2 (12/17/2024 10:41) (0-10 scale) PHYSICAL EXAM Gen: No acute distress noted. Appears appropriately dressed and nourished. ENT: PERRLA, EOMI, conjunctiva pink, sclera clear. Nasal mucosa pink, airway patent. Oropharynx clear without exudates. Bilateral TM translucent clear, non- bulging, non-retraction, cone of light appropriate right side at 5 o'clock and left side at 7 o'clock, bony parts noted. Hearing aids noted on exam Neck: supple, no lymphadenopathy, no thyroidmegaly, left carotid bruit noted on exam, no carotid bruit noted on right side. Lungs: Respirations equal and unlabored. Lungs CTAB, thorax nontender Heart: Bradycardia RR, S1S2 noted. No murmurs, rubs, or bruits. Trace edema in left lower leg, no edema in right lower leg. Abdomen: soft, non-tender, non-distended, no hepatosplenomegaly, + bowel sounds x 4 quadrants, No masses or guarding noted MSK/Extremities: Hand center sales and service associate equal bilaterally, Adequate and symmetric ROM, no joint edema. 2+ DP PT pulses bilaterally. Foot Exam: performed monofilament 10 spots bilaterally, right foot had full sensation, left foot has decreased sensation. Neuro: alert and oriented x4, no focal deficits, ambulates with steady gait, speech fluent, CN II-XII grossly intact : No CVA or suprapubic tenderness Psych: mood and affect good, calm and pleasant, denies si/hi skin: clean, warm and dry, no rashes or skin lesions noted Assessment/Plan: 1. Adult Annual -Discussed the importance of keeping PCP appointments, specialty appointments, seeing the eye doctor yearly, seeing the dentist twice a year, and participating in cancer screenings. Health Maintenance: Colonoscopy: 03/25/2016; had it a couple of years ago- WNL, thinking 10 years AAA: Ordered today PSA: done by [facility] PCP LDCT: patient will think about who he wants to use to get this completed LABS: done by [facility] PCP Immunizations COVID: 09/12/2020, 10/10/2020 Flu: 06/22/2020, declined today Pneumovax 23: 06/13/2019 Prevnar 13: Prevnar 20: declined today Shingrix: declined today Td: 11/20/2017 TdaP: Zostavax: 2. HX Arterial Thrombosis left leg, controlled - currently taking Warfarin 8mg daily (adjusted by Senior Games Technician); - uses Lovenox 150mg 5 days prior to procedures and then will go back on Warfarin when he is told he can. -Followed by private vascular doctor 3. JOSUE, controlled - Using Oral Device -Followed by private sleep medicine doctor 4. DM 2, controlled - has a Dexcom G6 - continue taking Mounjaro 5mg weekly, Metformin XR 1000mg BID, & Fargixa 5mg daily - foot exam completed today - ordered diabetic shoes and sock -Managed by private PCP 5. Elevated Cortisol, controlled - Started taking Korym 300mg daily -Managed by private PCP 6. GERD, controlled - takes Omeprazole 20mg PRN -Managed by private PCP 7. Lung Cancer, controlled - depending on what the patient would like to do to get LDCT done at [place] or somewhere else - will f/u in 3 weeks phone visit 8. HLD/ Intermittent Claudication/CAD/ PVD, controlled - continue taking Fenofibrate 160mg every evening, Repatha injection 140mg every 2 weeks, Zetia 10mg daily, Fish oil 1400mg daily - had bilateral lower extremity arterial doppler exam: CONCLUSIONS: 1. The above listed Ankle/Brachial Indices at rest are within normal limits bilaterally (for reference, normal resting JUDIE is 0.9 to 1.4; JUDIE >1.4 due to non-compressible arteries is not diagnostic). 2. Bilateral Digit/Arm Indices are within normal limits (for reference, normal MAEGAN is >0.6). - Managed by private PCP and vascular DrLeodan 9. HTN, controlled - home B/P: 130s/80s - continue taking Amlodipine 10 mg , Losartan 25mg daily, Metoprolol XL 100mg daily, isosorbide mononitrate 120mg daily -Managed by private PCP 10. Cardiac Stent, controlled - continue taking ASA 81mg & Nitroglycerin 0.4mg SL PRN - consult to [place] Cardiology -Manage by private hot stamp operator 11. AR, controlled - continue taking Zyrtec 10mg BID - takes allergy shots -Managed by private PCP 12. Vitamin D Def, controlled - continue taking Multivitamin & Vitamin D supplement 400 units daily -Managed by private PCP 13. Tinnitus/impaired hearing, controlled - Using bilateral hearing aids from [place] 14. LBP/DDD, controlled - continue taking Tylenol Arthritis 650mg PRN - has Cyclobenzaprine 5mg PRN, but doesn't really take it -Managed by private pain management 15. AAA, uncontrolled - ordered US for AAA - followed by [facility] Cardiology 16. left Carotid Bruit, uncontrolled - getting carotid dopplers done on Monday - managed by [facility] PCP 17. COPD, controlled - continue taking albuterol 2 puff PRN - Managed by [facility] PCP RTC: 6 months for chronic conditions & 3 weeks phone visit to touch base on chronic conditions Time spent on date of visit including face to face time, data review, and chartin minutes This encounter was supervised by JACOBO Houston. CLINICAL REMINDERS COMPLETED Hepatitis C Testing - L,N,P,PH: Patient declines HCV lab test. HIV Screening (Routine): Patient has been offered HIV testing and has declined. I have explained that HIV testing is recommended for all adults, even if all risk factors are absent. COVID-19 Immunization-L,N,P,PH,U: Refused Moderna Monovalent COVID-19 vaccine Immunization: COVID-19 (MODERNA), MRNA, LNP-S, PF, 50 MCG/0.5 ML (AGES 12+ YEARS) Refusal Reason: PATIENT DECISION Patient refuses all immunization(s) in the COVID-19 group Date Documented: 12/17/24 23:23 Refused Pfizer Monovalent COVID-19 vaccine Immunization: COVID-19 (PFIZER), MRNA, LNP-S, PF, VIRGILIO-SUCROSE, 30 MCG/0.3 ML (AGES 12+ YEARS) Refusal Reason: PATIENT DECISION Patient refuses all immunization(s) in the COVID-19 group Date Documented: 12/17/24 23:23 Refused Novavax COVID-19 vaccine Immunization: COVID-19 (NOVAVAX), SUBUNIT, RS-NANOPARTICLE, ADJUVANTED, PF, 5 MCG/0.5 ML (AGES 12+ YEARS) Refusal Reason: PATIENT DECISION Patient refuses all immunization(s) in the COVID-19 group Date Documented: 12/17/24 23:24 [facility] DIGITAL DIVIDE CAPABILITY REMINDER: Patient is interested in [facility] appointments. [facility] requirements have been communicated to the [facility]. The [facility] confirms understanding of those requirements and indicates the following [facility] needs: has completed previous [facility] appointments and confirms they are STILL [facility] CAPABLE. Future [facility] appointments can be scheduled. 'S RIGHT TO DECLINE STATEMENT understands they have the right to decline the use of [employer] at any time without adverse affects on their continued access to healthcare. Tdap Immunization - L,N,P,PH,U: Td/Tdap given previously - written records available The patient has previously received the Tetanus, Diphtheria vaccine (Td). Documented: TD(ADULT) UNSPECIFIED FORMULATION Historical Date Administered: Nov 20, 2017 Information Source: FROM PATIENT'S WRITTEN RECORD Avg Risk Colorectal Cancer Screen - L,N,P,PH: AVERAGE RISK colorectal cancer screening is due based on information available to this clinical reminder Prior/outside colonoscopy results: Pt states it was a couple of years ago, unsure of date, repeat in 10 years Date: July 07, 2023 Average risk screening reminder set 7 years from DECEMBER 17, 2024. /reg/ NIRMAL GARCIA DNP, RACHELE, TENISHA NURSE PRACTITIONER RESIDENT Signed: 12/17/2024 23:28 /reg/ JACOBO Montemayor NURSE PRACTITIONER Cosigned: 12/18/2024 09:00 12/18/2024 ADDENDUM STATUS: COMPLETED I have seen this with the ROBOTICS TECHNICIAN resident. I have participated in developing the plan of care, and reviewed medications, lab, and any radiology reports. The concurs with the plan of care. /reg/ JACOBO Montemayor NURSE PRACTITIONER Signed: 12/18/2024 09:01 NIRMAL GARCIA [facility] December 17, 2024 10:50 AM NURSING NOTE: LOCAL TITLE: V15 PACT FACE TO FACE NOTE STL STANDARD TITLE: NURSING NOTE DATE OF NOTE: DECEMBER 17, 2024@10:50 ENTRY DATE: DECEMBER 17, 2024@10:50:31 AUTHOR: HALINA BILL COSIGNER: URGENCY: STATUS: COMPLETED Provider Visit: Patient Identifiers : Full Name Date of Reason for visit: New Patient Do you have a history of any of the following? (check all that apply): Diabetes, Heart disease, Hypertension, Obesity, CancerCOPD Surgeries (type(s) and date(s)): Right upper lung lobe removal 16 Sep 2016 Have you been seen by a physician, [facility] or private, in the last year? Yes Name and contact information for provider: Dr Leandra Rdidle [facility] Have you been hospitalized or seen in an ER in the last year? No Mode of Arrival: Ambulatory Allergy Review: ALLERGIES/ADVERSE REACTIONS - NONE FOUND Allergy list reviewed and remains current. Recent Vital Signs: Temperature: 98.5 F [36.9 C] (12/17/2024 10:41) Pulse: 58 (12/17/2024 10:41) Respiration: 20 (12/17/2024 10:41) B/P: 152/82 (12/17/2024 10:41) Pain: 2 (12/17/2024 10:41) Wt: 237 lb [107.50 kg] (12/17/2024 10:41) Ht: 70.5 in [179.1 cm] (12/17/2024 10:41) BMI: 33.6 POX: 95% (12/17/2024 10:41) Would you like to discuss any personal problem, family problem, alcohol use, drug use, or a mental or emotional illness? No Contact provided Primary Care phone number and encouraged to call if any questions or concerns. Review that after hours nurse line [phone] and emergency room are available 27/02 for patient use. Contact verbalized good understanding. MST Screening - V: Patient denies experiencing sexual trauma (MST). Suicide Screen - V: C-SSRS Screening [place] Suicide Severity Rating Scale (C-SSRS) screener 1. Over the past month, have you wished you were or wished you could go to sleep and not wake up? No 2. Over the past month, have you had any actual thoughts of killing yourself? No 3. Over the past month, have you been thinking about how you might do this? Response not required due to responses to other questions. 4. Over the past month, have you had these thoughts and had some intention of acting on them? Response not required due to responses to other questions. 5. Over the past month, have you started to work out or worked out the details of how to kill yourself? Response not required due to responses to other questions. 6. If yes, at any time in the past month did you intend to carry out this plan? Response not required due to responses to other questions. 7. In your lifetime, have you ever done anything, started to do anything, or prepared to do anything to end your life (for example, collected pills, obtained a gun, gave away valuables, went to the roof but didn't jump)? No 8. If YES, was this within the past 3 months? Response not required due to responses to other questions. Sexual Orientation - CP,L,N,P,PH,PS,S,U: The patient thinks of their sexual orientation as: Straight or Heterosexual COVID-19 Immunization-L,N,P,PH,U: Pfizer Monovalent ([facility], 03/29/24 - present) Patient has received one dose of the Pfizer Monovalent vaccine during the 2512-5012 season. Documented: COVID-19 (PFIZER), MRNA, LNP-S, PF, VIRGILIO-SUCROSE, 30 MCG/0.3 ML (AGES 12+ YEARS) Historical Date Administered: Jun 16, 2024 Series: Series 1 Outside Location: [facility] Information Source: FROM PATIENT'S RECALL Influenza Immunization - L,N,P,PH,U: The patient has received the seasonal influenza vaccine for the current season at another location. Documented: INFLUENZA, UNSPECIFIED FORMULATION Historical Date Administered: Jun 16, 2024 Outside Location: [facility] Information Source: FROM PATIENT'S RECALL Alcohol Use Screen (AUDIT-C) - V: Alcohol Screen: SCREEN FOR ALCOHOL (AUDIT-C) An alcohol screening test (AUDIT-C) was negative (score=1). 1. How often did you have a drink containing alcohol in the past year? Consider a drink to be a 12 ounce can or bottle of regular beer, 8 ounces of malt liquor, a 5 ounce glass of table wine, or a 1.5 ounce shot of liquor (like scotch, gin, or vodka). Monthly or less 2. How many drinks containing alcohol did you have on a typical day when you were drinking in the past year? One or two drinks 3. How often did you have six or more drinks on one occasion in the past year? Never Depression Screening - V: Perform PHQ-2 A PHQ-2 screen was performed. The score was 0 which is a negative screen for depression. Over the past two weeks, how often have you been bothered by the following problems? 1. Little interest or pleasure in doing things Not at all 2. Feeling down, depressed, or hopeless Not at all PTSD Screening - V: PC-PTSD-5 A PTSD screening test (PC-PTSD-5) was negative (score=0). IN THE PAST MONTH, have you ever had any experience that was so frightening, horrible or traumatic. For example: A serious accident or fire a physical or sexual assault or abuse An earthquake or flood A war Seeing someone be killed or seriously injured Having a loved one through homicide or suicide 1. Have you ever experienced this kind of event? NO 2. Had nightmares about the event(s) or thought about the event(s) when you did not want to? Response not required due to responses to other questions. 3. Tried hard not to think about the event(s) or went out of your way to avoid situations that reminded you of the event(s)? Response not required due to responses to other questions. 4. Been constantly on guard, watchful, or easily startled? Response not required due to responses to other questions. 5. [place] numb or detached from people, activities, or your surroundings? Response not required due to responses to other questions. 6. [place] guilty or unable to stop blaming yourself or others for the event(s) or any problems the event(s) may have caused? Response not required due to responses to other questions. Herpes Zoster (Shingles) Vaccine - L,N,P,PH,U: The patient declines to receive the recommended dose of zoster (shingles) vaccine. Immunization: ZOSTER RECOMBINANT Refusal Reason: PATIENT DECISION Patient refuses all immunization(s) in the ZOSTER group Date Documented: 12/17/24 11:00 Pneumococcal Conjugate Vaccine (PCV15/PCV20/PCV21) - L,N,P,PH,U: Refuses PCV vaccine Immunization: PNEUMOCOCCAL CONJUGATE, UNSPECIFIED FORMULATION Refusal Reason: PATIENT DECISION Patient refuses all immunization(s) in the PneumoPCV group Date Documented: 12/17/24 11:01 /reg/ HALINA BILL JR, LPN LICENSED PRACTICAL NURSE Signed: 12/17/2024 11:03 HALINA BILL [facility]
--- OUTSIDE RECORDS SUMMARY | 2025-01-08 15:25 | XMS_ITS | Encounter Summary ---
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
--- OUTSIDE RECORDS SUMMARY | 2025-01-08 15:25 | XMS_ITS | Encounter Summary ---
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
--- OUTSIDE RECORDS SUMMARY | 2025-01-08 15:25 | XMS_ITS | Encounter Summary ---
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
--- OUTSIDE RECORDS SUMMARY | 2025-01-08 15:25 | XMS_ITS | Encounter Summary ---
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
--- OUTSIDE RECORDS SUMMARY | 2025-01-08 15:25 | XMS_ITS ---
Author Organization [facility] Address [address] [place] [address] [place] [address] Care Team Providers Care Slot Machine Mechanic Name Role Phone GEORGE LITTLE Primary Care Provider Tio Quiroz Unavailable [phone] MIA BONILLA ASHLEY Unavailable Unavailable ALLERGIES No [...] drug abuse. VITAL SIGNS Blood pressure systolic 134 mm Hg 10/08/19 25 Blood pressure diastolic 69 mm Hg 025 Heart Rate 57 /min 10/07/2024 Respiratory Rate 18 /min 10/07/2024 Height 5 ft 11 in in 10/07/2024 Weight 252 lbs 10/07/2024 BMI 35.14 kg/m2 10/07/2024 Encounters Encounter Location Date Provider Diagnosis [facility] [address] [place] [address] 10/07/2024 Tio Obregon Lumbar radiculopathy M54.16 ; Spondylosis without myelopathy or radiculopathy, lumbar region M47.816 ; Spinal stenosis, lumbar region with neurogenic claudication M48.062 ; Other intervertebral disc degeneration, lumbar region M51.36 ; Chronic pain syndrome G89.4 ; 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 This note was dictated by TENISAH De La Fuente. Total Time Spent with [...] 4 Weeks OPV, Reas on: Provider Name:Tio lang, 01/14/2025 10:45:00 AM, [address] [place], [address], Progress Notes * Examination Category Sub-Category Detail [...] patient's typical axial low back pain. Yonny's, Dallas's and Gaenslen's are positive bilaterally. There is [...] Plan documedisha kenya:: Yes MIPS Quality 2020: MIPS Documented:: Compliant
--- OUTSIDE RECORDS SUMMARY | 2025-01-08 15:25 | XMS_ITS | Encounter Summary ---
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
--- OUTSIDE RECORDS SUMMARY | 2025-01-08 15:25 | XMS_ITS | Encounter Summary ---
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
--- OUTSIDE RECORDS SUMMARY | 2025-01-08 15:25 | XMS_ITS | Encounter Summary ---
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
--- OUTSIDE RECORDS SUMMARY | 2025-01-08 15:25 | XMS_ITS | Encounter Summary ---
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
--- OUTSIDE RECORDS SUMMARY | 2025-01-08 15:25 | XMS_ITS | Encounter Summary ---
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
--- OUTSIDE RECORDS SUMMARY | 2025-01-08 15:26 | XMS_ITS | Encounter Summary ---
Author Organization [facility] Address [address] [place] [address] Phone Care Team Providers Care Glazier Apprentice Name Role Phone CarlineadriánSri Primary Care Pr ovider Herbert Forrest MD Unavailable [phone] Cynthia Grande RN Unavailable Unavailable Eduarda Ford MD Unavailable [phone] Encounter Details Date Type Department Care [...] file Legal Sex Male 3:10 AM SPINNER HAND Gender Identity Male 04/20/2021 11:20 AM [...] on filedocumented in this encounter Care Teams Glazier Apprentice Relationship Specialty Start Date End Date CarlineSri sampson ROBBIN Rodríguez PCP - General Physician Long Goods Drier 04/19/18 Herbert Forrest MD [address] [place] [address] Referring Physician Pulmonary Disease 10/16/18 Cynthia Grande, RN Registered Nurse 03/19/19 Eduarda Ford MD Consulting Physician Urology 04/10/20 documented as of this encounter
--- OUTSIDE RECORDS SUMMARY | 2025-01-08 15:26 | XMS_ITS | Encounter Summary ---
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
--- OUTSIDE RECORDS SUMMARY | 2025-01-08 15:26 | XMS_ITS | Encounter Summary ---
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
--- OUTSIDE RECORDS SUMMARY | 2025-01-08 15:26 | XMS_ITS | Encounter Summary ---
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
--- OUTSIDE RECORDS SUMMARY | 2025-01-08 15:26 | XMS_ITS | Encounter Summary ---
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
--- OUTSIDE RECORDS SUMMARY | 2025-01-08 15:26 | XMS_ITS | Encounter Summary ---
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
--- OUTSIDE RECORDS SUMMARY | 2025-01-08 15:26 | XMS_ITS | Encounter Summary ---
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
--- OUTSIDE RECORDS SUMMARY | 2025-01-08 15:26 | XMS_ITS | Encounter Summary ---
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
--- OUTSIDE RECORDS SUMMARY | 2025-01-08 15:26 | XMS_ITS | Encounter Summary ---
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
--- OUTSIDE RECORDS SUMMARY | 2025-01-08 15:26 | XMS_ITS | Encounter Summary ---
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
--- OUTSIDE RECORDS SUMMARY | 2025-01-08 15:26 | XMS_ITS | Patient Health Record ---
Author Organization [facility] Address [address] [place] [address] Becky Soto [place] [address] Care Team Providers Care Vehicle Mechanic Name Role Phone GEORGE LITTLE Primary Care Provider Tio Quiroz Unavailable [phone] MIA BONILLA ASHLEY Unavailable Unavailable ALLERGIES No Known Allergies REASON FOR REFERRAL No Information MEDICATIONS Medication SIG (Take, Route, Frequency, Duration) Notes Start Date End Date Status Glimepiride 4 MG 1 tablet with breakf [...] day for 30 day(s) Active Metoprolol Succinate ER 100 MG Oral for 90 Active Warfarin Sodium 10 MG 1 tablet Orally On ce a day for 30 day(s) Active Losartan Potassium 25 MG Oral for 90 Active Ezetimibe 10 MG 1 tablet Orally Once a day for 30 day(s) Active metFORMIN HCl ER 500 MG Oral for 90 Active Metoprolol Succinate 100 MG 1 capsule Or ally Once a day for 30 day(s) Active Farxiga 5 MG Oral for 30 Activ e Ozempic (1 MG/DOSE) Active Repatha SureClick 140 MG/ML Subcutaneous for 28 Active Aspirin 81 Active Mounjaro 2.5 MG/0.5ML INJECT 1 SYRINGE SUBCUTANEOUSLY ONCE A WEEK Subcutaneous for 28 Active metFORMIN HCl 1000 MG 1 tablet with a me al Orally Once a day for 30 day(s) Active methylPREDNISolone 4 MG as directed Orally Active PROBLEMS Problem Type ICD Code Onset Dates Problem Status W/U Status Risk SNOMED Code Notes Problem Fear of injections and transfusions (F40.231) Active confirmed Fear of medical treatment (962200621) Problem Chronic pain syndrome (G89.4) Active confirmed Chronic naveed n syndrome (937485549) Problem Spondylosis without myelopathy or radiculopathy, lumbar region (M47.816) Active confirmed Lumbosacral spondylosis without myelopathy (96368314) Problem Spondylosis without myelopathy or radiculopathy, lumbosacral region (M47.817) Active confirmed Lumbosacral spondylosis without myelopathy (disorder) (08433215) Problem Other intervertebral disc degeneration, lumbar region (M51.36) Active confirmed Degeneration of lumbar intervertebral disc (96167407) Problem long-term (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 of anticoagulants (Z79.01) Active confirmed Long-term curre nt use of anticoagulant (201444273) Problem Spinal stenosis, lumbar region with neurogenic claudication (M48.062) Active confirmed Neurogenic claudication (432774619) Problem Lumbar radiculopathy (M54.16) Active confirmed Lumbar radiculopathy (370565955) VITAL SIGNS Heart Rate 59 /min 12/06/2024 Respiratory Rate 18 /min 12/06/2024 Oximetry 97 % 07/10/2024 Post Op VItals: BP 148/73, HR 62, RR 18, Spo2 =97% Patient discharged home, ambulatory, and in no acute distress. 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 Z79.01 [facility] [address] [place] [address] [place] [address] 04/17/2024 Tio Stynowick Radiculopathy, lumba r region M54.16 ; Spinal stenosis, lumbar region with neurogenic claudication M48.062 ; Other intervertebral disc degeneration, lumbar region M51.36 and 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 Z79.01 [facility] [address] [place] [address] 04/18/2024 Tio Stynowick [facility] [address] [place] [phone] 05/06/2024 Tio Stynowick Lumbar radiculopathy M54.16 ; Spinal stenosis, lumbar region with neurogenic claudication M48.062 ; Other intervertebral disc degeneration, lumbar region M51.36 ; Chronic pain syndrome G89.4 ; 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 and long-term (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 of anticoagulants Z79.01 [facility] [address] [place] [phone] 06/05/2024 Tio Stynowick Lumbar radiculopathy M54.16 ; Spondylosis without myelopathy or radiculopathy, lumbar region M47.816 ; Spinal stenosis, lumbar region with neurogenic claudication M48.062 ; Other intervertebral disc degeneration, lumbar region M51.36 ; Chronic pain syndrome G89.4 ; 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 ; long-term (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 of anticoagulants Z79.01 ; Other intervertebral disc degeneration, lumbar region with discogenic back pain and lower extremity pain M51.362 and Spondylosis without myelopathy or radiculopathy, lumbosacral region M47.817 [facility] [address] [place] [address] 06/11/2024 Tio Stynowick Spondylosis without myelopathy or radiculopathy, lumbar region M47.816 and Spondylosis without myelopathy or radiculopathy, lumbosacral region M47.817 [facility] [address] [place] [address] 06/12/2024 Tio Stynowick [facility] [address] [place] [phone] 06/25/2024 Tio Stynowick Spondylosis without myelopathy or radiculopathy, lumbar region M47.816 and Spondylosis without myelopathy or radiculopathy, lumbosacral region M47.817 [facility] [address] [place] [phone] 06/28/2024 Tio Stynowick Spondylosis without myelopathy or radiculopathy, lumbar region M47.816 and Spondylosis without myelopathy or radiculopathy, lumbosacral region M47.817 [facility] [address] [place] [phone] 07/09/2024 Tio Stynowick Lumbar radiculopathy M54.16 ; Spondylosis without myelopathy or radiculopathy, lumbar region M47.816 ; Spinal stenosis, lumbar region with neurogenic claudication M48.062 ; Other intervertebral disc degeneration, lumbar region M51.36 ; Chronic pain syndrome G89.4 ; 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 ; 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 Z79.01 ; Other intervertebral disc degeneration, lumbar region with discogenic back pain and lower extremity pain M51.362 and Spondylosis without myelopathy or radiculopathy, lumbosacral region M47.817 [facility] [address] [place] [phone] 07/10/2024 Tio Stynowick Spondylosis without myelopathy or radiculopathy, lumbar region M47.816 and Spondylosis without myelopathy or radiculopathy, lumbosacral region M47.817 [facility] [address] [place] [phone] 07/11/2024 Tio Stynowick [facility] [address] [place] [phone] 08/08/2024 Tio Stynowick Lumbar radiculopathy M54.16 ; Spondylosis without myelopathy or radiculopathy, lumbar region M47.816 ; Spinal stenosis, lumbar region with neurogenic claudication M48.062 ; Other intervertebral disc degeneration, lumbar region M51.36 ; Chronic pain syndrome G89.4 ; 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 ; long-term (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 of anticoagulants Z79.01 ; Other intervertebral disc degeneration, lumbar region with discogenic back pain and lower extremity pain M51.362 and Spondylosis without myelopathy or radiculopathy, lumbosacral region M47.817 [facility] [address] [place] [phone] 09/11/2024 Tio Stynowick Lumbar radiculopathy M54.16 ; Spondylosis without myelopathy or radiculopathy, lumbar region M47.816 ; Spinal stenosis, lumbar region with neurogenic claudication M48.062 ; Other intervertebral disc degeneration, lumbar region M51.36 ; Chronic pain syndrome G89.4 ; 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 ; 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 Z79.01 ; Other intervertebral disc degeneration, lumbar region with discogenic back pain and lower extremity pain M51.362 and Spondylosis without myelopathy or radiculopathy, lumbosacral region M47.817 [facility] [address] [place] [phone] 10/07/2024 Ito Stynowick Lumbar radiculopathy M54.16 ; Spondylosis without myelopathy or radiculopathy, lumbar region M47.816 ; Spinal stenosis, lumbar region with neurogenic claudication M48.062 ; Other intervertebral disc degeneration, lumbar region M51.36 ; Chronic pain syndrome G89.4 ; 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 ; long-term (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 of anticoagulants Z79.01 ; Other intervertebral disc degeneration, lumbar region with discogenic back pain and lower extremity pain M51.362 and Spondylosis without myelopathy or radiculopathy, lumbosacral region M47.817 [facility] [address] [place] [phone] 12/06/2024 Tio Stynowick Lumbar radiculopathy M54.16 ; Spondylosis without myelopathy or radiculopathy, lumbar region M47.816 ; Spinal stenosis, lumbar region with neurogenic claudication M48.062 ; Other intervertebral disc degeneration, lumbar region M51.36 ; Chronic pain syndrome G89.4 ; 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 ; 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 advised to resume PT at [facility] and continue with recommended treatments. 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 04/10/2024 long-term (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 of anticoagulants (ICD-10 - Z79.01) The patient was instructed to discontinue aspirin/warfarin for 6/5 days prior to the procedure. The patient will contact his counseling director and start Lovenox injections during the time [...] to notify his primary care physician and/or drafter heating and ventilating to obtain clearance prior to discontinuing this medication. 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 (ICD-10 - Z79.01) 07/09/2024 long-term (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 of anticoagulants (ICD-10 - Z79.01) 08/08/2024 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 (ICD-10 - Z79.01) 09/11/2024 Fear of injections and transfusions (ICD-10 - F40.231) 06/05/2024 long-term (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 of anticoagulants (ICD-10 - Z79.01) [...] lower extremity pain (ICD-10 - M51.362) 09/11/2024 long-term (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 of anticoagulants (ICD-10 - Z79.01) 12/06/2024 Other intervertebral disc degeneration, lumbar region with discogenic back pain and lower extremity pain (ICD-10 - M51.362) 12/06/2024 Spondylosis without myelopathy or radiculopathy, lumbosacral region (ICD-10 - M47.817) 09/11/2024 Other intervertebral disc degeneration, lumbar region [...] for infection: Implements aseptic technique, protects from cross-contaminatio n, performs skin preparations. Pain/Discomfort: Patient verbalizes acceptable [...] for infection: Implements aseptic technique, protects from cross-contaminatio n, performs skin preparations. Pain/Discomfort: Patient verbalizes acceptable [...] for infection: Implements aseptic technique, protects from cross-contaminatio n, performs skin preparations. Pain/Discomfort: Patient verbalizes acceptable [...] for infection: Implements aseptic technique, protects from cross-contaminatio n, performs skin preparations. Pain/Discomfort: Patient verbalizes acceptable [...] with Patient and Medical Decision Makin minutes 12/06/2024 Other The above-named patient was evaluated [...] OF TREATMENT Next Appt Details Provider Name:Tio Michael Daina lang, 01/14/2025 10:45:00 AM, [address], [place], [address], Insurance Providers Payer Name Payer Address Payer Phone Subscriber Number Group Number Insured Name Patient Relationship to Insured Coverage Start Date Coverage End Date Medicare [place] [address] [address] [place] [address] [id number] SANTI MENENDEZ Self - patient is the insured [facility] [address] [place] [address] [id number] SANTI MENENDEZ Self - patient is the insured MEDICAL (GENERAL) HISTORY Medical History History ICD Code Lung cancer CAD Diabetes Hypertension Blood clot Surgical History Surgery Date(Month/Year) Artery bypass 2015 Partial lung removal 2016
--- OUTSIDE RECORDS SUMMARY | 2025-01-08 15:26 | XMS_ITS | Data Portability ---
Author Organization [facility] Address [address] 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 nilton christensen Not available 06/04/2024 14:36:26 10/07/2024 10/07/2024 documents filled out for diabetic shoes foot care discussed. We need his blood work from his manager integrated for the records we will continue to follow up with endo and primary care provider [email or web address] Not available 11/03/2024 17:27:20 10/10/2024 10/10/2024 due for diabetic eye exam colonoscopy 09/2021 every [address] nilton christensen Not available 10/10/2024 10:42:11 12/03/2024 12/03/2024 due for diabetic eye exam colonoscopy 09/2021 every [address] nilton christensen Not available 12/03/2024 14:56:13 Plan of Treatment Reminders Order Date Submit Date Provider Last Modified By Organization Details Last Modified Time Details Appointments ANY 15 2024 01:30P M ROBBIN Rueda Not available Not available Not available Lab amylase + lipase, serum 2023 024 PO [facility], [address] [address], [place], [address], 06/25/2024 08:26:59 CBC w/ auto diff 2023 024 PO [facility], [address], [place], [address], 12/08/2023 08:26:23 hepatic function panel, serum 2023 024 [facility], [address], [place], [address], 12/08/2023 08:26:21 BMP, serum or plasma 2023 024 [facility], [address], [place], [address], 12/08/2023 08:26:22 TSH + free T4, serum 2023 024 [facility], [address], [place], [address], 12/08/2023 08:26:20 lipid panel, serum 2023 024 [facility], [address], [place], [address], 12/08/2023 08:26:21 HbA1c (hemoglob in A1c), blood 2023 024 [facility], [address], [place], [address], 12/08/2023 08:26:23 microalbu min/creat inine, mass ratio, urine 2023 024 [facility], [address], [place], [address], 12/08/2023 08:26:20 microalbu min, urine 2023 024 [email or web address] [facility], [address], [place], [address], 12/26/2023 13:32:12 PSA, total, serum or plasma - please cancel test if it's not been 12 months since last one 2023 024 [facility], [address], [place], [address], 12/08/2023 08:26:24 Referral None recorded. Procedures nerve conductio n study/EMG , lower extremity (PROC) 2024 [facility] (Cardiology & Emg), [address] [place] [address] [address], [place], [address], 12/03/2024 15:52:10 Surgeries None recorded. Imaging US, duplex, carotid artery [address] (Imaging), [address] [place] [address] [address], [place], [address], 01/01/2025 13:05:07 US, abdomen [address] [facility], [address], [place], [address], 07/09/2024 10:33:48 Medication Orders neomycin- polymyxin -hydrocor t 3.5 mg-10,000 unit/mL-1 % ear drops,zen p 2023 025 [id number], [address] [place], [place], [id number], 10/10/2024 10:26:27 cyclobenz aprine 5 mg tablet 2023 024 [id number], [address] [place], [id number], 10/10/2024 10:25:43 metronida zole 500 mg tablet 2023 025 [id number], [address] [place], [place], [id number], 10/10/2024 10:25:46 Patient TargetsNo targets recorded. Patient Instructions Encounter Date Encounter Id Patient Instructions Last Modified By Organization Details Last Modified Time 06/04/2024 [id number] A healthy lifestyle: care instructions Not available 06/04/2024 14:36:50 10/10/2024 [id number] A healthy lifestyle: care instructions Not available 10/10/2024 10:55:54 12/03/2024 [id number] A healthy lifestyle: care instructions Not available 12/03/2024 15:04:08 Reason for Referral None Reported. Results Created Date Observation Date Name Description Value Unit Range Abnormal Flag Note LastModifiedBy Organization Detail LastModifiedTime 12/07/19 24 12/08/2023 ALBUM IN/CR EAT RATIO , RANDO M UR creatinine, urine 64.3 mg/dL notest ab. Not Available [facility] ([facility]) [address] [place], [address], 12/08/2023 08:26:20 12/07/19 24 12/08/2023 ALBUM IN/CR EAT RATIO , RANDO M UR albumin, urine 11.8 ug/mL notest ab. Not Available [facility] ([facility]) [address] [place], [address], 12/08/2023 08:26:20 12/07/19 24 12/08/2023 ALBUM IN/CR EAT RATIO , RANDO M UR alb/creat ratio 18 mg/g_ creat 0-29 Dena l: 0 - 29 Moder ately incre ased: 30 - 300 Sever sergo incre ased: >300 Not Available [facility] ([facility]) [address] [place], [address], 12/08/2023 08:26:20 12/07/19 24 12/08/2023 TSH+F REE T4 TSH 1.350 uIU/m L 0.450- 4.500 Not Available [facility] ([facility]) [address] [place], [address], 12/08/2023 08:26:20 12/07/19 24 12/08/2023 TSH+F REE T4 T4,free(dire ct) 1.22 NG/dL 0.82-1 .77 Not Available [facility] ([facility]) [address] [place], [address], 12/08/2023 08:26:20 12/07/19 24 12/08/2023 LIPID PANEL cholesterol, total 174 mg/dL 100-19 9 Not Available [facility] ([facility]) [address] [place], [address], 12/08/2023 08:26:21 12/07/19 24 12/08/2023 LIPID PANEL triglyceride s 258 mg/dL 0-149 above high normal Not Available [facility] ([facility]) [address] [place], [address], 12/08/2023 08:26:21 12/07/19 24 12/08/2023 LIPID PANEL HDL cholesterol 52 mg/dL >39 Not Available [facility] [address] [place], [address], 12/08/2023 08:26:21 12/07/19 24 12/08/2023 LIPID PANEL VLDL cholesterol frank 42 mg/dL 5-40 above high normal Not Available [facility] ([facility]) [address] [place], [address], 12/08/2023 08:26:21 12/07/19 24 12/08/2023 LIPID PANEL LDL chol calc ([facility]) 80 mg/dL 0-99 Not Available [facility] [address] [place], [address], 12/08/2023 08:26:21 12/07/19 24 12/08/2023 HEPAT IC FUNCT ION PANEL (7) protein, total 6.8 g/dL 6.0-8. 5 Not Available [facility] ([facility]) [address] [place], [address], 12/08/2023 08:26:21 12/07/19 24 12/08/2023 HEPAT IC FUNCT ION PANEL (7) albumin 4.5 g/dL 3.9-4. 9 Not Available [facility] ([facility]) [address] [place], [address], 12/08/2023 08:26:21 12/07/19 24 12/08/2023 HEPAT IC FUNCT ION PANEL (7) bilirubin, total 0.3 mg/dL 0.0-1. 2 Not Available [facility] ([facility]) [address] [place], [address], 12/08/2023 08:26:21 12/07/19 24 12/08/2023 HEPAT IC FUNCT ION PANEL (7) bilirubin, direct <0.10 mg/dL 0.00-0 .40 Not Available [facility] ([facility]) [address] [place], [address], 12/08/2023 08:26:21 12/07/19 24 12/08/2023 HEPAT IC FUNCT ION PANEL (7) alkaline phosphatase 38 IU/L 44-121 below low normal Not Available [facility] ([facility]) [address] [place], [address], 12/08/2023 08:26:21 12/07/19 24 12/08/2023 HEPAT IC FUNCT ION PANEL (7) AST (SGOT) 30 IU/L 0-40 Not Available [facility] ([facility]) [address] [place], [address], 12/08/2023 08:26:21 12/07/19 24 12/08/2023 HEPAT IC FUNCT ION PANEL (7) ALT (SGPT) 55 IU/L 0-44 above high normal Not Available [facility] ([facility]) [address] [place], [address], 12/08/2023 08:26:21 12/07/19 24 12/08/2023 BMP7+ EGFR glucose 195 mg/dL 70-99 above high normal Not Available [facility] ([facility]) [address] [place], [address], 12/08/2023 08:26:22 12/07/19 24 12/08/2023 BMP7+ EGFR BUN 21 mg/dL 8-27 Not Available [facility] ([facility]) [address] [place], [address], 12/08/2023 08:26:22 12/07/19 24 12/08/2023 BMP7+ EGFR creatinine 1.16 mg/dL 0.76-1 .27 Not Available [facility] ([facility]) [address] [place], [address], 12/08/2023 08:26:22 12/07/19 24 12/08/2023 BMP7+ EGFR eGFR 69 mL/mi n/1.7 3 >59 Not Available [facility] ([facility]) [address] [place], [address], 12/08/2023 08:26:22 12/07/19 24 12/08/2023 BMP7+ EGFR sodium 141 mmol/ L 134-14 4 Not Available [facility] ([facility]) [address] [place], [address], 12/08/2023 08:26:22 12/07/19 24 12/08/2023 BMP7+ EGFR potassium 4.9 mmol/ L 3.5-5. 2 Not Available [facility] ([facility]) [address] [place], [address], 12/08/2023 08:26:22 12/07/19 24 12/08/2023 BMP7+ EGFR chloride 101 mmol/ L 96-106 Not Available [facility] ([facility]) [address] [facility], [place], [address], 12/08/2023 08:26:22 12/07/19 24 12/08/2023 BMP7+ EGFR carbon dioxide, total 22 mmol/ L 20-29 Not Available [facility] ([facility]) [address] [facility], [place], [address], 12/08/2023 08:26:22 12/07/19 24 12/08/2023 HEMOG LOBIN A1C hemoglobin A1C 8.5 % 4.8-5. 6 above high normal Predi abete s: 5.7 - 6.4 Diabe davion: >6.4 Glyce fidencio contr ol for adult s with diabe davion: <7.0 Not Available [facility] ([facility]) [address] [facility], [place], [address], 12/08/2023 08:26:23 12/07/19 24 12/08/2023 CBC WITH DIFFE RENTI AL/PL ATELE T WBC 9.3 x10e3 /uL 3.4-10 .8 Not Available [facility] ([facility]) [address] [facility], [place], [address], 12/08/2023 08:26:23 12/07/19 24 12/08/2023 CBC WITH DIFFE RENTI AL/PL ATELE T RBC 4.88 x10e6 /uL 4.14-5 .80 Not Available [facility] ([facility]) [address] [facility], [place], [address], 12/08/2023 08:26:23 12/07/19 24 12/08/2023 CBC WITH DIFFE RENTI AL/PL ATELE T hemoglobin 14.7 g/dL 13.0-1 7.7 Not Available [facility] ([facility]) [address] [facility], [place], [address], 12/08/2023 08:26:23 12/07/19 24 12/08/2023 CBC WITH DIFFE RENTI AL/PL ATELE T hematocrit 45.2 % 37.5-5 1.0 Not Available [facility] ([facility]) [address] [facility], [place], [address], 12/08/2023 08:26:23 12/07/19 24 12/08/2023 CBC WITH DIFFE RENTI AL/PL ATELE T MCV 93 fL 79-97 Not Available [facility] ([facility]) [address] [facility], [place], [address], 12/08/2023 08:26:23 12/07/19 24 12/08/2023 CBC WITH DIFFE RENTI AL/PL ATELE T MCH 30.1 pg 26.6-3 3.0 Not Available [facility] ([facility]) [address] [facility], [place], [address], 12/08/2023 08:26:23 12/07/19 24 12/08/2023 CBC WITH DIFFE RENTI AL/PL ATELE T MCHC 32.5 g/dL 31.5-3 5.7 Not Available [facility] ([facility]) [address] [facility], [place], [address], 12/08/2023 08:26:23 12/07/19 24 12/08/2023 CBC WITH DIFFE RENTI AL/PL ATELE T RDW 12.7 % 11.6-1 5.4 Not Available [facility] ([facility]) [address] [place], [address], 12/08/2023 08:26:23 12/07/19 24 12/08/2023 CBC WITH DIFFE RENTI AL/PL ATELE T platelets 161 x10e3 /uL 150-45 0 Not Available [facility] ([facility]) [address] [place], [address], 12/08/2023 08:26:23 12/07/19 24 12/08/2023 CBC WITH DIFFE RENTI AL/PL ATELE T neutrophils 60 % notest ab. Not Available [facility] ([facility]) [address] [facility], [place], [address], 12/08/2023 08:26:23 12/07/19 24 12/08/2023 CBC WITH DIFFE RENTI AL/PL ATELE T lymphs 31 % notest ab. Not Available [facility] ([facility]) [address] [facility], [place], [address], 12/08/2023 08:26:23 12/07/19 24 12/08/2023 CBC WITH DIFFE RENTI AL/PL ATELE T monocytes 7 % notest ab. Not Available [facility] ([facility]) [address] [facility], [place], [address], 12/08/2023 08:26:23 12/07/19 24 12/08/2023 CBC WITH DIFFE RENTI AL/PL ATELE T eos 1 % notest ab. Not Available [facility] ([facility]) [address] [facility], [place], [address], 12/08/2023 08:26:23 12/07/19 24 12/08/2023 CBC WITH DIFFE RENTI AL/PL ATELE T basos 1 % notest ab. Not Available [facility] ([facility]) [address] [facility], [place], [address], 12/08/2023 08:26:23 12/07/19 24 12/08/2023 CBC WITH DIFFE RENTI AL/PL ATELE T neutrophils (absolute) 5.6 x10e3 /uL 1.4-7. 0 Not Available [facility] ([facility]) [address] [facility], [place], [address], 12/08/2023 08:26:23 12/07/19 24 12/08/2023 CBC WITH DIFFE RENTI AL/PL ATELE T lymphs (absolute) 2.9 x10e3 /uL 0.7-3. 1 Not Available [facility] ([facility]) [address] [facility], [place], [address], 12/08/2023 08:26:23 12/07/19 24 12/08/2023 CBC WITH DIFFE RENTI AL/PL ATELE T monocytes(ab solute) 0.7 x10e3 /uL 0.1-0. 9 Not Available [facility] ([facility]) [address] [facility], [place], [address], 12/08/2023 08:26:23 12/07/19 24 12/08/2023 CBC WITH DIFFE RENTI AL/PL ATELE T eos (absolute) 0.1 x10e3 /uL 0.0-0. 4 Not Available [facility] ([facility]) [address] [facility], [place], [address], 12/08/2023 08:26:23 12/07/19 24 12/08/2023 CBC WITH DIFFE RENTI AL/PL ATELE T baso (absolute) 0.1 x10e3 /uL 0.0-0. 2 Not Available [facility] ([facility]) [address] [facility], [place], [address], 12/08/2023 08:26:23 12/07/19 24 12/08/2023 CBC WITH DIFFE RENTI AL/PL ATELE T immature granulocytes 0 % notest ab. Not Available [facility] ([facility]) [address] [facility], [place], [address], 12/08/2023 08:26:23 12/07/19 24 12/08/2023 CBC WITH DIFFE RENTI AL/PL ATELE T immature grans (abs) 0.0 x10e3 /uL 0.0-0. 1 Not Available [facility] ([facility]) [address] [facility], [place], [address], 12/08/2023 08:26:23 12/07/19 24 12/08/2023 PROST ATE-S PECIF IC AG prostate specific Ag 1.9 NG/mL 0.0-4. 0 Earlene ECLIA metho dolog y. Accor johana to the Ameri can [employer] [...] kits canno t be used inter layne eably . Resul ts canno t be inter prete d as absol janell evide nce of the prese nce or absen ce of get eller se. Not Available [facility] ([facility]) [address] [place], [address], 12/08/2023 08:26:24 06/24/20 24 06/25/2024 CIRO+L IPASE amylase 125 U/L 31-110 above high normal Not Available [facility] ([facility]) [address] [place], [address], 06/25/2024 08:26:59 06/24/20 24 06/25/2024 CIRO+L IPASE lipase 245 U/L 13-78 above high normal Not Available [facility] ([facility]) [address] [place], [address], 06/25/2024 08:26:59 03/28/20 24 03/28/2024 XR, hand No observ ation record ed. [email or web address] [facility] [address] [place], [address], 03/29/2024 13:27:15 04/01/20 24 04/01/2024 US, bladd er No observ ation record ed. [email or web address] [facility] [address] [facility] [address], [place], [address], 04/01/2024 18:34:55 04/01/20 24 04/01/2024 XR, abdom en No observ ation record ed. [address] [facility] [address], [place], [address], 04/01/2024 18:35:22 04/03/20 24 04/03/2024 MRI, lumba r spine , w/o contr ast No observ ation record ed. [facility] [address] [place], [address], 04/04/2024 12:48:54 07/09/20 24 06/26/2024 US, abdom en, limit ed No observ ation record ed. [facility] [address], [place], [address], 07/09/2024 14:31:23 09/17/19 25 09/17/2024 CT, abdom en + pelvi s, w/wo contr ast No observ ation record ed. [address] [facility] [address], [place], [address], 09/17/2024 14:09:11 12/04/19 25 11/26/2024 nerve condu ction study /EMG, lower extre mity (PROC ) No observ ation record ed. [facility] ([facility]) [address] [facility] [address], [place], [address], 12/09/2024 10:15:43 Result Notes None recorded. Problems Name Problem SNOMED Code Status Onset Date Resolution Date Notes Provider Name and Address Organization Details Recorded Time Long-term drug therapy Active 2023 ROBBIN Rueda Attn: Alvino diaz,[address] [facility], [place], [address], [place] [facility] 14:12:01 Low back pain 838396616 Active 2023 ROBBIN Rueda Attn: Accountin g,[address] [facility], [place], [address], [place] [facility] 4 14:12:02 Benign essential hypertension 1682638 Active 2023 ROBBIN Rueda Attn: Accountin g,[address] [facility], [place], [address], [place] [facility] 4 14:12:04 Hyperlipidemia 93569433 Active 2023 ROBBIN Reuda Attn: Accountin g,[address] [facility], [place], [address], [place] [facility] 4 14:12:05 Coronary atherosclerosi s 438350286 Active 2023 ROBBIN Rueda Attn: Accountin g,[address] [facility], [place], [address], [place] [facility] 4 14:12:07 Uncontrolled type 2 diabetes mellitus 341166293 Active 2023 ROBBIN Rueda Attn: Accountin g,[address] [facility], [place], [address], [place] [facility] 4 14:12:34 Body mass index 30+ - obesity 862484040 Active 2023 ROBBIN Rueda Attn: Accountin g,[address] [facility], [place], [address], [place] [facility] 4 14:13:01 Obesity 804233437 Active 2023 ROBBIN Rueda Attn: Accountin g,[address] [facility], [place], [address], [place] [facility] 4 14:13:02 Obstructive sleep apnea syndrome 12409101 Active 2023 ROBBIN Rueda Attn: Accountin g,[address] [facility], [place], [address], [place] [facility] 5 14:58:55 Family history of malignant neoplasm of pancreas 397715637 Active 2023 ROBBIN Rueda Attn: Alvino diaz,[address] [place], [place], [address] [place] [address] 2, [facility] 4 22:14:18 Aneurysm of infrarenal abdominal aorta 101352970 Active 2024 ROBBIN Rueda Attn: Alvino diaz,[address] [place], [place], [address] [place] [address] 2, [facility] 5 10:55:39 Numbness of foot 924511586 Active 2024 ROBBIN Rueda Attn: Alvino diaz,[address] [place], [place], [address] [place] [address] 2, [facility] 5 10:55:41 Carotid bruit 215806854 Active 2024 ROBBIN Rueda Attn: Alvino diaz,[address] [place], [address] [place] [address] 2, [facility] 5 23:22:41 Mixed hyperlipidemia 215759652 Active 2024 ROBBIN Rueda Attn: Alvino diaz,[address] [place], [address], [facility] 5 23:23:05 Problem Notes None recorded. Procedures Surgical History Date Name Laterality Status Provider Name and Address Organization Details Recorded Time Vasectomy completed Margarita Lei MA [facility] 12/05/2023 14:22:52 Imaging Results None recorded. Procedure Notes None [...] day by oral route for 90 days. 12/03 completed Not Available Not Available Not Available losartan 25 mg tablet TAKE 1 TABLET BY MOUTH EVERY DAY active Not Available Not Available No t Available enoxapari n 150 mg/mL subcutane ous syringe [...] Not Available Not Available No t Available epinephri ne 0.3 mg/0.3 mL injection , auto-inje ctor INJECT INTO THE MUSCLE OR UNDER THE SKIN TO LATERAL THIGH THROUGH CLOTHING IF NECESSAR Y NEEDED FOR ANAPHYLA CTIC REACTION active Not Available Not Available No t [...] completed Not Available Not Available Not Available eplerenon e 25 mg tablet TAKE 2 TABLETS BY MOUTH DAILY active Not Available Not Available No t Available ezetimibe 10 mg tablet One tab p.o. daily 2024 active Not Available Not Available Not Avai lable cyclobenz aprine 5 mg tablet Take 1 tablet as needed by oral route for 20 days. active Not Available Not Available No t Available fenofibra te 160 mg tablet TAKE 1 TABLET BY MOUTH EVERY DAY 2024 active Not Available Not Available Not Avai lable Easy Touch Insulin Syringe 1 mL 31 gauge x 5/16 USE TO INJECT 8 TIMES PER WEEK active Not Available Not Available No t Available metformin ER 1,000 mg 24 hr tablet,ex tended release (gastric reten.) Take 1 tablet every day by oral route. 10/07 completed pt is taking the 500mg 2 Tablets BID Not Available Not Available Not Available dapaglifl ozin propanedi ol 5 mg tablet Take 1 tablet by oral route for 30 days. active generic Farxiga Not Available Not Available Not Available Trulicity [...] Not Available Not Available Not Available Mounjaro 5 mg/0.5 mL subcutane ous pen injector INJECT 5MG SUBCUTAN EOUSLY ONCE A WEEK active Not Available Not Available No t Available Mounjaro 2.5 mg/0.5 mL subcutane ous pen injector Inject every week by sub-q route for 28 days. 12/03 completed Not Available Not Available Not Available Vitals Date Recorded Body height Body mass index (BMI) Body weight Heart rate Oxygen saturation Oxygen saturation in Arterial blood by Pulse oximetry Systolic blood pressure Diastolic blood pressure Provider Name and Address Organization Details Last Updated DateTime 5 168.28 cm 39.9 kg/m2 329406. 5 g 60 /min 96 % 96 % 124 mm[Hg] 70 mm[Hg] Sultana Shay MA [facility] 5 10:05:11 Date Recorded Systolic blood pressure Diastolic blood pressure Provider Name and Address Organization Details Last Updated DateTime 10/10/2024 130 mm[Hg] 70 mm[Hg] ROBBIN Rueda Attn: Accounting,[address] [place], [address], [facility] 10/10/2024 10:59:30 Date Recorded Body height Body mass index (BMI) Body weight Respiratory rate Oxygen saturation Oxygen saturation in Arterial blood by Pulse oximetry Heart rate Systolic blood pressure Diastolic blood pressure Provider Name and Address Organization Details Last Updated DateTime 5 168.28 cm 39.6 kg/m2 585256. 32 g 20 /min 97 % 97 % 58 /min 130 mm[Hg] 78 mm[Hg] Pierce Ruelas MA [facility] 5 10:28:44 Date Recorded Body height Oxygen saturation Oxygen saturation in Arterial blood by Pulse oximetry Heart rate Respiratory rate Body mass index (BMI) Body weight Systolic blood pressure Diastolic blood pressure Provider Name and Address Organization Details Last Updated DateTime 5 168.28 cm 96 % 96 % 71 /min 20 /min 37.6 kg/m2 444070. 21 g 122 mm[Hg] 68 mm[Hg] Pierce Ruelas MA [facility] 5 14:29:10 Date Recorded Systolic blood pressure Diastolic blood pressure Provider Name and Address Organization Details Last Updated DateTime 12/05/2023 130 mm[Hg] 70 mm[Hg] ROBBIN Rueda Attn: Accounting,[address] [place], [address] 12/05/2023 14:52:07 Date Recorded Body height Respiratory rate Body mass index (BMI) Body weight Oxygen saturation Oxygen saturation in Arterial blood by Pulse oximetry Heart rate Systolic blood pressure Diastolic blood pressure Provider Name and Address Organization Details Last Updated DateTime 4 168.28 cm 20 /min 38.8 kg/m2 057932. 64 g 96 % 96 % 73 /min 140 mm[Hg] 82 mm[Hg] Pierce Ruelas MA [facility] 14:36:55 Date Recorded Systolic blood pressure Diastolic blood pressure Provider Name and Address Organization Details Last Updated DateTime 06/04/2024 144 mm[Hg] 80 mm[Hg] ROBBIN Rueda Attn: Accounting,[address] [place], [address] 06/04/2024 14:44:48 Date Recorded Body height Body mass index (BMI) Body weight Oxygen saturation Oxygen saturation in Arterial blood by Pulse oximetry Heart rate Respiratory rate Systolic blood pressure Diastolic blood pressure Provider Name and Address Organization Details Last Updated DateTime 4 168.28 cm 39.4 kg/m2 921120. 72 g 96 % 96 % 68 /min 20 /min 136 mm[Hg] 82 mm[Hg] Pierce Ruelas MA [facility] 14:09:30 Social History Question Answer Notes LastModified by Organizat ion Details LastModified Time Tobacco Smoking Status Former Smoker Margarita Lei MA null, [facility] 12/05/2023 14:23:28 Are You Blind Or Do You Have [...] Date Of Your Most Recent Tobacco Screening? 12/03/2024 Information not available 12/03/2024 What Is Your Current Pack Years? [email or web address] [...] What Date Was Tobacco Cessation Counseling Provided? 12/03/2024 Information not available 12/03/2024 Sex: Male Functional Status Question Answer Note LastModified by Organizat ion Details LastModified Time Do you use any illicit or recreational drugs? No Information not available 12/05/2023 Do you or have you ever used any other forms of tobacco or nicotine? No Information not available 12/05/2023 What is your level of alcohol consumption? Occasional Information not available 12/05/2023 Are you able to care for yourself? Yes Information n ot available 12/05/2023 What is your exercise level? [...] Pressure Y COPD Y Blood Clots Y Diabetes Y Cancer Y Allergies Y High Cholesterol Y Immunizations Vaccine Type Date Status Note [...] 30 mcg/0.3 mL dose, valentina-sucrose 2 completed Pierce Ruelas [place] null, [place] [facility] 06/03/2024 16:26:02 COVID-19, mRNA, LNP-S, bivalent, PF, 30 mcg/0.3 mL dose 2 completed Pierce Ruel[place] [facility] 06/03/2024 16:26:02 COVID-19, mRNA, LNP-S, bivalent, PF, 30 mcg/0.3 mL dose 2 completed Pierce Ruel[place] [facility] 06/03/2024 16:26:02 RSV, bivalent, protein subunit RSVpreF, diluent reconstituted, 0.5 mL, PF 3 completed [place], [place] [facility] 06/03/2024 16:26:02 COVID-19, mRNA, LNP-S, PF, valentina-sucrose, 30 mcg/0.3 mL 3 [place] [facility] 06/03/2024 16:26:02 Td (adult), 2 Lf tetanus toxoid, preservative free, adsorbed 8 completed [place], [place] [facility] 06/03/2024 16:26:02 MMR 5 completed ROBBIN Rueda Attn: Accounting,[address] [place], [address], [place] [facility] 10/10/2024 10:51:31 COVID-19, mRNA, LNP-S, PF, valentina-sucrose, 30 mcg/0.3 mL 4 completed ROBBIN Rueda Attn: Accounting,[address] [place], [address], [place] [facility] 10/10/2024 10:51:31 Influenza, high-dose, trivalent, PF 4 completed ROBBIN Rueda Attn: Accounting[address] [place], [address], [place] [facility] 06/08/2024 12:33:17 Past Encounters Encounter ID Performer Location Encounter Start Date Encounter Closed Date Diagnosis/Indication Diagnosis SNOMED-CT Code Diagnosis ICD10 Code Diagnosis Note [id number] Eddie Tran MD [facility] [place] [address] [place] [address] 12/05/2023 13:54:31 12/05/2023 15:14:18 Well controlled type 2 diabetes mellitus 486843767 E11.9 Running a little higher on sugars lately. is due for labs . seeing Endocrine, Dr. Brasher this summer. Coronary atherosclerosis 110232097 I25.[address] Salinas. stable. asymptomat ic. Hyperlipidemia 77649344 E78.5 stable on fibrate therapy. Benign ess ential hypertension 9114292 I10 stable on medication s. Long-term drug therapy 277565698 Z79.899 routine labs are all due Screening for malignant neoplasm of prostate 894800429 Z12.5 PSA may be due.....he will ask lab Low back pain 091653786 M54.50 refill on flexeril 5mg PRN tid. Diarrhea 91296975 R19.7 ? infectious cause, has been around long term a few times. start flagyl 500mg j2pvvam x 7 days. call if no improvemen ts after finished. [id number] Eddie Tran MD [facility] [employer] [address] [place] [address] 06/04/2024 13:56:39 06/04/2024 15:04:06 Coronary atherosclerosis 962232875 I25.[address] Salinas. stable. asymptomat ic. Hyperlipidemia 90506430 E78.5 stable on fibrate therapy. trigs 364 ldl: 133 hdl 49 total 234 Benign ess ential hypertension 6088803 I10 stable on medication s. Low back pain 437607918 M54.50 on flexeril 5mg PRN tid. Long-term drug therapy 380963478 Z79.899 routine labs are all due Uncontroll ed type 2 diabetes mellitus 273837647 E11.65 A1c in December of this summer was 8.5% with a fasting glucose of 195; recent labs with Endocrinol ogy show A1c 8.2% apr 25 microalbum in utd. Addendum made to the chart patient is [...] today. Body mass index 30+ - obesity 191052233 Z68.39 BMI is 39.4 Obesity 418017602 E66.9 discussed healthy diet, exercise, controllin g carbohydra davion and added sugars in the diet Administra tion of influenza vaccine 39982459 Z23 flu shot given today Otalgia of left ear 1010 685857 H92.02 left ear canal sore when he places hearing aid in. will tx with gtts neomy/poly /hc Obstructiv e sleep apnea syndrome 45756399 G47.33 oral appliance for tx. consult for [facility] soon. Family his tory of malignant neoplasm of pancreas 278207419 Z80.0 Patient reports his brother was diagnosed with advanced pancreatic cancer and he would like to have some screening testing completed. Ultrasound of the abdomen and amylase and lipase labs ordered [id number] Eddie Tran MD [facility] [employer] [address] [place] [address] 10/07/2024 09:54:55 10/07/2024 10:31:37 Type 2 diabetes mellitus 52475223 E11.9 [id number] Eddie Tran MD [facility] [employer] [address] [place] [address] 10/10/2024 10:21:43 10/10/2024 11:05:44 Uncontrolled type 2 diabetes mellitus 844211499 E11.[address] Ebenezer woodard for diabetes management Coronary atherosclerosis 727286857 I25.[address] Salinas. stable. asymptomat ic. Benign ess ential hypertension 2959078 I10 stable on medication s. Long-term drug therapy 601730989 Z79.899 Labs are up-to-date with Dr. Ebenezer woodard Body mass index 30+ - obesity 054573447 Z68.39 BMI is 39.6 Obesity 044293442 E66.9 discussed healthy diet, exercise, controllin g carbohydra davion and added sugars in the diet Numbness of foot 4849356 00 R20.0 Refer for nerve conduction study of the lower extremitie s bilaterall y Aneurysm o f infrarenal abdominal aorta 333267903 I71.43 3.1 cm infrarenal abdominal aortic aneurysm, will monitor this in follow-up [id number] Eddie Tran MD [facility] [place] [address] [place] [address] 12/03/2024 14:00:05 12/03/2024 15:17:59 Body mass index 30+ - obesity 662695819 Z68.39 BMI is 39.6 Numbness of foot 7158210 00 R20.0 Patient has numbness of the foot and his nerve conduction study has not been sent to the office yet for review. Questionab le neuropathy source at this time diabetes versus lumbar etiology Aneurysm o f infrarenal abdominal aorta 099308202 I71.43 3.1 cm infrarenal abdominal aortic aneurysm, will monitor this in follow-up Uncontroll ed type 2 diabetes mellitus 765332966 E11.[address] Ebenezer woodard for diabetes management . He is currently taking Mounjaro 5 mg weekly as well as metformin ER 500 mg 2 tablets twice daily and Farxiga 5 mg daily. August labs show an A1c of 7.8% but he is showing positive improvemen ts Coronary atherosclerosis 726418592 I25.[address] Salinas. stable. asymptomat ic. Benign ess ential hypertension 6355894 I10 stable on medication s. Amlodipine 10 mg daily as well as losartan 25 mg daily. Long-term drug therapy 173956286 Z79.899 Labs are up-to-date with Dr. Ebenezer woodard Obesity 414415306 E66.9 discussed healthy diet, exercise, controllin g carbohydra davion and added sugars in the diet Obstructiv e sleep apnea syndrome 19136860 G47.33 oral appliance for tx. Carotid bruit 016370273 R09.89 Refer for ultrasound duplex of the carotid arteries bilaterall y Mixed hyperlipidemia 267 097314 E78.2 Patient is currently on Repatha injection as well as Zetia 10 mg daily and fenofibrat e 160 mg daily Health Concerns Section Related Observation LastModified by Organization Detai ls LastModified Time None Recorded Concern Status LastModified by Organization Details LastModified Time None Recorded Advance Directives Directive None Recorded Payers Encounter Date Sequence Insurance Name Policy Number Policy Perkins Covered Member ID Perkins Member ID Guarantor Name 12/05/2023 1 [place] Brayan Holt [id number] Brayan Jonathon 12/05/2023 2 [employer] (MEDICARE SUPPLEMENT) Brayan Holt [id number] Brayan Jonathon 06/04/2024 2 [employer] (MEDICARE SUPPLEMENT) Brayan Jonathon [id number] Brayan Jonathon 06/04/2024 [place] RHC - FQHC Brayan Douglaston [id number] Brayan Jonathon 10/07/2024 1 [place] Brayan Holt [id number] Brayan Jonathon 10/07/2024 2 [employer] (MEDICARE SUPPLEMENT) Brayan Jonathon [id number] Brayan Jonathon 10/10/2024 1 [place] Brayan Holt [id number] Brayan Jonathon 10/10/2024 2 [employer] (MEDICARE SUPPLEMENT) Brayan Jonathon [id number] Brayan Jonathon 12/03/2024 1 [place] Brayan Holt [id number] Brayan Jonathon 12/03/2024 2 [employer] (MEDICARE SUPPLEMENT) Brayan Douglaston [id number] Brayan Jonathon Notes Date Note Type Note Provider Name [...] it PRN ROBBIN Rueda Attn: Accounting, [address] [facility], [place], [address], [facility] 12/05/2023 16:31:02 06/04/20 24 text/htm l Coronary [...] 100mg daily. ROBBIN Rueda Attn: Accounting, [address] [facility], [place], [address], [facility] 06/08/2024 12:33:22 10/08/19 25 text/htm l needs foot exam occasionally has some numbness in feet Eddie Tran MD Attn: Accounting, [address] [facility], [place], [address], [facility] 11/03/2024 17:28:05 10/11/19 25 text/htm l Coronary [...] for neuropathy ROBBIN Rueda Attn: Accounting, [address] , [place], [address], [facility] 10/25/2024 10:28:22 12/04/19 25 text/htm l Coronary Artery Disease F/UReported bypatient.Notes:stable. asymptomatic. seeing cardiology routinely.DiabetesReported bypatient.Notes:Patient is back to seeing Dr. Ebenezer Brasher from endocrinology and is on Ozempic and Farxiga 5 mg and metformin therapy.HyperlipidemiaReported bypatient.Notes:pt is taking fibrate therapy. reports he doesn't think he's on statin therapy and nothing came over from pharmacy. He is also on Zetia 10 mg dailyHypertensionReported bypatient.Notes:stable on medications. losartan 25mg daily , amlodipine 10mg and metoprolol ER 100mg daily. Patient was found to incidentally have an aneurysm of the infrarenal abdominal aorta Patient has numbness in his feet bilaterally which has been suggested that he be evaluated for neuropathy ROBBIN Rueda Attn: Accounting, [address] , [place], [address], [facility] 12/15/2024 23:24:03
--- OUTSIDE RECORDS SUMMARY | 2025-01-08 15:26 | XMS_ITS | Encounter Summary ---
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
--- OUTSIDE RECORDS SUMMARY | 2025-01-08 15:26 | XMS_ITS | Encounter Summary ---
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
--- OUTSIDE RECORDS SUMMARY | 2025-01-08 15:26 | XMS_ITS | Encounter Summary ---
Author Organization 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
--- OUTSIDE RECORDS SUMMARY | 2025-01-08 15:26 | XMS_ITS | Encounter Summary ---
Author Organization 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
--- OUTSIDE RECORDS SUMMARY | 2025-01-08 15:26 | XMS_ITS | Encounter Summary ---
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
--- OUTSIDE RECORDS SUMMARY | 2025-01-08 15:27 | XMS_ITS | Encounter Summary ---
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
--- OUTSIDE RECORDS SUMMARY | 2025-01-08 15:27 | XMS_ITS | Encounter Summary ---
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
--- OUTSIDE RECORDS SUMMARY | 2025-01-08 15:27 | XMS_ITS | Encounter Summary ---
Author Organization 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 Gender Identity Male 04/20/2021 11:20 AM CDT Sexual Orientation Straight 12/04/2018 5: 46 PM CDT documented as of this encounter Progress Notes * Jesika Gary RN - 09/17/2024 11:59 PM CST Received [...] on filedocumented in this encounter Care Teams Survey Workers Supervisor Relationship Specialty Start Date End Date Sri Camargo PA PCP - General Physician Inside Sales Recruiter 04/19/18 Herbert Forrest MD [address] [place] [address] Referring Physician Pulmonary Disease 10/16/18 Cynthia Grande, RN Registered Nurse 03/19/19 Eduarda Ford MD Consulting Physician Urology 04/10/20 documented as of this encounter
--- OUTSIDE RECORDS SUMMARY | 2025-01-08 15:27 | XMS_ITS | Encounter Summary ---
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
--- OUTSIDE RECORDS SUMMARY | 2025-01-08 15:27 | XMS_ITS | Encounter Summary ---
Author Organization [facility] Address [address] [place] [address] Phone Care Team Providers Care Supervisor Billposting Name Role Phone CarlineadriánSir Primary Care Pr ovider Herbert Forrest MD Unavailable [phone] Cynthia Grande RN Unavailable Unavailable Eduarda Ford MD Unavailable [phone] Encounter Details Date Type Department Care [...] on file Legal Sex Male 3:10 AM JOB SERVICE CONSULTANT Gender Identity Male 04/20/2021 11:20 AM [...] filedocumented in this encounter Care Teams Supervisor Billposting Relationship Specialty Start Date End Date CarlineSri sampson ROBBIN Rodríguez PCP - General Physician Lacing Operator 04/19/18 Herbert Forrest MD [address] [place] [address] Referring Physician Pulmonary Disease 10/16/18 Cynthia Grande, RN Registered Nurse 03/19/19 Eduarda Ford MD Consulting Physician Urology 04/10/20 documented as of this encounter
== END 2025-01-08 15:21 | disposition home or self-care (01) ==
PROVIDERS: PCP Physician Assistant; Visit Provider Physician Assistant
DX: I65.23 Occlusion and stenosis of bilateral carotid arteries (principal); R09.89 Other specified symptoms and signs involving the circulatory and respiratory systems
CPT/HCPCS: 93880

== ENCOUNTER 2025-03-10 09:39 | Outpatient (CLI) | payer MEDICARE, OTHER, SELFPAY ==
--- NOTE | ~2025-03-10 | CT_ITS ---
EXAMINATION: CT thoracic spine wo con DATE: 03/10/2025 10:00 INDICATION: Thoracic radiculopathy TECHNIQUE: Computed tomography (CT) of the thoracic spine was performed without intravenous contrast. Automated exposure control and iterative reconstruction technique were employed. The dose-length pro duct was 1043.86 mGy-cm. COMPARISON: CT studies dated 07/25/2019 and 09/17/2024 FINDINGS: Alignment is normal. Stable appearance of chronic mild likely physiologic anterior wedging at T11 and T12. Additional chronic appearing appearing mild anterior wedging at T6. Remaining thoracic vertebra l body heights are normal. There are a few chronic Schmorl's nodes in the lower thoracic spine. There is moderate disc height loss at C6-C7 and T4-T5 through T6-T7. Mild disc height loss at the remainin g thoracic levels as well as at T12-L1. No definitive extension of disc beyond the endplate margins a lthough sensitivity is significantly lower than with MRI. Bilateral multilevel thoracic facet osteoar thritis, severe at multiple the upper thoracic spine, moderate to severe in the midthoracic spine and mild to moderate in the lower thoracic spine. Associated ossification along portions of the ligament um flavum contributes to minimal to mild central canal stenosis at T3-T4, T5-T6, T8-T9 through T11-T1 2. There is corresponding bilateral multilevel minimal to mild thoracic neural foraminal stenosis aga in most prominent in the upper thoracic spine thickening progressively less severe in the more caudal thoracic spine. Postoperative change of likely prior right upper lobectomy with suture line extendin g cephalad from the right hilum. Calcified pleural seen in the visualized posterior lungs on both the left and right which suggests sequela of chronic asbestos exposure. Paravertebral soft tissues are o therwise unremarkable. IMPRESSION: 1. Moderate thoracic spondylosis. Reviewed, dictated and finalized at location A.
== END 2025-03-10 09:40 | disposition home or self-care (01) ==
LOC: MICIMG 09:41
PROVIDERS: PCP Physician Assistant; Visit Provider Anesthesiology
DX: M47.814 Spondylosis without myelopathy or radiculopathy, thoracic region (principal)
CPT/HCPCS: 72128